=== PATIENT | male | born 1980 | race Caucasian/White ===

== ENCOUNTER 2017-02-16 23:56 | Inpatient (IN) | payer OTHER ==
[~2017-02-16] VITALS: Ht 180.3 cm; Wt 68.0 kg
[2017-02-17] VITALS (19 sets, daily range): BP systolic 81–151; BP diastolic 17–121; PULSE 114–172; RESP 22–34; O2SAT 97–99
--- NOTE | 2017-02-17 00:06 | ED.REPORT ---
HPI-Abd Pain M Under 40 Date of Service Feb 17, 2017 ED Provider: Dr. Juarez Martínez MD A 36 year old male presents to the ED via [facility] from the [facility] with diffuse, cramping abdominal pain that initially began 12 days ago. Associated symptoms include constipation, nausea, intractable vomiting, SOB, and diaphoresis. His pain has become progressively worse since onset. Last BM is unknown. Patient denies any similar symptoms previously. He denies experiencing any withdrawal symptoms has been incarcerated for the past 2 weeks. The patient denies any recent fever, chills, hematochezia or hematemesis. Nursing Notes Stated Complaint: VOMITING Chief Complaint: Male Abdominal Pain Nursing Notes Reviewed: Yes Allergies: Coded Allergies: No Known Allergies (Unverified , 08/19/15) General Time Seen by MD: 00:06 Chief Complaint Abdominal pain Hx Obtained From: Patient Arrived By: Police Sudden in Onset?: No Onset Occurred: More than a week ago... (2 weeks) Symptom Duration: Since onset Progression since Onset: Gradually worsening Location: : Diffuse Quality: Cramping, Painful Radiation: : Does not radiate Severity: Current: Moderate Severity: Maximum: Moderate Associated with: Reports: Constipation, Nausea, Vomiting, Denies: Chills, Fever, Hematemesis, Hematochezia Pertinent Negative: Pt denies other symptoms Recent Healthcare: No recent doctor visit, No recent hospitalization Past Medical History Past Medical History None reported. Past Surgical History None reported. Smoking History Unknown if Ever Smoker Social History Currently in [facility] Drug Use: IV drugs (Last used 3 weeks ago) Other Social History: Local resident Ambulatory Status Independent Review of Systems Constitutional: Denies: Chills, Fever GI: Reports: Abdominal pain, Constipation, Nausea, Vomiting, Denies: Hematemesis, Hematochezia Complete sys rev & neg: except as marked. Skin: Reports Diaphoresis Physical Exam Initial Vital Signs Vital Signs (First) Date Time Temp Pulse Resp B/P Pulse Ox O2 Delivery O2 Flow Rate FiO2 02/17/17 00:10 35.9 144 34 118/85 99 Room Air Initial VS: Reviewed Head / Eyes: Atraumatic, Normocephalic, PERRL Neck: Supple, Non-tender, Full range of motion Extremities: Vascular intact, Neuro intact, No swelling, No tenderness Skin: Warm, Dry, No cyanosis Neurologic: Alert, Oriented, Nonfocal General/Constitutional: Awake, Alert Distress / Hydration: Positive: Distress moderate Appearance / Presentation: Positive: Uncomfortable Respiratory / Chest: Atraumatic, Breath sounds NL, Breath sounds = bilat, No respiratory distress Cardiovascular: Heart rate NL, Regular rhythm, Heart sounds NL Abdomen: Atraumatic, Soft, No guarding, No rebound Tenderness/Guarding/Rebound: Positive: Tender diffuse Back: Atraumatic, Inspection NL Skin: Atraumatic, Color NL, Warm Color / Condition: Positive: Diaphoresis present Interpretation & Diagnostics Lab Results Interpretation Result Diagram: 02/17/17 0032 02/17/17 0032 Test 02/17/17 00:32 02/17/17 02:20 White Blood Count 7.6th/mm3 (3.8-10.1) Red Blood Count 7.37mil/mm3 (4.40-5.80) Hemoglobin 18.9g/dL (13.8-17.2) Hematocrit 54.1% (41.0-50.0) Mean Corpuscular Volume 73.4fL (81-100) Mean Corpuscular Hemoglobin 25.6pg (27.0-35.0) Mean Corpuscular Hemoglobin Concent 34.9% (32.0-37.0) Red Cell Distribution Width 14.6% (12.3-15.4) Platelet Count zakia/L (150-400) Neutrophils (%) (Auto) 75.7% (40-74) Lymphocytes (%) (Auto) 19.3% (14-46) Monocytes (%) (Auto) 4.3% (4-12) Eosinophils (%) (Auto) 0.3% (0-5) Basophils (%) (Auto) 0.3% (0-3) Prothrombin Time 12.7sec (8.1-12.5) Prothromb Time International Ratio 1.18ratio Sodium Level 138mEq/L (134-144) Potassium Level 3.0mEq/L (3.5-5.2) Chloride Level 93mEq/L (97-108) Carbon Dioxide Level 20mmol/L (18-29) Blood Urea Nitrogen 12mg/dL (6-20) Creatinine 1.35mg/dL (0.76-1.27) Estimat Glomerular Filtration Rate 64mL/min (>59) Glucose Level 215mg/dL (60-99) Calcium Level 9.2mg/dL (8.5-10.1) Magnesium Level 2.2mg/dL (1.6-2.6) Total Bilirubin 0.6mg/dL (0.0-1.2) Aspartate Amino Transf (AST/SGOT) 74U/L (0-50) Alanine Aminotransferase (ALT/SGPT) 561U/L (0-44) Alkaline Phosphatase 116U/L (25-150) Total Protein 7.6g/dL (6.4-8.4) Albumin 3.7g/dL (3.4-5.0) Lipase 19U/L (13-60) Pulse Oximetry Interpretation Pulse Oximetry: Pulse Ox normal (99%), On room air ECG Interpretation ECG Interpretation: Sinus tachycardia Rate 112 bpm Time: 00:55 Interpreted by: ED physician Rhythm Strip Interpretation : Time: 00:55 Rhythm Strip Interpretation: Interpreted by me, Rate (112), Sinus tachycardia Re-Eval/Medical Decision Re-Evaluation/Progress : Time of Eval: 01:28 Patient Status: Condition improved Re-Evaluation/Progress Note: Patient is rechecked. He is informed of his concerning lab results. All of his questions about the current intended treatment plan are addressed. Counseled Regarding: Diagnosis, Lab results Patient Discharge & Departure Shift Change Sign-Out Patient Care Transferred: Yes Discussed Complaint(s): Yes Laboratory Evaluation: Lab evaluation discussed Imaging Studies: Ordered, not yet done Dr. Olvera Primary Impression: Abdominal pain Abdominal location: generalized Qualified Code: R10.84 - Generalized abdominal pain Additional Impressions: Lactic acidosis Dehydration Discharge Condition All VS Reviewed: Yes Condition: Stable Referrals: [facility] (PCP) [facility] Care Transferred to: Dr. Olvera Care Transferred at: 03:00 Scribe Attestation Portions of this note were transcribed by Lucas Chaney. I, Dr. Martínez, personally performed the history, physical exam and medical decision-making; I reviewed and confirmed the accuracy of the information in the transcribed note. Signed by: Lucas Chaney, 02/17/17. Juarez Martínez DO Feb 17, 2017 00:06 LUCAS CHANEY Feb 17, 2017 00:11
[2017-02-17] MEDS ORDERED: Ondansetron 2 mg/mL 2 mL Inj IVPUSH PRN ×3 (00:10→04:25)
[2017-02-17] MEDS ORDERED: 0.9% Sodium Chloride 1,000 ML IV ONE ×2 (00:10→03:05)
[2017-02-17] MEDS: HYDROmorphone 0.5 mg/0.5 mL iSecure Syringe IVPUSH PRN ×5 (00:35→03:34)
[2017-02-17 00:51] LABS: INR 1.18 ratio
[2017-02-17 01:01] LABS: Magnesium 2.2 mg/dL (1.6-2.6)
[2017-02-17] MEDS ORDERED: Iohexol 300 mg/mL 30 mL Inj PO ONE (01:15)
[2017-02-17 01:17] LABS: BASOPHILS % (AUTO) 0.3 % (0-3); EOSINOPHILS % (AUTO) 0.3 % (0-5); MONOCYTES % (AUTO) 4.3 % (4-12); Mean Corpuscular Hemoglobin 25.6 pg (27.0-35.0); Mean Corpuscular Volume 73.4 fL (81-100); NEUTROPHILS % (AUTO) 75.7 % (40-74)
[2017-02-17] MEDS: 0.9% Sodium Chloride 1,000 ML IV SCH ×8 (01:31→21:00)
[2017-02-17] MEDS ORDERED: Piperacillin-Tazo 3.375 Gm Inj 3.375 GM in Dextrose 5% Minibag Plus 50 ML IV ONE (03:00)
[2017-02-17] MEDS: HYDROmorphone 1 mg/mL Inj IVPUSH PRN ×2 (03:12→03:35)
[2017-02-17] MEDS ORDERED: Alum-Mag Hydrox-Simeth 30 mL Suspension PO PRN (03:55)
[2017-02-17] MEDS ORDERED: Polyethylene Glycol (PEG) 17 Gm Powder PO PRN (03:55)
[2017-02-17] MEDS ORDERED: Dextrose 5% 500 ML IV SCH (04:22)
[2017-02-17] MEDS ORDERED: HYDROmorphone 0.5 mg/0.5 mL iSecure Syringe IVPUSH PRN (04:25)
[2017-02-17] MEDS ORDERED: HYDROmorphone PCA 0.2 mg/mL 30 mL Inj IV PRN (04:25)
--- NOTE | 2017-02-17 05:13 | ABG ---
DateTimeAnalyzed 05:05:00 -_ pH ____7.316 - 7.350 7.450 pCO2 ___24.5__ -mmHg 35.0 45.0 pO2 108 -mmHg 69.0 116 HCO3- ___12.2__ -mmol/L 22.0 26.0 ABE __-12.0__ -mmol/L -2.0 2.0 tHb ___17.5__ -g/dL 12.0 18.0 O2Hb ___95.6__ -% COHb ____0.2__ -% 0.0 1.5 MetHb ____0.9__ -% 0.4 1.5 sO2 ___96.7__ -% 25.0 FIO2 ___21.0__ -% Drawn By TLA - Date/Time Notified____ 05:13:00 -_ Notified By TLA - Notified Whom ___Dr. Sullenberger -____ B 760 -mmHg tO2 ___23.6__ -Vol% [facility] test _Positive -
[2017-02-17 05:27] LABS: BASOPHILS % (AUTO) 1.1 % (0-3); EOSINOPHILS % (AUTO) 0.2 % (0-5); MONOCYTES % (AUTO) 12.3 % (4-12); Mean Corpuscular Hemoglobin 26.1 pg (27.0-35.0); Mean Corpuscular Volume 76.2 fL (81-100); Platelet Count 256 bil/L (150-400)
--- NOTE | 2017-02-17 05:30 | NUR ---
Admit/Transfer to CCU: Report received from Federico Villasenor RN. Pt. arrived from ER via wheelchair. Pt. transferred from wheelchair to bed with standby assist. Pt. very pale in appearance, cool to touch, with mottled skin appearance. Unable to obtain BP with automatic machine or manual auscultation at this time. Pt. remains alert and oriented X3. Pt. transferred to CCU room 2013, report given to Cj Shelton RN.
--- NOTE | 2017-02-17 05:30 | PCM.HPMED ---
Subjective Date of Service Feb 17, 2017 Primary Provider: Admitting Physician: Isabel Mcduffie DO Primary Care Physician: Sawyer Attending Physician: Isabel Mcduffie DO Admit Status: From the Emergency Department, [facility] Telemetry Chief Complaint: Abdominal pain with associated nausea, vomiting, diaphoresis, fever, chills History of Present Illness: Mr. Perez is an extremely pleasant 36-year-old gentleman currently incarcerated at [facility] for the recent 12 days, presented to the emergency department with a 2 week onset of increasing abdominal pain with associated fever, chills, nausea, vomiting, diaphoresis. Stat CT was initially read to reveal possible perforated appendix and surrounding abscess. Gen. surgery was emergently consulted, who recommended evaluation for interventional radiology drain placement in morning. He was admitted for evaluation and treatment of suspected perforated appendicitis and pericecal abscess, which has resulted in sepsis. - Hospital day 1 Mr. Perez states that he has been experiencing progressively increasing abdominal pain over the recent 2 weeks, with associated fever, chills, nausea, vomiting, diaphoresis. He states he has been unable to tolerate any oral intake , and cannot recall when his last bowel movement occurred. He denies any blood in his vomit or stools when experiencing these episodes. He states he has been incarcerated over the recent 12 days, and recent incarceration was preceded heroin use. He states that he has been heroin free over the recent 12 days, in addition to tobacco and alcohol. He denies any past medical history, including any cardiac, pulmonary, gastrointestinal disorders. Denies any history of similar. Initial evaluation in the ED revealed T 35.9, pulse 144, respiratory rate 34, blood pressure 118/85, 99% on room air; white count 7.6 with 75.7% neutrophils, hemoglobin 18.9, hematocrit 54.1, large platelets were noted with clumping; sodium 138, potassium 3.0, creatinine 1.35, glucose 2:15, lactic acid 7.6 with repeat 4.8, total bili 0.6, AST 74, ALT 561, alkaline phosphatase 116, lipase 19 , albumin 3.7. Blood cultures were obtained prior to initiation of antibiotics. Antibiotic regimen included vancomycin and Zosyn. Other therapies included 4 L normal saline, Toradol 30 mg IV push, multiple administrations of hydromorphone 1 mg IV pushes, in addition to morphine [address] abdomen and pelvis with contrast initial reading was reported to reveal possibility of perforated appendix with surrounding abscess. Final report not yet completed. The emergency department contacted general surgery, whom recommended IR consultation in morning for evaluation of drain placement. Review of Systems: Complete review of systems obtained, pertinent positives and negatives as noted in history of present illness Allergies Coded Allergies: No Known Allergies (Unverified , 08/19/15) Home Medications Patient denies any home or routine medications PMH Patient denies any past medical history other than heroin use Patient denies any history of cardiac, pulmonary, gastrointestinal disorders Denies any history of celiac, Crohn's, heart dysrhythmia, asthma Surgical History Denies any surgical history Family History Notes a family history positive for diabetes, coronary artery disease, notably of his father whom had required multiple bypass surgeries Social History Occupation: currently incarcerated Hx Alcohol Use: Yes Hx Substance Use: Yes (heroin; last use approximately 12 days ago) Hx Tobacco Use: No Living Arrangement: Incarcerated ([facility]) Exam Vital Signs Vital Sign - Last Date Time Temp Pulse Resp B/P Pulse Ox O2 Delivery O2 Flow Rate FiO2 02/17/17 03:58 142 22 126/104 98 Room Air 02/17/17 00:10 35.9 Intake and Output 02/16/17 02/16/17 02/17/17 Cumulative From/Thru 14:59 22:59 06:59 02/17/17 00:10 - 02/17/17 03:18 Intake Total 4000 ml 4000 ml Balance 4000 ml 4000 ml Intake IV Total 4000 ml 4000 ml Exam General: Alert and oriented 3, in moderate distress wearing long term jumpsuit, shifting his weight and remaining standing and attempts to alleviate pain HEENT: Atraumatic, normocephalic, sclerae anicteric, membranes moist Neck: Full range of motion without pain Cardiac: Tachycardic with rate approximately 150 at time of evaluation, no murmurs were able to be appreciated Respiratory: Adequate airflow all barber without wheeze or rhonchi Abdomen: Diffusely tender, nondistended, mild guarding Skin: Diaphoretic, multiple tattoos across body MSK: 5 out of 5 muscle strength in all 4 extremities at major joints of hip and shoulder; able to stand and ambulate without assistance Extremities: No edema Neuro: Cranial nerves II through XII grossly intact, speech without slur, facial expressions equal and symmetric Psych: Appropriate mood, affect, and responsive to questioning, in notable distress throughout interview Lab and Diagnostics Result Diagram: 02/17/173102/17/1731 Assessment & Plan Mr. Perez is an extremely pleasant 36-year-old gentleman currently incarcerated at [facility] for the recent 12 days, presented to the emergency department with a 2 week onset of increasing abdominal pain with associated fever, chills, nausea, vomiting, diaphoresis. Stat CT was initially read to reveal possible perforated appendix and surrounding abscess. Gen. surgery was emergently consulted, who recommended evaluation for interventional radiology drain placement in morning. He was admitted for evaluation and treatment of suspected perforated appendicitis and pericecal abscess, which has resulted in sepsis. - Hospital day 1 Sepsis, severe, acute, present on admission, under therapy - On admit: T 35.9, P1 44, RR 34, lactic acid 7.6, with repeat 4.8 - Treat underlying cause: Suspected pericecal abscess - Transfer to CCU Suspected perforated appendix and pericecal abscess formation, acute, present on admission, under evaluation - Initial CT A/P with contrast final report pending; initial report suspicious for pericecal abscess and possible appendix perforation - Await final radiology report - Continue with antibiotics Zosyn and Vanco - CONTACT IR SOON POSSIBLE IN MORNING Lactic acidosis, acute, present on admission, under evaluation - On admit: Initial 7.6, repeat 4.8 - Received ~4 L in emergency department + 1L NS after transfer to floor - Continue fluid hydration NS 150 - Stat repeat ordered when pt transferred to PCC/CCU Severe abdominal pain with suspected opioid tolerance, acute, present on admission, under evaluation - Patient required multiple doses of Dilaudid and morphine in the emergency department - Patient has history of heroin use, with most recent use approximately 12 days prior to this admission - We will proceed with opioid tolerant ASSOCIATE PROFESSOR OF MATHEMATICS at this time - Proceed with STAT repeat CT A/P wo contrast if lactic increases/stays same Erythrocythemia, chronicity unknown, present on admission, under evaluation - On admit: Hemoglobin 18.9, hematocrit 54.1 - Likely secondary to dehydration from recent nausea and vomiting due to abdominal pain - Monitor for resolution post hydration Hypokalemia, likely acute, present on admission, under evaluation - On admit: K 3.0, Mg 2.2 - K [place] in place Acute kidney injury, present on admission, under evaluation - On admit:Cr 1.35 - Likely secondary to dehydration resulting from nausea and vomiting due to underlying infection - Continue to hydrate Hyperglycemia, likely acute, present on admission, under evaluation - On admit:Glc 215 - Likely secondary to stress release - Continue to monitor, no indication for insulin at this time Elevated liver function tests, chronicity unknown, present on admission, under evaluation - On admit: total bili 0.6, AST 74, ALT 561, alkaline phosphatase 160 - Patient did not admit to any underlying hepatic pathologies such as hepatitis - Acute hep panel, HIV panel History of incarceration - CLINICAL PROFESSOR consult - Hep panel, HIV, MRSA PRN: bowel, fever, antiemetic, pain GI: H2B DVT: Hep q8 Diet: NPO CODE STATUS: Full code Patient status: Due to severity of presenting symptoms, likely course of care, and risk of adverse events, anticipated length of stay exceeds 2 midnights; patient admitted under inpatient status to CCU Pain Evaluation: Pain not Controlled GI Prophylaxis: H2 mack VTE Prophylaxis: Sub-Q Heparin (Unfractionated) Resuscitation Status: CPR: Attempt Resuscitation Attending Statement The patient was seen and examined together with house staff on 02/17/2017 and I agree with the history, exam and plan as outlined in the note above. Jeanine Hickman DO Feb 17, 2017 04:22 Isabel Mcduffie DO Feb 17, 2017 06:15
[2017-02-17 05:39] LABS: APPEARANCE,URINE CLEAR (CLEAR,HAZY); COLOR,URINE YELLOW (YELLOW); OCCULT BLOOD,URINE NEGATIVE (NEGATIVE); PH,URINE 6.5 (5.0-8.0); UROBILINOGEN,URINE NORMAL (NORMAL)
[2017-02-17] MEDS ORDERED: Vancomycin Inj 1,500 MG in 0.9% Sodium Chloride 500 ML IV ONE (06:00)
--- NOTE | 2017-02-17 07:04 | PCM.CONPHA ---
Subjective Date of Service: Feb 17, 2017 Requesting Provider: Jeanine Hickman DO Abdominal pain with associated nausea, vomiting, diaphoresis, fever, chills History of Present Illness sepsis secondary of pericecal abscess Reason for Pharmacy Consult: Vancomycin Dosing Objective Assessment/Plan Assessment/Plan a/ - 36 y/o male patient admitted in for sepsis, secondary to pericecal abscess and needed Vancomycin therapy for empirical coverage - Afebrile, WBC: 7.6 with 74% neutrophils, lactic acid: 7.6 at admission, then 4.8 and 6 following labs; blood cultures are pending - Received Vancomycin loading dose of 1.5G and Zosyn - Wt: 72.7kg, ht: 180cm, BMI: 22.4kg/m2; SCr: 1.35 mg/dL at admission, then 1.15 mg/dL (poor intake and dehydration???) est. clearance ~ 90 ml/min, t1/2 ~ 9hrs, Vd~51L p/ - Give Vancomyci 1250 mg iv q12h. Trough level ordered before 4th dose @ 1730 02/18. This regimen would yield a trough around 16 Pharmacy will continue to monitor daily. Thank you Bobby Ye Feb 17, 2017 07:04
--- NOTE | 2017-02-17 07:50 | PCM.HPANE ---
Patient Data Date of Service: Feb 17, 2017 Surgeon Admitting Provider:Isabel Mcduffie DO Attending Provider:Jose Moore DO Primary Care Physician:Sawyer Other Provider:Gila Khan Anesthesia Reason for Visit Pericecal Abscess,Sbo,Sepsis Ht/WT & BMI Height (Feet): 5 Height (Inches): 11.00 Weight (Kilograms): 72.730 Body Mass Index 22.45 Allergies Coded Allergies: No Known Allergies (Unverified , 02/17/17) Past Anesthesia History Anesthesia History: Denies:: Anesthesia Reactions Diabetes History Hx Diabetes?: No Medications Hypertension Medication: No Home Meds Incl Beta Ayana: No History History of ENT Problems?: No HEENT History: Denies:: Abnormal Airway Difficult Intubation Denture Type: None Teeth Condition: Tooth Decay Hx of Heart Problems?: Yes Cardiovascular History: Positive for:: Chest Pain Denies:: Cardiac Surgery Congestive Heart Failure Edema Heart Murmur Hypertension Irregular Heartbeat Pacemaker Thrombophlebitis Hx of Respiratory Problem?: Yes Respiratory History: Positive for:: Pneumonia Denies:: Asthma COPD Chest Surgery Dyspnea Emphysema Hemoptysis Tuberculosis Hx Neurologic Problems?: No Neurological History: Positive for:: Headaches Denies:: Alzheimer's Disease CVA Dementia Dizziness Parkinson's Disease Seizures Hx of GI Problems?: Yes Hx of Problems?: No Genitourinary History: Denies:: HX of Hemodialysis Kidney Stones Urinary Tract Infection HX of Peritoneal Dialysis: No Male Hx: Denies:: Prostate Problems Scrotal Mass Testicular Surgery Hx Musculoskeletal Problems?: Yes Musculoskeletal History: Positive for:: Back Injury Musculoskeletal Trauma Hx of Psycho/Social Problems?: Yes Psycho Social History: Positive for:: Anxiety Hx Depression Denies:: Bipolar Disorder Suicide Attempt Other Psych Pertinent History: history substance abuse Hx Surgeries?: Yes (several broken bones) Hx Any Other Health Problems?: Yes Other History: Positive for:: Hospitalization Denies:: Cancer (father had CA) Thyroid Disease History Blood Transfusions: Positive for:: Accept Blood Products? Denies:: Blood Transfusions Hx Diabetes: No Occupation: currently incarcerated Hx Alcohol Use: Yes (Rarely, used to drink more several years ago)Hx Substance Use: Yes (heroin IV; last use approximately 14 of January; weed; "I've tried it all") Smoking Status: Unknown if Ever Smoker Have You Smoked inLast 12 mo: NoApprox How Many Cigarettes/day: "A cigarette here and there" Stop/Bang Treated for Sleep Apnea?: No Do You Have a CPAP Machine?: No S-Snoring: Do You Snore Loudly: No T-Tired: feel tired, fatigued: No O-Obsered: Observed not breath: No P-Blood Pressure: treated: No B- Body Mass Index > 35 kg/m2: No A- Age over 50: No N- Neck Large Circumference: No G- Gender Male: Yes WILLI Total Score: 1 Risk Assessment Category Category 1A: Patient has history of documented sleep apnea, and HAS NOT received any narcotic, sedative or anesthesia administration during this stay. Category 1B: Patient has history of documented sleep apnea, and HAS received any narcotic , sedative or anesthesia administration during this stay Category 2: Patient has SUSPECTED Obstructive Sleep Apnea, and HAS received any narcotic , sedative or anesthesia administration during this stay. Category 3: Patient has SUSPECTED Obstructive Sleep Apnea and HAS NOT received narcotic, sedative or anesthesia administration during this stay. Category 4: Outpatient in Procedural Areas with known sleep apnea or who screen positive for High Risk via the STOP/BANG questionnaire. Exam Exam Vital Signs Vital Signs Date Time Temp Pulse Resp B/P Pulse Ox O2 Delivery O2 Flow Rate FiO2 02/17/17 07:30 22 98 02/17/17 05:56 160 22 134/62 98 Room Air 02/17/17 05:10 36.3 133 33 151/97 98 Room Air 02/17/17 04:28 35.9 142 22 126/104 98 Room Air 02/17/17 03:58 142 22 126/104 98 Room Air 02/17/17 03:29 154 22 146/121 98 Room Air 02/17/17 02:50 136 22 130/96 98 Room Air 02/17/17 01:01 114 28 138/85 98 Room Air 02/17/17 00:10 35.9 144 34 118/85 99 Room Air General Appearance: Alert, Oriented X3, Cooperative, Moderate Distress HEENT/AIRWAY: MP 1, Neck Movement (Full) Lungs: Clear to Auscultation, Normal Air Movement, Diminished Heart: Normal S1, Normal S2, Other (tachycardic) Meds/Labs/Diagnostics Admission Meds Current Medications Sodium Chloride (Normal Saline) 1,000 ml @ 0 mls/hr Q0M ONCE IV Last administered on 02/17/17 00:35; Start 02/17/17 at 00:10; Stop 02/17/17 at 00:29 ; Status DC Ketorolac Tromethamine 30 mg 30 mg ONCE ONCE IVPUSH Last administered on 00:35; Start 02/17/17 at 00:10; Stop 02/17/17 at 00:29; Status DC Sodium Chloride (Normal Saline) 1,000 ml @ 0 mls/hr Q0M IV Last administered on 02/17/17 01:31; Start 02/17/17 at 01:15 Iohexol 9000 mg 9,000 mg ONCE ONCE PO Last administered on 02/17/17 01:31; Start 02/17/17 at 01:15; Stop 02/17/17 at 01:16; Status DC Piperacillin Sod/ Tazobactam Sod 3.375 gm/Dextrose/ Water 50 ml @ 100 mls/hr ONCE ONCE IV Last administered on 02/17/17 03:35; Start 02/17/17 at 03:00; Stop 02/17/17 at 03:29; Status DC Sodium Chloride 1,000 ml @ 0 mls/hr Q0M ONCE IV Last administered on 03:12; Start 02/17/17 at 03:05; Stop 02/17/17 at 03:06; Status DC Sodium Chloride 1,000 ml @ 150 mls/hr Q6H40M IV Last administered on 06:15; Start 02/17/17 at 04:55 Vancomycin HCl/ Sodium Chloride (Vancocin Inj/ Normal Saline) 500 ml @ 333.333 mls/hr ONCE ONCE IV Last administered on 02/17/17 06:12; Start 02/17/17 at 06 :00; Stop 02/17/17 at 07:29; Status DC Labs Test 02/17/17 00:32 02/17/17 04:35 02/17/17 05:10 Prothrombin Time 12.7sec (8.1-12.5) Prothromb Time International Ratio 1.18ratio Magnesium Level 2.2mg/dL (1.6-2.6) Lipase 19U/L (13-60) Urine Color Yellow (YELLOW) Urine Appearance Clear (CLEAR,HAZY) Urine pH 6.5 (5.0-8.0) Urine Specific [employer] <1.005 (1.003-1.035) Urine Protein Negativemg/dL (NEG,TRACE) Urine Glucose (UA) Negativemg/dL (NEGATIVE) Urine Ketones Negativemg/dL (NEGATIVE) Urine Occult Blood Negative (NEGATIVE) Urine Nitrite Negative (NEGATIVE) Urine Bilirubin Negative (NEGATIVE) Urine Urobilinogen Normalmg/dL (NORMAL) Urine Leukocyte Esterase Negative (NEGATIVE) Urine RBC 0-2/hpf (0-2) Urine WBC 0-5/hpf (0-5) Urine Epithelial Cells Occasional/hpf (NONE-MOD) Urine Crystals None seen (NONE SEEN) Urine Bacteria None/hpf (NONE-FEW) Urine Hyaline Casts None/lpf (NONE) Urine Granular Casts None seen (NONE SEEN) Urine Waxy Casts None seen (NONE SEEN) Urine Red Blood Cell Casts None seen (NONE SEEN) Urine White Blood Cell Casts None seen (NONE SEEN) Urine Mucus None seen (None Seen) Urine Trichomonas None seen (NONE SEEN) Urine Yeast None (NONE SEEN) Urinalysis Comment None Urine Culture Reflexed Not indicated White Blood Count 6.4th/mm3 (3.8-10.1) Red Blood Count 6.55mil/mm3 (4.40-5.80) Hemoglobin 17.1g/dL (13.8-17.2) Hematocrit 49.9% (41.0-50.0) Mean Corpuscular Volume 76.2fL (81-100) Mean Corpuscular Hemoglobin 26.1pg (27.0-35.0) Mean Corpuscular Hemoglobin Concent 34.3% (32.0-37.0) Red Cell Distribution Width 14.2% (12.3-15.4) Platelet Count 256bil/L (150-400) Neutrophils (%) (Auto) 65.0% (40-74) Lymphocytes (%) (Auto) 21.2% (14-46) Monocytes (%) (Auto) 12.3% (4-12) Eosinophils (%) (Auto) 0.2% (0-5) Basophils (%) (Auto) 1.1% (0-3) Sodium Level 136mEq/L (134-144) Potassium Level 3.5mEq/L (3.5-5.2) Chloride Level 104mEq/L (97-108) Carbon Dioxide Level 12mmol/L (18-29) Blood Urea Nitrogen 16mg/dL (6-20) Creatinine 1.15mg/dL (0.76-1.27) Estimat Glomerular Filtration Rate 76mL/min (>59) Glucose Level 194mg/dL (60-99) Lactic Acid Level 6.0mmol/L (0.4-2.0) Calcium Level 7.3mg/dL (8.5-10.1) Total Bilirubin 1.0mg/dL (0.0-1.2) Aspartate Amino Transf (AST/SGOT) 58U/L (0-50) Alanine Aminotransferase (ALT/SGPT) 350U/L (0-44) Alkaline Phosphatase 77U/L (25-150) Total Protein 5.4g/dL (6.4-8.4) Albumin 2.7g/dL (3.4-5.0) Hepatitis C Comment . Plan Impression Patient chart reviewed, patient interviewed and anesthestic plan with risks, benefits, and alternatives discussed, and informed consent obtained. NPO per Anesth. Guidelines: No ASA Physical Status: ASA3 Plus Emergency Anesthetic Support Modalities: Arterial Line, Central Line Anesthetic Plan: GA Bene/Risks/Altern/Consents: Yes HP Complete Prior to Induction: Yes Elmo Galloway MD Feb 17, 2017 07:50
[2017-02-17] MEDS ORDERED: Lactated Ringer's 1,000 ML IV ONE ×3 (07:52→08:30)
[2017-02-17] MEDS ORDERED: Norepinephrine 8,000 mCg/250 mL D5W Premix IV ONE (08:10)
[2017-02-17] MEDS ORDERED: Propofol 10,000 mCg/mL 20 mL Inj ONE (08:23)
[2017-02-17] MEDS ORDERED: Succinylcholine Chloride 20 mg/mL 5 mL Inj ONE (08:23)
[2017-02-17] MEDS ORDERED: Phenylephrine/NS 100 mCg/mL 10 mL Syringe IVPUSH ONE (08:23)
[2017-02-17] MEDS ORDERED: Ketamine 10 mg/mL 20 mL Inj ONE (08:23)
[2017-02-17] MEDS ORDERED: Rocuronium 10 mg/mL 5 mL Inj ONE (08:23)
[2017-02-17] MEDS ORDERED: fentaNYL-PF 50 mCg/mL 2 mL Inj ONE (08:23)
[2017-02-17] MEDS ORDERED: Vancomycin Dose per Pharmacist XX SCH (08:30)
[2017-02-17 08:37] LABS: Mean Corpuscular Hemoglobin 26.5 pg (27.0-35.0); Mean Corpuscular Volume 77.3 fL (81-100)
--- NOTE | 2017-02-17 08:44 | CONS ---
[address] [address] CONSULTATION REPORT PATIENT: LEON GUERRERO : 1980 MR#: [id number] ADMIT: 02/17/2017 JOB ID: [id number] DATE OF SERVICE: 02/17/2017 CHIEF COMPLAINT: Abdominal pain. CONSULTATION REQUESTED BY: Ahsan Espinal MD of the ICU. HISTORY OF PRESENT ILLNESS: This is a 36-year-old healthy man with a history of IV heroin use who presented to the emergency department last night from [facility] with a 2-week history of increasing abdominal pain associated with obstipation. He reports he has not had a bowel movement or been passing gas for the past two weeks. He was having associated fever, chills, nausea, vomiting, and diaphoresis. Initial CT scan was worrisome for abscess. His heart rate was in the 140s with a lactate of 7.6, which improved to 4.8 by 2 a.m. At 5 a.m. his lactate was increasing again, and he remained tachycardic. A repeat CT scan was performed, demonstrating widespread pneumatosis, portal venous gas, and diffuse intra-abdominal fluid. I was paged this morning after the [facility] radiologist read the CT scan, and called the aoc airspace control officer, concerned about the significant change in the 4 hour interval between 2 a.m. and 6 a.m. On interviewing the patient, he reports that in the last month he was recently admitted to [facility] and has not been able to pass gas or stool for two weeks. His white count has been normal, but lactate remains elevated. PAST MEDICAL HISTORY: History of poly substance abuse. He denies additional medical problems. PAST SURGICAL HISTORY: None. MEDICATIONS: None. ALLERGIES: No known drug allergies. REVIEW OF SYSTEMS: An 11-point review of systems is negative for hepatic, kidney, cardiac, pulmonary comorbidities. It is positive as noted in the HPI and otherwise negative. FAMILY HISTORY: Reviewed and noncontributory. SOCIAL HISTORY: He has not drink alcohol recently as his focus is on polysubstance abuse. He reports that he has "tried everything", but primarily has been using IV heroin injected via his arms in the past and his last use was approximately 20-30 days ago. He reports that Belinda Guerrero is his next of kin, who is his aunt and lives in [facility]. His fiancee is Kaila Gautam. PHYSICAL EXAMINATION: Temperature 36.3, heart rate 160, blood pressure 134/62, respiratory rate of 22, saturation 98% on room air. General: Awake, alert, in significant distress. He is diaphoretic. Head normocephalic. Neck supple. Cardiac is tachycardiac, regular rhythm, no murmurs. Respiratory clear to auscultation bilaterally at the apices. His abdomen is diffusely distended with both rebound and guarding. It is tender in all four quadrants. No surgical scars. Extremities no edema. Neurologic no gross deficits. Psychiatric normal cognition and judgment. IMAGING: A CT scan of the abdomen and pelvis from 2 a.m. and 5 a.m. are personally reviewed. The reading radiologist was not available for comment, but there is pneumatosis, free fluid, and severe portal venous gas in the second CT scan which was not present on the first. LABS: White blood cell count on admission was 7.6 and at 5 a.m. was 6.4. Hematocrit is 49.9. Platelets 256. Comprehensive metabolic panel is normal with the exception of AST 58, ALT 350, alkaline phosphatase 77, bilirubin 1, and his lactate overnight was 7.6 at midnight, 4.8 at 2 a.m., and 6.0 at 5 a.m. ASSESSMENT: A 36-year-old man with free fluid, pneumatosis, severe portal venous gas, and a peritoneal abdomen. PLAN: We will proceed for emergent exploratory laparotomy based on all of the findings above. I have consented into the possibility of bowel resection and discussed with him that I expect that he will be he may remain critically ill and/or intubated for several weeks after the procedure. He understands all of this and elects to proceed.
--- NOTE | 2017-02-17 09:21 | ABG ---
DateTimeAnalyzed 09:12:00 -_ pH ____7.226 - 7.350 7.450 pCO2 ___35.6__ -mmHg 35.0 45.0 pO2 294 -mmHg 69.0 116 HCO3- ___14.2__ -mmol/L 22.0 26.0 ABE __-12.5__ -mmol/L -2.0 2.0 tHb ___15.6__ -g/dL 12.0 18.0 O2Hb ___97.6__ -% COHb ____0.1__ -% 0.0 1.5 MetHb ____1.1__ -% 0.4 1.5 sO2 ___98.8__ -% 25.0 FIO2 ___60.0__ -% Drawn By OR - Date/Time Notified____ 09:20:00 -_ Oxygen Device 1 VENTI MASK - Notified By lw - Notified Whom OR - B 761 -mmHg tO2 ___22.1__ -Vol% Mayo test N/A -
--- NOTE | 2017-02-17 09:56 | DRSVH ---
PROCEDURE: CT ABDOMEN AND PELVIS WITH CONTRAST (PNL-7102) INDICATIONS: diffuse pain TECHNIQUE: After the administration of intravenous contrast, 5 mm thick sections acquired from the diaphragm to the symphysis. 5 mm coronal and sagittal reformats were acquired. For radiation dose reduction, the following was used: automated exposure control, adjustment of mA and/or kV according to patient siz e. COMPARISON: None. FINDINGS: Image quality: Excellent. ABDOMEN: Lung bases: Lung bases are clear of acute opacities. 5 mm nodules noted in the left lower lobe (seri es 4, image 3). Heart size is normal. Solid organs: Liver and spleen are normal in size and enhancement. Gallbladder is within normal chan its. Biliary system is non dilated. Pancreas enhances normally. No adrenal nodules. Kidneys demon strate normal size and enhancement, without hydronephrosis. Peritoneum and bowel: Multiple dilated loops of small bowel noted in the abdomen and pelvis. Loops o f small bowel are dilated up to 4.8 cm in diameter. Dilated loops of small bowel have associated circ umferential wall thickening. Extensive mesenteric edema is noted. Moderate amount of scattered ascite s is noted in the abdomen and pelvis. There is mild peritoneal enhancement associated with the ascite s concerning for peritonitis. Fluid collection with enhancing periphery is noted in the right lower q uadrant adjacent to the cecum and the terminal ileum suspicious for abscess. The appendix is not visu alized appendicitis cannot be excluded. Nodes and vessels: No retroperitoneal or mesenteric adenopathy by size criteria. Aorta and inferior vena cava are normal in size. Miscellaneous: No ventral hernias. PELVIS: Genitourinary: Bladder wall thickness is normal. Miscellaneous: No inguinal hernias or adenopathy. Bones: No suspicious bony lesions. No vertebral body compression fractures. IMPRESSION: 1. Multiple dilated loops of small bowel associated circumferential wall thickening compatible small bowel obstruction. 2. Fluid collection with irregular peripheral enhancement in the right lower quadrant adjacent to cec um and terminal ileum concerning for abscess. The appendix is not definitely visualized in ruptured a ppendix cannot be excluded. 3. Circumferential wall thickening involving the terminal ileum which could related to pathology invo lving the appendix or a Crohn's disease. 4. Moderate amount of ascites scattered throughout the abdomen and pelvis. There is associated mild p eritoneal enhancement consistent with peritonitis. 5. 5 mm nodule in the left lower lobe. Recommend follow up imaging based on criteria outlined below. Fleischner Society criteria for SOLID lung nodule followup. Nodule size (mm)Low-risk patientHigh-risk [id number] follow-up neededFollow-up at 12 mo; if no vizcarra e, no further follow-up>[id number] CT at 12 mo; if no change, no further follow-up needed.Initial f ollow-up CT at 6-12 mo, then 18-24 mo if no change. >6-8Initial follow-up CT at 6-12 mo, then 18-24 mo if no change. Initial follow-up CT at 3-6 mo, then 9-12 mo and 24 mo if no change. >8Follow-up CT at 3, 9, 24 mo. Or PET and/or biopsy.Same as for low-risk pts. Dictated by: Radha Cruz MD, PhD on 02/17/2017 at 9:46 Approved by: Radha Cruz MD, PhD on 02/17/2017 at 9:54
--- NOTE | 2017-02-17 10:48 | NUR ---
NUTRITION ASSESSMENT Assess: 36 YO M admitted to CCU for pericecal abscess, SBO, and sepsis. Pt NPO X 1 day. Plan for exploratory laparotomy. PMHX: Heroin use. DIET: NPO. LABS: Glu 194, Lactic acid 6.0, AST 58, ALT 350, Alb 2.7 MEDICATIONS: Reviewed. GI: No BM noted. SKIN: No issues noted. ANTHROPOMETRICS: Wt: 72.73 kg, BMI 22.4 kg/m2, Admit wt: 72.73 kg. ESTIMATED NEEDS: Calories: 9246-5788 kcal/day (25-30 kcal/kg BW) Protein: 58-109 g/day (0.8-1.5 g/kg BW) NUTRITION DIAGNOSIS: 1) Inadequate oral intake related to decreased ability to consume sufficient energy as evidenced by NPO status. INTERVENTION: 1) Will await timely advancement of diet, if diet likely unable to be advanced in the near future, recommend nutrition support. MONITOR/EVALUATE: NPO status, diet advance, labs, GI/nutrition status. Follow per moderate nutrition risk guidelines.
--- NOTE | 2017-02-17 10:51 | PCM.ANEP1 ---
Post Anesthesia PACU Phase 1 Assessment Vital Signs Vital Signs Date Time Temp Pulse Resp B/P Pulse Ox O2 Delivery O2 Flow Rate FiO2 02/17/17 10:25 151 81/17 98 50 02/17/17 07:30 22 98 02/17/17 05:56 160 22 134/62 98 Room Air 02/17/17 05:10 36.3 133 33 151/97 98 Room Air 02/17/17 04:28 35.9 142 22 126/104 98 Room Air 02/17/17 03:58 142 22 126/104 98 Room Air 02/17/17 03:29 154 22 146/121 98 Room Air Anesthetic Administered: GA Level of Alertness: Drowsy, not talking MOSES's with Equal Strength: No Pain: No Nausea or Vomiting: No CV Function & Hydration Stable: Yes Airway Device: Endotrachial Tube Oxygen Delivery: Mechanical Ventilator Lungs: Clear to Auscultation, Normal Air Movement, Diminished PACU Phase 2 Assessment Complications: No Follow up Care: N/A Patient Instructions Provided: N/A Comments Intubated and sedated in CCU. BP 100/70's on norepi gtt. SpO2: 100% Tyron Souza MD Feb 17, 2017 10:51
--- NOTE | 2017-02-17 11:00 | DRSVH ---
PROCEDURE: CT ABDOMEN AND PELVIS WITHOUT CONTRAST (PNL-7104) INDICATIONS: abd pain; eval poss perf TECHNIQUE: After the administration of oral contrast, 5 mm thick sections acquired from the diaphragms to the sy mphysis. 5 mm coronal and sagittal reformats were performed. For radiation dose reduction, the foll owing was used: automated exposure control, adjustment of mA and/or kV according to patient size. COMPARISON: [facility], CT, CT ABD PELVIS W CON, 02/17/2017, 2:32. FINDINGS: Image quality: Excellent. ABDOMEN: Lung bases: Trace bilateral pleural fluid collections noted. Heart size is normal. Solid organs: Extensive portal venous gas is developed in the interval since the prior examination. G allbladder contains iodinated contrast material related to recent contrasted CT scan. Pancreas is no rmal in size. No adrenal nodules. Retained contrast material noted in the genitourinary collecting s ystems bilaterally related to recent contrasted CT scan. Peritoneum and bowel: Multiple dilated loops of small bowel again noted. Extensive pneumatosis involv ing multiple loops of small bowel and multiple loops of colon in the interval since prior CT scan. Ci rcumferential wall thickening involving several loops of dilated small bowel again noted. Free intrap eritoneal air and mesenteric air is developed in interval since prior CT scan. Air is noted in the pe ritoneal reflections suspicious for peritoneal pneumatosis. Free air is noted in the retroperitoneum. Moderate to large amount of ascites is noted which is increased in volume compared to prior CT scan. Fluid collection in the right lower quadrant adjacent to the cecum which demonstrated peripheral enh ancement by earlier CT scan is less well-visualized in the absence of intravenous contrast, but is no t grossly changed compared with the prior study. The study is as increased density with measurements ranging from 34-41 Hounsfield units. Nodes and vessels: No retroperitoneal or mesenteric adenopathy by size criteria. Aorta is normal in size. The IVC is diminished in caliber consistent with decreased venous return. Miscellaneous: No ventral hernias. PELVIS: Genitourinary: Bladder wall thickness is normal. Miscellaneous: No inguinal hernias or adenopathy. Bones: No suspicious bony lesions. No vertebral body compression fractures. Grade 1 L5-S1 isthmic s pondylolisthesis noted. IMPRESSION: 1. Extensive large and small bowel pneumatosis in the setting of small bowel obstruction with extensi ve portal venous gas which has developed in the interval since prior CT scan obtained 02/17/17 at 0235 hours. Findings compatible with bowel ischemia. 2. Peritoneal pneumatosis and pneumoretroperitoneum which could be related to ruptured bowel versus i nfection with gas-forming organism. 3. Free intraperitoneal air and mesenteric air consistent with bowel perforation and/or mesenteric is chemia. 4. Decreased IVC caliber highly suspicious for severe hypotension. Please correlate with clinical mekhi a. 5. Moderate to large amount of ascites which is increased in volume compared to 02/17/17. The ascites has increased density compared to the prior CT scan which could be related to hemorrhage, proteinaceo us fluid or infectious fluid. 6. Dilated loops of small bowel compatible with small bowel obstruction. 7. Probable right lower quadrant pericecal abscess suboptimally visualized in the absence of intraven ous contrast does not appear significantly changed compared to prior CT scan. 8. Trace bilateral pleural effusions. Dictated by: Radha Cruz MD, PhD on 02/17/2017 at 10:08 Approved by: Radha Cruz MD, PhD on 02/17/2017 at 10:58
[2017-02-17] MEDS: fentaNYL 2,500 mCg/250 mL 2,500 MCG in IV Premix 1 EACH IV SCH (11:18)
[2017-02-17] MEDS: Propofol Inj 1,000,000 MCG in IV Premix 1 EACH IV SCH (11:18)
[2017-02-17] MEDS ORDERED: Albumin 25% 50 GM in IV Premix 1 EACH IV ONE (11:20)
[2017-02-17 11:34] LABS: APPEARANCE,URINE HAZY (CLEAR,HAZY); COLOR,URINE DARK YELLOW (YELLOW); OCCULT BLOOD,URINE NEGATIVE (NEGATIVE); PH,URINE 5.5 (5.0-8.0); UROBILINOGEN,URINE NORMAL (NORMAL)
--- NOTE | 2017-02-17 11:47 | ABG ---
DateTimeAnalyzed 11:39:00 -_ pH ____7.254 - 7.350 7.450 pCO2 ___21.2__ -mmHg 35.0 45.0 pO2 241 -mmHg 69.0 116 HCO3- ____9.1__ -mmol/L 22.0 26.0 ABE __-16.6__ -mmol/L -2.0 2.0 tHb ___19.6__ -g/dL 12.0 18.0 O2Hb ___97.7__ -% COHb ____0.0__ -% 0.0 1.5 MetHb ____0.9__ -% 0.4 1.5 sO2 ___98.6__ -% 25.0 FIO2 ___50.0__ -% PRVC 530 - PEEP ___54.0__ -cmH2O Set_RR ___20.0__ -b/min Vt __558.0__ -L Drawn By jmw - Date/Time Notified____ 11:46:00 -_ Spontaneous_RR ___20.0__ -b/min Oxygen Device 1 VENTILATOR - Notified By jmw - Notified Whom DR KENDREGEN - B 761 -mmHg tO2 ___27.4__ -Vol% OrderingPhysicianInitials bak - Mayo test N/A -
[2017-02-17] MEDS: Famotidine Inj 20 MG in IV Premix 1 EACH IV SCH ×2 (11:48→19:54)
[2017-02-17] MEDS ORDERED: Piperacillin-Tazo 3.375 Gm Inj 3.375 GM in Dextrose 5% Minibag Plus 50 ML IV SCH (12:00)
--- NOTE | 2017-02-17 12:06 | NUR ---
OR Pt left for OR at 0730 with and returned at 1100. Pt intubated in OR. Tachy in the 170's. Pt shaking his head no to pain and yes to anxiety. Propofol and fentanyl started. BP dropped to 70/30 from artline. Propofol stopped and 0.5ml IV Ativan push given. Levophed increased to 0.5mcg. Albumin started. ABG's and labs drawn. Vent at 30% 5//530. Wound vac with large amounts of output. Cash 100cc out varun urine. OG to continuous suction. Diaphoretic, temp 37.0. Cold and clammy to the touch. NS at 150cc/hr. Pts aunt Belinda is at the bedside. Fiance notified and number is on the board.
[2017-02-17 12:09] LABS: Platelet Count 206 bil/L (150-400)
[2017-02-17 12:38] LABS: Mean Corpuscular Hemoglobin 26.1 pg (27.0-35.0)
[2017-02-17] MEDS: Esmolol 2,500 mg/250 mL NS 2,500,000 MCG in IV Premix 1 EACH IV SCH (12:50)
[2017-02-17 12:54] LABS: NEUTROPHILS % (AUTO) 55 % (40-74)
[2017-02-17 12:55] LABS: BASOPHILS % (AUTO) 0 % (0-3); EOSINOPHILS % (AUTO) 0 % (0-5); MONOCYTES % (AUTO) 9 % (4-12)
--- NOTE | 2017-02-17 15:27 | DRSVH ---
[facility] [address] [place] [address] Echocardiogram Report Name: LEON GUERRERO TStudy Date: 02/17/2017 Height: 71 in Hospital Exam Location: [facility] Weight: 160 lb Gender: Male BSA: 1.9 m2 : 1980 Age: 36 yrs BP: 100/71 mmHg Reason For Study: Endocarditis Ordering Physician: Performed By: Kim Ellis Interpretation Summary Technically difficult study limits valve visualization. 1) Normal left ventricular thickness and size with severely reduced systolic function (EF 20-25%). 2) Borderline right ventricular enlargement with moderately reduced function. 3) No significant valvular abnormalities. 4) No prior Echo available for comparison. If endocarditis is suspected, consider CATRACHITO. Procedure: A two-dimensional transthoracic echocardiogram with color flow and Doppler was performed. The study quality was technically adequate. There is no prior echocardiogram noted for this patient. Patient was post op and had no subcostal window. The heart rate ranged between 128-129 bpm during the study. Left Ventricle: The left ventricle is normal in size. There is normal left ventricular wall thickness. The ejection fraction is estimated to be 20-25%. Left ventricular systolic function is severely reduced. There is severe global hypokinesis of the left ventricle. Diastolic function could not be accurately assessed due to tachycardia. Right Ventricle: Borderline right ventricular enlargement. Right ventricular systolic function is moderately reduced. Atria: The left atrial size is normal. Right atrial size is normal. Mitral Valve: The mitral valve is normal in structure and function. There is no mitral regurgitation noted. Aortic Valve: The aortic valve opens well. There is no aortic valve stenosis. No aortic regurgitation is present. Tricuspid Valve: The tricuspid valve leaflets are thin and pliable. There is trace tricuspid regurgitation. Pulmonic Valve: The pulmonic valve is normal in structure and function. There is trace pulmonic regurgitation. Great Vessels: The aortic root is normal size. The dimensions of the ascending aorta are normal. The inferior vena cava was not visualized. Pericardium/ Pleura There is no pericardial effusion. There is no pleural effusion. MMode/2D Measurements & Calculations LVIDd: 4.6 cm LA dimension: 3.1 cm RA long axis AoV Opening LVIDs: 4.2 cm FS: 9.2 % LA A2 area: 16.6 cm RA area Ao root diam EPSS: 2.1 cm LA A4 area: 16.1 cm IVSd: 0.93 cm LA length (vol) : 13.0 cm Aortic Jxn: 2.6 cm LVPWd: 0.60 cm RA vol asc Aorta Diam LA vol: 45.1 ml : 38.8 ml LA vol index RA Ao Arch Diam (Prox : 20.2 mm/ Trans): 2.5 cm : 23.5 ml/m2 RVDd major : 5.3 cm LV lamar. diameter/BSA LV sys. diameter/BSA RVD1 (basal) RVD2 (mid): 3.7 cm (cm/m^2): 2.4 (cm/m^2): 2.2 Doppler Measurements & Calculations Ao V2 max MV P1/2t TR max laurel MV P1/2t max laurel : 52.9 cm/sec : 34.3 msec : 215.5 cm/sec Ao max PG TR max PG MVA(P1/2t): 6.4 cm2 : 1.1 mmHg : 18.6 mmHg Ao mean PG PA V2 max : 0.59 mmHg : 75.7 cm/sec PA mean PG : 1.00 mmHg PA Accel Time Ao V2 mean PA V2 mean : 35.4 cm/sec : 44.8 cm/sec Ao V2 VTI: 6.3 cm Reading Physician:03:23 PM
[2017-02-17] MEDS ORDERED: metroNIDAZOLE Inj 500 MG in IV Premix 1 EACH IV SCH (16:00)
[2017-02-17] MEDS: Piperacillin-Tazo 3.375 Gm Inj 3.375 GM in Dextrose 5% Minibag Plus 50 ML IV SCH ×2 (16:00→23:57)
[2017-02-17] MEDS: Norepineph 8,000 mCg/250 mL NS 8,000 MCG in IV Premix 1 EACH IV SCH ×3 (16:05→22:00)
--- NOTE | 2017-02-17 16:15 | DRSVH ---
PROCEDURE: X-RAY CHEST ONE VIEW, PORTABLE ([id number]) INDICATIONS: ET tube placement and OG location TECHNIQUE: One view of the chest was acquired. COMPARISON: None. FINDINGS: Surgical changes and devices: Internal jugular central line from right sided approach extends into th e atrial caval junction, nasogastric tube extends with side port below the EG junction, and the endot frederick tube tip is at the middle third aspect of the medial clavicular heads. Lungs and pleura: No pleural effusions or pneumothorax. Lungs are edematous. Mediastinum: Mediastinal contours appear normal. Heart size is mildly enlarged. Bones and chest wall: No suspicious bony lesions. Overlying soft tissues appear unremarkable. IMPRESSION: Mild acute CHF pattern, lines and tubes in normal position. Dictated by: Max Fair M.D. on 02/17/2017 at 16:11 Approved by: Max Fair M.D. on 02/17/2017 at 16:13
--- NOTE | 2017-02-17 16:28 | NUR ---
Social Work: Attempted Assessment/Multidisciplinary Rounds D: Pt discussed in multidisciplinary rounds; pt is scheduled for surgery with Dr. Freedman today. Pt arrived back to CCU, vented but responding to commands, per RN notes. Pt's family has been at bedside but is not currently available. Case Management will continue to attempt to follow up to complete assessment. Pt came from [facility]. Pt has been released from custody as there is no guard at bedside. Per supervisor propellant charge loading, [facility] has requested a courtesy phone call at pt's discharge. PALEONTOLOGICAL HELPER informed the team that due to HIPPA regulations they are not permitted to the pt's medical information, including discharge information, as they have released custody. A: Pt who was previously I with ambulation at [facility]. P: Evolving; PALEONTOLOGICAL HELPER to continue to follow pt's clinical course and follow up to complete discharge planning assessment when family is present. VINICIUS Estrada
[2017-02-17] MEDS: Albumin 25% 50 GM in IV Premix 1 EACH IV SCH (17:01)
[2017-02-17] MEDS ORDERED: 0.9% Sodium Chloride 250 ML IV PRN (17:10)
[2017-02-17 17:30] LABS: Mean Corpuscular Hemoglobin 26.3 pg (27.0-35.0); Mean Corpuscular Volume 76.5 fL (81-100); Platelet Count 189 bil/L (150-400)
[2017-02-17] MEDS ORDERED: Midazolam Inj 100 MG in IV Premix 1 EACH IV PRN (17:35)
--- NOTE | 2017-02-17 17:36 | PCM.PNSURG ---
Subjective Visit Information: Reason for Visit Pericecal Abscess,Sbo,Sepsis Surgery/Surgery Date Post-Op Day # Date of Admission: Feb 17, 2017 at 04:07 Hospital Day # Subjective: The patient is reevaluated this afternoon. He is in severe septic shock requiring pressors, fluid resuscitation, and now appears to be in cardiogenic shock as well, with ejection fraction 20-25%. Dr. Washburn has evaluated him. Dr. Espinal has been near the bedside for most of the day. NG tube was placed to suction this afternoon as it had not been sucking appropriately previously, and approximately 500 mL of fluid was removed. He has also gone through 2 canisters on his AbThera vac. Creatinine is rising. Objective Vital Sign- Last 8 Hours Date Time Temp Pulse Resp B/P Pulse Ox O2 Delivery O2 Flow Rate FiO2 02/17/17 16:30 132 81/57 99 30 02/17/17 11:58 172 100/71 97 30 02/17/17 10:51 Mechanical Ventilator 02/17/17 10:25 151 81/17 98 50 Intake and Output- Last 8 Hour 02/17/17 Cumulative From/Thru 07:00 02/17/17 00:10 - 02/17/17 03:18 Intake Total 4000 ml 4000 ml Balance 4000 ml 4000 ml IV Total 4000 ml 4000 ml General: Other (intubated. I am told that one point he was sitting up and writing something down and appeared alert.) Abdomen: Distended, Other (distended abdomen with AbThera device with appropriate suction.) Result Diagram: 02/17/17 1200 02/17/17 1200 Assessment & Plan Impression 36yom in severe septic shock now with cardiogenic shock after laparotomy with ileocecectomy for severe necrotizing perforated appendicitis. Problems: Plan Given the severity of his illness, I considered whether a return to the operating room for a second look would be appropriate to perform tonight. After discussion with his other providers, the decision has been made that he would not tolerate an anesthetic tonight, and he is still under resuscitated. Therefore resuscitation will be continued by the ICU team and he will be reevaluated by myself on an ongoing basis. My initial plan was to wait 24-48 hours to take him back to the operating room, and I will continually be reevaluating this plan. This is discussed in detail with his aunt Belinda, who the patient told me was his DPOAE just prior to surgery this morning. She was also informed that his prognosis is very poor and even with maximal medical and surgical intervention, he may not survive. She understands. VTE Prophylaxis: Sub-Q Heparin (Unfractionated) Resuscitation Status: CPR: Attempt Resuscitation Latoya Freedman MD Feb 17, 2017 17:36
[2017-02-17 17:51] LABS: Magnesium 1.7 mg/dL (1.6-2.6)
[2017-02-17] MEDS: DOBUTamine 500 mg/250 D5W 500,000 MCG in IV Premix 1 EACH IV SCH (17:56)
[2017-02-17] MEDS ORDERED: Vancomycin Inj 1,250 MG in 0.9% Sodium Chloride 250 ML IV SCH (18:00)
--- NOTE | 2017-02-17 18:44 | NUR ---
BP BP 80's/40's, HR 170's. Titrating Esmolol, started Dopamine at 2.5mcg, and Levophed remains at 0.55mcg. Fentanyl at 125mcg and Midazolam started at 3ml/hr r/t breathing over the vent, restless and wanting to pull on lines. Cheetah is set up. CVP=6. Right Artline. Right IJ. NS is wide open with a total of 5100cc in and 250cc out of dark varun urine in abbott. Wound vac had 1,000cc out and OG to CLS had 500cc out. Started administering RBC's at 1820, two units ordered. Surgery, pulmonology, and cardiolgoy all consulted with patient and patients aunt. Pt aunt states that the patients girlfriend is on her way to visit.
--- NOTE | 2017-02-17 18:48 | PCM.PNMED ---
Subjective Date of Service Feb 17, 2017 Subjective Mr. Perez is a 36-year-old gentleman currently incarcerated at [facility] for the recent 12 days, presented to the emergency department with a 2 week onset of increasing abdominal pain with associated fever, chills, nausea, vomiting, diaphoresis. He was admitted for evaluation and treatment of suspected perforated appendicitis and pericecal abscess, which has resulted in sepsis. This afternoon, he underwent a laparotomy with ileocecectomy for severe necrotizing perforated appendicitis. Afterwards, he became severely septic, requiring fluid resuscitation and pressors as well as cardiogenic shock with an EF of 20-25%. Exam Vital Signs Vital Sign - Last Date Time Temp Pulse Resp B/P Pulse Ox O2 Delivery O2 Flow Rate FiO2 02/17/17 16:30 132 81/57 99 30 02/17/17 12:30 37.0 22 Room Air Intake and Output 02/16/17 02/16/17 02/17/17 Cumulative From/Thru 15:00 23:00 07:00 02/17/17 00:10 - 02/17/17 03:18 Intake Total 4000 ml 4000 ml Balance 4000 ml 4000 ml IV Total 4000 ml 4000 ml Exam General: Patient is intubated, not awake and alert Cardio: Tachycardic, s1 and s2 heard, no murmurs Lungs: patient is intubated, breath sounds heard Skin: feels cold to touch, has several tattoos on UE Abdomen: Distended abdomen with AbThera device Extremities: no edema or erythema IVs and Medications Medications Reviewed: Medications were reviewed in detail Lab and Diagnostics Result Diagram: 02/17/17 1200 02/17/17 1715 X-Rays, CTs and MRIs CT of Abdomen IMPRESSION: 1. Extensive large and small bowel pneumatosis in the setting of small bowel obstruction with extensive portal venous gas which has developed in the interval since prior CT scan obtained 02/17/17 at 0235 hours. Findings compatible with bowel ischemia. 2. Peritoneal pneumatosis and pneumoretroperitoneum which could be related to ruptured bowel versus infection with gas-forming organism. 3. Free intraperitoneal air and mesenteric air consistent with bowel perforation and/or mesenteric ischemia. 4. Decreased IVC caliber highly suspicious for severe hypotension. Please correlate with clinical data. 5. Moderate to large amount of ascites which is increased in volume compared to 8/21/17. The ascites has increased density compared to the prior CT scan which could be related to hemorrhage, proteinaceous fluid or infectious fluid. 6. Dilated loops of small bowel compatible with small bowel obstruction. 7. Probable right lower quadrant pericecal abscess suboptimally visualized in the absence of intravenous contrast does not appear significantly changed compared to prior CT scan. 8. Trace bilateral pleural effusions. Dictated by: Radha Cruz MD, PhD on 02/17/2017 at 10:08 Approved by: Radha Cruz MD, PhD on 02/17/2017 at 10:58 Cardiac Echo Impressions ECHO on 02/17/17 Interpretation Summary Technically difficult study limits valve visualization. 1) Normal left ventricular thickness and size with severely reduced systolic function (EF 20-25%). 2) Borderline right ventricular enlargement with moderately reduced function. 3) No significant valvular abnormalities. 4) No prior Echo available for comparison. If endocarditis is suspected, consider CATRACHITO. Assessment & Plan Mr. Perez is an extremely pleasant 36-year-old gentleman currently incarcerated at [facility] for the recent 12 days, presented to the emergency department with a 2 week onset of increasing abdominal pain with associated fever, chills, nausea, vomiting, diaphoresis. He was admitted for evaluation and treatment of suspected perforated appendicitis and pericecal abscess, which has resulted in sepsis. - Hospital day 1 Sepsis, severe, acute, present on admission, under therapy -Likely secondary to severe necrotizing perforated appendicitis - On admit: T 35.9, P1 44, RR 34, lactic acid 7.6, with repeat 4.8 - Transfer to CCU -Patient underwent laparotomy -Continue Zosyn, Linezolid, Clindamycin Severe necrotizing perforated appendicitis, acute, present on admission, under evaluation - As evidenced by the CT above - Patient underwent laparotomy with ileocecectomy -Per surgery, they considered returning him to the OR tonight but decided that he would not be able to tolerate anesthesia tonight given that he continues to need resuscitation Cardiogenic shock, acute, ongoing -likely due to increased cardiac demand (Stress Cardiomyopathy) metabolic status and infection -Patient is needing pressors to keep his blood pressure up Lactic acidosis, acute, present on admission, under evaluation - On admit: Initial 7.6, repeat 4.8 - Continue Fluid Hydration - Trend Lactic acid -Patient is currently intubated, ventilator dependent Severe abdominal pain with suspected opioid tolerance, acute, present on admission, under evaluation - Patient required multiple doses of Dilaudid and morphine in the emergency department - Patient has history of heroin use, with most recent use approximately 12 days prior to this admission - We will proceed with opioid tolerant HEALTH CARE ATTORNEY at this time Erythrocythemia, chronicity unknown, present on admission, under evaluation - On admit: Hemoglobin 18.9, hematocrit 54.1 - Likely secondary to dehydration from recent nausea and vomiting due to abdominal pain - Monitor for resolution post hydration Hypokalemia, likely acute, present on admission, under evaluation - On admit: K 3.0, Mg 2.2 - K rider in place Acute kidney injury, present on admission, under evaluation - On admit:Cr 1.35 - Likely secondary to dehydration resulting from nausea and vomiting due to underlying infection - Continue to hydrate Hyperglycemia, likely acute, present on admission, under evaluation - On admit:Glc 215 - Likely secondary to stress release - Continue to monitor, no indication for insulin at this time Elevated liver function tests, chronicity unknown, present on admission, under evaluation - On admit: total bili 0.6, AST 74, ALT 561, alkaline phosphatase 160 - Patient did not admit to any underlying hepatic pathologies such as hepatitis - Acute hep panel, HIV panel History of incarceration - TELECOM ANALYST consult - Hep panel, HIV, MRSA PRN: bowel, fever, antiemetic, pain GI: H2B DVT: Hep q8 Diet: NPO CODE STATUS: Full code Patient status: Due to severity of presenting symptoms, likely course of care, and risk of adverse events, anticipated length of stay exceeds 2 midnights; patient admitted under inpatient status to CCU GI Prophylaxis: H2 mack VTE Prophylaxis: Sub-Q Heparin (Unfractionated) VTE Mechanical Devices: Intermittant Pneumatic CD Resuscitation Status: CPR: Attempt Resuscitation Time spent 35 minutes Attending Statement I have seen and evaluated patient at bedside in addition to directly supervising care provided by resident physician Dr Zelaya on 02/17/2017. I agree with above documentation. A very complex and unfortunate gentleman, critically ill secondary to ruptured appendicitis with resultant septic and distributive shock. Leah Zelaya DO Feb 17, 2017 18:48 Jose Moore DO Feb 19, 2017 08:00
[2017-02-17 19:14] LABS: BASOPHILS % (AUTO) 0 % (0-3); EOSINOPHILS % (AUTO) 0 % (0-5); MONOCYTES % (AUTO) 4 % (4-12); NEUTROPHILS % (AUTO) 62 % (40-74)
--- NOTE | 2017-02-17 19:21 | CONS ---
[address] [address] CONSULTATION REPORT PATIENT: LEON GUERRERO : 1980 MR#: [id number] ADMIT: 02/17/2017 JOB ID: [id number] DATE OF SERVICE: 02/17/2017 REASON FOR CONSULTATION: Abdominal pain with tachycardia. HISTORY OF PRESENT ILLNESS: The patient is a 36-year-old, male with a long history of heroin use. In the past, he has inhaled it, as well as injected it. More recently, he has been injecting it, maybe the last being 20 or 30 days ago. The patient was incarcerated about 12 days ago. It was somewhere about that time that he began developing increasing abdominal pain. The abdominal pain is constant, worsening, diffuse. Has associated constipation. No diarrhea. Having some sweats. The patient denies prior history with abdomen. No history of peptic ulcer disease, colitis or other bowel diseases. Not eating well. No prior abdominal surgeries. Has had surgery for a fracture of the right radius and ulna. The patient was incarcerated about 12 days ago. Denies use of drugs while in shelter. States the abdominal pain continued to worsen, prompting his visit to the emergency department. PAST MEDICAL HISTORY: 1. Polysubstance abuse. 2. Alcohol abuse. The patient states that up until a year or so ago, he drank rather heavily. Decreased alcohol consumption consisting mostly of beer. REVIEW OF SYSTEMS: No chest pain. No particular problems with shortness of breath though he states it is a little difficult for him to take a deep breath. No cough or sputum production. No pain or swelling in his legs. OBJECTIVE: Pulse 133,-240. Blood pressure 134/62, as low as 118/60 or so. Pulse slowly increasing, currently getting up to a high 150s-160 range. O2 sat on room air is 98%. General appearance: Moving a little bit gingerly, but no particular distress. This skin is cold, clammy, diaphoretic. Eyes: Conjunctivae are pink. No scleral icterus. Nose: No erythema or edema. Throat: Good oral hygiene. Uvula trevor in the midline. Lymph nodes nonpalpable. Chest: Fairly good breath sounds bilaterally. Lung barber are clear. Heart: Rapid rate. Regular rhythm. Abdomen tense, diffusely tender. Quiet. Extremities: Tattoos diffusely on the upper extremities. Extremities are cold. Somewhat diaphoretic. LABORATORY DATA: Shows a white count of 6400, with 65 polymorphonuclears, no bands, 21 lymphocytes, 12 monocytes. Hemoglobin 17.1. Platelet count 256,000. No platelet count on the initial lab values. Sodium 136, potassium 3.5. chloride 104, CO2 is 12. BUN 16, creatinine 1.15. Lactic acid 6, calcium 7.3 with albumin 2.7. Total bilirubin 1. AST 58, ALT 350. Alkaline phos normal at 77. INR is 1.18. UA is normal without white cells and bacteria. Call from Radiology prompted the emergent evaluation as radiologist reported that the patient had large and small bowel pneumatosis with extensive portal venous gas, which has developed in the past 3-1/2 hours. There was free intraperitoneal air. Submesenteric air. IVC decreased caliber. Moderate to large amount of ascites, presumably blood though could be piriform fluid. Probable right lower quadrant pericecal abscess though suboptimal visualization due to absence of IV contrast. ASSESSMENT: Intra-abdominal sepsis. Has peritonitis from perforated viscus. Question as to whether this represents appendicitis with perforation or bowel perforation. In any case, the patient is extremely septic. Markedly tachycardic with pulses now reaching the 160 range. Blood pressure about 120/60, just hanging in there. Has a significant acidemia with blood gases on FiO2 of 60%, oxygen of 60% Venti mask, showing a pO2 of 294, pCO2 of 35, pH 7.22. Given the circumstances, surgical consult was obtained on a stat basis. Dr. Freedman of the surgical service promptly attended to the patient. The patient promptly being transferred to the OR. Time spent so far in critical care 60 minutes.
--- NOTE | 2017-02-17 19:39 | ABG ---
DateTimeAnalyzed 19:31:00 -_ pH ____7.351 - 7.350 7.450 pCO2 ___18.8__ -mmHg 35.0 45.0 pO2 142 -mmHg 69.0 116 HCO3- ___10.1__ -mmol/L 22.0 26.0 ABE __-13.4__ -mmol/L -2.0 2.0 tHb ___13.9__ -g/dL 12.0 18.0 O2Hb ___97.4__ -% COHb ____0.3__ -% 0.0 1.5 MetHb ____1.0__ -% 0.4 1.5 sO2 ___98.7__ -% 25.0 FIO2 ___30.0__ -% PRVC 530 - PEEP ____5.0__ -cmH2O Set_RR ___20.0__ -b/min Drawn By LT - Date/Time Notified____ 19:38:00 -_ Oxygen Device 1 VENTILATOR - Notified By LT - Notified Whom dr kendregen - B 757 -mmHg tO2 ___19.3__ -Vol% OrderingPhysicianInitials bak - Mayo test N/A -
[2017-02-17] MEDS ORDERED: Chlorhexidine 0.12% 15 mL Oral Solution ONE (19:49)
[2017-02-17] MEDS: Linezolid Inj 600 MG in IV Premix 1 EACH IV SCH (19:54)
--- NOTE | 2017-02-17 20:06 | OP ---
[address] [address] OPERATIVE REPORT PATIENT: LEON GUERRERO : 1980 MR#: [id number] ADMIT: 02/17/2017 JOB ID: [id number] DATE OF SURGERY: 02/17/2017 SURGEON: Latoya Freedman MD PREOPERATIVE DIAGNOSIS(ES): Peritonitis. POSTOPERATIVE DIAGNOSIS(ES): Perforated appendix with abscess formation, widespread pneumoperitoneum, and widespread intra-abdominal free fluid. PROCEDURE: 1. Exploratory laparotomy 2. Ileocecectomy 3. VAC dressing placement. ASSISTANTS: Leo Hurst MD; Anjel Gore M.D. R3; Brianna Villarreal MS3. FINDINGS: 1. The patient had widespread intra-abdominal purulent-appearing free fluid. He also had signs of abscess and associated inflammation and necrosis in the right lower quadrant, and his appendix appeared burst as in the specimen the base and tip were completely . 2. Peritoneal necrosis was seen in all quadrants of the abdomen and on the surface of the mesentery. However, in the regions of the abdomen that the peritoneum was black and necrosed, underlying bowel was viable and there was not a sign of bowel ischemia in these locations. 3. Punctate hemorrhage within the small intestinal wall throughout the intestine. 4. Isolated necrosis of epiploica of the right colon. HISTORY OF PRESENT ILLNESS: This is a 36-year-old man with a history of IV heroin use and previous history of other polysubstance abuse who was incarcerated in the [facility] skilled nursing and complained of approximately two weeks of abdominal pain associated with obstipation. He presented to the emergency department last night, was admitted and started on broad-spectrum antibiotics, and experienced a clinical decline overnight. A repeat CT scan 4 hours after the first was performed which demonstrated a distinct progression of bowel pneumatosis, as well as pneumatosis of the visceral and parietal peritoneum within all quadrants of the abdomen, abscess formation in the mid abdomen and right lower quadrant, and free fluid throughout the abdomen. He was tachycardic and clinically peritoneal on examination. For this reason, he was taken to the operating room for emergent laparotomy. DESCRIPTION OF PROCEDURE: The patient was brought to the operating room and placed in supine position. General anesthesia was induced. The oven baker placed an arterial line and a central line. The operative field was prepped and draped in sterile fashion. Antibiotics had been infused previously on the floor. A Cash catheter was placed. A preoperative pause was performed to confirm the correct patient, procedure, and site. A vertical midline incision was made from the mid lower abdomen to the xiphoid, a large wound protector was placed, and a Bookwalter retractor was placed. The abdomen was explored. The small intestine was diffusely dilated. There was approximately 2 liters of free fluid in the abdomen, most of which appeared purulent and was a andrade-brown color. There was no sign of green succus. There appeared to be an inflammatory process in the right lower quadrant of the abdomen. Small intestine and colon were mobilized from this location. Inspection of the entire small intestine and colon was performed, including running the intestine from the ligament of Treitz to terminal ileum. The peritoneal lining of multiple visceral surfaces appeared hemorrhagic and necrotic, including in the right lower quadrant, right upper quadrant, left upper quadrant, and including the peritoneum covering the base of the mesentery. Initially, there was concern for thrombosis or necrosis of the bowel itself, however, on closer inspection, all of these reasons appeared to be involving the peritoneum only, not the underlying structures. Within the right lower quadrant was a significant inflammatory process which, when mobilized, revealed that the base of the appendix was completely from its tip, suggestive of perforated appendicitis with a severe inflammatory response. Multiple loops of small intestine were adhered to this inflammatory phlegmon in the right lower quadrant. These were mobilized. I requested that my partner, Dr. Leo Hurst, scrub in to assist in decision making, and an ileocecectomy was decided upon, in order to remove only the involved regions of bowel. The plan was also made to leave the abdomen open given the patient's critically ill status and to perform a 2nd look. Therefore, approximately 20 cm of terminal ileum and 15 cm of the cecum were removed to complete the ileocecectomy. The bowel was divided with a GIANNI stapler with a blue load and the mesentery was taken with the LigaSure device. The specimen was passed off the field. The entire right colon had been mobilized in order to perform this portion of the procedure and inspected carefully. The bowel was inspected one final time and there were no other regions of bernardo necrosis or active inflammation, although several of the remaining loops did have inflamed-appearing adhesion tissue from having been juxtaposed next to the inflammatory phlegmons previously. These were preserved and will be assessed at the next operation. The tip of the OG tube was then confirmed to be in adequate position. An AbThera device was then placed for postoperative abdominal suction. Once this was confirmed to be in a good position with adequate function, the patient was taken to the ICU in critical condition. ESTIMATED BLOOD LOSS: 20 mL. There was also approximately 2 liters of intra-abdominal free fluid that was suctioned from the abdomen. COMPLICATIONS: None. SPECIMENS: Ileocecectomy, for permanent pathology. TYRELL
[2017-02-17] MEDS: Chlorhexidine 0.12% 15 mL Oral Solution MT SCH (20:30)
[2017-02-17] MEDS ORDERED: Ceftaroline Inj 600 MG in Dextrose 5% 250 ML IV SCH (20:30)
[2017-02-17 21:37] LABS: Magnesium 1.4 mg/dL (1.6-2.6)
[2017-02-17 22:17] LABS: BASOPHILS % (AUTO) 0 % (0-3); EOSINOPHILS % (AUTO) 0 % (0-5); MONOCYTES % (AUTO) 3 % (4-12); Mean Corpuscular Hemoglobin 26.8 pg (27.0-35.0); Mean Corpuscular Volume 77.5 fL (81-100); NEUTROPHILS % (AUTO) 55 % (40-74); Platelet Count 163 bil/L (150-400)
[2017-02-17] MEDS: Acetaminophen IV 1,000 MG in IV Premix 1 EACH IV PRN ×2 (22:41→23:49)
[2017-02-17] MEDS: Clindamycin Inj 900 MG in IV Premix 1 EACH IV SCH (22:44)
[2017-02-18] VITALS (13 sets, daily range): BP systolic 96–163; BP diastolic 55–75; PULSE 104–128; RESP 20–26; O2SAT 97–99
[2017-02-18] MEDS: Esmolol 2,500 mg/250 mL NS 2,500,000 MCG in IV Premix 1 EACH IV SCH ×2 (00:03→14:16)
[2017-02-18] MEDS: 0.9% Sodium Chloride 1,000 ML IV SCH ×6 (01:00→11:25)
[2017-02-18] MEDS: fentaNYL 2,500 mCg/250 mL 2,500 MCG in IV Premix 1 EACH IV SCH ×2 (01:12→15:34)
[2017-02-18] MEDS: Norepineph 8,000 mCg/250 mL NS 8,000 MCG in IV Premix 1 EACH IV SCH (01:13)
[2017-02-18] MEDS: Chlorhexidine 0.12% 15 mL Oral Solution MT SCH ×6 (01:13→22:22)
[2017-02-18 02:53] LABS: Mean Corpuscular Hemoglobin 26.6 pg (27.0-35.0); Mean Corpuscular Volume 76.6 fL (81-100); Platelet Count 171 bil/L (150-400)
[2017-02-18] MEDS: Albumin 25% 50 GM in IV Premix 1 EACH IV SCH ×3 (02:56→14:18)
[2017-02-18 03:09] LABS: Hepatitis A Antibody IgM Negative (Negative); Hepatitis B Core Antibody IgM Negative (Negative)
[2017-02-18 03:23] LABS: BASOPHILS % (AUTO) 0 % (0-3); EOSINOPHILS % (AUTO) 0 % (0-5); MONOCYTES % (AUTO) 6 % (4-12); NEUTROPHILS % (AUTO) 44 % (40-74)
[2017-02-18 03:26] LABS: Magnesium 1.4 mg/dL (1.6-2.6)
[2017-02-18] MEDS: Clindamycin Inj 900 MG in IV Premix 1 EACH IV SCH (04:23)
--- NOTE | 2017-02-18 04:59 | ABG ---
DateTimeAnalyzed 04:52:00 -_ pH ____7.361 - 7.350 7.450 pCO2 ___22.9__ -mmHg 35.0 45.0 pO2 145 -mmHg 69.0 116 HCO3- ___12.7__ -mmol/L 22.0 26.0 ABE __-10.9__ -mmol/L -2.0 2.0 tHb ___12.7__ -g/dL 12.0 18.0 O2Hb ___97.0__ -% COHb ____0.4__ -% 0.0 1.5 MetHb ____1.1__ -% 0.4 1.5 sO2 ___98.5__ -% 25.0 FIO2 ___30.0__ -% PRVC 530 - PEEP ____5.0__ -cmH2O Set_RR ___20.0__ -b/min Vt __530.0__ -L Drawn By LT - Date/Time Notified____ 04:58:00 -_ Spontaneous_RR ___20.0__ -b/min Notified By LT - B 757 -mmHg tO2 ___17.5__ -Vol% Mayo test N/A -
--- NOTE | 2017-02-18 05:52 | NUR ---
Vent, sedation, hemodynamics Vs as noted. Continues ventilated with sats high 90s on 30% fio2 without desaturations. Fentanyl 175mcg/h and Versed 5mg/h. Pt arouses to video player mechanic to command and makes eye contact appropriately. See CCU flowsheet. Dobutamine gtt weaned to off. IVF NS initially 999/h mostly 400ml/h with CVP 4-7. Levophed gtt titrated to keep MAP >70, decreased from 0.55mcg to currently 0.1mcg/kg/min. Right radial art. line in place with adequate wave form. Mid line abdominal wound vac in place with serosanguinous output total 725ml this shft. Ogt coiled orally repositioned and to LCS drained 500ml yellow brown fluid.
[2017-02-18] MEDS ORDERED: Mag Sulf 4 Gm/100 mL IV Premix (Mag < 1.6 & Creat < 2) IV ONE (06:05)
[2017-02-18] MEDS: Famotidine Inj 20 MG in IV Premix 1 EACH IV SCH ×2 (07:56→22:21)
[2017-02-18] MEDS: Linezolid Inj 600 MG in IV Premix 1 EACH IV SCH (08:05)
[2017-02-18] MEDS: Propofol Inj 1,000,000 MCG in IV Premix 1 EACH IV SCH ×3 (08:05→23:07)
[2017-02-18] MEDS: Piperacillin-Tazo 3.375 Gm Inj 3.375 GM in Dextrose 5% Minibag Plus 50 ML IV SCH ×3 (08:05→22:21)
[2017-02-18 08:30] LABS: Mean Corpuscular Hemoglobin 27.1 pg (27.0-35.0); Mean Corpuscular Volume 77.8 fL (81-100); Platelet Count 134 bil/L (150-400)
[2017-02-18 08:49] LABS: Magnesium 2.9 mg/dL (1.6-2.6)
[2017-02-18 09:07] LABS: BASOPHILS % (AUTO) 0 % (0-3); EOSINOPHILS % (AUTO) 0 % (0-5); MONOCYTES % (AUTO) 7 % (4-12); NEUTROPHILS % (AUTO) 42 % (40-74)
--- NOTE | 2017-02-18 10:28 | PCM.PNMED ---
Subjective Date of Service Feb 18, 2017 Subjective Rui Perez is a 36 year old man with a PMH of polysubstance abuse who presents with a several day history of abdominal pain; he had been incarceration for 12 days prior to presentation. He had a CT scan which demonstrated free air in the abdomen, and was subsequently taken for emergent surgery and found to have ruptured appendicitis with feculent peritonitis and diffuse necrosis throughout the peritoneum. Today the patient appears much improved compared to yesterday evening, he is no longer cold to the touch and has been titrated down or off multiple drips. He is only minimally responsive to external stimuli and does not follow commands in any consistent fashion. He remains in quite serious condition, but has made remarkable progress in the past 24 hours. Overnight the patient was titrated of Dobutamine and down on fluids on Norepi, he remains dependent upon Esmolol to control his tachycardia. Exam Vital Signs Vital Sign - Last Date Time Temp Pulse Resp B/P Pulse Ox O2 Delivery O2 Flow Rate FiO2 02/18/17 09:14 114 127/66 98 25 02/18/17 04:00 37.6 21 Mechanical Ventilator Intake and Output 02/17/17 02/17/17 02/18/17 Cumulative From/Thru 15:00 23:00 07:00 02/17/17 00:10 - 02/18/17 06:19 Intake Total 8600 ml 6359 ml 8579 ml 36695 ml Output Total 250 ml 1750 ml 2625 ml 4625 ml Balance 8350 ml 4609 ml 5954 ml 87383 ml Intake Oral 0 ml 0 ml IV Total 8600 ml 6009 ml 8579 ml 91677 ml Packed Cells 350 ml 350 ml Output Urine Total 250 ml 250 ml 1400 ml 1900 ml Gastric Drainage Total 500 ml 500 ml 1000 ml Drainage Total 1000 ml 725 ml 1725 ml # Bowel Movements 0 0 Exam Gen: Intubated and sedated young man with extensive Tattoos, minimally responsive to external stimuli Neck: Right IJ in place and appears patent, no JVD, HEENT: ET tube in place and appears patent, PERRL with miosis, does not track consistently, mucous membranes moist CV: Regular Tachycardia with no murmurs rubs or gallops Resp: Diffuse mild crackles BL, no wheezing rales or rhonchi Abd: Large football size and shaped open abdominal wound with wound vac in place expressing copious sero-sanguinous fluid, more distended compared to prior exam, slightly firm, patient does not react to palpation Extr: Warm to the touch, no clubbing cyanosis or edema Neuro: CN difficult to assess in this intubated and sedated patient, no focal neurologic deficit IVs and Medications IV Fluids NS @ 400 ml/hr Medications Reviewed: Medications were reviewed in detail Medications High risk meds include IV Fentanyl and Midazolam Lab and Diagnostics Item Value Date Time Red Blood Count 4.36 mil/mm3 L 02/18/17823 Mean Corpuscular Volume 77.8 fL L 02/18/17823 Mean Corpuscular Hemoglobin 27.1 pg 02/18/17823 Mean Corpuscular Hemoglobin Concent 34.8 % 02/18/17823 Red Cell Distribution Width 14.4 % 02/18/17823 Neutrophils (%) (Auto) 42 % 02/18/17823 Lymphocytes (%) (Auto) 8 % L 02/18/17823 Monocytes (%) (Auto) 7 % 02/18/17823 Eosinophils (%) (Auto) 0 % 02/18/17823 Basophils (%) (Auto) 0 % 02/18/17823 Band Neutrophils % 43 % H 02/18/17823 Estimat Glomerular Filtration Rate 90 mL/min 02/18/17823 Lactic Acid Level 1.8 mmol/L 02/18/17823 Calcium Level 6.1 mg/dL *L 02/18/17823 Magnesium Level 2.9 mg/dL H 02/18/17823 Total Bilirubin 1.0 mg/dL 02/18/17823 Aspartate Amino Transf (AST/SGOT) 118 U/L H 02/18/17823 Alanine Aminotransferase (ALT/SGPT) 214 U/L H 02/18/17823 Alkaline Phosphatase 40 U/L 02/18/17823 Albumin 2.7 g/dL L 02/18/17823 Total Protein 4.0 g/dL L 02/18/17823 Result Diagram: 02/18/1782302/18/17823 Microbiology Nasal MRSA negative Blood cultures negative to date Urine culture negative to date X-Rays, CTs and MRIs CT of Abdomen IMPRESSION: 1. Extensive large and small bowel pneumatosis in the setting of small bowel obstruction with extensive portal venous gas which has developed in the interval since prior CT scan obtained 02/17/17 at 0235 hours. Findings compatible with bowel ischemia. 2. Peritoneal pneumatosis and pneumoretroperitoneum which could be related to ruptured bowel versus infection with gas-forming organism. 3. Free intraperitoneal air and mesenteric air consistent with bowel perforation and/or mesenteric ischemia. 4. Decreased IVC caliber highly suspicious for severe hypotension. Please correlate with clinical data. 5. Moderate to large amount of ascites which is increased in volume compared to 02/17/17. The ascites has increased density compared to the prior CT scan which could be related to hemorrhage, proteinaceous fluid or infectious fluid. 6. Dilated loops of small bowel compatible with small bowel obstruction. 7. Probable right lower quadrant pericecal abscess suboptimally visualized in the absence of intravenous contrast does not appear significantly changed compared to prior CT scan. 8. Trace bilateral pleural effusions. Dictated by: Radha Cruz MD, PhD on 02/17/2017 at 10:08 Approved by: Radha Cruz MD, PhD on 02/17/2017 at 10:58 . Cardiac Echo Impressions ECHO on 02/17/17 Interpretation Summary Technically difficult study limits valve visualization. 1) Normal left ventricular thickness and size with severely reduced systolic function (EF 20-25%). 2) Borderline right ventricular enlargement with moderately reduced function. 3) No significant valvular abnormalities. 4) No prior Echo available for comparison. If endocarditis is suspected, consider CATRACHITO. Assessment & Plan Rui Perez is a 36 year old man with a PMH of polysubstance abuse who presents with a several day history of abdominal pain; he had been incarceration for 12 days prior to presentation. He had a CT scan which demonstrated free air in the abdomen, and was subsequently taken for emergent surgery and found to have ruptured appendicitis with feculent peritonitis and diffuse necrosis throughout the peritoneum. Severe Sepsis, acute, present on admission, Active -Secondary to severe necrotizing perforated appendicitis with feculent peritonitis -On admit: T 35.9, P1 44, RR 34, lactic acid 7.6, with repeat 4.8 -Patient underwent laparotomy with appendectomy and colectomy -Surgery found his appendix obviously ruptured and in 2 pieces, with extensive associated necrotic tissue through the peritoneal cavity, as well as a likely abscess in the RLQ -Continue Zosyn, Micafungin per ID -Patient has been dependent upon aggressive fluid resuscitation with copious NS , Albumin, and 2U PRBC to date -Will attempt to wean down fluid burden as sepsis improves Severe necrotizing perforated appendicitis, acute, present on admission, Active -As evidenced by the CT above -Surgical intervention as above -Patient has yet to be anastamosed or an ostomy established, blind end gut -Dr. Freedman from General surgery is managing the surgical aspect of this patient , anticipates return to OR 02/19 -Patient with open abdominal wound and wound vac in place, output has been copious, surgery will continue to manage -Current analgesia with Fentanyl drip, patient with likely pre-existing opiate habituation Tachycardia and stress induced cardiomyopathy, POA, acute. Active -ECHO demonstrated EF of 20-25% with little structural heart disease, likely indicative of acute decompensation -Was briefly on Dobutamine drip -Esmolol drip to control rate, unsuccessful attempts to wean to date Lactic acidosis, acute, present on admission, Active -Likely secondary to septic process as above -On admit: Initial 7.6 -Is trending towards normal -Continue Fluid Hydration, with consideration for reduced EF -Trend Lactic acid -Patient is currently intubated, ventilator dependent History of incarceration - PRODUCT SUPPORT REP consult - Hep panel indicative of past infection -HIV negative -MRSA nasal swab negative . Pain Evaluation: Adequate Pain Control GI Prophylaxis: H2 mack VTE Prophylaxis: Sub-Q Heparin (Unfractionated) VTE Mechanical Devices: Intermittant Pneumatic CD Resuscitation Status: CPR: Attempt Resuscitation Antonio Lewis DO Feb 18, 2017 10:28 Elevated liver function tests, chronicity unknown, present on admission, under evaluation - On admit: total bili 0.6, AST 74, ALT 561, alkaline phosphatase 160 - Patient did not admit to any underlying hepatic pathologies such as hepatitis - Acute hep panel, HIV panel History of incarceration - PRODUCT SUPPORT REP consult - Hep panel, HIV, MRSA PRN: bowel, fever, antiemetic, pain GI: H2B DVT: Hep q8 Diet: NPO CODE STATUS: Full code Patient status: Due to severity of presenting symptoms, likely course of care, and risk of adverse events, anticipated length of stay exceeds 2 midnights; patient admitted under inpatient status to CCU GI Prophylaxis: H2 mack VTE Prophylaxis: Sub-Q Heparin (Unfractionated) VTE Mechanical Devices: Intermittant Pneumatic CD Resuscitation Status: CPR: Attempt Resuscitation Antonio Lewis DO Feb 18, 2017 10:28
--- NOTE | 2017-02-18 10:50 | NUR ---
Social Work: Initial Assessment/Multidisciplinary Rounds D: Per EMR review, pt is a 36 year old male admitted for periceral abscess, SBO, Sepsis. Pt insurance is [employer]. Pt does not have a PCP. NOK is Belinda Perez, aunt, . Advanced directives not completed according to pt's Kaila perez, . Readmit score is low, 2/8. Pt discussed in multidisciplinary rounds; pt is still in CCU,vented and sedated. Pt is very sick with no anticipated extubation/discharge timeframe. Pt came from [facility]. There is no guard at bedside and custody has been released. ADJUNCT PROFESSOR met with the patient's fiance, Kaila Gautam, at bedside. Sw role explained, contact information and d/c planning checklist provided. She confirms pt came from long term and was in for approximately a week or a 3 month sentence. She states that his sentence is in regards to drug charges that he received over a year ago. The patient and his fiance live in the [place] area and the pt is I at baseline. The patient was attempting to get into inpatient CD treatment however there was mis-communication and the patient missed his opportunity for treatment. Jerrell states that she believes his BHO assessment was completed over a year ago but he might have had one re-done more recently. She is appreciative of ADJUNCT PROFESSOR visit and will be supportive of the patient in regards to discharge planning once his discharge needs are known. A: Pt who is I with ADLs at baseline and lives with his fiance in [place] P: Evolving; ADJUNCT PROFESSOR to continue to follow to assess for discharge planning needs as pt's clinical course progresses. VINICIUS Estrada Addendum: 02/18/17 at 1118 by PAT BURRIS Amended: Links added.
--- NOTE | 2017-02-18 10:54 | DRSVH ---
PROCEDURE: X-RAY CHEST ONE VIEW, PORTABLE ([id number]) INDICATIONS: acute respiratory failure TECHNIQUE: One view of the chest was acquired. COMPARISON: [facility], CR, XR CHEST 1VW (PORTABLE), 02/17/2017, 15:29. FINDINGS: Surgical changes and devices: Stable positioning of the ETT, nasogastric tube and right IJ CVL. Lead s overlie the mid chest and epigastrium. Lungs and pleura: Mid/bibasilar airspace opacities present. No pneumothorax. Mediastinum: Mediastinal contours appear normal. Heart size is normal. Bones and chest wall: No suspicious bony lesions. Overlying soft tissues appear unremarkable. IMPRESSION: 1. Support lines and tubes as above. 2. Mid/bibasilar opacities present suggestive of atelectasis versus aspiration or pneumonia. Develop ing edema cannot be excluded. Correlate clinically. Dictated by: Harvinder Tamez RRA Interpreted: Hema Leonardo MD on 02/18/2017 at 9:31 Approved by: Hema Leonardo M.D. on 02/18/2017 at 10:52
--- NOTE | 2017-02-18 10:57 | CONS ---
[address] [address] CONSULTATION REPORT PATIENT: LEON GUERRERO : 1980 MR#: [id number] ADMIT: 02/17/2017 JOB ID: [id number] DATE OF SERVICE: 02/18/2017 INFECTIOUS DISEASE CONSULTATION: I thank Dr. Moore for this timely consultation. REASON FOR CONSULT: Perforated viscus with diffuse peritonitis. HISTORY OF PRESENT ILLNESS: The patient is a 36-year-old gentleman with longstanding polysubstance abuse including previously alcohol and more recently opiates. He was placed in the [facility] intermediate about 7-10 days ago, and during that time, complained of increasingly severe abdominal pain, obstipation and apparently some degree of fever and chills as well. This led to his admission to this facility very late on the night of February 16 and evaluation by surgery. Following a CT scan which showed small bowel obstruction, a right lower quadrant abscess, possible appendicitis, possible terminal ileitis and ascites, the patient was taken to the operating room emergently by Dr. Freedman. At the time of surgery, she found widespread purulent material within the abdominal cavity with right lower quadrant abscess and apparently necrotic or perforated appendix. The peritoneal necrosis was seen in all four quadrants of the abdomen and on the surface of the mesentery. She noted that the areas that were black and necrosed had underlying bowel that was viable and there was no evidence of bowel ischemia. Punctate lesions were seen along the small bowel as well. In addition to his emergent CT scan and surgery, the patient has remained in septic shock and is currently vasopressor dependent. 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 This morning we discussed the case in detail during ICU rounds and at the bedside with the ICU nurse and the patient's fiance. The patient himself remains intubated, sedated, on vasopressor agents and critically ill. He is not able obviously to supply any additional history and what we know about this case is derived exclusively from the medical record as well as discussions with the fiance. PAST MEDICAL HISTORY: 1. Polysubstance abuse including intravenous opiates recently. 2. Prior history of alcohol abuse. 3. Multiyear history of dyspepsia, nausea and vomiting according to the fiancee but during that period the patient was appearing to be in robust health, able to work and not losing weight or having any other warning symptoms. 4. Increasing abdominal pain x2 weeks leading to bernardo perforation of the appendix with peritoneal soiling. 5. Recently diagnosed hepatitis C. SOCIAL HISTORY: The patient is an active cigarette smoker at this point. He used to abuse alcohol but quit in the past. He currently has been injecting IV heroin until he was confined to intermediate about 10 days ago. FAMILY HISTORY: Is unknown as patient is intubated, sedated and we cannot ask questions. REVIEW OF SYSTEMS: Likewise unobtainable in this intubated, sedated gentleman. PHYSICAL EXAMINATION: Reveals a critically ill gentleman lying supine in the ICU. Current temperature 37.6, pulse 115, that is a sinus rhythm. Respiratory rate is ventilator dependent. Blood pressure 127/66. He is currently on 0.07 mcg/kg minute of norepinephrine to maintain a physiologic blood pressure. He is on 25% FiO2, 5 of PEEP. His head is without trauma. Eyes without scleral icterus or conjunctivitis. Pupils 4 mm and equal bilaterally. He does not have an NG tube. He does have oral endotracheal tube, oral gastric tube. He has a right IJ line present. He also has a right arterial line and a left peripheral IV in the forearm. His neck is notable actually for JVD which is quite significant. His lips are without herpetic changes. His lungs notable for relatively clear breath sounds bilaterally. Cardiac tones tachycardic without overt murmur or gallop. His abdomen is distended. He has an open abdomen with a large dressing covering the left midportion of the abdomen diffusely. His abdomen is somewhat firm to palpation, and as noted, is quite distended. Tenderness cannot be assessed. Penis and scrotum appear normal. Cash catheter is present draining clear yellow urine. He does not have inguinal adenopathy. There is no evidence for synovitis. No evidence for skin rash though it is a bit hard to tell as the patient has very extensive and colorful tattoos which cover a fair portion of his skin. His extremities are well perfused with good pulses and they are warm and without any signs consistent with ischemia. Neurologic examination cannot be done in this intubated, sedated gentleman. Physical. LABORATORIES: Include white count started off at normal 6000-10,000 during the first couple measurements, now 19,000 white count with 43% bands so he has almost 8000 band forms at this point, which is truly extraordinary. Platelet count is dropping now 134. Creatinine is 1 currently. Lactic acid 1.8. It had been elevated previously. LFTs: AST is 118 which is coming down a bit. ALT 214 coming down a bit as well. Albumin 2.7. Procalcitonin is over 400 which is as far as our machine could detect. Urinalysis without white cells. Hep C is already positive. We do not have a hepatitis C viral load. His HIV is negative, however. Blood cultures are negative. MRSA screen negative and Gram stain of the abdominal fluid has a few gram-positive cocci. There was no growth on the plates. X-rays were reviewed. Yesterday's chest x-ray shows some increasing bilateral edema. Today's film has not been formally read by the radiologist, but we looked at it on the computer screen and appears to show increasing bilateral infiltrates as well as some possible air below the diaphragm on the right. This is my reading only. His abdominal CT scan from admission has already been discussed. IMPRESSION: This is a relatively healthy 36-year-old gentleman who is an IV heroin user and probably has active hepatitis C as his main underlying medical problem. He has a multiyear history of vague nausea, vomiting and abdominal pain which did not appear to affect his overall health and in general he appears as a previously healthy gentleman with good muscle development and he has been able to work so I am not certain what to make of this longstanding history of vague gastrointestinal symptoms, but this could certainly be related to substance abuse. More recently, the patient has had increasing abdominal pain, some fevers, chills and obstipation which led to his transfer from the intermediate to this facility and the discovery of perforated appendix with fecal soilage of the entire peritoneum. Appropriate surgery has already been conducted and the patient is now receiving broad-spectrum antibiotics consisting of Zosyn, Clinda and linezolid. The need for linezolid here is quite minimal as we have little reason to suspect VRE in this gentleman and we do have a MRSA screen of the nares that is negative. People in intermediate have an increased risk of carrying MRSA in their nares as compared to the normal population but in this case it is not the case as we already have a MRSA screen which is negative and the chances of MRSA or VRE involving his intra-abdominal infection in a significant way are quite low. Clindamycin is of little value here as it does not add anaerobic coverage to Zosyn or other available beta-lactam beta lactamase combination agents. Clinda will increase the risk unfortunately of C difficile and so I think its use should be stopped here. It is likely that his shock is on the basis of his perforation peritonitis due to enteric gram-negative rods and anaerobes. Whether yeast may play a role here is uncertain and there is debate in the literature about the appropriate time to add antifungal agents in patients such as this, but given the gravity of the patient's situation, I would rather cover him now while we attempt to get him out of septic shock and off the ventilator than withhold this therapy. RECOMMENDATIONS: 1. Will discontinue the clinda as well as the linezolid. 2. Note that another reason to drop the linezolid is that he has hepatitis C, and his platelets are already dropping. 3. Will add micafungin in a dose of 150 q.24 hours. 4. I have increased the Zosyn from q.8 to q.6 hours. Our standardized dose of Zosyn is on the low end, and if anything, in a young man with septic shock I think I would increase to a more robust dosing. 5. Because of the patient's hepatitis C positivity, he will require hepatitis C viral load as well as a genotype should he have a demonstrable viral load. 20%-35% of people can spontaneously cure themselves of hepatitis C, and we do not know yet if this patient falls in that category though I am inclined to doubt it based on his elevated LFTs. Thank you very much for this interesting consult.
--- NOTE | 2017-02-18 11:15 | NUR ---
NUTRITION FOLLOW-UP: Assess: 36 YO M admitted to CCU for pericecal abscess, SBO, and sepsis. Pt went to OR 02/18 and was found to have severe necrotizing perforated appendicitis. He is s/p laparotomy with ileocecectomy. Currently intubated and sedated. He has abd wound vac in place. Plan for possible return to OR tomorrow. Per CCU rounds, pt will likely require prolonged bowel rest and possible TPN. Pts wt is up 28kg from admit. PMHX: Heroin use. DIET: NPO x2. LABS: Cl 113, CO2 11, Glu 105, lactic acid 2.5, Ca 6.2, Mg 1.4, AST 139, ALT 257, Alb 2.0 MEDICATIONS: Reviewed. Fentanyl, norepinephrine GI: No BM noted- open wound on abdomen with large output, SKIN: No issues noted. ANTHROPOMETRICS: Wt: 101.33 kg, BMI 31.1 kg/m2, Admit wt: 72.73 kg. ESTIMATED NEEDS: (VENT, surgery- based off admit wt) Calories: 1455-1820kcal/day (20-25kcal/kg) Protein: 110-130g/day (1.5-1.8g/kg) NUTRITION DIAGNOSIS: 1) Inadequate oral intake related to decreased ability to consume sufficient energy as evidenced by NPO status. --PERSISTS INTERVENTION: 1) Will continue to monitor POC, if Pt continues to be NPO and require bowel rest recommend TPN be started. Recommend start at 150g Dex, 65g AA And 25g lipids to provide 1020kcal and 65g AA (~55% kcal and pro needs), 2) If tolerated, advance towards eventual goal of 275g Dex, 125g AA and 40g lipids to provide 1835kcal and 125g pro (100% estimated needs) 3) If bowel function does return, recommend TF be considered. MONITOR/EVALUATE: NPO status, nutrition support?, labs, GI/nutrition status. Follow per high nutrition risk guidelines.
--- NOTE | 2017-02-18 12:16 | NUR ---
Inpatient Wound Nurse Patient seen for Pressure Injury Protocol. Heels without bogginess or erythema, patient's primary CCU RN will report any breakdown or posterior changes when he is stable for rolling. He is on appropriate surface and nursing staff are following pressure injury protocol. Abthera foam to abdomen noted intact with excellent seal. CWON available to change canister PRN.
[2017-02-18] MEDS: Micafungin Inj 150 MG in 0.9% Sodium Chloride 100 ML IV SCH (14:12)
[2017-02-18] MEDS: DOBUTamine 500 mg/250 D5W 500,000 MCG in IV Premix 1 EACH IV SCH (14:13)
--- NOTE | 2017-02-18 16:07 | NUR ---
Social Work: Continued Discharge Planning D: [employer] received a request from the patient's aunt, Belinda Perez, requesting written notification of the patient's admission to [facility]. She states that the patient has a court date on 02/21/2017 and that his outreach coordinator ([facility]) ([phone]). She states that she is the patient's decision-maker. She has signed an ANABELA to release this information. [employer] spoke with administration regarding this request. At this time, there is no DPOA paperwork on file authorizing Belinda to release the medical records on the patient's behalf. This request cannot be honored at this time. Pt's aunt can communicate this with the patient's outreach coordinator however no communication or information can be released from [facility] without DPOA paperwork. Administration is requesting that [employer] inquire who the patient's NOK/decision maker is as there appears to be no DPOA completed. t/c to patient's aunt; left message notifying that her request for a letter could not be completed without DPOA paperwork citing her as decision maker. A: Pt who is currently vented in CCU. P: Evolving; Pt's discharge needs remain unknown at this time. [employer] to continue to follow and attempt to make contact with pt's aunt VINICIUS Estrada
--- NOTE | 2017-02-18 16:19 | PCM.PNMED ---
Subjective Date of Service Feb 18, 2017 Subjective 36 yo incarcerated heroin addict and alcoholic admitted with approximately 2 weeks of abdominal pain, fever, chills, and constipation. Initial CT showed suspected perforated appendicitis with RLQ abscess and the plan was to treat conservatively with percutaneous drainage by IR and IV antibiotics. Unfortunately, the patient deteriorated rapidly over night and a repeat CT now showed free air in the peritoneal space, retroperitoneum, portal system and bowel wall. He was taken to the OR urgently where he was found to have purulent peritonitis and a RLQ abscess with diffuse hemorrhage of the bowel and 4 quadrant necrosis of the peritoneal surface. The underlying bowel was felt to be viable however. He underwent limited resection of a necrotic area of his right colon and the ends were stapled closed. His abdomen was lavaged and a wound dressing was applied before he was brought to the ICU on mechanical ventilation. Overnight he has continued to receive large volumes of crystalloid and declining doses of pressors. His urine output has been adequate and his oxygen requirement has been stable. Exam Vital Signs Vital Sign - Last Date Time Temp Pulse Resp B/P Pulse Ox O2 Delivery O2 Flow Rate FiO2 02/18/17 12:02 105 98/57 97 25 02/18/17 12:00 37.7 20 Mechanical Ventilator Intake and Output 02/17/17 02/17/17 02/18/17 Cumulative From/Thru 15:00 23:00 07:00 02/17/17 00:10 - 02/18/17 06:19 Intake Total 8600 ml 6359 ml 8579 ml 83814 ml Output Total 250 ml 1750 ml 2625 ml 4625 ml Balance 8350 ml 4609 ml 5954 ml 14592 ml Intake Oral 0 ml 0 ml IV Total 8600 ml 6009 ml 8579 ml 33412 ml Packed Cells 350 ml 350 ml Output Urine Total 250 ml 250 ml 1400 ml 1900 ml Gastric Drainage Total 500 ml 500 ml 1000 ml Drainage Total 1000 ml 725 ml 1725 ml # Bowel Movements 0 0 Exam WDWN man orally intubated on vent with large wound vac dressing in midline incision. Lungs Scattered fine crackles NO wheezes CV RRR, no m/g/r Abd Midline incision open with sponge covering and would vac applied. Edges are viable. Drainage not grossly bloody or purulent. Diffusely tender to light touch. NO bowel tones. Ext Warm, pulses 2+, 1+ LE edema Neuro Grimaces to pain. Purposeful with all 4 extremities. Lab and Diagnostics Result Diagram: 02/18/1782302/18/17823 Microbiology Nasal MRSA negative Blood cultures negative to date Urine culture negative to date X-Rays, CTs and MRIs CT of Abdomen IMPRESSION: 1. Extensive large and small bowel pneumatosis in the setting of small bowel obstruction with extensive portal venous gas which has developed in the interval since prior CT scan obtained 02/17/17 at 0235 hours. Findings compatible with bowel ischemia. 2. Peritoneal pneumatosis and pneumoretroperitoneum which could be related to ruptured bowel versus infection with gas-forming organism. 3. Free intraperitoneal air and mesenteric air consistent with bowel perforation and/or mesenteric ischemia. 4. Decreased IVC caliber highly suspicious for severe hypotension. Please correlate with clinical data. 5. Moderate to large amount of ascites which is increased in volume compared to 02/17/17. The ascites has increased density compared to the prior CT scan which could be related to hemorrhage, proteinaceous fluid or infectious fluid. 6. Dilated loops of small bowel compatible with small bowel obstruction. 7. Probable right lower quadrant pericecal abscess suboptimally visualized in the absence of intravenous contrast does not appear significantly changed compared to prior CT scan. 8. Trace bilateral pleural effusions. Dictated by: Radha Cruz MD, PhD on 02/17/2017 at 10:08 Approved by: Radha Cruz MD, PhD on 02/17/2017 at 10:58 . Cardiac Echo Impressions ECHO on 02/17/17 Interpretation Summary Technically difficult study limits valve visualization. 1) Normal left ventricular thickness and size with severely reduced systolic function (EF 20-25%). 2) Borderline right ventricular enlargement with moderately reduced function. 3) No significant valvular abnormalities. 4) No prior Echo available for comparison. If endocarditis is suspected, consider CATRACHITO. Assessment & Plan IMP Perforated appendicitis with gross generalized fecal soiling of peritoneal cavity. Fortunately, his small bowel and most of his colon appeared viable. His course since laparotomy shows steady improvement. Sepsis, improved with resuscitation, antibiotics, damage control surgery Post operative respiratory failure, stable REC Wean esmolol to off, Taper norepi as tolerates. Maintain on vent until abdomen can be closed which may yet be several days. Abx per ID consult No need to start TPN immediately but likely to need eventually. . GI Prophylaxis: H2 mack VTE Prophylaxis: Sub-Q Heparin (Unfractionated) VTE Mechanical Devices: Intermittant Pneumatic CD Resuscitation Status: CPR: Attempt Resuscitation Scott Aparicio MD Feb 18, 2017 16:04
[2017-02-18] MEDS ORDERED: Vancomycin Serum Trough XX ONE (17:30)
[2017-02-18] MEDS: Lactated Ringer's 1,000 ML IV SCH (17:44)
--- NOTE | 2017-02-18 18:15 | NUR ---
Pressors titrated off today. Esmolol infusion stopped per Md, HR 126/Sinus, no ectopy noted. Febrile, 38.7 axillary temp. Propofol gtt started for improved sedation/comfort with good effect, Versed gtt rate decreased. No longer overbreathing vent rate. OGT flushed frequently and manipulated to maintain patency, 700mls/bile output. Wound vac to abd, 300 mls sero-sang drainage; abd distended, taut. To return to OR in the a.m. per Dr. Freedman, who discussed the plan of care with his Aunt Belinda.
[2017-02-18] MEDS ORDERED: Albumin 25% 50 GM in IV Premix 1 EACH IV SCH (20:30)
[2017-02-18] MEDS: Albumin 25% 25 Gm/100 mL IV SCH (22:22)
[2017-02-19] VITALS (13 sets, daily range): BP systolic 124–153; BP diastolic 71–96; PULSE 105–125; RESP 20; O2SAT 96–99
[2017-02-19] MEDS: Heparin 5,000 Unit/mL Inj SUBQ SCH ×3 (00:22→14:47)
[2017-02-19] MEDS: Chlorhexidine 0.12% 15 mL Oral Solution MT SCH ×6 (00:22→20:25)
--- NOTE | 2017-02-19 01:53 | PCM.PNMED ---
Subjective Date of Service Feb 18, 2017 Subjective Mr. Perez is a 36-year-old gentleman with PMHX significant for polysubstance abuse and has been incarcerated at [facility] for the recent 12 days prior to admission, who presented to the emergency department with a 2 week onset of increasing abdominal pain with associated fever, chills, nausea, vomiting, diaphoresis. CT scan showed free air in the abdomen and was taken emergently to surgery and found to have severe necrotizing perforated appendicitis. Overnight, he was taken off of dobutamine and norepi was titrated down. However , he still requires esmolol for rate control. Today, he was titrated down or off multiple drips. He appears to be improving and his extremities feel warmer to touch. He remains intubated and is minimally responsive to stimuli. Exam Vital Signs Vital Sign - Last Date Time Temp Pulse Resp B/P Pulse Ox O2 Delivery O2 Flow Rate FiO2 02/18/17 04:48 121 110/63 98 30 02/18/17 04:00 37.6 21 Mechanical Ventilator Intake and Output 02/17/17 02/17/17 02/18/17 Cumulative From/Thru 15:00 23:00 07:00 02/17/17 00:10 - 02/18/17 06:19 Intake Total 8600 ml 6359 ml 8579 ml 04797 ml Output Total 250 ml 1750 ml 2625 ml 4625 ml Balance 8350 ml 4609 ml 5954 ml 56395 ml Intake Oral 0 ml 0 ml IV Total 8600 ml 6009 ml 8579 ml 94235 ml Packed Cells 350 ml 350 ml Output Urine Total 250 ml 250 ml 1400 ml 1900 ml Gastric Drainage Total 500 ml 500 ml 1000 ml Drainage Total 1000 ml 725 ml 1725 ml # Bowel Movements 0 0 Exam General: Patient is intubated and sedated, minimally responsive to external stimuli HEENT: ET tube in place, PERRL with miosis Cardio: Tachycardic, s1 and s2 heard, no murmurs, rubs or gallops Lungs: patient is intubated, breath sounds heard anteriorly with nild crackles Skin: feels warm to touch, has several tattoos on UE Abdomen: Distended abdomen with AbThera device Extremities: no edema or erythema Neuro: difficult to assess as patient is sedated IVs and Medications IV Fluids NS at 400 ml/hr Medications Reviewed: Medications were reviewed in detail Medications High risk meds include IV Fentanyl and Midazolam Lab and Diagnostics Laboratory Tests Test 02/18/17 02:45 02/18/17 08:24 White Blood Count 26.2th/mm3 (3.8-10.1) 18.9th/mm3 (3.8-10.1) Red Blood Count 5.68mil/mm3 (4.40-5.80) 4.36mil/mm3 (4.40-5.80) Hemoglobin 15.1g/dL (13.8-17.2) 11.8g/dL (13.8-17.2) Hematocrit 43.5% (41.0-50.0) 33.9% (41.0-50.0) Mean Corpuscular Volume 76.6fL (81-100) 77.8fL (81-100) Mean Corpuscular Hemoglobin 26.6pg (27.0-35.0) 27.1pg (27.0-35.0) Mean Corpuscular Hemoglobin Concent 34.7% (32.0-37.0) 34.8% (32.0-37.0) Red Cell Distribution Width 14.6% (12.3-15.4) 14.4% (12.3-15.4) Platelet Count 171bil/L (150-400) 134bil/L (150-400) Neutrophils (%) (Auto) 44% (40-74) 42% (40-74) Lymphocytes (%) (Auto) 6% (14-46) 8% (14-46) Monocytes (%) (Auto) 6% (4-12) 7% (4-12) Eosinophils (%) (Auto) 0% (0-5) 0% (0-5) Basophils (%) (Auto) 0% (0-3) 0% (0-3) Band Neutrophils % 43% (1-5) 43% (1-5) Metamyelocytes % 1% (0-0) Hematology Comments Wbc Sodium Level 139mEq/L (134-144) 140mEq/L (134-144) Potassium Level 4.1mEq/L (3.5-5.2) 3.9mEq/L (3.5-5.2) Chloride Level 113mEq/L (97-108) 114mEq/L (97-108) Carbon Dioxide Level 11mmol/L (18-29) 12mmol/L (18-29) Blood Urea Nitrogen 15mg/dL (6-20) 14mg/dL (6-20) Creatinine 1.05mg/dL (0.76-1.27) 1.00mg/dL (0.76-1.27) Estimat Glomerular Filtration Rate 85mL/min (>59) 90mL/min (>59) Glucose Level 105mg/dL (60-99) 98mg/dL (60-99) Lactic Acid Level 2.5mmol/L (0.4-2.0) 1.8mmol/L (0.4-2.0) Calcium Level 6.2mg/dL (8.5-10.1) 6.1mg/dL (8.5-10.1) Phosphorus Level 3.0mg/dL (2.5-4.9) Magnesium Level 1.4mg/dL (1.6-2.6) 2.9mg/dL (1.6-2.6) Total Bilirubin 0.8mg/dL (0.0-1.2) 1.0mg/dL (0.0-1.2) Aspartate Amino Transf (AST/SGOT) 139U/L (0-50) 118U/L (0-50) Alanine Aminotransferase (ALT/SGPT) 257U/L (0-44) 214U/L (0-44) Alkaline Phosphatase 45U/L (25-150) 40U/L (25-150) Total Protein 3.5g/dL (6.4-8.4) 4.0g/dL (6.4-8.4) Albumin 2.0g/dL (3.4-5.0) 2.7g/dL (3.4-5.0) Prealbumin 5mg/dL (20-40) Procalcitonin > 400.00ng/mL (0.00-0.08) Thyroid Stimulating Hormone (TSH) 1.410uIU/mL (0.450-4.500) Microbiology 02/17/17 Blood Culture - Preliminary, Resulted NO GROWTH AFTER 24 HOURS 02/17/17 Gram Stain - Final, Resulted 02/17/17 Culture & Sensitivity - Preliminary, Resulted No growth to date 02/17/17 Anaerobic Culture, Resulted Pending 02/17/17 MRSA (PCR) - Final, Complete Result Diagram: 02/18/17 0245 02/18/17 0245 X-Rays, CTs and MRIs CT of Abdomen IMPRESSION: 1. Extensive large and small bowel pneumatosis in the setting of small bowel obstruction with extensive portal venous gas which has developed in the interval since prior CT scan obtained 02/17/17 at 0235 hours. Findings compatible with bowel ischemia. 2. Peritoneal pneumatosis and pneumoretroperitoneum which could be related to ruptured bowel versus infection with gas-forming organism. 3. Free intraperitoneal air and mesenteric air consistent with bowel perforation and/or mesenteric ischemia. 4. Decreased IVC caliber highly suspicious for severe hypotension. Please correlate with clinical data. 5. Moderate to large amount of ascites which is increased in volume compared to 02/17/17. The ascites has increased density compared to the prior CT scan which could be related to hemorrhage, proteinaceous fluid or infectious fluid. 6. Dilated loops of small bowel compatible with small bowel obstruction. 7. Probable right lower quadrant pericecal abscess suboptimally visualized in the absence of intravenous contrast does not appear significantly changed compared to prior CT scan. 8. Trace bilateral pleural effusions. Dictated by: Radha Cruz MD, PhD on 02/17/2017 at 10:08 Approved by: Radha Cruz MD, PhD on 02/17/2017 at 10:58 Cardiac Echo Impressions ECHO on 02/17/17 Interpretation Summary Technically difficult study limits valve visualization. 1) Normal left ventricular thickness and size with severely reduced systolic function (EF 20-25%). 2) Borderline right ventricular enlargement with moderately reduced function. 3) No significant valvular abnormalities. 4) No prior Echo available for comparison. If endocarditis is suspected, consider CATRACHITO. Assessment & Plan Mr. Perez is a 36-year-old gentleman with PMHX significant for polysubstance abuse and has been incarcerated at [facility] for the recent 12 days prior to admission, who presented to the emergency department with a 2 week onset of increasing abdominal pain with associated fever, chills, nausea, vomiting, diaphoresis. CT scan showed free air in the abdomen and was taken emergently to surgery and found to have severe necrotizing perforated appendicitis. Severe Sepsis, acute, present on admission, Active -Secondary to severe necrotizing perforated appendicitis with feculent peritonitis -On admit: T 35.9, P1 44, RR 34, lactic acid 7.6, with repeat 4.8 -Patient underwent laparotomy with appendectomy and colectomy -Surgery found his appendix obviously ruptured and in 2 pieces, with extensive associated necrotic tissue through the peritoneal cavity, as well as a likely abscess in the RLQ -Continue Zosyn, Micafungin per ID -Patient has been dependent upon aggressive fluid resuscitation with copious NS , Albumin, and 2U PRBC to date -Will attempt to wean down fluid burden as sepsis improves Severe necrotizing perforated appendicitis, acute, present on admission, Active -As evidenced by the CT above -Surgical intervention as above -Patient has yet to be anastamosed or an ostomy established, blind end gut -Dr. Freedman from General surgery is managing the surgical aspect of this patient , anticipates return to OR 02/19 -Patient with open abdominal wound and wound vac in place, output has been copious, surgery will continue to manage -Current analgesia with Fentanyl drip, patient with likely pre-existing opiate habituation Tachycardia and stress induced cardiomyopathy, POA, acute. Active -ECHO demonstrated EF of 20-25% with little structural heart disease, likely indicative of acute decompensation -Was briefly on Dobutamine drip -Esmolol drip to control rate, unsuccessful attempts to wean to date Lactic acidosis, acute, present on admission, Active -Likely secondary to septic process as above -On admit: Initial 7.6 -Is trending towards normal -Continue Fluid Hydration, with consideration for reduced EF -Trend Lactic acid -Patient is currently intubated, ventilator dependent History of incarceration - P[employer] consult - Hep panel indicative of past infection -HIV negative -MRSA nasal swab negative . Pain Evaluation: Adequate Pain Control GI Prophylaxis: H2 mack VTE Prophylaxis: Sub-Q Heparin (Unfractionated) VTE Mechanical Devices: Intermittant Pneumatic CD Resuscitation Status: CPR: Attempt Resuscitation Patient status: Due to severity of presenting symptoms, likely course of care, and risk of adverse events, anticipated length of stay exceeds 2 midnights; patient admitted under inpatient status to CCU GI Prophylaxis: H2 mack VTE Prophylaxis: Sub-Q Heparin (Unfractionated) VTE Mechanical Devices: Intermittant Pneumatic CD Resuscitation Status: CPR: Attempt Resuscitation Time spent 40 minutes Attending Statement I have seen and evaluated patient at bedside in addition to directly supervising care provided by resident physician Dr Zelaya on 02/18/2017. I agree with above documentation. Leah Zelaya DO Feb 18, 2017 06:57 Jose Moore DO Feb 19, 2017 08:04
[2017-02-19] MEDS: Piperacillin-Tazo 3.375 Gm Inj 3.375 GM in Dextrose 5% Minibag Plus 50 ML IV SCH ×4 (03:11→20:25)
[2017-02-19] MEDS: fentaNYL 2,500 mCg/250 mL 2,500 MCG in IV Premix 1 EACH IV SCH ×2 (04:18→20:29)
[2017-02-19 04:53] LABS: Mean Corpuscular Hemoglobin 26.9 pg (27.0-35.0); Mean Corpuscular Volume 77.7 fL (81-100); Platelet Count 131 bil/L (150-400)
--- NOTE | 2017-02-19 05:08 | NUR ---
Vent, sedation, gastric output Vs as noted. Continues ventilated with sats high 90s on 25% fio2 without desaturations. Versed gtt d/carlos alberto. Propofol gtt remains at 20mcg/kg/min and fentanyl 175mcg/h. Ogt in place requiring frequent manipulation to drain with total 1850ml bilious secretions over night. Wound vac in place and draining serous sanguinous fluid. Cash cath in place with 700ml uop. Tylenol given IV x1 for temp 38.1 and hr 120s.
--- NOTE | 2017-02-19 05:12 | ABG ---
DateTimeAnalyzed 05:04:05 -_ pH ____7.445 - 7.350 7.450 pCO2 ___22.7__ -mmHg 35.0 45.0 pO2 ___94.0__ -mmHg 69.0 116 HCO3- ___15.6__ -mmol/L 22.0 26.0 ABE ___-7.8__ -mmol/L -2.0 2.0 tHb ____9.9__ -g/dL 12.0 18.0 O2Hb ___97.6__ -% COHb ____1.6__ -% 0.0 1.5 MetHb ____0.1__ -% 0.4 1.5 sO2 ___99.4__ -% FIO2 ___21.0__ -% PRVC 530 - PEEP ____5.0__ -cmH2O Set_RR 20 -b/min Vt __530.0__ -L Drawn By MD - Date/Time Notified____ 05:12:00 -_ Spontaneous_RR 20 -b/min Notified By MD - Notified Whom RN J.HERLICKSON - K+ ____3.2__ -mmol/L 3.5 5.0 tO2 ___13.7__ -Vol% Mayo test N/A -
[2017-02-19 05:14] LABS: NEUTROPHILS % (AUTO) 69 % (40-74)
[2017-02-19 05:15] LABS: BASOPHILS % (AUTO) 0 % (0-3); EOSINOPHILS % (AUTO) 0 % (0-5); MONOCYTES % (AUTO) 0 % (4-12)
[2017-02-19 05:19] LABS: INR 1.12 ratio
[2017-02-19 05:33] LABS: Magnesium 2.5 mg/dL (1.6-2.6)
[2017-02-19] MEDS ORDERED: Potassium Phos (mMol) Inj 30 MMOL in Dextrose 5% 500 ML IV ONE (06:20)
[2017-02-19] MEDS ORDERED: KCl 40 mEq/100 mL (CENTRAL) 40 MEQ in IV Premix 1 EACH IV ONE (06:20)
[2017-02-19] MEDS: Lactated Ringer's 1,000 ML IV SCH ×3 (06:39→20:23)
--- NOTE | 2017-02-19 07:18 | PCM.HPANE ---
Patient Data Surgeon Admitting Provider:Isabel Mcduffie DO Attending Provider:Jose Moore DO Primary Care Physician:Sawyer Other Provider:Gila Khan Anesthesia Reason for Visit Pericecal Abscess,Sbo,Sepsis Ht/WT & BMI Height (Feet): 5 Height (Inches): 11.00 Weight (Kilograms): 97.700 Body Mass Index 22.45 Allergies Coded Allergies: No Known Allergies (Unverified , 02/17/17) Past Anesthesia History Anesthesia History: Denies:: Abnormal Airway, Anesthesia Reactions, Difficult Intubation Diabetes History Hx Diabetes?: No Medications Hypertension Medication: No Home Meds Incl Beta Ayana: No History History of ENT Problems?: No HEENT History: Denies:: Abnormal Airway Difficult Intubation Denture Type: None Teeth Condition: Tooth Decay Other HEENT Pertinent History: ETT Hx of Heart Problems?: Yes Cardiovascular History: Positive for:: Chest Pain Denies:: Cardiac Surgery Congestive Heart Failure Edema Heart Murmur Hypertension Irregular Heartbeat Pacemaker Thrombophlebitis Hx of Respiratory Problem?: Yes Respiratory History: Positive for:: Pneumonia Denies:: Asthma COPD Chest Surgery Dyspnea Emphysema Hemoptysis Tuberculosis Hx Neurologic Problems?: No Neurological History: Positive for:: Headaches Denies:: Alzheimer's Disease CVA Dementia Dizziness Parkinson's Disease Seizures Hx of GI Problems?: Yes Hx of Problems?: No Genitourinary History: Denies:: HX of Hemodialysis Kidney Stones Urinary Tract Infection HX of Peritoneal Dialysis: No Male Hx: Denies:: Prostate Problems Scrotal Mass Testicular Surgery Hx Musculoskeletal Problems?: Yes Musculoskeletal History: Positive for:: Back Injury Musculoskeletal Trauma Hx of Psycho/Social Problems?: Yes Psycho Social History: Positive for:: Anxiety Hx Depression Denies:: Bipolar Disorder Suicide Attempt Other Psych Pertinent History: history substance abuse Hx Surgeries?: Yes (several broken bones) Hx Any Other Health Problems?: Yes Other History: Positive for:: Hospitalization Denies:: Cancer (father had CA) Thyroid Disease History Blood Transfusions: Positive for:: Accept Blood Products? Denies:: Blood Transfusions Hx Diabetes: No Occupation: currently incarcerated Hx Alcohol Use: Yes (Rarely, used to drink more several years ago)Hx Substance Use: Yes (heroin IV; last use approximately 14 of January; weed; "I've tried it all") Smoking Status: Unknown if Ever Smoker Have You Smoked inLast 12 mo: NoApprox How Many Cigarettes/day: "A cigarette here and there" Stop/Bang Treated for Sleep Apnea?: No Do You Have a CPAP Machine?: No S-Snoring: Do You Snore Loudly: No T-Tired: feel tired, fatigued: No O-Obsered: Observed not breath: No P-Blood Pressure: treated: No B- Body Mass Index > 35 kg/m2: No A- Age over 50: No N- Neck Large Circumference: No G- Gender Male: Yes WILLI Total Score: 1 WLILI Risk Assessment: Low Risk, <3 Yes Risk Assessment Category Category 1A: Patient has history of documented sleep apnea, and HAS NOT received any narcotic, sedative or anesthesia administration during this stay. Category 1B: Patient has history of documented sleep apnea, and HAS received any narcotic , sedative or anesthesia administration during this stay Category 2: Patient has SUSPECTED Obstructive Sleep Apnea, and HAS received any narcotic , sedative or anesthesia administration during this stay. Category 3: Patient has SUSPECTED Obstructive Sleep Apnea and HAS NOT received narcotic, sedative or anesthesia administration during this stay. Category 4: Outpatient in Procedural Areas with known sleep apnea or who screen positive for High Risk via the STOP/BANG questionnaire. Exam Exam Vital Signs Vital Signs Date Time Temp Pulse Resp B/P Pulse Ox O2 Delivery O2 Flow Rate FiO2 02/19/17 04:07 107 145/71 98 25 02/19/17 04:00 Ventilator 02/19/17 04:00 37.3 108 20 148/71 98 Mechanical Ventilator 25 02/19/17 00:13 110 127/74 97 25 02/19/17 00:00 Ventilator 02/19/17 00:00 37.7 113 20 124/73 97 Mechanical Ventilator 25 General Appearance: Alert, Oriented X3, Cooperative, Moderate Distress HEENT/AIRWAY: MP 1, Neck Movement (Full) Lungs: Clear to Auscultation, Normal Air Movement, Diminished Heart: Normal S1, Normal S2, Other (tachycardic) Meds/Labs/Diagnostics Admission Meds Current Medications Micafungin Sodium 150 mg/Sodium Chloride 107.5 ml @ 107.5 mls/ hr Q24 IV Last administered on 02/18/17t 14:12; Start 02/18/17 at 12:06 Piperacillin Sod/ Tazobactam Sod 3.375 gm/Dextrose/ Water 50 ml @ 12.5 mls/hr Q6 IV Last administered on 02/19/17 03:11; Start 02/18/17 at 14:30 Lactated Ringer's (Lr) 1,000 ml @ 75 mls/hr [id number] IV Last administered on 06:39; Start 02/18/17 at 16:55 Heparin Sodium (Porcine) 5000 unit 5,000 unit Q8 SUBQ Last administered on 02/19 00:22; Start 02/19/17 at 00:30 Albumin Human 50 gm/Premix 200 ml @ 1 mls/min BID IV Last administered on 22:22; Start 02/18/17 at 20:32 Potassium Phosphate/ Dextrose/Water (Potassium Phos (mMol) Inj/D5W) 510 ml @ 63.75 mls/ hr ONCE ONCE IV Last administered on 02/19/17 06:37; Start at 06:20; Stop 02/19/17 at 14:19 Labs Test 02/17/17 00:32 02/17/17 05:10 02/17/17 08:40 02/17/17 21:00 Lipase 19U/L (13-60) Hepatitis A IgM Antibody Negative (Negative) Hepatitis B Surface Antigen Negative (Negative) Hepatitis B Core IgM Antibody Negative (Negative) Hepatitis C Antibody >11.0s/co ratio Hepatitis C Antibody Comment Comment (.) HIV (1&2) Ag and Ab, 4th Generation Non reactive (Non Reactive) Urine Color Dark yellow (YELLOW) Urine Appearance Hazy (CLEAR,HAZY) Urine pH 5.5 (5.0-8.0) Urine Specific Fre[place] 1.015 (1.003-1.035) Urine Protein 30mg/dL (NEG,TRACE) Urine Glucose (UA) Negativemg/dL (NEGATIVE) Urine Ketones Tracemg/dL (NEGATIVE) Urine Occult Blood Negative (NEGATIVE) Urine Nitrite Negative (NEGATIVE) Urine Bilirubin Negative (NEGATIVE) Urine Urobilinogen Normalmg/dL (NORMAL) Urine Leukocyte Esterase Negative (NEGATIVE) Urine RBC 0-2/hpf (0-2) Urine WBC 0-5/hpf (0-5) Urine Epithelial Cells Occasional/hpf (NONE-MOD) Urine Crystals None seen (NONE SEEN) Urine Bacteria Few/hpf (NONE-FEW) Urine Hyaline Casts Occasional/lpf (NONE) Urine Granular Casts None seen (NONE SEEN) Urine Waxy Casts None seen (NONE SEEN) Urine Red Blood Cell Casts None seen (NONE SEEN) Urine White Blood Cell Casts None seen (NONE SEEN) Urine Mucus None seen (None Seen) Urine Trichomonas None seen (NONE SEEN) Urine Yeast None (NONE SEEN) Urinalysis Comment None Urine Culture Reflexed Not indicated Myelocytes % 0% (0-0) Test 02/18/17 02:45 02/18/17 08:24 02/19/17 04:40 Metamyelocytes % 1% (0-0) Hematology Comments Wbc Prealbumin 5mg/dL (20-40) Thyroid Stimulating Hormone (TSH) 1.410uIU/mL (0.450-4.500) Lactic Acid Level 1.8mmol/L (0.4-2.0) White Blood Count 12.8th/mm3 (3.8-10.1) Red Blood Count 3.64mil/mm3 (4.40-5.80) Hemoglobin 9.8g/dL (13.8-17.2) Hematocrit 28.3% (41.0-50.0) Mean Corpuscular Volume 77.7fL (81-100) Mean Corpuscular Hemoglobin 26.9pg (27.0-35.0) Mean Corpuscular Hemoglobin Concent 34.6% (32.0-37.0) Red Cell Distribution Width 14.8% (12.3-15.4) Platelet Count 131bil/L (150-400) Neutrophils (%) (Auto) 69% (40-74) Lymphocytes (%) (Auto) 14% (14-46) Monocytes (%) (Auto) 0% (4-12) Eosinophils (%) (Auto) 0% (0-5) Basophils (%) (Auto) 0% (0-3) Band Neutrophils % 9% (1-5) Prothrombin Time 12.0sec (8.1-12.5) Prothromb Time International Ratio 1.12ratio Sodium Level 135mEq/L (134-144) Potassium Level 3.3mEq/L (3.5-5.2) Chloride Level 107mEq/L (97-108) Carbon Dioxide Level 14mmol/L (18-29) Blood Urea Nitrogen 9mg/dL (6-20) Creatinine 0.74mg/dL (0.76-1.27) Estimat Glomerular Filtration Rate 127mL/min (>59) Glucose Level 73mg/dL (60-99) Calcium Level 7.0mg/dL (8.5-10.1) Phosphorus Level 1.0mg/dL (2.5-4.9) Magnesium Level 2.5mg/dL (1.6-2.6) Total Bilirubin 1.2mg/dL (0.0-1.2) Aspartate Amino Transf (AST/SGOT) 105U/L (0-50) Alanine Aminotransferase (ALT/SGPT) 213U/L (0-44) Alkaline Phosphatase 62U/L (25-150) Total Protein 4.7g/dL (6.4-8.4) Albumin 3.2g/dL (3.4-5.0) Procalcitonin 241.70ng/mL (0.00-0.08) Plan Impression Patient chart reviewed, patient interviewed and anesthestic plan with risks, benefits, and alternatives discussed, and informed consent obtained. NPO per Anesth. Guidelines: No ASA Physical Status: ASA4 Life Threatening Anesthetic Plan: GA Bene/Risks/Altern/Consents: Yes HP Complete Prior to Induction: Yes Alon Tran MD Feb 19, 2017 07:18
--- NOTE | 2017-02-19 08:11 | PROG NOTE ---
[address] [address] PROGRESS NOTE PATIENT: LEON GUERRERO : 1980 MR#: [id number] ADMIT: 02/17/2017 JOB ID: [id number] DATE: 02/19/2017 INFECTIOUS DISEASE FOLLOW UP NOTE: REASON FOR FOLLOWUP: Perforated appendix with extensive peritoneal soiling and open abdomen. INTERVAL HISTORY: Overnight, the patient has been relatively stable. He has had a resolution of his hypotension and has been weaned off all vasopressor agents. He remains on the ventilator, however, and is still certainly critically ill. At this point, he is about to be transported to the operating room for a second-look where he may have reanastomosis or formation of a colostomy or ileostomy. The patient is not communicative this morning as he is still intubated and sedated. PHYSICAL EXAMINATION: Reveals a gentleman who has been intermittently febrile in the past 24 hours. He was 38.7 yesterday at 1600 hours. This morning though he is afebrile 37.3. Pulse currently about 110, sinus. His blood pressure 153/79. He is saturating well on 25% and remains orally intubated. On his examination, no conjunctival abnormalities. Oral gastric tube and oral endotracheal tube in place. His lungs are relatively clear. Cardiac tones without murmur though he is tachycardic. His abdomen is distended with the open abdomen and large dressing in place. Cash catheter is present. No new skin rash. LABORATORIES: Include white count which has dropped from 19,000 to 13,000. His bands have dropped from 43% to 9. His creatinine 0.74. His AST 105, his ALT 213, his alk phos 62. His procalcitonin was greater than 400, now it is 240, still dramatically elevated, of course, and probably some of that is due to intestinal injury and ischemia. No pyuria. Hepatitis C antibodies pending. Hepatitis C viral load pending. Blood cultures negative. MRSA screen of the nares negative. Peritoneal fluid has gram-positive cocci on Gram stains. As of yet, the cultures are negative. No new imaging overnight. IMPRESSION: This is a young gentleman who is an IV heroin user with underlying hepatitis C, who presented with intra-abdominal catastrophe secondary to perforation of his appendix and diffuse peritonitis. He was left after his initial surgery with an open abdomen and is now scheduled for return to surgery. Yesterday, we consolidated and simplified his antibiotics to Zosyn and micafungin and there has been improvement in his white count as well as procalcitonin, and especially his resolution of his hypotension. At this point, the patient seems to be improving and certainly requires a second-look surgically with possible definitive operative management later today. RECOMMENDATIONS: 1. Will continue with relatively high-dose Zosyn. 2. Will continue with micafungin. 3. We await the final cultures of the peritoneal fluid.
--- NOTE | 2017-02-19 08:29 | PROG NOTE ---
[address] [address] PROGRESS NOTE PATIENT: LEON GUERRERO : 1980 MR#: [id number] ADMIT: 02/17/2017 JOB ID: [id number] DATE: 02/18/2017 SUBJECTIVE: A 36-year-old man, status post laparotomy with ileocecectomy yesterday. He has an open abdomen. Urine output has been adequate overnight. Echocardiogram demonstrated ejection fraction 25%, and he was on dobutamine overnight, which has been getting weaned off. He remains on Levophed. Vital signs have improved, with tachycardia down to 110-120. He continues to have copious output from his ABThera suction device. Copious output from his OG tube as expected. OBJECTIVE: Temperature 37.3, heart rate 117, blood pressure 127/63, saturation 98% on the ventilator. General: Sedated, intubated. Lungs: Rhonchi bilaterally. Abdomen: Distended, tender to palpation. The ABThera is working well. There is clear fluid in the suction canister. LABORATORY STUDIES: White count increased to 26.2 overnight. Hematocrit 43.5. Platelets 171. Lactate has decreased to 2.5. A comprehensive metabolic panel is reviewed, LFTs are improving, bilirubin remains normal. Calcium is low at 6.1, magnesium is high at 2.9. ASSESSMENT: A 36-year-old man, in septic shock due to perforated appendicitis, status post laparotomy with ileocecectomy, with an open abdomen and discontinuity. PLAN: I will continue to monitor his clinical course and plan on returning to the operating room, February 19. He is pending reanastomosis with possible ostomy, and is also pending closure of his abdomen. If he is able to get off of pressors, it would assist his surgical goals to be diuresed given the massive resuscitation he has undergone.
--- NOTE | 2017-02-19 10:30 | PCM.PNSURG ---
Subjective Date of Service: Feb 19, 2017 Visit Information: Reason for Visit Pericecal Abscess,Sbo,Sepsis Surgery/Surgery Date Post-Op Day # Date of Admission: Feb 17, 2017 at 04:07 Hospital Day # Subjective: Patient returning from OR after re-exploration, washout, and creation of diverting ileostomy. He remains intubated with an open abdomen. Objective Vital Sign- Last 8 Hours Date Time Temp Pulse Resp B/P Pulse Ox O2 Delivery O2 Flow Rate FiO2 02/19/17 07:45 37.5 112 20 134/77 98 Mechanical Ventilator 02/19/17 07:17 109 153/79 98 25 02/19/17 04:07 107 145/71 98 25 02/19/17 04:00 Ventilator 02/19/17 04:00 37.3 108 20 148/71 98 Mechanical Ventilator 25 Intake and Output- Last 8 Hour 02/19/17 Cumulative From/Thru 07:00 02/17/17 00:10 - 02/19/17 05:46 Intake Total 1816 ml 27130 ml Output Total 2850 ml 9275 ml Balance -1034 ml 13129 ml Intake Oral 0 ml IV Total 1816 ml 58944 ml Packed Cells 350 ml Output Urine Total 700 ml 3400 ml Gastric Drainage Total 1850 ml 3550 ml Drainage Total 300 ml 2325 ml # Bowel Movements 0 General: Other (Intubated sedated) Abdomen: Other (Abthera wound vac in place. RLQ loop ileostomy.) Result Diagram: 02/19/17 0440 02/19/17 0440 Assessment & Plan Impression POD#3 s/p ex lap and ileocectomy now returning from the OR for re-exploration, washout, and creation of diverting ileostomy. Problems: Plan - Continue NG decompression - Abdominal wound vac to suction - Resuscitate as per CCU team - Likely planning takeback on Wednesday 02/21 for ileocolonic anastomosis and attempted closure - If able to tolerate, diuresis to decrease bowel and abdominal wall edema would greatly facilitate the planned operative effort - Please do not hesitate to page or call VTE Prophylaxis: Sub-Q Heparin (Unfractionated) Resuscitation Status: CPR: Attempt Resuscitation Cristian Haddad MD Feb 19, 2017 10:30
--- NOTE | 2017-02-19 11:06 | PCM.ANEP1 ---
Post Anesthesia PACU Phase 1 Assessment Vital Signs Vital Signs Date Time Temp Pulse Resp B/P Pulse Ox O2 Delivery O2 Flow Rate FiO2 02/19/17 07:45 37.5 112 20 134/77 98 Mechanical Ventilator 02/19/17 07:17 109 153/79 98 25 02/19/17 04:07 107 145/71 98 25 02/19/17 04:00 Ventilator 02/19/17 04:00 37.3 108 20 148/71 98 Mechanical Ventilator 25 Anesthetic Administered: GA Level of Alertness: Drowsy, not talking MOSES's with Equal Strength: No Pain: No Nausea or Vomiting: No CV Function & Hydration Stable: Yes Airway Device: Endotrachial Tube Oxygen Delivery: Mechanical Ventilator Lungs: Clear to Auscultation, Normal Air Movement, Diminished PACU Phase 2 Assessment Patient Instructions Provided: N/A Alon Tran MD Feb 19, 2017 11:06
[2017-02-19] MEDS: Propofol Inj 1,000,000 MCG in IV Premix 1 EACH IV SCH ×4 (11:18→20:25)
--- NOTE | 2017-02-19 11:18 | PCM.PNMED ---
Subjective Date of Service Feb 19, 2017 Subjective Pulmonary critical care progress note, consult requested by Dr. Hurst Rui Perez is a 36 year old man with a PMH of polysubstance abuse who presents with a several day history of abdominal pain; he had been incarceration for 12 days prior to presentation. He had a CT scan which demonstrated free air in the abdomen, and was subsequently taken for emergent surgery and found to have ruptured appendicitis with feculent peritonitis and diffuse necrosis throughout the peritoneum. Overnight the patient was able to be weaned off Esmolol and norepi, was transitioned from Midazolam to Propofol as his pressures increased sufficiently to tolerate the switch. His ventilator requirements remained stable and his Fentanyl drip continued. He continues to have only minimal response to external stimuli with retraction from painful stimulus but not consistently following commands. He was taken back to the OR by Dr. 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 He did require a bolus of Norepi intraoperatively to maintain his pressure, but had adequate pressures upon return from the OR such that the pressor was not continued. The patient was unable to provide ROS given intubation and sedation. Exam Vital Signs Vital Sign - Last Date Time Temp Pulse Resp B/P Pulse Ox O2 Delivery O2 Flow Rate FiO2 02/19/17 07:45 37.5 112 20 134/77 98 Mechanical Ventilator 02/19/17 07:17 25 Intake and Output 02/18/17 02/18/17 02/19/17 Cumulative From/Thru 15:00 23:00 07:00 02/17/17 00:10 - 02/19/17 05:46 Intake Total 4560 ml 1816 ml 83301 ml Output Total 1800 ml 2850 ml 9275 ml Balance 2760 ml -1034 ml 75474 ml Intake Oral 0 ml IV Total 4560 ml 1816 ml 56811 ml Packed Cells 350 ml Output Urine Total 800 ml 700 ml 3400 ml Gastric Drainage Total 700 ml 1850 ml 3550 ml Drainage Total 300 ml 300 ml 2325 ml # Bowel Movements 0 0 Exam Gen: Intubated and sedated young man with extensive Tattoos, minimally responsive to external stimuli Neck: Right IJ in place and appears patent, no JVD, HEENT: ET tube in place and appears patent, PERRL with miosis, does not track consistently, mucous membranes moist CV: Regular Tachycardia with no murmurs rubs or gallops Resp: Diffuse mild crackles BL, no wheezing rales or rhonchi Abd: Large football size and shaped open abdominal wound with wound vac in place expressing copious sero-sanguinous fluid, distended, slightly firm, patient retracts from abdominal palpation, ostomy in RLQ with pink well perfused stoma Extr: Warm to the touch, no clubbing cyanosis or edema Neuro: CN difficult to assess in this intubated and sedated patient, no focal neurologic deficit IVs and Medications Medications Reviewed: Medications were reviewed in detail Lab and Diagnostics Item Value Date Time Red Blood Count 3.64 mil/mm3 L 02/19/17439 Mean Corpuscular Volume 77.7 fL L 02/19/17439 Mean Corpuscular Hemoglobin 26.9 pg L 02/19/17439 Mean Corpuscular Hemoglobin Concent 34.6 % 02/19/17439 Red Cell Distribution Width 14.8 % 02/19/17439 Neutrophils (%) (Auto) 69 % 02/19/17439 Monocytes (%) (Auto) 0 % L 02/19/17439 Lymphocytes (%) (Auto) 14 % 02/19/17439 Eosinophils (%) (Auto) 0 % 02/19/17439 Basophils (%) (Auto) 0 % 02/19/17439 Band Neutrophils % 9 % H 02/19/17439 Estimat Glomerular Filtration Rate 127 mL/min 02/19/17439 Calcium Level 7.0 mg/dL L 02/19/17439 Phosphorus Level 1.0 mg/dL L 02/19/17439 Magnesium Level 2.5 mg/dL 02/19/17439 Total Bilirubin 1.2 mg/dL 02/19/17439 Aspartate Amino Transf (AST/SGOT) 105 U/L H 02/19/17 044 Alanine Aminotransferase (ALT/SGPT) 213 U/L H 02/19/17439 Alkaline Phosphatase 62 U/L 02/19/17439 Total Protein 4.7 g/dL L 02/19/17439 Albumin 3.2 g/dL L 02/19/17439 Procalcitonin 241.70 ng/mL H 8/23/17 0440 Result Diagram: 02/19/17 0440 02/19/17 0440 Microbiology Nasal MRSA negative Blood cultures negative to date Urine culture negative to date Peritoneal culture negative to date X-Rays, CTs and MRIs CT of Abdomen IMPRESSION: 1. Extensive large and small bowel pneumatosis in the setting of small bowel obstruction with extensive portal venous gas which has developed in the interval since prior CT scan obtained 02/17/17 at 0235 hours. Findings compatible with bowel ischemia. 2. Peritoneal pneumatosis and pneumoretroperitoneum which could be related to ruptured bowel versus infection with gas-forming organism. 3. Free intraperitoneal air and mesenteric air consistent with bowel perforation and/or mesenteric ischemia. 4. Decreased IVC caliber highly suspicious for severe hypotension. Please correlate with clinical data. 5. Moderate to large amount of ascites which is increased in volume compared to 02/17/17. The ascites has increased density compared to the prior CT scan which could be related to hemorrhage, proteinaceous fluid or infectious fluid. 6. Dilated loops of small bowel compatible with small bowel obstruction. 7. Probable right lower quadrant pericecal abscess suboptimally visualized in the absence of intravenous contrast does not appear significantly changed compared to prior CT scan. 8. Trace bilateral pleural effusions. Dictated by: Radha Cruz MD, PhD on 02/17/2017 at 10:08 Approved by: Radha Cruz MD, PhD on 02/17/2017 at 10:58 Cardiac Echo Impressions ECHO on 02/17/17 Interpretation Summary Technically difficult study limits valve visualization. 1) Normal left ventricular thickness and size with severely reduced systolic function (EF 20-25%). 2) Borderline right ventricular enlargement with moderately reduced function. 3) No significant valvular abnormalities. 4) No prior Echo available for comparison. If endocarditis is suspected, consider CATRACHITO. Assessment & Plan Mr. Perez is a 36-year-old gentleman with PMHX significant for polysubstance abuse and has been incarcerated at [facility] for the recent 12 days prior to admission, who presented to the emergency department with a 2 week onset of increasing abdominal pain with associated fever, chills, nausea, vomiting, diaphoresis. CT scan showed free air in the abdomen and was taken emergently to surgery and found to have severe necrotizing perforated appendicitis. Patient underwent second surgery 02/19 with placement of a new ostomy in the RLQ. Severe Sepsis, acute, present on admission, Improving -Secondary to severe necrotizing perforated appendicitis with feculent peritonitis -On admit: T 35.9, P1 44, RR 34, lactic acid 7.6, with repeat 4.8 -Patient underwent laparotomy with appendectomy and colectomy -Surgery found his appendix obviously ruptured and in 2 pieces, with extensive associated necrotic tissue through the peritoneal cavity, as well as a likely abscess in the RLQ -Continue Zosyn, Micafungin per ID -Patient has been dependent upon aggressive fluid resuscitation with copious NS , Albumin, and 2U PRBC to date -Will attempt to wean down fluid burden as sepsis improves -Weaned off pressors -Propofol and Fentanyl for sedation -Will remain intubated and sedated while abdominal wound remains open -Second surgery 02/19, new ostomy is right lower quadrant -Patient will likely auto-diurese in the near future, will consider pharmacological assistance if urine output is inadequate Severe necrotizing perforated appendicitis, acute, present on admission, Active -As evidenced by the CT above -Surgical intervention as above -Dr. Freedman from General surgery is managing the surgical aspect of this patient -Patient with open abdominal wound and wound vac in place, output has been copious, surgery will continue to manage -Current analgesia with Fentanyl drip, patient with likely pre-existing opiate habituation Tachycardia and stress induced cardiomyopathy, POA, acute. Active -ECHO demonstrated EF of 20-25% with little structural heart disease, likely indicative of acute decompensation -Was briefly on Dobutamine drip -Esmolol drip weaned off with adequate pressure Lactic acidosis, acute, present on admission, Improved -Likely secondary to septic process as above -On admit: Initial 7.6 -Is trending towards normal -Continue Fluid Hydration, with consideration for reduced EF -Trend Lactic acid -Patient is currently intubated, ventilator dependent History of incarceration - CERTIFIED HYPERBARIC TECHNOLOGIST consult - Hep panel indicative of past infection -HIV negative -MRSA nasal swab negative . Pain Evaluation: Adequate Pain Control GI Prophylaxis: H2 mack VTE Prophylaxis: Sub-Q Heparin (Unfractionated) VTE Mechanical Devices: Intermittant Pneumatic CD Resuscitation Status: CPR: Attempt Resuscitation Antonio Lewis DO Feb 19, 2017 11:18
[2017-02-19] MEDS: Albumin 25% 25 Gm/100 mL IV SCH ×2 (11:19→20:24)
[2017-02-19] MEDS: Famotidine Inj 20 MG in IV Premix 1 EACH IV SCH ×2 (11:20→20:24)
[2017-02-19] MEDS: Micafungin Inj 150 MG in 0.9% Sodium Chloride 100 ML IV SCH (11:20)
[2017-02-19] MEDS: Norepineph 8,000 mCg/250 mL NS 8,000 MCG in IV Premix 1 EACH IV SCH ×2 (11:21→14:47)
--- NOTE | 2017-02-19 11:36 | OP ---
[address] [address] OPERATIVE REPORT PATIENT: LEON GUERRERO : 1980 MR#: [id number] ADMIT: 02/17/2017 JOB ID: [id number] DATE OF SURGERY: 02/19/2017 PREOPERATIVE DIAGNOSIS(ES): Septic shock due to perforated appendicitis; intestinal discontinuity with open abdomen. POSTOPERATIVE DIAGNOSIS(ES): Septic shock due to perforated appendicitis; intestinal discontinuity with open abdomen. PROCEDURE PERFORMED: 1. Exploration of previous laparotomy. 2. Adhesiolysis. 3. Resection of distal ileum, 10 cm. 4. Resection of hepatic flexure of colon, 7 cm. 5. Loop ileostomy. SURGEON: Latoya Freedman M.D. CHARTER REPRESENTATIVE: Anjel Gore M.D., R3; Brianna Villarreal, MS3. HISTORY OF PRESENT ILLNESS: This is a 36-year-old man who presented in the early hours of February 17, two days ago, peritoneal and in septic shock after a 2-week history of severe abdominal pain while he was incarcerated at the local [facility]. A laparotomy was performed and intraoperative findings included what appeared to be a perforated appendicitis with abdominal sepsis. He was left in discontinuity due to his critically ill status and an AbThera Wound VAC device was placed. He remained critically ill and required a total of 31 L of resuscitation over the past 48 hours. He initially required two pressors but these were weaned off over the course of a 48 hour period. He was brought back to the operating room today for a second look with assessment of the status of his intestine and colon, in order to determine whether ostomy or anastomosis was appropriate. FINDINGS: 1. Boggy, edematous small intestine and colon. 2. There was trace necrosis of the staple line at the hepatic flexure of the colon, which was resected. 3. There was what appeared to be early necrosis and inflammation of the serosa of the distal ileum near the staple line, which was resected. 4. The decision was made intraoperatively to create a diverting loop ileostomy and placed the two ends of ileum and colon near each other and secure them with stay sutures such that an anastomosis could be created after 48 more hours of diuresis and intestinal decompression through the ostomy. DESCRIPTION OF PROCEDURE: The patient was brought to the operating room and placed in a supine position. General anesthesia was induced as the patient was already intubated. The operative field was prepped and draped in a sterile fashion. He had been receiving broad-spectrum antibiotics on the floor and already had a Cash, central line, and an arterial line placed. The operative field was prepped and draped in a sterile fashion. A pause was performed to confirm the correct patient, procedure and site. The AbThera device removed and his intestines were found to be severely dilated, edematous, and filled with both fluid and gas. The entire small intestine from the ligament of Treitz to the distal staple line was assessed, and the only region that was compromised was a small area of serosa near the distal staple line. It had the appearance of early necrosis and, therefore, this segment was resected using a blue load of a GIANNI stapler and a LigaSure device. This was passed off the field. The entire colon was inspected and there was a small amount of necrosis, but no sign of leak, at the proximal staple line of the colon. The hepatic flexure and transverse colon were then mobilized. Care was taken to identify and protect the duodenum during this portion of the procedure. The omentum was mobilized off of the transverse colon. A 7 cm portion of the hepatic flexure of the colon was then resected in the same fashion using a blue load of a GIANNI stapler and a LigaSure device. The mesentery was taken very close to bowel wall to avoid injury to the main middle colic. The abdominal wall and retroperitoneum were also assessed, and there had been no worsening of the previous necrosis of the peritoneal lining of the abdomen or the mesentery, which had been visualized on the original laparotomy. A small improvement was noted, as the retroperitoneum and peritoneal lining of the mesentery appeared less dark than it had on the original laparotomy. Throughout the operation, copious peritoneal fluid was suctioned for a total of nearly 1200 mL at the end of the case. Attention was turned to decision making with regards to fascia and intestinal continuity. It was clear that his fascia would not come together at this point given that he was a total of 26 L up in his fluid status since the time of admission. An end ileostomy was considered, intestinal anastomosis was considered, both with and without an ostomy. The decision was made that, after 48 hours of intestinal decompression and diuresis, an anastomosis could be safely created, however, today the intestine was much too boggy and dilated to create the anastomosis. Therefore, the distal ileum and the proximal transverse colon were placed next to each other and stay sutures were created at the location of the future anastomosis with three interrupted silks at the distal and proximal ends of the eventual anastomosis. A diverting loop ileostomy was then created in the right lower quadrant of the abdomen to facilitate antegrade and retrograde decompression of the intestines. The intestines were also milked in a retrograde fashion back to the duodenum and stomach, and approximately 1000 mL of intraluminal fluid came out the OG tube. The intestines were then placed back in the abdomen and ABThera device was placed for abdominal wall suctioning. Once this was completely in place and suction was performing well, the ostomy was matured. A cruciate incision had been made in the fascia and a loop of ileum that was 15 cm proximal to the eventual anastomosis had been pulled out through this through a Heather. This portion of the procedure was fairly difficult given the significant mesenteric and bowel wall edema. The ostomy was then matured in a Jazmyn fashion. An ostomy bag was placed. Drapes were taken down and the patient was returned to the ICU in stable condition. He did not require pressors during the case. COMPLICATIONS: None. ESTIMATED BLOOD LOSS: 10 mL. An additional 1200 mL of peritoneal fluid was removed during the case. SPECIMENS: Distal ileum, 10 cm, for final pathology; hepatic flexure of the colon, 7 cm, for final pathology. [facility]
[2017-02-19] MEDS ORDERED: Rocuronium 10 mg/mL 5 mL Inj ONE (11:38)
[2017-02-19] MEDS ORDERED: Phenylephrine/NS 100 mCg/mL 10 mL Syringe IVPUSH ONE (11:38)
[2017-02-19] MEDS ORDERED: Ketamine 10 mg/mL 20 mL Inj ONE (11:38)
[2017-02-19] MEDS ORDERED: HYDROmorphone 1 mg/mL Inj ONE (11:38)
--- NOTE | 2017-02-19 12:26 | DRSVH ---
PROCEDURE: X-RAY CHEST ONE VIEW, PORTABLE ([id number]) INDICATIONS: fu intubation TECHNIQUE: One view of the chest was acquired. COMPARISON: [facility], CR, XR CHEST 1VW (PORTABLE), 02/17/2017, 15:29. [facility], CR, XR CHEST 1VW (PORTABLE), 02/18/2017, 5:18. FINDINGS: Surgical changes and devices: Stable positioning of the ETT, nasogastric tube and right IJ CVL. Lungs and pleura: Mid/bibasilar airspace opacities present similar to prior examination and slightly increased involving the left lung base medially Mediastinum: Mediastinal contours appear normal. Heart size is normal. Bones and chest wall: No suspicious bony lesions. Overlying soft tissues appear unremarkable. IMPRESSION: 1. Stable support lines and tubes. 2. Persistent mid/basilar air space opacities suggestive of atelectasis versus aspiration or pneumoni a slightly increased involving the medial left lung base. 3. Small effusions. Dictated by: Harvinder Tamez RRA Interpreted: Radha Cruz MD on 02/19/2017 at 11:17 Approved by: Radha Cruz MD, PhD on 02/19/2017 at 12:25
--- NOTE | 2017-02-19 12:55 | NUR ---
Social Work: Continued Discharge Planning D: FUEL ISLAND ATTENDANT received notification from bedside RN that the patient's aunt was at bedside. FUEL ISLAND ATTENDANT attempted to meet with her to update her on the status of the letter for court and to inquire about DPOA ppw. She was not present when FUEL ISLAND ATTENDANT arrived and had left for the day. FUEL ISLAND ATTENDANT left a message for her requesting a return phone call. A: Pt who remains in CCU, vented. P: Evolving; FUEL ISLAND ATTENDANT to continue to attempt to make contact with the patient's aunt and follow for pt's discharge needs. VINICIUS Estrada
[2017-02-19] MEDS ORDERED: Furosemide 10 mg/mL 4 mL Inj IVPUSH ONE (13:55)
--- NOTE | 2017-02-19 16:13 | NUR ---
spiritual care: routine/acuity supportive listening to pt's aunt as she sifted through events, prognosis and family communications. Pt vent/sedated. Future care needs, emotional coping, substance abuse and law enforcement issues considered and explored. She was appreciative of a sounding board and industrial illuminating engineer available to follow
[2017-02-19] MEDS: Acetaminophen IV 1,000 MG in IV Premix 1 EACH IV PRN ×2 (16:44→23:50)
--- NOTE | 2017-02-19 16:52 | NUR ---
Initially hypotensive upon returning to CCU from OR but this resolved with anesthesia's bolus' of norepinephrine and has been stable. UOP 2800ml/12 hrs, received dose of Lasix this afternoon. IVFs to TKO. OGT still requiring flushing to maintain patency, 1900 mls bilious output this shift. 725ml sero-sang output from wound vac. Ileostomy drained 80mls sero-sang; stoma appears beefy red. Fentanyl bolus' and increase in rate for grimacing, obvious discomfort with good effect. Tylenol for 38.2 axillary temp. Increased tachycardia throughout the shift, sinus, no ectopy noted. Skin is hot, areas of redness noted around upper thighs, lower abd sides and back; appears intact. Supportive Aunt here much of day. Pastoral care supporting. steam table worker notified that she has concerns/questions; updated by surgical coordinator and pulm team.
--- NOTE | 2017-02-19 17:19 | PCM.PNMED ---
Subjective Date of Service Feb 19, 2017 Subjective 36 yo incarcerated heroin addict and alcoholic admitted with approximately 2 weeks of abdominal pain, fever, chills, and constipation. Initial CT showed suspected perforated appendicitis with RLQ abscess and the plan was to treat conservatively with percutaneous drainage by IR and IV antibiotics. Unfortunately, the patient deteriorated rapidly over night and a repeat CT now showed free air in the peritoneal space, retroperitoneum, portal system and bowel wall. He was taken to the OR urgently where he was found to have purulent peritonitis and a RLQ abscess with diffuse hemorrhage of the bowel and 4 quadrant necrosis of the peritoneal surface. The underlying bowel was felt to be viable however. He underwent limited resection of a necrotic area of his right colon and the ends were stapled closed. His abdomen was lavaged and a wound dressing was applied before he was brought to the ICU on mechanical ventilation. This morning he was returned to OR and tolerated creation of an ileostomy. Remains comfortable on vent and off pressors. Exam Vital Signs Vital Sign - Last Date Time Temp Pulse Resp B/P Pulse Ox O2 Delivery O2 Flow Rate FiO2 02/19/17 16:30 121 129/81 96 25 02/19/17 16:00 38.2 20 Mechanical Ventilator Intake and Output 02/18/17 02/18/17 02/19/17 Cumulative From/Thru 15:00 23:00 07:00 02/17/17 00:10 - 02/19/17 05:46 Intake Total 4560 ml 1816 ml 54692 ml Output Total 1800 ml 2850 ml 9275 ml Balance 2760 ml -1034 ml 48915 ml Intake Oral 0 ml IV Total 4560 ml 1816 ml 52121 ml Packed Cells 350 ml Output Urine Total 800 ml 700 ml 3400 ml Gastric Drainage Total 700 ml 1850 ml 3550 ml Drainage Total 300 ml 300 ml 2325 ml # Bowel Movements 0 0 Exam Pale young man orally intubated on vent Lungs Decreased breath sounds, no wheezes CV RRR, no m/g/r Abd Open midline incision with clean perfused edges and sponge in place. Tense. NO BTs Ext warm, 2+ upper and lower extremities IVs and Medications Medications Reviewed: Medications were reviewed in detail Lab and Diagnostics Result Diagram: 02/19/17 0440 02/19/17 0440 Microbiology Nasal MRSA negative Blood cultures negative to date Urine culture negative to date Peritoneal culture negative to date X-Rays, CTs and MRIs CT of Abdomen IMPRESSION: 1. Extensive large and small bowel pneumatosis in the setting of small bowel obstruction with extensive portal venous gas which has developed in the interval since prior CT scan obtained 02/17/17 at 0235 hours. Findings compatible with bowel ischemia. 2. Peritoneal pneumatosis and pneumoretroperitoneum which could be related to ruptured bowel versus infection with gas-forming organism. 3. Free intraperitoneal air and mesenteric air consistent with bowel perforation and/or mesenteric ischemia. 4. Decreased IVC caliber highly suspicious for severe hypotension. Please correlate with clinical data. 5. Moderate to large amount of ascites which is increased in volume compared to 02/17/17. The ascites has increased density compared to the prior CT scan which could be related to hemorrhage, proteinaceous fluid or infectious fluid. 6. Dilated loops of small bowel compatible with small bowel obstruction. 7. Probable right lower quadrant pericecal abscess suboptimally visualized in the absence of intravenous contrast does not appear significantly changed compared to prior CT scan. 8. Trace bilateral pleural effusions. Dictated by: Radha Cruz MD, PhD on 02/17/2017 at 10:08 Approved by: Radha Cruz MD, PhD on 02/17/2017 at 10:58 Cardiac Echo Impressions ECHO on 02/17/17 Interpretation Summary Technically difficult study limits valve visualization. 1) Normal left ventricular thickness and size with severely reduced systolic function (EF 20-25%). 2) Borderline right ventricular enlargement with moderately reduced function. 3) No significant valvular abnormalities. 4) No prior Echo available for comparison. If endocarditis is suspected, consider CATRACHITO. Assessment & Plan IMP Perforated appendicitis with gross generalized fecal soiling of peritoneal cavity. Fortunately, his small bowel and most of his colon appeared viable. His course since laparotomy shows steady improvement and today he has tolerated creation of an ileostomy Sepsis, improved with resuscitation, antibiotics, damage control surgery. Now appears to be mobilizing fluid and remains off pressors Post operative respiratory failure, stable REC Maintain on vent until abdomen can be closed which may yet be several days. Abx per ID consult No need to start TPN immediately but likely to need eventually. Minimize fluids. Begin cautious diuresis Return to OR per surgery . GI Prophylaxis: H2 mack VTE Prophylaxis: Sub-Q Heparin (Unfractionated) VTE Mechanical Devices: Intermittant Pneumatic CD Resuscitation Status: CPR: Attempt Resuscitation Time spent 50 minutes critical care exclusive of shared time and procedures. Scott Aparicio MD Feb 19, 2017 17:19 -ECHO demonstrated EF of 20-25% with little structural heart disease, likely indicative of acute decompensation -Was briefly on Dobutamine drip -Esmolol drip weaned off with adequate pressure Lactic acidosis, acute, present on admission, Improved -Likely secondary to septic process as above -On admit: Initial 7.6 -Is trending towards normal -Continue Fluid Hydration, with consideration for reduced EF -Trend Lactic acid -Patient is currently intubated, ventilator dependent History of incarceration - [employer] consult - Hep panel indicative of past infection -HIV negative -MRSA nasal swab negative . GI Prophylaxis: H2 mack VTE Prophylaxis: Sub-Q Heparin (Unfractionated) VTE Mechanical Devices: Intermittant Pneumatic CD Resuscitation Status: CPR: Attempt Resuscitation Scott Aparicio MD Feb 19, 2017 17:19
--- NOTE | 2017-02-19 20:37 | PCM.PNSURG ---
Subjective Visit Information: Reason for Visit Pericecal Abscess,Sbo,Sepsis Surgery/Surgery Date Post-Op Day # Date of Admission: Feb 17, 2017 at 04:07 Hospital Day # Subjective: I took the pt to the OR today and resected distal ileum and hepatic flexure of colon which appeared compromised. The distal ileum and colon were placed close to each other in anticipation of anastomosis after further diuresis and decompression. I created a loop ileostomy to facilitate bowel decompression and milked intestinal contents into the OG tube. Fascia could not be closed. He has been stable after surgery without need for pressors. UOP is adequate, diuresis has begun by ICU team. OG, Abthera continue with copious output. Ileostomy bag contains only sweat 8 hours after the operation was complete. Objective Vital Sign- Last 8 Hours Date Time Temp Pulse Resp B/P Pulse Ox O2 Delivery O2 Flow Rate FiO2 02/19/17 20:02 117 124/79 96 25 02/19/17 16:30 121 129/81 96 25 02/19/17 16:00 38.2 125 20 139/95 96 Mechanical Ventilator 25 02/19/17 12:49 113 141/91 99 25 Intake and Output- Last 8 Hour 02/19/17 Cumulative From/Thru 07:00 02/17/17 00:10 - 02/19/17 05:46 Intake Total 1816 ml 46990 ml Output Total 2850 ml 9275 ml Balance -1034 ml 89031 ml Intake Oral 0 ml IV Total 1816 ml 70295 ml Packed Cells 350 ml Output Urine Total 700 ml 3400 ml Gastric Drainage Total 1850 ml 3550 ml Drainage Total 300 ml 2325 ml # Bowel Movements 0 General: Other (intubated/sedated) Abdomen: Distended, Other (Abthera in place) Result Diagram: 02/19/17 0440 02/19/17 1950 Assessment & Plan Impression 36yom with septic shock due to perforated appendicitis with open abdomen, still in discontinuity but with ileostomy in place. Problems: Plan OR Friday for -ileocolic anastomosis -possible closure of fascia -possible placement of [place] patch Discussed with Belinda Perez his aunt VTE Prophylaxis: Sub-Q Heparin (Unfractionated) Resuscitation Status: CPR: Attempt Resuscitation Latoya Freedman MD Feb 19, 2017 20:37
[2017-02-19] MEDS ORDERED: SODIUM CHLORIDE 0.9% IV ONE (22:00)
[2017-02-19] MEDS ORDERED: POTASSIUM PHOS IV ONE (22:00)
[2017-02-20] VITALS (11 sets, daily range): BP systolic 113–155; BP diastolic 68–81; PULSE 97–117; RESP 20; O2SAT 95–97
[2017-02-20] MEDS: Chlorhexidine 0.12% 15 mL Oral Solution MT SCH ×7 (01:31→23:46)
[2017-02-20] MEDS: Piperacillin-Tazo 3.375 Gm Inj 3.375 GM in Dextrose 5% Minibag Plus 50 ML IV SCH ×4 (01:33→20:15)
[2017-02-20] MEDS ORDERED: Furosemide 10 mg/mL 4 mL Inj IVPUSH ONE ×2 (03:55→09:00)
[2017-02-20 03:57] LABS: BASOPHILS % (AUTO) 0.1 % (0-3); EOSINOPHILS % (AUTO) 0.3 % (0-5); MONOCYTES % (AUTO) 3.9 % (4-12); Mean Corpuscular Hemoglobin 26.9 pg (27.0-35.0); Mean Corpuscular Volume 76.5 fL (81-100); NEUTROPHILS % (AUTO) 83.2 % (40-74); Platelet Count 135 bil/L (150-400)
[2017-02-20] MEDS: Propofol Inj 1,000,000 MCG in IV Premix 1 EACH IV SCH ×4 (04:03→19:30)
--- NOTE | 2017-02-20 04:15 | NUR ---
Cardiac/Resp/GI Problem: 1. Increased BP 160's/80's this AM 2. Coarse lung sounds 3. Sats 89-90% for a few minutes after repositioning 4. T-Max 38.[address] 120's at shift change 1929 Intervention: 1. MD notified of coarse lung sounds and increased BP this AM 2. CXR taken at 0330 3. Lasix 40mg IVP x1 now ordered 4. Oral care and ET suctioning - small amount of thick white secretions from ET tube 5. Tylenol IV given at 2200 for pain and fever Evaluation: Patient rested well this shift, remains on vent and intubated, RASS-3 sedated on Propofol and Fentanyl, BP decreased to 150's/70's after 40mg Lasix, HR 80-90's this AM, 600ml tea colored liquid output from illiostomy, 425ml green liquid out OGT, 550ml serous fluid from wound vac, 1275ml urine output prior to Lasix, temp 37.4C aux, resting and calm, no distress noted, awaiting AM lab results at this time. Addendum: 02/20/17 at 0429 by GIANNA BUCK RN Amended: Links added.
[2017-02-20 04:47] LABS: Phosphorus 2.2 mg/dL (2.5-4.9)
--- NOTE | 2017-02-20 05:13 | ABG ---
DateTimeAnalyzed 05:05:00 -_ pH ____7.572 - 7.350 7.450 pCO2 ___21.3__ -mmHg 35.0 45.0 pO2 ___89.4__ -mmHg 69.0 116 HCO3- ___19.7__ -mmol/L 22.0 26.0 ABE ___-0.8__ -mmol/L -2.0 2.0 tHb ___11.4__ -g/dL 12.0 18.0 O2Hb ___95.9__ -% COHb ____1.0__ -% 0.0 1.5 MetHb ____1.2__ -% 0.4 1.5 sO2 ___98.1__ -% 25.0 FIO2 ___25.0__ -% PRVC 530 - PEEP ____5.0__ -cmH2O Set_RR ___20.0__ -b/min Vt __530.0__ -L Drawn By TLA - Date/Time Notified____ 05:12:00 -_ Spontaneous_RR ___20.0__ -b/min Notified By TLA - Notified Whom Andrea-RN - B 758 -mmHg tO2 ___15.4__ -Vol% Mayo test N/A -
[2017-02-20] MEDS: KCl 40 mEq/100 mL (CENTRAL) 40 MEQ in IV Premix 1 EACH IV SCH ×2 (05:56→08:22)
--- NOTE | 2017-02-20 06:27 | PCM.PNMED ---
Subjective Date of Service Feb 19, 2017 Subjective Mr. Perez is a 36-year-old gentleman with PMHX significant for polysubstance abuse and has been incarcerated at [facility] for the recent 12 days prior to admission, who presented to the emergency department with a 2 week onset of increasing abdominal pain with associated fever, chills, nausea, vomiting, diaphoresis. CT scan showed free air in the abdomen and was taken emergently to surgery and found to have severe necrotizing perforated appendicitis. Today, patient went back for surgery. 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 He was weaned of pressors and esmolol drips. Is on propofol and fentanyl for sedation. Fentanyl drip for analgesia. Per night nurse, Continues ventilated with sats high 90s on 25% fio2 without desaturations. Versed gtt d/carlos alberto. Propofol gtt remains at 20mcg/kg/min and fentanyl 175mcg/h. Ogt in place requiring frequent manipulation to drain with total 1850ml bilious secretions over night. Wound vac in place and draining serous sanguinous fluid. Cash cath in place with 700ml uop. Tylenol given IV x1 for temp 38.1 and hr 120s. ROS unobtainable because patient is sedated Exam Vital Signs Vital Sign - Last Date Time Temp Pulse Resp B/P Pulse Ox O2 Delivery O2 Flow Rate FiO2 02/19/17 04:07 107 145/71 98 25 02/19/17 04:00 Ventilator 02/19/17 04:00 37.3 20 Intake and Output 02/18/17 02/18/17 02/19/17 Cumulative From/Thru 15:00 23:00 07:00 02/17/17 00:10 - 02/19/17 05:46 Intake Total 4560 ml 1816 ml 34595 ml Output Total 1800 ml 2850 ml 9275 ml Balance 2760 ml -1034 ml 79580 ml Intake Oral 0 ml IV Total 4560 ml 1816 ml 91848 ml Packed Cells 350 ml Output Urine Total 800 ml 700 ml 3400 ml Gastric Drainage Total 700 ml 1850 ml 3550 ml Drainage Total 300 ml 300 ml 2325 ml # Bowel Movements 0 0 Exam General: Patient is intubated and sedated, minimally responsive to external stimuli HEENT: ET tube in place, PERRL with miosis, Right IJ in place Cardio: Tachycardic, s1 and s2 heard, no murmurs, rubs or gallops Lungs: patient is intubated, breath sounds heard anteriorly with nild crackles Skin: feels warm to touch, has several tattoos on UE Abdomen: Distended abdomen with AbThera device Extremities: no edema or erythema Neuro: difficult to assess as patient is sedated IVs and Medications Medications Reviewed: Medications were reviewed in detail Lab and Diagnostics Result Diagram: 02/19/17 0440 02/19/17 0440 Microbiology Nasal MRSA negative Blood cultures negative to date Urine culture negative to date X-Rays, CTs and MRIs CT of Abdomen IMPRESSION: 1. Extensive large and small bowel pneumatosis in the setting of small bowel obstruction with extensive portal venous gas which has developed in the interval since prior CT scan obtained 02/17/17 at 0235 hours. Findings compatible with bowel ischemia. 2. Peritoneal pneumatosis and pneumoretroperitoneum which could be related to ruptured bowel versus infection with gas-forming organism. 3. Free intraperitoneal air and mesenteric air consistent with bowel perforation and/or mesenteric ischemia. 4. Decreased IVC caliber highly suspicious for severe hypotension. Please correlate with clinical data. 5. Moderate to large amount of ascites which is increased in volume compared to 02/17/17. The ascites has increased density compared to the prior CT scan which could be related to hemorrhage, proteinaceous fluid or infectious fluid. 6. Dilated loops of small bowel compatible with small bowel obstruction. 7. Probable right lower quadrant pericecal abscess suboptimally visualized in the absence of intravenous contrast does not appear significantly changed compared to prior CT scan. 8. Trace bilateral pleural effusions. Dictated by: Radha Cruz MD, PhD on 02/17/2017 at 10:08 Approved by: Radha Cruz MD, PhD on 02/17/2017 at 10:58 Cardiac Echo Impressions ECHO on 02/17/17 Interpretation Summary Technically difficult study limits valve visualization. 1) Normal left ventricular thickness and size with severely reduced systolic function (EF 20-25%). 2) Borderline right ventricular enlargement with moderately reduced function. 3) No significant valvular abnormalities. 4) No prior Echo available for comparison. If endocarditis is suspected, consider CATRACHITO. Assessment & Plan Mr. Perez is a 36-year-old gentleman with PMHX significant for polysubstance abuse and has been incarcerated at [facility] for the recent 12 days prior to admission, who presented to the emergency department with a 2 week onset of increasing abdominal pain with associated fever, chills, nausea, vomiting, diaphoresis. CT scan showed free air in the abdomen and was taken emergently to surgery and found to have severe necrotizing perforated appendicitis. Severe Sepsis, acute, present on admission, Active -Secondary to severe necrotizing perforated appendicitis with feculent peritonitis -On admit: T 35.9, P1 44, RR 34, lactic acid 7.6, with repeat 4.8 -Patient underwent laparotomy with appendectomy and colectomy -Surgery found his appendix obviously ruptured and in 2 pieces, with extensive associated necrotic tissue through the peritoneal cavity, as well as a likely abscess in the RLQ -Continue Zosyn, Micafungin per ID -Patient has been dependent upon aggressive fluid resuscitation with copious NS , Albumin, and 2U PRBC to date -Will attempt to wean down fluid burden as sepsis improves -Patient has now been wened off pressors, and esmolol drip -On fentanyl drip for analgesia -Propofol/ fentanyl for sedation -Per surgery, scheduled to go back on 02/21 for ileocolic anastomosis, possible closure of fascia, possible placement of [place] patch Severe necrotizing perforated appendicitis, acute, present on admission, Active -As evidenced by the CT above -Surgical intervention as above -Patient has yet to be anastamosed or an ostomy established, blind end gut -Dr. Freedman from General surgery is managing the surgical aspect of this patient , anticipates return to OR 02/19 -Patient with open abdominal wound and wound vac in place, output has been copious, surgery will continue to manage -Current analgesia with Fentanyl drip, patient with likely pre-existing opiate habituation Tachycardia and stress induced cardiomyopathy, POA, acute. Active -ECHO demonstrated EF of 20-25% with little structural heart disease, likely indicative of acute decompensation -Was briefly on Dobutamine drip -Esmolol drip to control rate, unsuccessful attempts to wean to date Lactic acidosis, acute, present on admission, Active -Likely secondary to septic process as above -On admit: Initial 7.6 -Is trending towards normal -Continue Fluid Hydration, with consideration for reduced EF -Trend Lactic acid -Patient is currently intubated, ventilator dependent History of incarceration - [employer] consult - Hep panel indicative of past infection -HIV negative -MRSA nasal swab negative . Pain Evaluation: Adequate Pain Control GI Prophylaxis: H2 mack VTE Prophylaxis: Sub-Q Heparin (Unfractionated) VTE Mechanical Devices: Intermittant Pneumatic CD Resuscitation Status: CPR: Attempt Resuscitation Patient status: Due to severity of presenting symptoms, likely course of care, and risk of adverse events, anticipated length of stay exceeds 2 midnights; patient admitted under inpatient status to CCU GI Prophylaxis: H2 mack VTE Prophylaxis: Sub-Q Heparin (Unfractionated) VTE Mechanical Devices: Intermittant Pneumatic CD Resuscitation Status: CPR: Attempt Resuscitation Time spent 35 minutes Attending Statement I have seen and evaluated patient at bedside in addition to directly supervising care provided by resident physician Dr Zelaya on 02/19/2017. I agree with above documentation Leah Zelaya DO Feb 19, 2017 06:16 Jose Moore DO Feb 20, 2017 08:12
--- NOTE | 2017-02-20 08:09 | PROG NOTE ---
[address] [address] PROGRESS NOTE PATIENT: LEON GUERRERO : 1980 MR#: [id number] ADMIT: 02/17/2017 JOB ID: [id number] DATE: 02/20/2017 INFECTIOUS DISEASE FOLLOW UP NOTE: REASON FOR FOLLOWUP: Perforated appendix with diffuse peritonitis. INTERVAL HISTORY: Yesterday, the patient was taken back to the operating room. There were plans to do additional washout and debridement with possible reanastomosis but this was not possible because of his edematous bowel and so diverting loop was created and the patient's abdomen was left open with plans for possible closure on February 21. The patient remains intubated and sedated, of course, in the ICU and is not responsive at this time so no additional history is available from him. PHYSICAL EXAMINATION: Reveals an intubated, sedated gentleman requiring very high doses of fentanyl. He has been febrile through the night with temperatures 38.1 and 38.3 during the night. Currently 37.4. Pulse 97, respiratory rate 21, blood pressure 153/80. He is saturating well on 25% and only 5 of PEEP. Eyes without conjunctivitis. Oral endotracheal tube, orogastric tube in good position. Right neck IJ looks uninfected. He also has a right radial A line and a peripheral IV. His lungs are completely clear. Cardiac tones: Regular rate and rhythm without murmur. The abdomen is somewhat distended with an open abdomen continuing at this point, and formation now of a diverting loop on the right side. Penis and scrotum appear normal. Extremities without rash or synovitis. LABORATORIES: Include white count stable 13,000 with modest left shift. Creatinine 0.6. LFTs improving. His ALT is down to 118. Albumin 3.3. Procalcitonin which had extraordinarily elevated at more than 400 is now down to 100 which in relative returns is a victory. Serologic studies include a positive serology for hep C, negative for HIV. Hep C viral load pending. Blood cultures negative. MRSA screen negative. I discussed the peritoneal fluid cultures from the with microbiology. At least two different anaerobes are growing at this point, including a gram-positive coccus which is likely the Peptostreptococcus group. In addition there is a gram-negative anaerobe growing which will likely prove to be Bacteroides or Prevotella, though these identifications will not be available for a couple days. Impression: Perforated viscus with peritonitis, improving RECOMMENDATIONS: 1. Will continue with high-dose Zosyn as well as micafungin. 2. We await further developments in terms of his definitive surgical management. 3. Will continue to closely follow this patient with you. TYRELL
[2017-02-20] MEDS: fentaNYL 2,500 mCg/250 mL 2,500 MCG in IV Premix 1 EACH IV SCH ×2 (08:16→19:29)
[2017-02-20] MEDS: Micafungin Inj 150 MG in 0.9% Sodium Chloride 100 ML IV SCH (08:18)
[2017-02-20] MEDS: Famotidine Inj 20 MG in IV Premix 1 EACH IV SCH ×2 (08:21→19:30)
--- NOTE | 2017-02-20 08:21 | ABG ---
DateTimeAnalyzed 08:14:00 -_ pH ____7.460 - 7.350 7.450 pCO2 ___33.2__ -mmHg 35.0 45.0 pO2 ___97.3__ -mmHg 69.0 116 HCO3- ___23.3__ -mmol/L 22.0 26.0 ABE ____0.4__ -mmol/L -2.0 2.0 tHb ___11.5__ -g/dL 12.0 18.0 O2Hb ___95.5__ -% COHb ____1.0__ -% 0.0 1.5 MetHb ____1.0__ -% 0.4 1.5 sO2 ___97.5__ -% 25.0 FIO2 ___25.0__ -% PRVC 556 - PEEP ____5.0__ -cmH2O Set_RR ___12.0__ -b/min Vt __530.0__ -L Drawn By jmw - Date/Time Notified____ 08:21:00 -_ Spontaneous_RR ___13.0__ -b/min Notified By JMW - Notified Whom DR MORGAN - B 759 -mmHg tO2 ___15.5__ -Vol% [facility] test N/A -
[2017-02-20] MEDS: Heparin 5,000 Unit/mL Inj SUBQ SCH ×4 (08:31→23:46)
--- NOTE | 2017-02-20 09:10 | PCM.PNMED ---
Subjective Date of Service Feb 20, 2017 Subjective Pulmonary critical care progress note, consult requested by Dr. Hurst Rui Perez is a 36 year old man with a PMH of polysubstance abuse who presents with a several day history of abdominal pain; he had been incarceration for 12 days prior to presentation. He had a CT scan which demonstrated free air in the abdomen, and was subsequently taken for emergent surgery and found to have ruptured appendicitis with feculent peritonitis and diffuse necrosis throughout the peritoneum. Overnight the patient had robust diuresis of about 10.7 L over the course of about 15 hours with 2 doses of IV lasix with resultant improvement of air movement to auscultation and marked improvement of his edema. He had an overnight ABG which demonstrated respiratory alkalosis, thus his respiratory rate on the vent was decreased from 20 to 12, repeat ABG in the AM demonstrated a trend towards correction of his acidosis. The case was discussed with Dr. Freedman from General surgery who is planning on bringing the patient back to the OR tomorrow if the patient continues on his current trajectory towards euvolemia. Discussion on extubation will be deferred until the patient's open abdominal wound is closed. Comprehensive ROS unable to be obtained in this intubated and sedated patient. Exam Vital Signs Vital Sign - Last Date Time Temp Pulse Resp B/P Pulse Ox O2 Delivery O2 Flow Rate FiO2 02/20/17 08:52 107 121/70 96 25 02/20/17 04:12 37.4 20 Mechanical Ventilator Intake and Output 02/19/17 02/19/17 02/20/17 Cumulative From/Thru 15:00 23:00 07:00 02/17/17 00:10 - 02/20/17 06:00 Intake Total 800 ml 2873 ml 1360 ml 79679 ml Output Total 2570 ml 6595 ml 5600 ml 18137 ml Balance -1770 ml -3722 ml -4240 ml 13117 ml Intake Oral 0 ml 0 ml 0 ml IV Total 800 ml 2873 ml 1360 ml 77430 ml Packed Cells 350 ml Output Urine Total 400 ml 2800 ml 4025 ml 62724 ml Stool Total 600 ml 600 ml Gastric Drainage Total 1000 ml 1900 ml 425 ml 6875 ml Drainage Total 1885 ml 550 ml 4760 ml Peritoneal Fluid 1160 ml 1160 ml Estimated Blood Loss 10 ml 10 ml 20 ml # Bowel Movements 0 0 Exam Gen: Intubated and sedated young man with extensive Tattoos, minimally responsive to external stimuli Neck: Right IJ in place and appears patent, no JVD, HEENT: ET tube in place and appears patent, PERRL with miosis, does not track consistently, mucous membranes moist CV: Regular Tachycardia with no murmurs rubs or gallops Resp: Diffuse mild crackles BL, no wheezing rales or rhonchi Abd: Large football size and shaped open abdominal wound with wound vac in place expressing copious sero-sanguinous fluid, distended, slightly firm, patient retracts from abdominal palpation, ostomy in RLQ with pink well perfused stoma and output of brown liquid stool Extr: Warm to the touch, Edema much improved since prior exam, no cyanosis or clubbing Neuro: CN difficult to assess in this intubated and sedated patient, no focal neurologic deficit . IVs and Medications Medications Reviewed: Medications were reviewed in detail Lab and Diagnostics Item Value Date Time Red Blood Count 3.75 mil/mm3 L 02/20/17334 Mean Corpuscular Volume 76.5 fL L 02/20/17334 Mean Corpuscular Hemoglobin 26.9 pg L 02/20/17334 Mean Corpuscular Hemoglobin Concent 35.2 % 02/20/17334 Red Cell Distribution Width 14.7 % 02/20/17334 Neutrophils (%) (Auto) 83.2 % H 02/20/17334 Lymphocytes (%) (Auto) 11.8 % L 02/20/17334 Monocytes (%) (Auto) 3.9 % L 02/20/17334 Eosinophils (%) (Auto) 0.3 % 02/20/17334 Basophils (%) (Auto) 0.1 % 02/20/17334 Estimat Glomerular Filtration Rate 162 mL/min 02/20/17334 Calcium Level 7.1 mg/dL L 02/20/17334 Phosphorus Level 2.2 mg/dL L 02/20/17334 Total Bilirubin 2.9 mg/dL H 02/20/17334 Magnesium Level 2.0 mg/dL 02/20/17334 Aspartate Amino Transf (AST/SGOT) 52 U/L H 02/20/17334 Alanine Aminotransferase (ALT/SGPT) 118 U/L H 02/20/17334 Alkaline Phosphatase 80 U/L 02/20/17334 Total Protein 4.9 g/dL L 02/20/17334 Albumin 3.3 g/dL L 02/20/17334 Procalcitonin 109.60 ng/mL H 02/20/17334 Result Diagram: 02/20/1733402/20/17334 Microbiology Nasal MRSA negative Blood cultures negative to date Urine culture negative to date X-Rays, CTs and MRIs CT of Abdomen IMPRESSION: 1. Extensive large and small bowel pneumatosis in the setting of small bowel obstruction with extensive portal venous gas which has developed in the interval since prior CT scan obtained 02/17/17 at 0235 hours. Findings compatible with bowel ischemia. 2. Peritoneal pneumatosis and pneumoretroperitoneum which could be related to ruptured bowel versus infection with gas-forming organism. 3. Free intraperitoneal air and mesenteric air consistent with bowel perforation and/or mesenteric ischemia. 4. Decreased IVC caliber highly suspicious for severe hypotension. Please correlate with clinical data. 5. Moderate to large amount of ascites which is increased in volume compared to 02/17/17. The ascites has increased density compared to the prior CT scan which could be related to hemorrhage, proteinaceous fluid or infectious fluid. 6. Dilated loops of small bowel compatible with small bowel obstruction. 7. Probable right lower quadrant pericecal abscess suboptimally visualized in the absence of intravenous contrast does not appear significantly changed compared to prior CT scan. 8. Trace bilateral pleural effusions. Dictated by: Radha Cruz MD, PhD on 02/17/2017 at 10:08 Approved by: Radha Cruz MD, PhD on 02/17/2017 at 10:58 Cardiac Echo Impressions ECHO on 02/17/17 Interpretation Summary Technically difficult study limits valve visualization. 1) Normal left ventricular thickness and size with severely reduced systolic function (EF 20-25%). 2) Borderline right ventricular enlargement with moderately reduced function. 3) No significant valvular abnormalities. 4) No prior Echo available for comparison. If endocarditis is suspected, consider CATRACHITO. Assessment & Plan Mr. Perez is a 36-year-old gentleman with PMHX significant for polysubstance abuse and has been incarcerated at [facility] for the recent 12 days prior to admission, who presented to the emergency department with a 2 week onset of increasing abdominal pain with associated fever, chills, nausea, vomiting, diaphoresis. CT scan showed free air in the abdomen and was taken emergently to surgery and found to have severe necrotizing perforated appendicitis. Patient was taken back to the OR 02/19 and received a RLQ ostomy. The patient is being actively diuresed which will hopefully reduce his degree of gut edema to the point that his abdominal wound can be closed. Dr. Freedman from general surgery is planning to take the patient back to the OR on 02/21, at which point she will evaluate the patient for closure of his abdominal wound. Following closure of his abdominal wound the patient will be transitioned to weaning trials to hopefully proceed quickly to extubation in this young healthy patient without antecedent lung disease. Severe Sepsis, acute, present on admission, Improving -Secondary to severe necrotizing perforated appendicitis with feculent peritonitis -On admit: T 35.9, P1 44, RR 34, lactic acid 7.6, with repeat 4.8 -Patient underwent laparotomy with appendectomy and colectomy -Surgery found his appendix obviously ruptured and in 2 pieces, with extensive associated necrotic tissue through the peritoneal cavity, as well as a likely abscess in the RLQ -Continue Zosyn, Micafungin per ID -Patient was initially dependent upon aggressive fluid resuscitation with copious NS, Albumin, and 2U PRBC to date -Transitioning to diuresis to improve gut edema in anticipation of wound closure -Patient has now been weaned off pressors, and esmolol drip -On fentanyl drip for analgesia -Propofol/ fentanyl for sedation -Per surgery, scheduled to go back on 02/21 for ileocolic anastomosis, possible closure of fascia, possible placement of [place] patch Severe necrotizing perforated appendicitis, acute, present on admission, Active -As evidenced by the CT above -Surgical intervention as above -Patient has yet to be anastamosed, ostomy in place -Dr. Freedman from General surgery is managing the surgical aspect of this patient , anticipates return to OR 02/21 -Patient with open abdominal wound and wound vac in place, output has been copious, surgery will continue to manage -Current analgesia with Fentanyl drip, patient with likely pre-existing opiate habituation Tachycardia and stress induced cardiomyopathy, POA, acute. Active -ECHO demonstrated EF of 20-25% with little structural heart disease, likely indicative of acute decompensation -Was briefly on Dobutamine drip -Weaned off esmolol drip Lactic acidosis, acute, present on admission, Active -Likely secondary to septic process as above -On admit: Initial 7.6 -Is trending towards normal -Continue Fluid Hydration, with consideration for reduced EF -Patient is currently intubated, ventilator dependent History of incarceration - BIOMEDICAL ANALYTICAL SCIENTIST consult - Hep panel indicative of past infection -HIV negative -MRSA nasal swab negative . Pain Evaluation: Adequate Pain Control GI Prophylaxis: H2 mack VTE Prophylaxis: Sub-Q Heparin (Unfractionated) VTE Mechanical Devices: Intermittant Pneumatic CD Resuscitation Status: CPR: Attempt Resuscitation Antonio Lewis DO Feb 20, 2017 09:10
[2017-02-20] MEDS: Albumin 25% 25 Gm/100 mL IV SCH (09:16)
--- NOTE | 2017-02-20 09:29 | DRSVH ---
PROCEDURE: X-RAY CHEST ONE VIEW, PORTABLE ([id number]) INDICATIONS: intubated TECHNIQUE: One view of the chest was acquired. COMPARISON: [facility], CR, XR CHEST 1VW (PORTABLE), 02/18/2017, 5:18. [facility], CR, XR CHEST 1VW (PORTABLE), 02/19/2017, 5:25. FINDINGS: Surgical changes and devices: Stable positioning of the ETT, nasogastric tube and right IJ CVL. Lungs and pleura: Mid/bibasilar airspace opacities present similar to prior examination and not signi ficantly changed to prior exam Mediastinum: Mediastinal contours appear normal. Heart size is normal. Bones and chest wall: No suspicious bony lesions. Overlying soft tissues appear unremarkable. IMPRESSION: 1. Stable support lines and tubes. 2. Persistent mid/basilar airspace opacities not significantly changed from prior examination the sug gestive of bilateral pneumonia and/or atelectasis versus aspiration. 3. Persistent small effusions. Dictated by: Harvinder Tamez [facility] Interpreted: Verito Donnelly MD on 02/20/2017 at 9:06 Approved by: Verito Donnelly M.D. on 02/20/2017 at 9:28
--- NOTE | 2017-02-20 10:07 | PCM.PNSURG ---
Subjective Date of Service: Feb 20, 2017 Date of Service: Feb 20, 2017 Visit Information: Reason for Visit Pericecal Abscess,Sbo,Sepsis Surgery/Surgery Date Post-Op Day # Date of Admission: Feb 17, 2017 at 04:07 Hospital Day # Subjective: Excellent diuresis overnight with net negative 10L Tmax 38.2, still tachycardic Otherwise hemodynamically stable, not requiring pressors Objective Vital Sign- Last 8 Hours Date Time Temp Pulse Resp B/P Pulse Ox O2 Delivery O2 Flow Rate FiO2 02/20/17 08:52 107 121/70 96 02/20/17 04:12 37.4 97 20 153/80 96 Mechanical Ventilator 02/20/17 04:12 Ventilator Intake and Output- Last 8 Hour 02/20/17 Cumulative From/Thru 07:00 02/17/17 00:10 - 02/20/17 06:00 Intake Total 1360 ml 52212 ml Output Total 5600 ml 28257 ml Balance -4240 ml 41534 ml Intake Oral 0 ml 0 ml IV Total 1360 ml 22294 ml Packed Cells 350 ml Output Urine Total 4025 ml 86351 ml Stool Total 600 ml 600 ml Gastric Drainage Total 425 ml 6875 ml Drainage Total 550 ml 4760 ml Peritoneal Fluid 1160 ml Estimated Blood Loss 20 ml # Bowel Movements 0 0 General: Other (Intubated/sedated) Lungs: Clear to Auscultation, Other (Mechanical breath sounds. ) Heart: Other (Tachycardic. ) Abdomen: Other (Open abdomen with wound vac in place, serosanguinous drainage. RLQ ostomy viable appearing, sweat in bag. NG with bilious output. Abdomen soft but still quite distended, though improved from pre-op yesterday. ) Extremities: Warm Catheters: Urethral 2 Way Cash Result Diagram: 02/20/1733402/20/17334 Assessment & Plan Impression 36M with peritonitis and septic shock 2/2 necrotizing appendicitis now POD#3 s/ p ex lap and ileocectomy and POD#1 s/p re-exploration, washout, and diverting ileostomy. His shock has resolved and he is beginning to diurese. Problems: Plan - Continue NG decompression - Abdominal wound vac to suction - Continue broad spectrum antibiosis - Aggressive diuresis as tolerated as this will increase our odds of closing his abdominal wall - Plan for takeback on Wednesday 02/21 with anticipated re-anastomsosis ( ileocolostomy) and potential abdominal wall closure - Rest of care per CCU team (thanks!) VTE Prophylaxis: Sub-Q Heparin (Unfractionated) Resuscitation Status: CPR: Attempt Resuscitation Cristian Haddad MD Feb 20, 2017 10:07
--- NOTE | 2017-02-20 10:32 | NUR ---
NUTRITION FOLLOW-UP: Assess: 36 YO M admitted to CCU for pericecal abscess, SBO, and sepsis. Pt went to OR 02/18 and was found to have severe necrotizing perforated appendicitis. He is s/p laparotomy with ileocecectomy. He returned to OR 02/19 and ileostomy was placed. Plan to return to OR 02/21 for ileocolic anastomosis. Currently intubated and sedated. He has abd wound vac in place. TPN to start tonight. Pharmacy is aware. PMHX: Heroin use. DIET: NPO x3 LABS:K 3.4, CO2 17, housing inspector .60, Ca 7.1, phos 2.2, T.bili 2.9, AST 52, ALT 118, Alb 3.3 MEDICATIONS: Reviewed. Fentanyl, propofol currently running at 16ml/hr providing 422kcal/day GI: No BM noted- open wound on abdomen with large output SKIN: No issues noted. ANTHROPOMETRICS: Wt: 91.7 kg, BMI 28.2kg/m2, Admit wt: 72.73 kg. ESTIMATED NEEDS: (VENT, surgery- based off admit wt) Calories: 1455-1820kcal/day (20-25kcal/kg) Protein: 110-130g/day (1.5-1.8g/kg) NUTRITION DIAGNOSIS: 1) Inadequate oral intake related to decreased ability to consume sufficient energy as evidenced by NPO status. --PERSISTS INTERVENTION: 1) As Pt continues to be NPO and require bowel rest recommend TPN be started. Recommend start at 150g Dex, 65g AA and 10g lipids to provide 870kcal (1292kcal and 65g pro (~75% kcal and 60% pro needs). 2) If tolerated, advance towards eventual goal of 275g Dex, 125g AA and 40g lipids to provide 1835kcal and 125g pro (100% estimated needs). Adjust lipids based on daily propofol rate. 3) If bowel function does return, recommend TF be considered. MONITOR/EVALUATE: NPO status, TPN start/david, labs, GI/nutrition status. Follow per high nutrition risk guidelines.
--- NOTE | 2017-02-20 12:11 | PCM.CONPHA ---
Subjective Abdominal pain with associated nausea, vomiting, diaphoresis, fever, chills Reason for Pharmacy Consult: TPN Management Assessment/Plan Assessment/Plan PARENTERAL NUTRITION ORDERS 1 20-Feb-17 Standard Hang Time: 2100 Substrates Total kcal: 870 AMINO ACIDS 65 g DEXTROSE 150 g Total Volume (mL): 1000 LIPIDS 10 g Sterile Water for Injection mL To Infuse Over (hrs): 24 Total Volume 1000 mL At at a rate of (mL/hr): 42 Additives Sodium Chloride 50 mEq "typical" daily requirements Sodium Acetate 30 mEq Sodium 50-120mEq Potassium Chloride 20 mEq Potassium 60-120mEq Potassium Phosphate 30 mEq Phosphate 20-40mEq Calcium Gluconate 9 mEq Magnesium 8-32mEq Magnesium Sulfate 16 mEq Calcium 9-22mEq Acetate* 80-120mEq Chloride* 80-120mEq Regular Insulin units *Depending on acid-base status Famotidine 40 mg Multivitamins 1 std dose Insulin Regimen Trace Elements 1 std dose none Thiamine 100 mg Regular Low Intensity Subcut Folic Acid 1 mg Regular Medium Intensity Subcut Ascorbic Acid 500 mg Regular High Intensity Subcut Regular Insulin Infusion Other: Special Instructions: To be infused via central line only. For delay or inturruption of TPN contact the pharmacist for alternative replacement solution. Signature Date: LEON SOTOMAYOR [address] [facility] New start TPN. Starting with lower volume since we are diuresing pt. Potassium currently being replaced but will recommend rechecking level this afternoon. If low, would consider replacing with Kphos to address low level. Adding famotidine to TPN and will stop the IV dose this evening. Ascorbic acid added for wound healing. Thiamine and folic acid added for refeeding risk. Miguel Gramajo, PharmD Miguel Gramajo Feb 20, 2017 12:11
--- NOTE | 2017-02-20 14:12 | NUR ---
Social Work: Continued Discharge Planning/Multidisciplinary Rounds D: Pt discussed in multidisciplinary rounds. Pt is scheduled for his third surgery on Friday. He is still in CCU, vented and sedated. VINICIUS has left multiple message with the patient's aunt to determine if there is DPOA paperwork and who the patient's legal NOK would be. Requested return phone call. A: Pt who remains in CCU on mechanical vent. P: Evolving; VINICIUS to continue to follow to assess for d/c needs. VINICIUS Estrada Addendum: 02/20/17 at 1747 by PAT BURRIS VINICIUS met with the patient's aunt at bedside. VINICIUS informed her that a letter for court cannot be provided. VINICIUS provided her with the contact information for the Patient Complaint Hotline and a Patient Advocate as she does not understand why this cannot be provided. She states that she will contact the pt's magnet valve assembler and will offer to testify on pt's condition via telephone if this is needed.
[2017-02-20 14:49] LABS: Magnesium 1.7 mg/dL (1.6-2.6); Phosphorus 1.9 mg/dL (2.5-4.9)
[2017-02-20] MEDS ORDERED: Sodium Chloride LOK Flush 10 mL Syringe IVFLUSH PRN (15:25)
--- NOTE | 2017-02-20 16:02 | PCM.PNMED ---
Subjective Date of Service Feb 20, 2017 Subjective Mr. Perez is a 36-year-old gentleman with PMHX significant for polysubstance abuse and has been incarcerated at [facility] for the recent 12 days prior to admission, who presented to the emergency department with a 2 week onset of increasing abdominal pain with associated fever, chills, nausea, vomiting, diaphoresis. CT scan showed free air in the abdomen and was taken emergently to surgery and found to have severe necrotizing perforated appendicitis. Overnight, patient was given IV Lasix and diuresed about of 10.7 L of fluid. He has been weaned off of pressors and esmolol drip. His ABGs showed respiratory alkalosis and as a result, his rate was turned down from 20-12. Patient is scheduled to go back to the OR tomorrow. Comprehensive ROS unable to be obtained in this intubated and sedated patient. Exam Vital Signs Vital Sign - Last Date Time Temp Pulse Resp B/P Pulse Ox O2 Delivery O2 Flow Rate FiO2 02/20/17 12:43 108 126/72 95 25 02/20/17 12:30 Ventilator 02/20/17 12:30 37.2 20 Intake and Output 02/19/17 02/19/17 02/20/17 Cumulative From/Thru 15:00 23:00 07:00 02/17/17 00:10 - 02/20/17 06:00 Intake Total 800 ml 2873 ml 1360 ml 43340 ml Output Total 2570 ml 6595 ml 5600 ml 91492 ml Balance -1770 ml -3722 ml -4240 ml 74693 ml Intake Oral 0 ml 0 ml 0 ml IV Total 800 ml 2873 ml 1360 ml 92164 ml Packed Cells 350 ml Output Urine Total 400 ml 2800 ml 4025 ml 56933 ml Stool Total 600 ml 600 ml Gastric Drainage Total 1000 ml 1900 ml 425 ml 6875 ml Drainage Total 1885 ml 550 ml 4760 ml Peritoneal Fluid 1160 ml 1160 ml Estimated Blood Loss 10 ml 10 ml 20 ml # Bowel Movements 0 0 Exam General: Patient is intubated and sedated, minimally responsive to external stimuli HEENT: ET tube in place, PERRL with miosis, Right IJ in place Cardio: Tachycardic, s1 and s2 heard, no murmurs, rubs or gallops Lungs: patient is intubated, breath sounds heard anteriorly with diffuse mild crackles Skin: feels warm to touch, has several tattoos on UE Abdomen: Distended abdomen with AbThera device, draining serosanguineous fluid. Ostomy in right lower quadrant Extremities: no edema or erythema Neuro: difficult to assess as patient is sedated IVs and Medications Medications Reviewed: Medications were reviewed in detail Lab and Diagnostics Laboratory Tests Test 02/19/17 19:50 02/20/17 03:35 02/20/17 14:26 Sodium Level 136mEq/L (134-144) 138mEq/L (134-144) 138mEq/L (134-144) Potassium Level 3.3mEq/L (3.5-5.2) 3.4mEq/L (3.5-5.2) 3.4mEq/L (3.5-5.2) Chloride Level 104mEq/L (97-108) 104mEq/L (97-108) 97mEq/L (97-108) Carbon Dioxide Level 17mmol/L (18-29) 17mmol/L (18-29) 24mmol/L (18-29) Blood Urea Nitrogen 7mg/dL (6-20) 7mg/dL (6-20) 8mg/dL (6-20) Creatinine 0.71mg/dL (0.76-1.27) 0.60mg/dL (0.76-1.27) 0.55mg/dL (0.76-1.27) Estimat Glomerular Filtration Rate 133mL/min (>59) 162mL/min (>59) 179mL/min (>59) Glucose Level 95mg/dL (60-99) 95mg/dL (60-99) 98mg/dL (60-99) Calcium Level 7.1mg/dL (8.5-10.1) 7.1mg/dL (8.5-10.1) 7.6mg/dL (8.5-10.1) Phosphorus Level 2.0mg/dL (2.5-4.9) 2.2mg/dL (2.5-4.9) 1.9mg/dL (2.5-4.9) White Blood Count 13.5th/mm3 (3.8-10.1) Red Blood Count 3.75mil/mm3 (4.40-5.80) Hemoglobin 10.1g/dL (13.8-17.2) Hematocrit 28.7% (41.0-50.0) Mean Corpuscular Volume 76.5fL (81-100) Mean Corpuscular Hemoglobin 26.9pg (27.0-35.0) Mean Corpuscular Hemoglobin Concent 35.2% (32.0-37.0) Red Cell Distribution Width 14.7% (12.3-15.4) Platelet Count 135bil/L (150-400) Neutrophils (%) (Auto) 83.2% (40-74) Lymphocytes (%) (Auto) 11.8% (14-46) Monocytes (%) (Auto) 3.9% (4-12) Eosinophils (%) (Auto) 0.3% (0-5) Basophils (%) (Auto) 0.1% (0-3) Magnesium Level 2.0mg/dL (1.6-2.6) 1.7mg/dL (1.6-2.6) Total Bilirubin 2.9mg/dL (0.0-1.2) Aspartate Amino Transf (AST/SGOT) 52U/L (0-50) Alanine Aminotransferase (ALT/SGPT) 118U/L (0-44) Alkaline Phosphatase 80U/L (25-150) Total Protein 4.9g/dL (6.4-8.4) Albumin 3.3g/dL (3.4-5.0) Procalcitonin 109.60ng/mL (0.00-0.08) Microbiology 02/17/17 Blood Culture - Preliminary, Resulted No growth at 2 days; culture examined... 02/17/17 Gram Stain - Final, Resulted 02/17/17 Culture & Sensitivity - Preliminary, Resulted 02/17/17 Anaerobic Culture - Preliminary, Resulted 02/17/17 MRSA (PCR) - Final, Complete Result Diagram: 02/20/17 0335 02/20/17 1426 Microbiology Nasal MRSA negative Blood cultures negative to date Urine culture negative to date X-Rays, CTs and MRIs CT of Abdomen IMPRESSION: 1. Extensive large and small bowel pneumatosis in the setting of small bowel obstruction with extensive portal venous gas which has developed in the interval since prior CT scan obtained 02/17/17 at 0235 hours. Findings compatible with bowel ischemia. 2. Peritoneal pneumatosis and pneumoretroperitoneum which could be related to ruptured bowel versus infection with gas-forming organism. 3. Free intraperitoneal air and mesenteric air consistent with bowel perforation and/or mesenteric ischemia. 4. Decreased IVC caliber highly suspicious for severe hypotension. Please correlate with clinical data. 5. Moderate to large amount of ascites which is increased in volume compared to 02/17/17. The ascites has increased density compared to the prior CT scan which could be related to hemorrhage, proteinaceous fluid or infectious fluid. 6. Dilated loops of small bowel compatible with small bowel obstruction. 7. Probable right lower quadrant pericecal abscess suboptimally visualized in the absence of intravenous contrast does not appear significantly changed compared to prior CT scan. 8. Trace bilateral pleural effusions. Dictated by: Radha Cruz MD, PhD on 02/17/2017 at 10:08 Approved by: Radha Cruz MD, PhD on 02/17/2017 at 10:58 Cardiac Echo Impressions ECHO on 02/17/17 Interpretation Summary Technically difficult study limits valve visualization. 1) Normal left ventricular thickness and size with severely reduced systolic function (EF 20-25%). 2) Borderline right ventricular enlargement with moderately reduced function. 3) No significant valvular abnormalities. 4) No prior Echo available for comparison. If endocarditis is suspected, consider CATRACHITO. Assessment & Plan Mr. Perez is a 36-year-old gentleman with PMHX significant for polysubstance abuse and has been incarcerated at [facility] for the recent 12 days prior to admission, who presented to the emergency department with a 2 week onset of increasing abdominal pain with associated fever, chills, nausea, vomiting, diaphoresis. CT scan showed free air in the abdomen and was taken emergently to surgery and found to have severe necrotizing perforated appendicitis. Severe necrotizing perforated appendicitis, acute, present on admission, Active -As evidenced by the CT above --On 02/17/17, patient underwent Exploratory laparotomy, ileocecectomy, VAC dressing placement. -On 02/19/17, patient returned to surgery for Exploration of previous laparotomy , Adhesiolysis, Resection of distal ileum, 10 cm., Resection of hepatic flexure (7 cm)., and Loop ileostomy -Dr. Freedman from General surgery is managing the surgical aspect of this patient , anticipates return to OR tomorrow 02/21 for ileocolic anastomosis, possible closure of fascia, possible placement of [place] patch -Patient with open abdominal wound and wound vac in place, output has been copious, surgery will continue to manage -Current analgesia with Fentanyl drip, patient with likely pre-existing opiate habituation --Continue Zosyn, Micafungin per ID -Patient is intubated on ventilation support Severe Sepsis, acute, present on admission, Resolved -Secondary to severe necrotizing perforated appendicitis with feculent peritonitis -On admit: T 35.9, P1 44, RR 34, lactic acid 7.6, with repeat 4.8 -Surgery found his appendix obviously ruptured and in 2 pieces, with extensive associated necrotic tissue through the peritoneal cavity, as well as a likely abscess in the RLQ -Continue Zosyn, Micafungin per ID -Patient has been dependent upon aggressive fluid resuscitation with copious NS , Albumin, and 2U PRBC to date -Overnight, patient has been getting diuresis with IV Lasix to improve gut edema -Patient has now been weaned off pressors, and esmolol drip -On fentanyl drip for analgesia -Propofol/ fentanyl for sedation Tachycardia and stress induced cardiomyopathy, POA, acute. Active -ECHO demonstrated EF of 20-25% with little structural heart disease, likely indicative of acute decompensation -Was briefly on Dobutamine drip -Weaned off esmolol drip -Follow up ECHO prior to discharge Lactic acidosis, acute, present on admission, Resolved -Likely secondary to septic process as above -On admit: Initial 7.6 -Lactic acid has now normalized -Patient is currently intubated, ventilator dependent Erythrocythemia, chronicity unknown, present on admission, Resolved - On admit: Hemoglobin 18.9, hematocrit 54.1 - Likely secondary to dehydration from recent nausea and vomiting due to abdominal pain - Patient is now anemic with H&H 9.8/28.3 respectively Microcytic anemia, not present on admission, ongoing -Patient has received 2 units PRBC to maintain intravascular volume -We will check iron studies Electrolyte abnormalities, present on admission, ongoing - On admit: K 3.0, Mg 2.2, K rider was given initially - Today, K 3.3, Ca 7.1, Phos 2.2 -The goal is to start patient on TPN when he is able to tolerate it Acute kidney injury, present on admission, resolved - On admit:Cr 1.35 - Likely secondary to dehydration resulting from nausea and vomiting due to underlying infection -After extensive fluid resuscitation, Cr today is 0.74 Hypertension, ongoing -This could be due to withdrawals or possibly pain -Consider giving labetalol IV push for blood pressure control -Continue to monitor blood pressure Hyperglycemia, likely acute, present on admission, resolved - On admit:Glc 215 - Likely secondary to stress release - Continue to monitor, no indication for insulin at this time Elevated liver function tests, chronicity unknown, present on admission, under evaluation - On admit: total bili 0.6, AST 74, ALT 561, alkaline phosphatase 160 -Today, Total bili 2.9, AST 52, ALT 118 - Hep panel was indicative of past infection -HIV negative History of incarceration - [employer]CH[employer]IC consult - Hep panel indicative of past infection -HIV negative -MRSA nasal swab negative . Patient status: Due to severity of presenting symptoms, likely course of care, and risk of adverse events, anticipated length of stay exceeds 2 midnights; patient admitted under inpatient status to CCU Pain Evaluation: Adequate Pain Control GI Prophylaxis: H2 mack VTE Prophylaxis: Sub-Q Heparin (Unfractionated) VTE Mechanical Devices: Intermittant Pneumatic CD Resuscitation Status: CPR: Attempt Resuscitation Time spent 35 minutes Attending Statement I have seen and evaluated the patient at bedside in addition to directly supervising care provided by Dr Zelaya on 02/20/2017. I agree with above documentation. Leah Zelaya DO Feb 20, 2017 16:02 Jose Moore DO Feb 21, 2017 07:39
--- NOTE | 2017-02-20 17:25 | PCM.PNMED ---
Subjective Date of Service Feb 20, 2017 Subjective 36 yo incarcerated heroin addict and alcoholic admitted with approximately 2 weeks of abdominal pain, fever, chills, and constipation. Initial CT showed suspected perforated appendicitis with RLQ abscess and the plan was to treat conservatively with percutaneous drainage by IR and IV antibiotics. Unfortunately, the patient deteriorated rapidly over night and a repeat CT now showed free air in the peritoneal space, retroperitoneum, portal system and bowel wall. He was taken to the OR urgently where he was found to have purulent peritonitis and a RLQ abscess with diffuse hemorrhage of the bowel and 4 quadrant necrosis of the peritoneal surface. The underlying bowel was felt to be viable however. He underwent limited resection of a necrotic area of his right colon and the ends were stapled closed. His abdomen was lavaged and a wound dressing was applied before he was brought to the ICU on mechanical ventilation. On 02/19 he was returned to OR and tolerated creation of an ileostomy. Over night he has diuresed over 10 L. Remains comfortable on vent and off pressors. NO critical events over night Exam Vital Signs Vital Sign - Last Date Time Temp Pulse Resp B/P Pulse Ox O2 Delivery O2 Flow Rate FiO2 02/20/17 16:41 113 139/74 95 25 02/20/17 12:30 Ventilator 02/20/17 12:30 37.2 20 Intake and Output 02/19/17 02/19/17 02/20/17 Cumulative From/Thru 15:00 23:00 07:00 02/17/17 00:10 - 02/20/17 06:00 Intake Total 800 ml 2873 ml 1360 ml 16585 ml Output Total 2570 ml 6595 ml 5600 ml 40918 ml Balance -1770 ml -3722 ml -4240 ml 82444 ml Intake Oral 0 ml 0 ml 0 ml IV Total 800 ml 2873 ml 1360 ml 01364 ml Packed Cells 350 ml Output Urine Total 400 ml 2800 ml 4025 ml 27628 ml Stool Total 600 ml 600 ml Gastric Drainage Total 1000 ml 1900 ml 425 ml 6875 ml Drainage Total 1885 ml 550 ml 4760 ml Peritoneal Fluid 1160 ml 1160 ml Estimated Blood Loss 10 ml 10 ml 20 ml # Bowel Movements 0 0 Exam WDWM man orally intubated on vent, Sedated Lungs Bilat crackles, NO wheezes CV RRR, normal S1S2, no m/g/r Abd Soft, healthy pink wound edges, RLQ stoma with thin dark bile stained output. NO BTs Ext Warm, pulses 2+ all 4, tr edema IVs and Medications Medications Reviewed: Medications were reviewed in detail Lab and Diagnostics Result Diagram: 02/20/17 0335 02/20/17 1426 Microbiology Nasal MRSA negative Blood cultures negative to date Urine culture negative to date X-Rays, CTs and MRIs CT of Abdomen IMPRESSION: 1. Extensive large and small bowel pneumatosis in the setting of small bowel obstruction with extensive portal venous gas which has developed in the interval since prior CT scan obtained 02/17/17 at 0235 hours. Findings compatible with bowel ischemia. 2. Peritoneal pneumatosis and pneumoretroperitoneum which could be related to ruptured bowel versus infection with gas-forming organism. 3. Free intraperitoneal air and mesenteric air consistent with bowel perforation and/or mesenteric ischemia. 4. Decreased IVC caliber highly suspicious for severe hypotension. Please correlate with clinical data. 5. Moderate to large amount of ascites which is increased in volume compared to 02/17/17. The ascites has increased density compared to the prior CT scan which could be related to hemorrhage, proteinaceous fluid or infectious fluid. 6. Dilated loops of small bowel compatible with small bowel obstruction. 7. Probable right lower quadrant pericecal abscess suboptimally visualized in the absence of intravenous contrast does not appear significantly changed compared to prior CT scan. 8. Trace bilateral pleural effusions. Dictated by: Radha Cruz MD, PhD on 02/17/2017 at 10:08 Approved by: Radha Cruz MD, PhD on 02/17/2017 at 10:58 Cardiac Echo Impressions ECHO on 02/17/17 Interpretation Summary Technically difficult study limits valve visualization. 1) Normal left ventricular thickness and size with severely reduced systolic function (EF 20-25%). 2) Borderline right ventricular enlargement with moderately reduced function. 3) No significant valvular abnormalities. 4) No prior Echo available for comparison. If endocarditis is suspected, consider CATRACHITO. Assessment & Plan IMP Perforated appendicitis with gross generalized fecal soiling of peritoneal cavity. Fortunately, his small bowel and most of his colon appeared viable. His course since laparotomy shows steady improvement and today he has tolerated creation of an ileostomy Sepsis, improved with resuscitation, antibiotics, damage control surgery. Now appears to be mobilizing fluid and remains off pressors Post operative respiratory failure, stable REC Maintain on vent until abdomen can be closed which may yet be several days. Abx per ID consult Continue cautious diuresis Return to OR per surgery Replace K+, PO4 SAT/SBT upon return from OR . GI Prophylaxis: H2 mack VTE Prophylaxis: Sub-Q Heparin (Unfractionated) VTE Mechanical Devices: Intermittant Pneumatic CD Resuscitation Status: CPR: Attempt Resuscitation Scott Aparicio MD Feb 20, 2017 17:23
[2017-02-20 17:27] LABS: Unsaturated Iron Binding 59.5 ug/dL
[2017-02-20] MEDS ORDERED: KCl 40 mEq/100 mL (CENTRAL) 40 MEQ in IV Premix 1 EACH IV ONE (17:30)
[2017-02-20] MEDS ORDERED: DEXTROSE 5% IV ONE (17:30)
[2017-02-20] MEDS ORDERED: POTASSIUM PHOS IV ONE (17:30)
--- NOTE | 2017-02-20 18:14 | NUR ---
OR Pt is scheduled to go back to OR for ABD closure on 02/21/17 at 0730. Consent signed by and pts aunt Belinda. Output today, Cash=4L, WV=1L, LB=[id number], and [id number]=[id number]. Vent 25% . Only gtts are fentanyl, propofol and ABX. 3L right IJ and right artline intact. ST 110 with stable BP's, no pressers. x2 K+ given with a 3.4 level.
--- NOTE | 2017-02-20 18:20 | PATH ---
SURGICAL PATHOLOGY Attending Physician:Latoya Freedman MD CASE STATUS: Signed Out PATIENT NAME: LEON GUERRERO PID: [id number] : 1980 DATE COLLECTED:02/17/2017 18:49 SPECIMEN: Colon, Total Resection CLINICAL HISTORY: ASHLEY-CECAL ABSCESS, PERFORATED VISCUS 1). ILEOCECTOMY FINAL DIAGNOSIS: Terminal Ileum, Cecum and Appendix, Ileocectomy: Ruptured acute appendicitis with detached appendiceal tip adherent to cecal serosa; negative for neoplasm. Terminal ileum with serositis. Cecum with serositis. Ileal and cecal mucosa negative for active inflammation, chronic architectural changes, granulomata, dysplasia, or malignancy. ICD10: K35.2 NOTE: The findings were discussed with Dr. Freedman by Dr. Naren Lloyd on 02/19/2017 at 3:45 p.m. GROSS DESCRIPTION: Received in formalin, labeled "Leon Guerrero, ileocectomy", is a right hemicolectomy specimen. There is an attached segment of terminal ileum measuring 25 cm in length and up to 3.8 cm in diameter with an attached portion of mesentery measuring up to 4.5 cm in depth. The segment of cecum measures 17 cm in length and up to 7.5 cm in diameter. There is an apparent disrupted appendix with the tip self-adherent to the cecum. The apparent tip measures 1.8 cm in length by 0.8 cm in diameter. The proximal appendix attached to the cecum measures 2.7 cm in length and up to 1.0 cm in circumference. The serosal surface of the ileum, cecum and appendix are dusky brown with multiple areas of fibrinopurulent exudate. The specimen is opened longitudinally revealing scott-brown mucosa with normal appearing intestinal folds and scattered areas of erythema. No mucosal masses or lesions are identified. 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 ([id number]) ICD-9 CODES: CPT CODES: 44392 Electronically Signed Out Naren Lloyd MD, Ph.D. [facility] [address], [place] [address] Technical component performed at [facility], [facility] [address], [place], [address]
[2017-02-20] MEDS: TPN Per Pharmacist XX SCH (19:28)
[2017-02-20] MEDS: Total Parenteral Nutrition 1 BAG IV SCH (21:01)
[2017-02-21] VITALS (10 sets, daily range): BP systolic 110–148; BP diastolic 68–76; PULSE 98–126; RESP 15–20; O2SAT 95–97
[2017-02-21] MEDS: Piperacillin-Tazo 3.375 Gm Inj 3.375 GM in Dextrose 5% Minibag Plus 50 ML IV SCH ×5 (01:55→20:10)
[2017-02-21] MEDS: Propofol Inj 1,000,000 MCG in IV Premix 1 EACH IV SCH ×4 (02:32→20:52)
[2017-02-21] MEDS: Chlorhexidine 0.12% 15 mL Oral Solution MT SCH ×5 (03:40→20:10)
[2017-02-21 03:58] LABS: BASOPHILS % (AUTO) 0.2 % (0-3); EOSINOPHILS % (AUTO) 1.8 % (0-5); MONOCYTES % (AUTO) 11.3 % (4-12); Mean Corpuscular Hemoglobin 26.8 pg (27.0-35.0); Mean Corpuscular Volume 76.9 fL (81-100); Platelet Count 139 bil/L (150-400)
--- NOTE | 2017-02-21 04:23 | NUR ---
Cardiac/Resp/GI Patient remains on vent and intubated, awakens with repositioning and oral care, follows commands and nods appropriately to answer questions, sedated on Fentanyl and Propofol, calm and cooperative when awake, grimaces with turns and repositioning but falls back to sleep quickly, HR NSR 90's this AM, BP stable this shift 130's/70's at this time, good output from iliostomy tea colored with some small bits of solids, iliostomy stoma dark pink/brown in areas and MD aware yesterday morning, OGT putting out green bile, tolerating TPN well, midline incision intact and wound vac working well without problems, CHG bath done and plan to go to OR this AM, no distress noted, uneventful shift. Addendum: 02/21/17 at 0429 by GIANNA BUCK RN Amended: Links added.
[2017-02-21 04:36] LABS: Phosphorus 2.1 mg/dL (2.5-4.9)
[2017-02-21] MEDS ORDERED: Lactated Ringer's 1,000 ML IV SCH (05:00)
--- NOTE | 2017-02-21 06:25 | ABG ---
DateTimeAnalyzed 04:49:00 -_ pH ____7.460 - 7.350 7.450 pCO2 ___36.9__ -mmHg 35.0 45.0 pO2 ___75.5__ -mmHg 69.0 116 HCO3- ___25.9__ -mmol/L 22.0 26.0 ABE ____2.5__ -mmol/L -2.0 2.0 tHb ___10.7__ -g/dL 12.0 18.0 O2Hb ___93.3__ -% COHb ____1.2__ -% 0.0 1.5 MetHb ____1.1__ -% 0.4 1.5 sO2 ___95.5__ -% 25.0 FIO2 ___25.0__ -% Pressure_Support ___16.0__ -cmH2O PEEP ____5.0__ -cmH2O Set_RR ___12.0__ -b/min Drawn By LT - Date/Time Notified____ 06:24:00 -_ Oxygen Device 1 VENTILATOR - B 759 -mmHg tO2 ___14.1__ -Vol% [facility] test _Positive -
--- NOTE | 2017-02-21 07:21 | PCM.HPANE ---
Patient Data Surgeon Admitting Provider:Isabel Mcduffie DO Attending Provider:Jose Moore DO Primary Care Physician:Sawyer Other Provider:Gila Khan Anesthesia Reason for Visit Pericecal Abscess,Sbo,Sepsis Ht/WT & BMI Height (Feet): 5 Height (Inches): 11.00 Weight (Kilograms): 86.900 Body Mass Index 22.45 Allergies Coded Allergies: No Known Allergies (Unverified , 02/17/17) Past Anesthesia History Anesthesia History: Denies:: Abnormal Airway, Anesthesia Reactions, Difficult Intubation Diabetes History Hx Diabetes?: No Current Bedside Blood Glucose: 96 Medications Hypertension Medication: No Home Meds Incl Beta Ayana: No History History of ENT Problems?: No HEENT History: Denies:: Abnormal Airway Difficult Intubation Denture Type: None Teeth Condition: Tooth Decay Other HEENT Pertinent History: ETT in-situ Hx of Heart Problems?: Yes Cardiovascular History: Positive for:: Chest Pain Denies:: Cardiac Surgery Congestive Heart Failure Edema Heart Murmur Hypertension Irregular Heartbeat Pacemaker Thrombophlebitis Hx of Respiratory Problem?: Yes Respiratory History: Positive for:: Pneumonia Denies:: Asthma COPD Chest Surgery Dyspnea Emphysema Hemoptysis Tuberculosis Other Resp Pertinent History: Intubated and ventialted in ICU due to respitory failure. Hx Neurologic Problems?: No Neurological History: Positive for:: Headaches Denies:: Alzheimer's Disease CVA Dementia Dizziness Parkinson's Disease Seizures Hx of GI Problems?: Yes Other GI Pertinent History: Sepsis secondary to GI perforation Hx of Problems?: No Genitourinary History: Denies:: HX of Hemodialysis Kidney Stones Urinary Tract Infection HX of Peritoneal Dialysis: No Male Hx: Denies:: Prostate Problems Scrotal Mass Testicular Surgery Hx Musculoskeletal Problems?: Yes Musculoskeletal History: Positive for:: Back Injury Musculoskeletal Trauma Hx of Psycho/Social Problems?: Yes Psycho Social History: Positive for:: Anxiety Hx Depression Denies:: Bipolar Disorder Suicide Attempt Other Psych Pertinent History: history substance abuse Hx Surgeries?: Yes (several broken bones) Hx Any Other Health Problems?: Yes Other History: Positive for:: Hospitalization Denies:: Cancer (father had CA) Thyroid Disease History Blood Transfusions: Positive for:: Accept Blood Products? Denies:: Blood Transfusions Hx Diabetes: NoBedside Blood Glucose: 96 Occupation: currently incarcerated Hx Alcohol Use: Yes (Rarely, used to drink more several years ago)Hx Substance Use: Yes (heroin IV; last use approximately 14 of January; weed; "I've tried it all") Smoking Status: Unknown if Ever Smoker Have You Smoked inLast 12 mo: NoApprox How Many Cigarettes/day: "A cigarette here and there" Stop/Bang Treated for Sleep Apnea?: No Do You Have a CPAP Machine?: No S-Snoring: Do You Snore Loudly: No T-Tired: feel tired, fatigued: No O-Obsered: Observed not breath: No P-Blood Pressure: treated: No B- Body Mass Index > 35 kg/m2: No A- Age over 50: No N- Neck Large Circumference: No G- Gender Male: Yes WILLI Total Score: 1 WILLI Risk Assessment: Low Risk, <3 Yes Risk Assessment Category Category 1A: Patient has history of documented sleep apnea, and HAS NOT received any narcotic, sedative or anesthesia administration during this stay. Category 1B: Patient has history of documented sleep apnea, and HAS received any narcotic , sedative or anesthesia administration during this stay Category 2: Patient has SUSPECTED Obstructive Sleep Apnea, and HAS received any narcotic , sedative or anesthesia administration during this stay. Category 3: Patient has SUSPECTED Obstructive Sleep Apnea and HAS NOT received narcotic, sedative or anesthesia administration during this stay. Category 4: Outpatient in Procedural Areas with known sleep apnea or who screen positive for High Risk via the STOP/BANG questionnaire. Low Risk, <3 Yes Exam Exam Vital Signs Vital Signs Date Time Temp Pulse Resp B/P Pulse Ox O2 Delivery O2 Flow Rate FiO2 02/21/17 05:16 98 146/71 96 25 02/21/17 03:37 37.5 98 20 136/72 97 Mechanical Ventilator 02/21/17 03:37 Ventilator 02/21/17 00:40 97 148/74 95 25 General Appearance: Alert, Oriented X3, Cooperative, Moderate Distress HEENT/AIRWAY: MP 1, Neck Movement (Full) Lungs: Clear to Auscultation, Other (Mechanical breath sounds. ) Heart: Other (Tachycardic. ) Meds/Labs/Diagnostics Admission Meds Current Medications Chlorhexidine Gluconate (Peridex 0.12% Oral Soln) 5 ml Q4 MT Last administered on 02/21/17t 03:40; Start 02/20/17 at 08:30 Furosemide 40 mg 40 mg ONCE ONCE IVPUSH Last administered on 02/20/17 10:02; Start 02/20/17 at 09:00; Stop 02/20/17 at 09:10; Status DC Lactated Ringer's 1,000 ml @ 120 mls/hr Q8H20M IV Last administered on 05:12; Start 02/21/17 at 05:00; Stop 02/21/17 at 13:19 Total Parenteral Nutrition 1,000 ml @ 41.667 mls/ hr Q24@21 IV Last administered on 02/20/17 21:01; Start 02/20/17 at 21:00 Potassium Chloride 40 meq/ Premix 100 ml @ 25 mls/hr ONCE ONCE IV Last administered on 02/20/17 17:59; Start 02/20/17 at 17:30; Stop 02/20/17 at 21:29 ; Status DC Potassium Phosphate/ Dextrose/Water (Potassium Phos (mMol) Inj/D5W) 254 ml @ 63.5 mls/hr ONCE ONCE IV Last administered on 02/20/17 18:41; Start 02/20/17 at 17:30; Stop 02/20/17 at 21:29; Status DC Bedside Blood Glucose: 96 Labs Test 02/17/17 00:32 02/17/17 05:10 02/17/17 08:40 02/17/17 21:00 Lipase 19U/L (13-60) Hepatitis A IgM Antibody Negative (Negative) Hepatitis B Surface Antigen Negative (Negative) Hepatitis B Core IgM Antibody Negative (Negative) Hepatitis C Antibody >11.0s/co ratio Hepatitis C Antibody Comment Comment (.) HIV (1&2) Ag and Ab, 4th Generation Non reactive (Non Reactive) Urine Color Dark yellow (YELLOW) Urine Appearance Hazy (CLEAR,HAZY) Urine pH 5.5 (5.0-8.0) Urine Specific [place] 1.015 (1.003-1.035) Urine Protein 30mg/dL (NEG,TRACE) Urine Glucose (UA) Negativemg/dL (NEGATIVE) Urine Ketones Tracemg/dL (NEGATIVE) Urine Occult Blood Negative (NEGATIVE) Urine Nitrite Negative (NEGATIVE) Urine Bilirubin Negative (NEGATIVE) Urine Urobilinogen Normalmg/dL (NORMAL) Urine Leukocyte Esterase Negative (NEGATIVE) Urine RBC 0-2/hpf (0-2) Urine WBC 0-5/hpf (0-5) Urine Epithelial Cells Occasional/hpf (NONE-MOD) Urine Crystals None seen (NONE SEEN) Urine Bacteria Few/hpf (NONE-FEW) Urine Hyaline Casts Occasional/lpf (NONE) Urine Granular Casts None seen (NONE SEEN) Urine Waxy Casts None seen (NONE SEEN) Urine Red Blood Cell Casts None seen (NONE SEEN) Urine White Blood Cell Casts None seen (NONE SEEN) Urine Mucus None seen (None Seen) Urine Trichomonas None seen (NONE SEEN) Urine Yeast None (NONE SEEN) Urinalysis Comment None Urine Culture Reflexed Not indicated Myelocytes % 0% (0-0) Test 02/18/17 02:45 02/18/17 08:24 02/19/17 04:40 02/20/17 14:26 Metamyelocytes % 1% (0-0) Hematology Comments Wbc Thyroid Stimulating Hormone (TSH) 1.410uIU/mL (0.450-4.500) Lactic Acid Level 1.8mmol/L (0.4-2.0) Hepatitis C Virus Quantitation [id number]/mL (.) Hepatitis C RNA (PCR) log10 5.417 (.) Hepatitis C Comment Comment (.) Band Neutrophils % 9% (1-5) Prothrombin Time 12.0sec (8.1-12.5) Prothromb Time International Ratio 1.12ratio Iron Level 19ug/dL (35-150) Total Iron Binding Capacity 79ug/dL (250-450) Percent Iron Saturation 24%sat (15-50) Unsaturated Iron Binding 59.5ug/dL Test 02/21/17 03:50 White Blood Count 9.3th/mm3 (3.8-10.1) Red Blood Count 3.99mil/mm3 (4.40-5.80) Hemoglobin 10.7g/dL (13.8-17.2) Hematocrit 30.7% (41.0-50.0) Mean Corpuscular Volume 76.9fL (81-100) Mean Corpuscular Hemoglobin 26.8pg (27.0-35.0) Mean Corpuscular Hemoglobin Concent 34.9% (32.0-37.0) Red Cell Distribution Width 14.5% (12.3-15.4) Platelet Count 139bil/L (150-400) Neutrophils (%) (Auto) 70.0% (40-74) Lymphocytes (%) (Auto) 15.2% (14-46) Monocytes (%) (Auto) 11.3% (4-12) Eosinophils (%) (Auto) 1.8% (0-5) Basophils (%) (Auto) 0.2% (0-3) Sodium Level 135mEq/L (134-144) Potassium Level 3.7mEq/L (3.5-5.2) Chloride Level 99mEq/L (97-108) Carbon Dioxide Level 24mmol/L (18-29) Blood Urea Nitrogen 9mg/dL (6-20) Creatinine 0.45mg/dL (0.76-1.27) Estimat Glomerular Filtration Rate 226mL/min (>59) Glucose Level 163mg/dL (60-99) Calcium Level 7.3mg/dL (8.5-10.1) Phosphorus Level 2.1mg/dL (2.5-4.9) Magnesium Level 2.0mg/dL (1.6-2.6) Total Bilirubin 2.0mg/dL (0.0-1.2) Aspartate Amino Transf (AST/SGOT) 41U/L (0-50) Alanine Aminotransferase (ALT/SGPT) 92U/L (0-44) Alkaline Phosphatase 90U/L (25-150) Total Protein 5.0g/dL (6.4-8.4) Albumin 3.4g/dL (3.4-5.0) Prealbumin 9mg/dL (20-40) Procalcitonin 65.98ng/mL (0.00-0.08) Plan Impression Patient chart reviewed, patient interviewed and anesthestic plan with risks, benefits, and alternatives discussed, and informed consent obtained. NPO per Anesth. Guidelines: Yes ASA Physical Status: ASA4 Life Threatening Anesthetic Plan: GA Bene/Risks/Altern/Consents: Yes HP Complete Prior to Induction: Yes Naren Nielson MD Feb 21, 2017 07:21
[2017-02-21] MEDS: Lactated Ringer's 1,000 ML IV SCH ×2 (07:38→09:56)
[2017-02-21] MEDS ORDERED: Potassium Phos (mEq) Inj 40 MEQ in Dextrose 5% 250 ML IV ONE (08:25)
[2017-02-21] MEDS: Micafungin Inj 150 MG in 0.9% Sodium Chloride 100 ML IV SCH ×2 (08:25→08:30)
--- NOTE | 2017-02-21 08:29 | NUR ---
OR Pt left for OR at 0730. Pt was given Versed by anesthesia prior to transfer. Propofol at 35mcg and Fentanyl at 200mcg left with pt. RT at bedside. Chart with consent given to nurse. Pt opening eyes and shaking his head yes to understanding that he is going to OR and that we are taking good care of him. Personal belongings in room. Aunt is not currently present but aware that surgery was scheduled for today at 0730.
[2017-02-21] MEDS: TPN Per Pharmacist XX SCH (08:30)
[2017-02-21] MEDS ORDERED: Propofol 10,000 mCg/mL 20 mL Inj ONE (10:05)
[2017-02-21] MEDS ORDERED: fentaNYL-PF 50 mCg/mL 2 mL Inj ONE (10:05)
[2017-02-21] MEDS ORDERED: Rocuronium 10 mg/mL 5 mL Inj ONE (10:05)
[2017-02-21] MEDS ORDERED: HYDROmorphone 1 mg/mL Inj ONE (10:05)
--- NOTE | 2017-02-21 10:44 | PCM.PHAPRO ---
Progress Abdominal pain with associated nausea, vomiting, diaphoresis, fever, chills TPN #2 Patient ID: I. Fluid Status II. Chem III. Glucose IV. Macronutrients PARENTERAL NUTRITION ORDERS 1 20-Feb-17 Standard Hang Time: 2100 Substrates Total kcal: 870 AMINO ACIDS 65 g DEXTROSE 150 g Total Volume (mL): 1000 LIPIDS 10 g Sterile Water for Injection mL To Infuse Over (hrs): 24 Total Volume 1000 mL At at a rate of (mL/hr): 42 Additives Sodium Chloride 50 mEq "typical" daily requirements Sodium Acetate 30 mEq Sodium 50-120mEq Potassium Chloride 30 mEq Potassium 60-120mEq Potassium Phosphate 40 mEq Phosphate 20-40mEq Calcium Gluconate 9 mEq Magnesium 8-32mEq Magnesium Sulfate 16 mEq Calcium 9-22mEq Acetate* 80-120mEq Chloride* 80-120mEq Regular Insulin units *Depending on acid-base status Famotidine 40 mg Multivitamins 1 std dose Insulin Regimen Trace Elements 1 std dose none Thiamine 100 mg Regular Low Intensity Subcut x Folic Acid 1 mg Regular Medium Intensity Subcut Ascorbic Acid 500 mg Regular High Intensity Subcut Regular Insulin Infusion Other: Special Instructions: To be infused via central line only. For delay or inturruption of TPN contact the pharmacist for alternative replacement solution. Signature Date: Octavio Bansal Pharm D Feb 21, 2017 10:44
[2017-02-21] MEDS: fentaNYL 2,500 mCg/250 mL 2,500 MCG in IV Premix 1 EACH IV SCH ×2 (10:54→21:57)
--- NOTE | 2017-02-21 11:33 | PCM.PNMED ---
Subjective Date of Service Feb 21, 2017 Subjective Pulmonary critical care progress note, consult requested by Dr. Hurst Rui Perez is a 36 year old man with a PMH of polysubstance abuse who presents with a several day history of abdominal pain; he had been incarceration for 12 days prior to presentation. He had a CT scan which demonstrated free air in the abdomen, and was subsequently taken for emergent surgery and found to have ruptured appendicitis with feculent peritonitis and diffuse necrosis throughout the peritoneum. Today the patient was taken to the OR by Dr. Freedman, she found his abdominal cavity to be clear of necrotic tissue, but likely too edematous to facilitate closure of his open abdominal incision, thus a David patch was placed to incrementally close the patient's fascia as abdominal distension and edema gradually decrease. Three further drains were placed at various post about the abdomen to facilitate continued abdominal drainage. The patient tolerated the procedure well and was returned to the ICU where he will remain on sedation and mechanical ventilation given his open abdomen. Prior to surgery the patient was intermittently aware of his surroundings, following commands, and nodding yes/no appropriately, was able to deny pain or discomfort. . Exam Vital Signs Vital Sign - Last Date Time Temp Pulse Resp B/P Pulse Ox O2 Delivery O2 Flow Rate FiO2 02/21/17 10:35 98 112/76 96 35 02/21/17 03:37 37.5 20 Mechanical Ventilator Intake and Output 02/20/17 02/20/17 02/21/17 Cumulative From/Thru 15:00 23:00 07:00 02/17/17 00:10 - 02/21/17 05:12 Intake Total 892 ml 999 ml 23933 ml Output Total 6400 ml 1850 ml 86262 ml Balance -5508 ml -851 ml 8548 ml Intake Oral 0 ml 0 ml IV Total 892 ml 661 ml 28013 ml TPN/PPN 338 ml 338 ml Packed Cells 350 ml Output Urine Total 4000 ml 600 ml 37697 ml Stool Total 1100 ml 850 ml 2550 ml Gastric Drainage Total 800 ml 50 ml 7725 ml Drainage Total 500 ml 350 ml 5610 ml Peritoneal Fluid 1160 ml Estimated Blood Loss 20 ml # Bowel Movements 0 Exam Gen: Intubated and sedated young man with extensive Tattoos, will intermittently follow commands and respond appropriately with yes/no nodding to questioning Neck: Right IJ in place and appears patent, no JVD, HEENT: ET tube in place and appears patent, PERRL with miosis, does not track consistently, mucous membranes moist CV: Regular Tachycardia with no murmurs rubs or gallops Resp: Diffuse mild crackles BL, no wheezing rales or rhonchi Abd: Large football size and shaped open abdominal wound with wound vac in place expressing copious sero-sanguinous fluid, 4 [place] drains along patient's flanks, distended, slightly firm, patient retracts from abdominal palpation, ostomy in RLQ with pink well perfused stoma and output of brown liquid stool Extr: Warm to the touch, continued improvement of edema, no cyanosis or clubbing Neuro: CN difficult to assess in this intubated and sedated patient, no focal neurologic deficit . IVs and Medications Medications Reviewed: Medications were reviewed in detail Lab and Diagnostics Item Value Date Time Red Blood Count 3.99 mil/mm3 L 02/21/17349 Mean Corpuscular Volume 76.9 fL L 02/21/17349 Mean Corpuscular Hemoglobin 26.8 pg L 02/21/17349 Mean Corpuscular Hemoglobin Concent 34.9 % 02/21/17349 Red Cell Distribution Width 14.5 % 02/21/17349 Neutrophils (%) (Auto) 70.0 % 02/21/17349 Lymphocytes (%) (Auto) 15.2 % 02/21/17349 Monocytes (%) (Auto) 11.3 % 02/21/17349 Eosinophils (%) (Auto) 1.8 % 02/21/17349 Basophils (%) (Auto) 0.2 % 02/21/17349 Estimat Glomerular Filtration Rate 226 mL/min 02/21/17349 Calcium Level 7.3 mg/dL L 02/21/17349 Phosphorus Level 2.1 mg/dL L 02/21/17349 Magnesium Level 2.0 mg/dL 02/21/17349 Total Bilirubin 2.0 mg/dL H 02/21/17349 Aspartate Amino Transf (AST/SGOT) 41 U/L 02/21/17349 Alanine Aminotransferase (ALT/SGPT) 92 U/L H 02/21/17349 Alkaline Phosphatase 90 U/L 8/25/17 0350 Total Protein 5.0 g/dL L 02/21/17 0350 Albumin 3.4 g/dL 02/21/17 0350 Prealbumin 9 mg/dL L 02/21/17 0350 Procalcitonin 65.98 ng/mL H 02/21/17 0350 Result Diagram: 02/21/17 0350 02/21/17 0350 Microbiology Nasal MRSA negative Blood cultures negative to date Urine culture negative to date X-Rays, CTs and MRIs CT of Abdomen IMPRESSION: 1. Extensive large and small bowel pneumatosis in the setting of small bowel obstruction with extensive portal venous gas which has developed in the interval since prior CT scan obtained 02/17/17 at 0235 hours. Findings compatible with bowel ischemia. 2. Peritoneal pneumatosis and pneumoretroperitoneum which could be related to ruptured bowel versus infection with gas-forming organism. 3. Free intraperitoneal air and mesenteric air consistent with bowel perforation and/or mesenteric ischemia. 4. Decreased IVC caliber highly suspicious for severe hypotension. Please correlate with clinical data. 5. Moderate to large amount of ascites which is increased in volume compared to 02/17/17. The ascites has increased density compared to the prior CT scan which could be related to hemorrhage, proteinaceous fluid or infectious fluid. 6. Dilated loops of small bowel compatible with small bowel obstruction. 7. Probable right lower quadrant pericecal abscess suboptimally visualized in the absence of intravenous contrast does not appear significantly changed compared to prior CT scan. 8. Trace bilateral pleural effusions. Dictated by: Radha Cruz MD, PhD on 02/17/2017 at 10:08 Approved by: Radha Cruz MD, PhD on 02/17/2017 at 10:58 Cardiac Echo Impressions ECHO on 02/17/17 Interpretation Summary Technically difficult study limits valve visualization. 1) Normal left ventricular thickness and size with severely reduced systolic function (EF 20-25%). 2) Borderline right ventricular enlargement with moderately reduced function. 3) No significant valvular abnormalities. 4) No prior Echo available for comparison. If endocarditis is suspected, consider CATR[place]ITO. Assessment & Plan Mr. Perez is a 36-year-old gentleman with PMHX significant for polysubstance abuse and has been incarcerated at [facility] for the recent 12 days prior to admission, who presented to the emergency department with a 2 week onset of increasing abdominal pain with associated fever, chills, nausea, vomiting, diaphoresis. CT scan showed free air in the abdomen and was taken emergently to surgery and found to have severe necrotizing perforated appendicitis. Patient was taken back to the OR 02/19 and received a RLQ ostomy. Patient was again taken to the OR on 02/21 where a David patch was placed to facilitate gradual fascial closure, 3 further [place] drains were placed to further expedite drainage of abdominal edema and fluid as this is the limiting factor on wound closure. His open abdominal wound precludes lightening of sedation and trials towards extubation as this relatively young and healthy patient could likely generate sufficient intra-abdominal pressure with cough or agitation to threaten evisceration through the open wound. Severe Sepsis, acute, present on admission, Improving -Secondary to severe necrotizing perforated appendicitis with feculent peritonitis -On admit: T 35.9, P1 44, RR 34, lactic acid 7.6, with repeat 4.8 -Patient underwent laparotomy with appendectomy and colectomy -Surgery found his appendix obviously ruptured and in 2 pieces, with extensive associated necrotic tissue through the peritoneal cavity, as well as a likely abscess in the RLQ -Continue Zosyn, Micafungin per ID -Patient was initially dependent upon aggressive fluid resuscitation with copious NS, Albumin, and 2U PRBC to date -Transitioning to diuresis to improve gut edema in anticipation of wound closure -Patient has now been weaned off pressors, and esmolol drip -On fentanyl drip for analgesia -Propofol/ fentanyl for sedation -Patient returned to OR 02/21 with placement of [place] patch to facilitate gradual wound closure, anastamosis performed with good results -Further [place] drains placed to expedite intra-abdominal drainage Severe necrotizing perforated appendicitis, acute, present on admission, Improving -As evidenced by the CT above -Surgical intervention as above -Ostomy in place, Surgery anticipated a fairly extended period of ostomy use before takedown -Dr. Freedman from General surgery is managing the surgical aspect of this patient , anticipates return to OR 02/21 -Patient with open abdominal wound and wound vac in place, output has been copious, surgery will continue to manage -Current analgesia with Fentanyl drip, patient with likely pre-existing opiate habituation Tachycardia and stress induced cardiomyopathy, POA, acute. Active -ECHO demonstrated EF of 20-25% with little structural heart disease, likely indicative of acute decompensation -Was briefly on Dobutamine drip -Weaned off esmolol drip Lactic acidosis, acute, present on admission, Resolved -Likely secondary to septic process as above -On admit: Initial 7.6 -Has normalized -Patient has been adequately fluid resuscitated, transitioning to diuresis -Patient is currently intubated, sedated, and ventilated History of incarceration -[employer] consult -Hep panel indicative of past infection -HIV negative -MRSA nasal swab negative Pain Evaluation: Adequate Pain Control GI Prophylaxis: H2 mack VTE Prophylaxis: Sub-Q Heparin (Unfractionated) VTE Mechanical Devices: Intermittant Pneumatic CD Resuscitation Status: CPR: Attempt Resuscitation Antonio Lewis DO Feb 21, 2017 11:33
[2017-02-21] MEDS ORDERED: Furosemide 10 mg/mL 4 mL Inj IVPUSH ONE (11:35)
--- NOTE | 2017-02-21 11:41 | PCM.ANEP1 ---
Post Anesthesia PACU Phase 1 Assessment Vital Signs Vital Signs Date Time Temp Pulse Resp B/P Pulse Ox O2 Delivery O2 Flow Rate FiO2 02/21/17 10:35 98 112/76 96 35 02/21/17 05:16 98 146/71 96 25 Anesthetic Administered: GA Level of Alertness: Drowsy, not talking MOSES's with Equal Strength: No Pain: No Nausea or Vomiting: No CV Function & Hydration Stable: Yes Airway Device: Endotrachial Tube Oxygen Delivery: Mechanical Ventilator Lungs: Clear to Auscultation, Other (Mechanical breath sounds. ) PACU Phase 2 Assessment Complications: No Follow up Care: N/A Patient Instructions Provided: N/A Naren Nielson MD Feb 21, 2017 11:41
--- NOTE | 2017-02-21 11:47 | OP ---
[address] [address] OPERATIVE REPORT PATIENT: LEON GUERRERO : 1980 MR#: [id number] ADMIT: 02/17/2017 JOB ID: [id number] DATE OF SURGERY: 02/21/2017 PREOPERATIVE DIAGNOSIS(ES): Open abdomen, intestinal discontinuity after damage control laparotomy. POSTOPERATIVE DIAGNOSIS(ES): Open abdomen, intestinal discontinuity after damage control laparotomy. PROCEDURE PERFORMED: Reopening of recent laparotomy, ileocolic anastomosis, placement of Basile patch. SURGEON: Latoya Freedman MD ASSIST: Anjel Haddad MD, MR3 and Brianna Villarreal MS3. HISTORY OF PRESENT ILLNESS: This is a 36-year-old man who presented in septic shock due to perforated appendicitis. Five days ago he underwent a damage control laparotomy with ileocecectomy and his abdomen was left open. He was on pressors and required massive resuscitation. Two days later he returned to the operating room and, although he was hemodynamically stable, he had received greater than 30 L of resuscitation and his abdomen could not be closed, and his intestine was extremely boggy and edematous such that an anastomosis appeared worrisome to create. At that time his distal ileum and the hepatic flexure of his colon also appeared inadequate for anastomosis and therefore they were resected and then the two ends were placed adjacent to each other in anticipation of anastomosis after further diuresis and bowel decompression. A diverting loop ileostomy was created at that time as well. The plan today was to bring him to the operating room, create an ileocolic anastomosis, and attempt to close his abdomen versus placing a Basile patch. FINDINGS: 1. The distal ileum and proximal transverse colon appeared healthy and viable such that a jckt-da-[id number] hand-sewn anastomosis could be created. 2. Diverting loop ileostomy appeared healthy. 3. Visualized intestines appeared healthy. 4. Significant intraperitoneal clear serous benign-appearing fluid. 5. The fascia could not be reapproximated and a Basile patch was placed. The final distance between the fascia was 6.5 cm. DESCRIPTION OF PROCEDURE: The patient was brought to the operating room and placed in supine position. General anesthesia was induced. The patient remained intubated, as he was when he entered the operating room. Antibiotics were infused. A warming blanket and SCDs were placed. The operative field was prepped and draped in sterile fashion after the ostomy had its own separate dressing created and the previous ABThera device had been removed. A preprocedural pause was performed to confirm the correct patient, procedure, and site. The bowel bag overlying the intestines was carefully removed under gentle sterile technique. Underlying intestines appeared viable. There were a fair amount of gelatinous adhesions forming. These were carefully broken up with finger fracture and the distal ileum and proximal transverse colon were exposed. They appeared completely pink and viable such that an anastomosis appeared possible without further resection. A zhpi-kk-kfmc hand-sewn anastomosis was created with a posterior and anterior row of 2-0 silk Lembert stitches and running 3-0 Vicryl as an inner full-thickness layer. Once the anastomosis was created, and there was confirmed to be no tension on the ileostomy, attention was turned to the possibility of fascial closure. The fascia appeared tight and wide and therefore a full closure did not appear possible, therefore a Basile patch closure was chosen. The two sides of the Basile patch were sewn to the fascia using a running 0 Prolene stitch. They were then reapproximated with the hook and loop side facing down and the soft side facing up. The final distance between the edges of the fascia was 6.5 cm. Of note, gown and gloves were changed after the creation of the anastomosis. Of note, a 19-Beninese Marco drain was placed near the anastomosis and a 2nd 19-Beninese Marco drain was placed in the pelvis for drainage of the significant intraperitoneal fluid. Moist Kerlix was placed on top of the Basile patch, followed by two 19-Beninese Marco drains, additional moist Kerlix, and an Ioban. The Marco drains were placed to suction and the Ioban was reinforced. The patient was then taken to the intensive care unit, sedated and intubated. ESTIMATED BLOOD LOSS: 10 mL. COMPLICATIONS: None. SPECIMENS: None.
--- NOTE | 2017-02-21 11:50 | PCM.PNSURG ---
Subjective Visit Information: Reason for Visit Pericecal Abscess,Sbo,Sepsis Surgery/Surgery Date Post-Op Day # Date of Admission: Feb 17, 2017 at 04:07 Hospital Day # Subjective: Laparotomy explored today. No sign of bowel ischemia. No sign of intra- abdominal purulent or fecal matter. Ileocolic anastomosis created in hand sewn fashion. Fascia could not be closed, so a [place] Patch (velcro) was sewn to his fascia, and will require daily adjustments.. Hemodynamically he has remained stable, with a mild tachycardia. He began to have some succus out of his ostomy this morning. He is having good Cash output. OG is functioning. Objective Vital Sign- Last 8 Hours Date Time Temp Pulse Resp B/P Pulse Ox O2 Delivery O2 Flow Rate FiO2 02/21/17 10:35 98 112/76 96 35 02/21/17 05:16 98 146/71 96 25 Intake and Output- Last 8 Hour 02/21/17 Cumulative From/Thru 07:00 02/17/17 00:10 - 02/21/17 05:12 Intake Total 999 ml 21215 ml Output Total 1850 ml 39496 ml Balance -851 ml 8548 ml Intake Oral 0 ml 0 ml IV Total 661 ml 43698 ml TPN/PPN 338 ml 338 ml Packed Cells 350 ml Output Urine Total 600 ml 24110 ml Stool Total 850 ml 2550 ml Gastric Drainage Total 50 ml 7725 ml Drainage Total 350 ml 5610 ml Peritoneal Fluid 1160 ml Estimated Blood Loss 20 ml # Bowel Movements 0 General: Other (while on a ventilator) Abdomen: Other (distended abdomen. Vac with good suction. Serous fluid and succus in his ostomy bag.) Result Diagram: 02/21/17 0350 02/21/17 0350 Assessment & Plan Impression 36-year-old male status post damage control laparotomy with ileocecectomy on February 17; reexploration laparotomy with diverting loop ileostomy on February 19, reexploration laparotomy with ileocolic anastomosis on February 21, currently with a [place] patch in place pending fascial closure. Plan: -The [place] patch will be adjusted every 24-48 hours until his fascia has been reapproximated such that it may be close in the operating room. I therefore anticipate one additional trip to the operating room elderly sometime early next week. --Continue OG and TPN. If he shows signs of return of bowel function, okay to begin tube feeds In transition off of TPN - I anticipate he will need to remain intubated until the abdomen may be closed , which we will try to do as soon as possible. -I appreciate any diuresis that he may tolerate in order to decrease edema in the intra-abdominal cavity to facilitate fascial closure. -Drains: --There are 2 drains in his abdominal dressing, which should be to low suction. -- There is a [place] drain in the right upper quadrant, which is adjacent to the anastomosis, and should be to bulb drainage -- There is a [place]O in the left lower quadrant, which is draining peritoneal fluid out of the pelvis, and should be to bulb drainage Problems: VTE Prophylaxis: Sub-Q Heparin (Unfractionated) Resuscitation Status: CPR: Attempt Resuscitation Latoya Freedman MD Feb 21, 2017 11:50
--- NOTE | 2017-02-21 13:05 | PROG NOTE ---
[address] [address] PROGRESS NOTE PATIENT: LEON GUERRERO : 1980 MR#: [id number] ADMIT: 02/17/2017 JOB ID: [id number] INFECTIOUS DISEASE FOLLOWUP: DATE: 02/21/2017 REASON FOR FOLLOWUP: Complicated intra-abdominal infection with perforation and air throughout the liver and peritoneum. INTERVAL HISTORY: The patient was returned to surgery today by Dr. Freedman and reanastomosis was performed. He still has open fascia, and the plan is to use mechanical means to bring the margins close together and close the fascia in the near future. I discussed this case in person with Dr. Freedman and reviewed the CT scan. Since his surgery earlier this morning, the patient has been stable in the ICU. His eyes are open and he appears awake on the ventilator but does not do much in the way of tracking or following commands, but he is just postop and so it is hard to know exactly how much to ascribe to that. I did discuss the case at the bedside with nursing, the ICU team, Respiratory Therapy and the patient's mother. PHYSICAL EXAMINATION: Reveals a critically ill gentleman lying supine with eyes open in the ICU. Temp 37.5, he has been afebrile for about 24 hours. His blood pressure 112/76 without vasopressors, pulse currently 110 and sinus, blood pressure 112/76, saturating well on 35% and 5 of PEEP. Examination of the eyes reveals they are open. There is no conjunctivitis or scleral icterus. Oral endotracheal tube in good position. He has a central line with TPN infusion infusing. His lungs are clear. Cardiac tones tachycardic without any murmur. He still has an open abdomen with an ostomy present on the right side. There is diffuse edema and swelling of the abdominal wall but it is actually seems to be improving. Cash catheter is present. No skin rash. LABORATORY DATA: Labs include a white count which is now normalized at 9300 with a normal diff. His creatinine 0.45. His bilirubin has come down from 2.9 to 2. His ALT has dropped from 118 to 92. His procalcitonin has dropped from 110 to 66. His urinalysis was without pyuria. Serologic studies include a positive hep C with a viral load of 261,000. HIV is negative. Micro studies include negative blood cultures and negative MRSA screen but the peritoneal fluid culture from surgery on the is now growing Peptostreptococcus, fusobacterium and B fragilis. The Peptostreptococcus and fusobacterium are penicillin sensitive whereas the Bacteroides is beta lactamase positive. Sputum from the has many polys but no organisms basically. IMAGING: Includes a chest x-ray done yesterday which shows airspace opacities bilaterally which look like atelectasis though pneumonia could of course not be excluded. IMPRESSION: This critically ill gentleman seems to be improving steadily with repeat surgery and expert care from Dr. Latoya Freedman of General Surgery. He had his initial series of CT scans reviewed and discussed by Dr. Freedman and I today. There is an incredible amount of air in the peritoneum as well as air completely replacing all potential spaces within the liver prior to his original surgery. The fact that the patient has survived all this is truly extraordinary testament to his good surgical and Intensive Care Unit care. At this point, we have isolated three anaerobic organisms all of which should be well covered by Zosyn and the patient is steadily improving. RECOMMENDATIONS: 1. Will continue with IV Zosyn. 2. Surgery has installed a [place] patch which will be used until the fascia is approximated and can be surgically closed. 3. I see no indication at this point of any fungal process and I think we can go ahead and stop the micafungin. I have discussed this with Dr. Feredman and will go ahead and discontinue that at this time.
--- NOTE | 2017-02-21 13:09 | NUR ---
NUTRITION FOLLOW-UP: Assess: 36 YO male admitted to CCU with pericecal abscess, status post damage control laparotomy with ileocecectomy on February 17; re-exploration laparotomy with diverting loop ileostomy on February 19. Laparotomy explored today, with no sign of bowel ischemia, intra-abdominal purulent or fecal matter. Ileocolic anastomosis created in hand sewn fashion. Fascia could not be closed, so a [place] Patch (velcro) was sewn to his fascia, and will require daily adjustments. Hemodynamically he has remained stable, with a mild tachycardia. He began to have some succus out of his ostomy this morning. He is having good Cash output. OG is functioning. TPN initiated yesterday and appears well tolerated. Plan is to keep patient intubated and sedated, pending wound closure. PMHX: Heroin use. DIET: NPO x 4 D. TPN: D 150 g, amino acid 65 g, lipid 10 g, to provide 870 kcal (1345 kcal with propofol and 65 g pro (~75% kcal and 60% pro needs). LABS:Cr 0.45, Ca 7.3, Phos 2.1, Total Bili 2.0, ALT 92, PAB 9. MEDICATIONS: Reviewed. Fentanyl, albumin, lasix, insulin. Propofol currently running at 18 ml/hr providing 475 kcal/day GI: Stool output 1100 mL (02/20). SKIN: No issues noted. ANTHROPOMETRICS: Wt: 86.9 kg, BMI 26.0 kg/m2, Admit wt: 72.73 kg. ESTIMATED NEEDS: (VENT, surgery- based off admit wt) Calories: 1455-1820kcal/day (20-25kcal/kg) Protein: 110-130g/day (1.5-1.8g/kg) NUTRITION DIAGNOSIS: 1) Inadequate oral intake related to decreased ability to consume sufficient energy as evidenced by NPO status - PERSISTS. INTERVENTION: 1) Once TPN well tolerated, advance towards eventual goal of 275g Dex, 125g AA and 40g lipids to provide 1835kcal and 125g pro (100% estimated needs). Adjust lipids based on daily propofol rate. 3) If bowel function does return, recommend enteral feeding be considered. MONITOR/EVALUATE: NPO status, TPN david / advance, labs, GI/nutrition status. Follow per high nutrition risk guidelines.
--- NOTE | 2017-02-21 14:22 | PCM.PNMED ---
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 Initial CT showed suspected perforated appendicitis with RLQ abscess and the plan was to treat conservatively with percutaneous drainage by IR and IV antibiotics. Unfortunately, the patient deteriorated rapidly over night and a repeat CT showed free air in the peritoneal space, retroperitoneum, portal system and bowel wall. He was taken to the OR urgently where he was found to have purulent peritonitis and a RLQ abscess with diffuse hemorrhage of the mesentery and 4 quadrant necrosis of the peritoneal surface. The underlying bowel was felt to be viable however. He underwent limited resection of a necrotic area of his right colon and the ends were stapled closed. His abdomen was lavaged and a wound dressing was applied before he was brought to the ICU on mechanical ventilation. On 02/19 he was returned to OR and tolerated creation of an ileostomy. On 02/20 he has diuresed over 10 L, remaining comfortable on vent and off pressors. After diuresing an additional 7 L over night, he was taken to the OR on 02/21 where he had a pxcf-le-rhoh anastomosis of the previously created blind ends of the ilem and right colon. The diverting ileostomy was left i place and a Sarah patch was applied as the fascia could not yet be closed due to bowel and abdominal wall edema. He was returned to the CCU in stable condition. Opens eyes slightly to loud voice His mother is at his bedside and is updated as to events and plan. Exam Vital Signs Vital Sign - Last Date Time Temp Pulse Resp B/P Pulse Ox O2 Delivery O2 Flow Rate FiO2 02/21/17 10:35 98 112/76 96 35 02/21/17 03:37 37.5 20 Mechanical Ventilator Intake and Output 02/20/17 02/20/17 02/21/17 Cumulative From/Thru 15:00 23:00 07:00 02/17/17 00:10 - 02/21/17 05:12 Intake Total 892 ml 999 ml 67877 ml Output Total 6400 ml 1850 ml 48517 ml Balance -5508 ml -851 ml 8548 ml Intake Oral 0 ml 0 ml IV Total 892 ml 661 ml 58665 ml TPN/PPN 338 ml 338 ml Packed Cells 350 ml Output Urine Total 4000 ml 600 ml 41333 ml Stool Total 1100 ml 850 ml 2550 ml Gastric Drainage Total 800 ml 50 ml 7725 ml Drainage Total 500 ml 350 ml 5610 ml Peritoneal Fluid 1160 ml Estimated Blood Loss 20 ml # Bowel Movements 0 Exam Pale WDWN young man orally intubated and well sedated [id number]% on 0.30 FiO2 Lungs Decreased BS, scattered crackles at both bases. NO wheezes CV RRR, distant HTs, no m/g/r Abd Open midline incision with clean edges and wound vac. OR[place]O drains exit all quadrants x 4. NO BTs Ext Warm, pulses 2+ all 4, no edema IVs and Medications Medications Reviewed: Medications were reviewed in detail Lab and Diagnostics Result Diagram: 02/21/17 0350 02/21/17 0350 Microbiology Nasal MRSA negative Blood cultures negative to date Urine culture negative to date X-Rays, CTs and MRIs CT of Abdomen IMPRESSION: 1. Extensive large and small bowel pneumatosis in the setting of small bowel obstruction with extensive portal venous gas which has developed in the interval since prior CT scan obtained 02/17/17 at 0235 hours. Findings compatible with bowel ischemia. 2. Peritoneal pneumatosis and pneumoretroperitoneum which could be related to ruptured bowel versus infection with gas-forming organism. 3. Free intraperitoneal air and mesenteric air consistent with bowel perforation and/or mesenteric ischemia. 4. Decreased IVC caliber highly suspicious for severe hypotension. Please correlate with clinical data. 5. Moderate to large amount of ascites which is increased in volume compared to 02/17/17. The ascites has increased density compared to the prior CT scan which could be related to hemorrhage, proteinaceous fluid or infectious fluid. 6. Dilated loops of small bowel compatible with small bowel obstruction. 7. Probable right lower quadrant pericecal abscess suboptimally visualized in the absence of intravenous contrast does not appear significantly changed compared to prior CT scan. 8. Trace bilateral pleural effusions. Dictated by: Radha Cruz MD, PhD on 02/17/2017 at 10:08 Approved by: Radha Cruz MD, PhD on 02/17/2017 at 10:58 Cardiac Echo Impressions ECHO on 02/17/17 Interpretation Summary Technically difficult study limits valve visualization. 1) Normal left ventricular thickness and size with severely reduced systolic function (EF 20-25%). 2) Borderline right ventricular enlargement with moderately reduced function. 3) No significant valvular abnormalities. 4) No prior Echo available for comparison. If endocarditis is suspected, consider CATRACHITO. Assessment & Plan IMP Perforated appendicitis with gross generalized fecal soiling of peritoneal cavity. Fortunately, his small bowel and most of his colon appeared viable. His course since laparotomy shows steady improvement and today he has tolerated creation of an ileostomy and side to side ileocolic anastamosis. Sepsis, improved with resuscitation, antibiotics, damage control surgery. Now appears to be mobilizing fluid and remains off pressors. Net fluid negative over 17 L over the last 48 hours. Post operative respiratory failure, stable REC Maintain on vent until abdomen can be closed which may yet be several days. Abx per ID consult (Day #3 Zosyn) Continue cautious diuresis Return to OR per surgery for closure of fascia TPN SAT/SBT upon return from OR following abdominal closure Routine ICU prophylaxis Pain Evaluation: Adequate Pain Control GI Prophylaxis: H2 mack VTE Prophylaxis: Sub-Q Heparin (Unfractionated) VTE Mechanical Devices: Intermittant Pneumatic CD Resuscitation Status: CPR: Attempt Resuscitation Time spent 35 minutes of critical care exclusive of shared time and procedures. Scott Aparicio MD Feb 21, 2017 14:22 before takedown -Dr. Freedman from General surgery is managing the surgical aspect of this patient , anticipates return to OR 02/21 -Patient with open abdominal wound and wound vac in place, output has been copious, surgery will continue to manage -Current analgesia with Fentanyl drip, patient with likely pre-existing opiate habituation Tachycardia and stress induced cardiomyopathy, POA, acute. Active -ECHO demonstrated EF of 20-25% with little structural heart disease, likely indicative of acute decompensation -Was briefly on Dobutamine drip -Weaned off esmolol drip Lactic acidosis, acute, present on admission, Resolved -Likely secondary to septic process as above -On admit: Initial 7.6 -Has normalized -Patient has been adequately fluid resuscitated, transitioning to diuresis -Patient is currently intubated, sedated, and ventilated History of incarceration -[employer] consult -Hep panel indicative of past infection -HIV negative -MRSA nasal swab negative Pain Evaluation: Adequate Pain Control GI Prophylaxis: H2 mack VTE Prophylaxis: Sub-Q Heparin (Unfractionated) VTE Mechanical Devices: Intermittant Pneumatic CD Resuscitation Status: CPR: Attempt Resuscitation Time spent 35 minutes of critical care exclusive of shared time and procedures. Scott Aparicio MD Feb 21, 2017 14:22
[2017-02-21] MEDS: Insulin Human REGular 300 Unit/3 mL Inj - Low SUBQ SCH ×2 (14:30→20:28)
--- NOTE | 2017-02-21 15:39 | NUR ---
Inpatient Wound Nurse Patient seen for Pressure Injury Prevention protocol. Patient demonstrated signs of pain, such as facial grimacing. He was turned onto R side for CWON to visualize posterior. A suspected deep tissue injury was identified at midline sacrum, approximately 2 cm L x 2 c W, circular, dark purple, with blanchable periwound tissue. This area was warmer to touch than tissue six inches proximal. A 9 cm x 9 cm piece of Mepilex sheet foam was placed on the diagonal over sacrum and coccyx. Although a bordered sacral dressing is advised, the sheet foam can be applied or exchanged much more quickly which, for this patient, is a priority given his pain and tenuous condition. Heels without bogginess or erythema. Patient was gently propped at about 30 degree tilt onto R side with pillows. CWON RN will see patient on Friday.
--- NOTE | 2017-02-21 16:36 | NUR ---
Post op RUQ and LUQ [place] drains to minimal wall suction with minimal drainage. RLQ and LLQ having moderate amount of sero sanguineous drain into large [place]O bulbs. Ileostomy had 200cc dark green out put and now 200cc dark red output. Dr. Freedman notified and assessed pt. One time dose of 40mg Lasix given post op with 2.5L out. Propofol and fentanyl continue and ns TKO with antibiotics. K+ Phos given over 4 hours and completed at 1630, lab sent. Opening eyes and shaking head yes to pain, gave fentanyl bolus. Pts mom is at bedside. TPN at 41.7ml/hr. WC saw pt today, sacral bruise documented. Pt grimacing with turning fully on side, only WC observation for now. Dressing placed as a barrier by WC.
[2017-02-21] MEDS: Heparin 5,000 Unit/mL Inj SUBQ SCH (18:00)
--- NOTE | 2017-02-21 18:50 | PCM.PNMED ---
Subjective Date of Service Feb 21, 2017 Subjective Mr. Perez is a 36-year-old gentleman with PMHX significant for polysubstance abuse and has been incarcerated at [facility] for the recent 12 days prior to admission, who presented to the emergency department with a 2 week onset of increasing abdominal pain with associated fever, chills, nausea, vomiting, diaphoresis. CT scan showed free air in the abdomen and was taken emergently to surgery and found to have severe necrotizing perforated appendicitis. Patient was opening his eyes to voice today. Patient nodded appropriately in response to questions. Today, patient underwent reexploration laparotomy with ileocolic anastomosis. Fascia could not be closed so a [place] patch is in place pending fascial closure. Patient returned to CCU in stable condition. Overnight, patient remained on vent and intubated. He diuresed over 7 L. Exam Vital Signs Vital Sign - Last Date Time Temp Pulse Resp B/P Pulse Ox O2 Delivery O2 Flow Rate FiO2 02/21/17 05:16 98 146/71 96 25 02/21/17 03:37 37.5 20 Mechanical Ventilator Intake and Output 02/20/17 02/20/17 02/21/17 Cumulative From/Thru 15:00 23:00 07:00 02/17/17 00:10 - 02/21/17 05:12 Intake Total 892 ml 999 ml 99656 ml Output Total 6400 ml 1850 ml 25545 ml Balance -5508 ml -851 ml 8548 ml Intake Oral 0 ml 0 ml IV Total 892 ml 661 ml 72347 ml TPN/PPN 338 ml 338 ml Packed Cells 350 ml Output Urine Total 4000 ml 600 ml 69452 ml Stool Total 1100 ml 850 ml 2550 ml Gastric Drainage Total 800 ml 50 ml 7725 ml Drainage Total 500 ml 350 ml 5610 ml Peritoneal Fluid 1160 ml Estimated Blood Loss 20 ml # Bowel Movements 0 Exam General: Patient is intubated, opening eyes today and nodding in response to questions HEENT: ET tube in place, PERRL with miosis, Right IJ in place Cardio: Tachycardic, s1 and s2 heard, no murmurs, rubs or gallops Lungs: patient is intubated, breath sounds heard anteriorly with diffuse mild crackles Skin: feels warm to touch, has several tattoos on UE Abdomen: Distended abdomen with AbThera device, draining serosanguineous fluid. Has multiple [place] drains, ostomy in RLQ Extremities: no edema or erythema Neuro: difficult to assess as patient is sedated IVs and Medications Medications Reviewed: Medications were reviewed in detail Lab and Diagnostics Result Diagram: 02/21/17 0350 02/21/17 0350 Microbiology Nasal MRSA negative Blood cultures negative to date Urine culture negative to date Peritoneal Fluid: ACACIA GS (GRAM STAIN) Final 02/17/17-1007 GRAM STAIN RESULT FEW POLYS FEW GRAM POS COCCI ACACIA CULT AEROBIC Final 02/21/17 No growth. ANAEROBIC CULTURE Final 02/21/17 Organism 1 PEPTOCOCCUS ANAEROBIUS COLONY COUNT/QUANTITY HEAVY GROWTH BETA LACTAM (CEFINASE) SENSITIVE Organism 2 FUSOBACTERIUM NUCLEATUM COLONY COUNT/QUANTITY HEAVY GROWTH BETA LACTAM (CEFINASE) SENSITIVE Organism 3 BACTEROIDES FRAGILIS GROUP COLONY COUNT/QUANTITY HEAVY GROWTH BETA LACTAM (CEFINASE) RESISTANT BETA LACTAM (CEFINASE) SENSITIVE BETA LACTAM NEGATIVE BETA LACTAM POSITIVE Cumulative Anaerobic Susceptibility Guidelines from the CLSI 2011 R704-T33 are available on the [facility] Intranet under the "antibiograms" selection. Contact Microbiology at tel: [phone] if susceptibility testing is warranted. X-Rays, CTs and MRIs CT of Abdomen IMPRESSION: 1. Extensive large and small bowel pneumatosis in the setting of small bowel obstruction with extensive portal venous gas which has developed in the interval since prior CT scan obtained 02/17/17 at 0235 hours. Findings compatible with bowel ischemia. 2. Peritoneal pneumatosis and pneumoretroperitoneum which could be related to ruptured bowel versus infection with gas-forming organism. 3. Free intraperitoneal air and mesenteric air consistent with bowel perforation and/or mesenteric ischemia. 4. Decreased IVC caliber highly suspicious for severe hypotension. Please correlate with clinical data. 5. Moderate to large amount of ascites which is increased in volume compared to 02/17/17. The ascites has increased density compared to the prior CT scan which could be related to hemorrhage, proteinaceous fluid or infectious fluid. 6. Dilated loops of small bowel compatible with small bowel obstruction. 7. Probable right lower quadrant pericecal abscess suboptimally visualized in the absence of intravenous contrast does not appear significantly changed compared to prior CT scan. 8. Trace bilateral pleural effusions. Dictated by: Radha Cruz MD, PhD on 02/17/2017 at 10:08 Approved by: Radha Cruz MD, PhD on 02/17/2017 at 10:58 Cardiac Echo Impressions ECHO on 02/17/17 Interpretation Summary Technically difficult study limits valve visualization. 1) Normal left ventricular thickness and size with severely reduced systolic function (EF 20-25%). 2) Borderline right ventricular enlargement with moderately reduced function. 3) No significant valvular abnormalities. 4) No prior Echo available for comparison. If endocarditis is suspected, consider CATRACHITO. Assessment & Plan Mr. Perez is a 36-year-old gentleman with PMHX significant for polysubstance abuse and has been incarcerated at [facility] for the recent 12 days prior to admission, who presented to the emergency department with a 2 week onset of increasing abdominal pain with associated fever, chills, nausea, vomiting, diaphoresis. CT scan showed free air in the abdomen and was taken emergently to surgery and found to have severe necrotizing perforated appendicitis. Severe necrotizing perforated appendicitis, acute, present on admission, Active -As evidenced by the CT above --On 02/17/17, patient underwent Exploratory laparotomy, ileocecectomy, VAC dressing placement. -On 02/19/17, patient returned to surgery for Exploration of previous laparotomy , Adhesiolysis, Resection of distal ileum, 10 cm., Resection of hepatic flexure (7 cm)., and Loop ileostomy -On 02/21/17, patient returned to surgery for another exploratory laparotomy with ileocolic anastomosis but unable to close the fascia so [place] Patch was sewn to his fascia and will require daily adjustments -Patient with open abdominal wound and wound vac in place, output has been copious, surgery will continue to manage -Current analgesia with Fentanyl drip, patient with likely pre-existing opiate habituation --Continue Zosyn, Micafungin per ID -Patient is intubated on ventilation support Severe Sepsis, acute, present on admission, Resolved -Secondary to severe necrotizing perforated appendicitis with feculent peritonitis -On admit: T 35.9, P1 44, RR 34, lactic acid 7.6, with repeat 4.8 -Surgery found his appendix obviously ruptured and in 2 pieces, with extensive associated necrotic tissue through the peritoneal cavity, as well as a likely abscess in the RLQ -Continue Zosyn, Micafungin per ID -Patient has been dependent upon aggressive fluid resuscitation with copious NS , Albumin, and 2U PRBC to date -Overnight, patient has been getting diuresis with IV Lasix to improve gut edema -Patient has now been weaned off pressors, and esmolol drip -On fentanyl drip for analgesia -Propofol/ fentanyl for sedation Tachycardia and stress induced cardiomyopathy, POA, acute. Active -ECHO demonstrated EF of 20-25% with little structural heart disease, likely indicative of acute decompensation -Was briefly on Dobutamine drip -Weaned off esmolol drip -Follow up ECHO prior to discharge Lactic acidosis, acute, present on admission, Resolved -Likely secondary to septic process as above -On admit: Initial 7.6 -Lactic acid has now normalized -Patient is currently intubated, ventilator dependent Erythrocythemia, chronicity unknown, present on admission, Resolved - On admit: Hemoglobin 18.9, hematocrit 54.1 - Likely secondary to dehydration from recent nausea and vomiting due to abdominal pain - Patient is now anemic with H&H 10.7/ 30.7 respectively Microcytic anemia, not present on admission, ongoing -Patient has received 2 units PRBC to maintain intravascular volume -Iron Studies show low iron 19 and low TIBC -Continue to follow CBC Electrolyte abnormalities, present on admission, ongoing - On admit: K 3.0, Mg 2.2, K rider was given initially - Today, K 3.7, Ca 7.3, Phos 2.2, Mg 2.0 -TPN was started yesterday Acute kidney injury, present on admission, resolved - On admit:Cr 1.35 - Likely secondary to dehydration resulting from nausea and vomiting due to underlying infection -After extensive fluid resuscitation, Cr today is 0.45 Hypertension, ongoing -This could be due to withdrawals or possibly pain -Started enalaprilat prn -Continue to monitor blood pressure Hyperglycemia, likely acute, present on admission, resolved - On admit:Glc 215 - Likely secondary to stress release - Regular insulin Low dose correctional scale through his TPN -check blood glucose q 6 hrs Elevated liver function tests, chronicity unknown, present on admission, under evaluation - On admit: total bili 2.0 AST, 41 ALT, 92 Alk Phos 90 -Today, Total bili 2.9, AST 52, ALT 118 - Hep panel indicates active Hep C infection -HIV negative History of incarceration - [employer] consult - Hep panel indicative of past infection -HIV negative -MRSA nasal swab negative . Patient status: Due to severity of presenting symptoms, likely course of care, and risk of adverse events, anticipated length of stay exceeds 2 midnights; patient admitted under inpatient status to CCU Pain Evaluation: Adequate Pain Control GI Prophylaxis: H2 mack VTE Prophylaxis: Sub-Q Heparin (Unfractionated) VTE Mechanical Devices: Intermittant Pneumatic CD Resuscitation Status: CPR: Attempt Resuscitation Time spent 35 minutes Attending Statement I have seen and evaluated the patient at bedside in addition to directly supervising care provided by resident physician. I agree with above documentation. Leah Zelaya DO Feb 21, 2017 06:41 Jose Moore DO Feb 22, 2017 08:16
[2017-02-21] MEDS ORDERED: Calcium GLUCO 10% (Gm) Inj 2 GM in 0.9% Sodium Chloride 100 ML IV ONE (19:25)
[2017-02-21 19:38] LABS: Phosphorus 3.5 mg/dL (2.5-4.9)
[2017-02-21] MEDS: Total Parenteral Nutrition 1 BAG IV SCH (20:52)
[2017-02-22] VITALS (15 sets, daily range): BP systolic 110–130; BP diastolic 67–76; PULSE 103–121; RESP 12–19; O2SAT 89–97
[2017-02-22] MEDS: Chlorhexidine 0.12% 15 mL Oral Solution MT SCH ×6 (00:09→20:28)
[2017-02-22] MEDS: Propofol Inj 1,000,000 MCG in IV Premix 1 EACH IV SCH ×5 (00:09→17:37)
[2017-02-22] MEDS: Insulin Human REGular 300 Unit/3 mL Inj - Low SUBQ SCH ×4 (02:30→20:28)
[2017-02-22] MEDS: Heparin 5,000 Unit/mL Inj SUBQ SCH ×3 (02:51→17:37)
[2017-02-22] MEDS: Piperacillin-Tazo 3.375 Gm Inj 3.375 GM in Dextrose 5% Minibag Plus 50 ML IV SCH ×4 (02:51→20:32)
--- NOTE | 2017-02-22 04:19 | ABG ---
DateTimeAnalyzed 04:10:00 -_ pH ____7.478 - 7.350 7.450 pCO2 ___35.3__ -mmHg 35.0 45.0 pO2 ___84.5__ -mmHg 69.0 116 HCO3- ___25.9__ -mmol/L 22.0 26.0 ABE ____2.9__ -mmol/L -2.0 2.0 tHb ___12.1__ -g/dL 12.0 18.0 O2Hb ___94.4__ -% COHb ____1.1__ -% 0.0 1.5 MetHb ____1.1__ -% 0.4 1.5 sO2 ___96.5__ -% 25.0 FIO2 ___30.0__ -% CPAP ___16.0__ -cmH2O PEEP ____5.0__ -cmH2O Drawn By MM - Date/Time Notified____ 04:18:00 -_ Spontaneous_RR ___16.0__ -b/min Oxygen Device 1 VENTILATOR - Notified Whom ESSIE, RN - B 761 -mmHg tO2 ___16.1__ -Vol% Mayo test N/A -
[2017-02-22 04:20] LABS: Mean Corpuscular Hemoglobin 26.6 pg (27.0-35.0); Mean Corpuscular Volume 77.2 fL (81-100); Platelet Count 207 bil/L (150-400)
[2017-02-22 04:41] LABS: BASOPHILS % (AUTO) 0 % (0-3); EOSINOPHILS % (AUTO) 2 % (0-5); MONOCYTES % (AUTO) 6 % (4-12); NEUTROPHILS % (AUTO) 78 % (40-74)
[2017-02-22 05:09] LABS: Magnesium 2.1 mg/dL (1.6-2.6); Phosphorus 3.3 mg/dL (2.5-4.9)
--- NOTE | 2017-02-22 05:57 | NUR ---
Drains/ostomy/sedation/vent: Pt on pressure support with peep of 5 and PS 16 above peep. pt restless off and on does arouse and follows commands. Pt did several boluses of propofol and the rate was increased to help with ventilation. Ostomy is putting out dark bloody drainage with clots Dr. Freedman is aware. JPs continue to have sero sang drainage.
[2017-02-22] MEDS: fentaNYL 2,500 mCg/250 mL 2,500 MCG in IV Premix 1 EACH IV SCH (08:05)
[2017-02-22] MEDS ORDERED: Calcium GLUCO 10% (Gm) Inj 1 GM in Dextrose 5% 100 ML IV SCH (08:30)
[2017-02-22] MEDS: TPN Per Pharmacist XX SCH (08:30)
--- NOTE | 2017-02-22 09:05 | PCM.PHAPRO ---
Progress Abdominal pain with associated nausea, vomiting, diaphoresis, fever, chills PARENTERAL NUTRITION ORDERS 2 21-Feb-17 Standard Hang Time: 2100 Substrates Total kcal: 1116 AMINO ACIDS 80 g DEXTROSE 190 g Total Volume (mL): 1250 LIPIDS 15 g Sterile Water for Injection mL To Infuse Over (hrs): 24 Total Volume 1250 mL At at a rate of (mL/hr): 52 Additives Sodium Chloride 50 mEq "typical" daily requirements Sodium Acetate 30 mEq Sodium 50-120mEq Potassium Chloride 20 mEq Potassium 60-120mEq Potassium Phosphate 40 mEq Phosphate 20-40mEq Calcium Gluconate 9 mEq Magnesium 8-32mEq Magnesium Sulfate 16 mEq Calcium 9-22mEq Acetate* 80-120mEq Chloride* 80-120mEq Regular Insulin units *Depending on acid-base status Famotidine 40 mg Multivitamins 1 std dose Insulin Regimen Trace Elements 1 std dose none Thiamine 100 mg Regular Low Intensity Subcut x Folic Acid 1 mg Regular Medium Intensity Subcut Ascorbic Acid 500 mg Regular High Intensity Subcut Regular Insulin Infusion Other: Special Instructions: To be infused via central line only. For delay or inturruption of TPN contact the pharmacist for alternative replacement solution. Signature Date: LEON SOTOMAYOR [address] [facility] John Gomez Pharm.D Feb 22, 2017 09:05
--- NOTE | 2017-02-22 10:21 | PCM.PNSURG ---
Subjective Date of Service: Feb 22, 2017 Visit Information: Intraabdominal sepsis likely from perforated Appendicitis Laparotomy with ileocecectomy, 02/17/2017 Resection of more ileum and right colon with loop ileostomy 02/19/2017 Hand sewn ileotransverse colostomy with temporary closure with [place] patch Date of Admission: Feb 17, 2017 at 04:07 Hospital Day # 6 Subjective: Responded well to diuresis, on pressure support, doing well Objective Vital Sign- Last 8 Hours Date Time Temp Pulse Resp B/P Pulse Ox O2 Delivery O2 Flow Rate FiO2 02/22/17 09:15 96 50 02/22/17 09:10 36.6 103 17 110/70 94 Mechanical Ventilator 02/22/17 08:15 100 02/22/17 08:00 113 110/69 96 50 02/22/17 04:30 Ventilator 02/22/17 04:30 37.5 112 19 113/74 95 Mechanical Ventilator 30 02/22/17 04:06 113 110/69 96 30 Intake and Output- Last 8 Hour 02/22/17 Cumulative From/Thru 07:00 02/17/17 00:10 - 02/22/17 05:39 Intake Total 1110 ml 32366.5 ml Output Total 1595 ml 60118 ml Balance -485 ml 6841.5 ml Intake Oral 0 ml IV Total 600 ml 40726.5 ml TPN/PPN 510 ml 1194 ml Packed Cells 350 ml Output Urine Total 675 ml 36097 ml Stool Total 370 ml 3420 ml Gastric Drainage Total 130 ml 7955 ml Drainage Total 420 ml 6355 ml Peritoneal Fluid 1160 ml Estimated Blood Loss 22 ml # Bowel Movements 0 Abdomen: Other (Stoma with output. JPs serous) Result Diagram: 02/22/17 0410 02/22/17 0410 Assessment & Plan Impression Doing well Problems: Plan Changed dressing by the bedside and tightened the patch under sterile precautions Continue diuresis Hoping to close the laparotomy tomorrow. Continue antibiotics & vent rx per ICU team VTE Prophylaxis: Sub-Q Heparin (Unfractionated) Resuscitation Status: CPR: Attempt Resuscitation Leo Hurst MD Feb 22, 2017 10:21
--- NOTE | 2017-02-22 10:32 | DRSVH ---
PROCEDURE: X-RAY CHEST ONE VIEW, PORTABLE ([id number]) INDICATIONS: Saturation changes/Vent changes TECHNIQUE: One view of the chest was acquired. COMPARISON: [facility], CR, XR CHEST 1VW (PORTABLE), 02/20/2017, 3:46. [facility], CR, XR CHEST 1VW (PORTABLE), 02/22/2017, 4:18. FINDINGS: Surgical changes and devices: The endotracheal tube, nasogastric and right IJ central line are stable in position. Lungs and pleura: Right perihilar opacity is increased. There is left basilar consolidation. Trace r ight pleural effusion. No pneumothorax. Mediastinum: Mediastinal contours appear normal. Heart size is normal. Bones and chest wall: No suspicious bony lesions. Overlying soft tissues appear unremarkable. IMPRESSION: 1. Stable support tubes/lines. 2. Increased right perihilar opacity may be secondary to atelectasis or pneumonia. 3. Persistent left basilar consolidation. Dictated by: Vane Saldana M.D. on 02/22/2017 at 10:27 Approved by: Vane Saldana M.D. on 02/22/2017 at 10:31
--- NOTE | 2017-02-22 10:42 | PCM.PNMED ---
Subjective Date of Service Feb 22, 2017 Subjective 36 yo incarcerated heroin addict and alcoholic admitted with approximately 2 weeks of abdominal pain, fever, chills, and constipation. Initial CT showed suspected perforated appendicitis with RLQ abscess and the plan was to treat conservatively with percutaneous drainage by IR and IV antibiotics. Unfortunately, the patient deteriorated rapidly over night and a repeat CT showed free air in the peritoneal space, retroperitoneum, portal system and bowel wall. He was taken to the OR urgently where he was found to have purulent peritonitis and a RLQ abscess with diffuse hemorrhage of the mesentery and 4 quadrant necrosis of the peritoneal surface. The underlying bowel was felt to be viable however. He underwent limited resection of a necrotic area of his right colon and the ends were stapled closed. His abdomen was lavaged and a wound dressing was applied before he was brought to the ICU on mechanical ventilation. On 02/19 he was returned to OR and tolerated creation of an ileostomy. On 02/20 he has diuresed over 10 L, remaining comfortable on vent and off pressors. After diuresing an additional 7 L over night, he was taken to the OR on 02/21 where he had a [id number] anastomosis of the previously created blind ends of the ilem and right colon. The diverting ileostomy was left i place and a Sarah patch was applied as the fascia could not yet be closed due to bowel and abdominal wall edema. He was returned to the CCU in stable condition. The Sarah patch was tensioned by Surgery and while the patient was fully supine for this, he desaturated. He is now requiring FiO2 1.0 to maintain his Spo2. A CXR shows new RLL atelectasis and he has absent breath sounds at his Rt base. There is no clear PTX. . Exam Vital Signs Vital Sign - Last Date Time Temp Pulse Resp B/P Pulse Ox O2 Delivery O2 Flow Rate FiO2 02/22/17 09:15 96 50 02/22/17 09:10 36.6 103 17 110/70 Mechanical Ventilator Intake and Output 02/21/17 02/21/17 02/22/17 Cumulative From/Thru 15:00 23:00 07:00 02/17/17 00:10 - 02/22/17 05:39 Intake Total 1257.5 ml 948 ml 1110 ml 27366.5 ml Output Total 402 ml 3025 ml 1595 ml 94488 ml Balance 855.5 ml -2077 ml -485 ml 6841.5 ml Intake Oral 0 ml IV Total 1257.5 ml 602 ml 600 ml 09048.5 ml TPN/PPN 346 ml 510 ml 1194 ml Packed Cells 350 ml Output Urine Total 400 ml 2100 ml 675 ml 65306 ml Stool Total 500 ml 370 ml 3420 ml Gastric Drainage Total 100 ml 130 ml 7955 ml Drainage Total 325 ml 420 ml 6355 ml Peritoneal Fluid 1160 ml Estimated Blood Loss 2 ml 22 ml # Bowel Movements 0 Exam Pale WDWN man orally intubated Lungs Decreased BS over lower 1/2 of his Rt chest. Good air movement on his LT side. NO wheezes, No crepitus of chest wall or tracheal deviation. CV RRR, no m/g/r Abd Open midline incision with clean edges. Vacuum drain sponge in place with thin serous drainage. NO BTs Ext tr edema IVs and Medications Medications Reviewed: Medications were reviewed in detail Lab and Diagnostics Result Diagram: 02/22/1740902/22/17409 Microbiology Nasal MRSA negative Blood cultures negative to date Urine culture negative to date Peritoneal Fluid: ACACIA GS (GRAM STAIN) Final 02/17/17-1006 GRAM STAIN RESULT FEW POLYS FEW GRAM POS COCCI ACACIA CULT AEROBIC Final 02/21/17 No growth. ANAEROBIC CULTURE Final 02/21/17 Organism 1 PEPTOCOCCUS ANAEROBIUS COLONY COUNT/QUANTITY HEAVY GROWTH BETA LACTAM (CEFINASE) SENSITIVE Organism 2 FUSOBACTERIUM NUCLEATUM COLONY COUNT/QUANTITY HEAVY GROWTH BETA LACTAM (CEFINASE) SENSITIVE Organism 3 BACTEROIDES FRAGILIS GROUP COLONY COUNT/QUANTITY HEAVY GROWTH BETA LACTAM (CEFINASE) RESISTANT BETA LACTAM (CEFINASE) SENSITIVE BETA LACTAM NEGATIVE BETA LACTAM POSITIVE Cumulative Anaerobic Susceptibility Guidelines from the CLSI 2011 [id number] are available on the [facility] Intranet under the "antibiograms" selection. Contact Microbiology at tel: [phone] if susceptibility testing is warranted. X-Rays, CTs and MRIs CT of Abdomen IMPRESSION: 1. Extensive large and small bowel pneumatosis in the setting of small bowel obstruction with extensive portal venous gas which has developed in the interval since prior CT scan obtained 02/17/17 at 0235 hours. Findings compatible with bowel ischemia. 2. Peritoneal pneumatosis and pneumoretroperitoneum which could be related to ruptured bowel versus infection with gas-forming organism. 3. Free intraperitoneal air and mesenteric air consistent with bowel perforation and/or mesenteric ischemia. 4. Decreased IVC caliber highly suspicious for severe hypotension. Please correlate with clinical data. 5. Moderate to large amount of ascites which is increased in volume compared to 02/17/17. The ascites has increased density compared to the prior CT scan which could be related to hemorrhage, proteinaceous fluid or infectious fluid. 6. Dilated loops of small bowel compatible with small bowel obstruction. 7. Probable right lower quadrant pericecal abscess suboptimally visualized in the absence of intravenous contrast does not appear significantly changed compared to prior CT scan. 8. Trace bilateral pleural effusions. Dictated by: Radha Cruz MD, PhD on 02/17/2017 at 10:08 Approved by: Radha Cruz MD, PhD on 02/17/2017 at 10:58 Cardiac Echo Impressions ECHO on 02/17/17 Interpretation Summary Technically difficult study limits valve visualization. 1) Normal left ventricular thickness and size with severely reduced systolic function (EF 20-25%). 2) Borderline right ventricular enlargement with moderately reduced function. 3) No significant valvular abnormalities. 4) No prior Echo available for comparison. If endocarditis is suspected, consider CATRACHITO. Assessment & Plan IMP Perforated appendicitis with gross generalized fecal soiling of peritoneal cavity. Fortunately, his small bowel and most of his colon were viable. His course since laparotomy shows steady improvement and today he has tolerated creation of an ileostomy and side to side ileocolic anastamosis. Sepsis, improved with resuscitation, antibiotics, damage control surgery. Now appears to be mobilizing fluid and remains off pressors. Net fluid negative over 17 L over the last 48 hours. Post operative respiratory failure, stable. Worsening hypoxemia acutely after tensioning of Sarah patch seems due to RLL atelectasis due to plug and or compression REC Maintain on vent until abdomen can be closed which may yet be several days. Pulm toilet. Pleural ultrasound exam, Consider CT if unable to definitively exclude PTX or PE. Abx per ID consult (Day #3 Zosyn) Continue cautious diuresis Return to OR per surgery for closure of fascia TPN SAT/SBT upon return from OR following abdominal closure Routine ICU prophylaxis 12:06 hours Bedside ultrasound showed lung sliding at both bases in the midaxillary lines. His LV is now hyperdynamic and EF appears normal Pain Evaluation: Adequate Pain Control GI Prophylaxis: H2 mack VTE Prophylaxis: Sub-Q Heparin (Unfractionated) VTE Mechanical Devices: Intermittant Pneumatic CD Resuscitation Status: CPR: Attempt Resuscitation Time spent 45 minutes critical care as of the time of this note exclusive of shared time and procedures Scott Aparicio MD Feb 22, 2017 10:42 Lactic acidosis, acute, present on admission, Resolved -Likely secondary to septic process as above -On admit: Initial 7.6 -Lactic acid has now normalized -Patient is currently intubated, ventilator dependent Erythrocythemia, chronicity unknown, present on admission, Resolved - On admit: Hemoglobin 18.9, hematocrit 54.1 - Likely secondary to dehydration from recent nausea and vomiting due to abdominal pain - Patient is now anemic with H&H 10.7/ 30.7 respectively Microcytic anemia, not present on admission, ongoing -Patient has received 2 units PRBC to maintain intravascular volume -Iron Studies show low iron 19 and low TIBC -Continue to follow CBC Electrolyte abnormalities, present on admission, ongoing - On admit: K 3.0, Mg 2.2, K rider was given initially - Today, K 3.7, Ca 7.3, Phos 2.2, Mg 2.0 -TPN was started yesterday Acute kidney injury, present on admission, resolved - On admit:Cr 1.35 - Likely secondary to dehydration resulting from nausea and vomiting due to underlying infection -After extensive fluid resuscitation, Cr today is 0.45 Hypertension, ongoing -This could be due to withdrawals or possibly pain -Started enalaprilat prn -Continue to monitor blood pressure Hyperglycemia, likely acute, present on admission, resolved - On admit:Glc 215 - Likely secondary to stress release - Regular insulin Low dose correctional scale through his TPN -check blood glucose q 6 hrs Elevated liver function tests, chronicity unknown, present on admission, under evaluation - On admit: total bili 2.0 AST, 41 ALT, 92 Alk Phos 90 -Today, Total bili 2.9, AST 52, ALT 118 - Hep panel indicates active Hep C infection -HIV negative History of incarceration - STORAGE MANAGER consult - Hep panel indicative of past infection -HIV negative -MRSA nasal swab negative . Patient status: Due to severity of presenting symptoms, likely course of care, and risk of adverse events, anticipated length of stay exceeds 2 midnights; patient admitted under inpatient status to CCU Pain Evaluation: Adequate Pain Control GI Prophylaxis: H2 mack VTE Prophylaxis: Sub-Q Heparin (Unfractionated) VTE Mechanical Devices: Intermittant Pneumatic CD Resuscitation Status: CPR: Attempt Resuscitation Time spent 45 minutes critical care as of the time of this note exclusive of shared time and procedures Scott Aparicio MD Feb 22, 2017 10:42
--- NOTE | 2017-02-22 10:49 | NUR ---
NUTRITION FOLLOW-UP: Assess: 36 YO male admitted to CCU with pericecal abscess, status post damage control laparotomy with ileocecectomy on February 17; re-exploration laparotomy with diverting loop ileostomy on February 19. Exploratory laparotomy completed yesterday, with no sign of bowel ischemia, intra-abdominal purulent or fecal matter. Ileocolic anastomosis was created in hand sewn fashion. Fascia could not be closed, so a [place] Patch was sewn to his fascia, requiring daily adjustments. Closure may be indicated tomorrow. The patient was obviously supine during surgery, during which he desaturated. He is now requiring FiO2 1.0 to maintain his Spo2. A CXR shows new RLL atelectasis, and he has absent breath sounds at his Rt base. Mild tachycardia continues. TPN advanced toward goal today, approximately 70% goal macronutrient content. Plan is to keep patient intubated and sedated, pending wound closure. PMHX: Heroin use. DIET: NPO x 5 D. TPN: D 150 g, amino acid 65 g, lipid 10 g, to provide 870 kcal (1345 kcal with propofol and 65 g pro (~75% kcal and 60% pro needs). LABS:Cr 0.56, Glu 154, Ca 7.6, Total Bili 1.4, ALT 66, PAB 9, Procalc. 34.40. MEDICATIONS: Reviewed. Fentanyl, insulin. Propofol rate currently 18 ml/hr providing 475 kcal/day GI: Stool output 1350 mL (02/21). SKIN: Per Magnet Placer, suspected deep tissue injury was identified at midline sacrum, approximately 2 cm L x 2 c W, circular, dark purple, with blanchable periwound tissue. ANTHROPOMETRICS: Wt: 81.4 kg, BMI 25.0 kg/m2, Admit wt: 72.73 kg. ESTIMATED NEEDS: (VENT, surgery- based off admit wt) Calories: 1455-1820kcal/day (20-25kcal/kg) Protein: 110-130g/day (1.5-1.8g/kg) NUTRITION DIAGNOSIS: 1) Inadequate oral intake related to decreased ability to consume sufficient energy as evidenced by NPO status - PERSISTS. INTERVENTION: 1) TPN macronutrient content advanced today, as follows: D190 g, amino acid 80 g, lipid 15 g. Goal macronutrient is 275g Dex, 125g AA and 40g lipids to provide 1835 kcal and 125 g pro (100% estimated needs). Adjust lipids based on daily propofol rate. 2) Once bowel function returns,, recommend enteral feeding be considered. MONITOR/EVALUATE: NPO status, TPN david / advance, labs, GI/nutrition status. Follow per high nutrition risk guidelines.
--- NOTE | 2017-02-22 12:28 | DRSVH ---
PROCEDURE: X-RAY CHEST ONE VIEW, PORTABLE ([id number]) INDICATIONS: fu intubated TECHNIQUE: One view of the chest was acquired. COMPARISON: [facility], CR, XR CHEST 1VW (PORTABLE), 02/22/2017, 10:16. [facility], CR, XR CHEST 1VW (PORTABLE), 02/20/2017, 3:46. FINDINGS: Surgical changes and devices: Endotracheal tube, nasogastric tube and IJ central line are stable in p osition. Lungs and pleura: Improvement aeration in the right perihilar region. There is left basilar consolid ation or atelectasis. No pleural effusions or pneumothorax. Mediastinum: Mediastinal contours appear normal. Heart size is normal. Bones and chest wall: No suspicious bony lesions. Overlying soft tissues appear unremarkable. IMPRESSION: Improved aeration in the right perihilar region and persistent left basilar consolidation or atelectasis. Dictated by: Vane Saldana M.D. on 02/22/2017 at 12:25 Approved by: Vane Saldana M.D. on 02/22/2017 at 12:26
--- NOTE | 2017-02-22 15:34 | PCM.PNMED ---
Subjective Date of Service Feb 22, 2017 Subjective This morning, surgery tightened the Sarah patch and patient began to desaturate. His present settings were adjusted to maintain his SPO2. Stat chest x-ray shows increased right perihilar opacity may be secondary to atelectasis or pneumonia. Overnight, Per nursing, patient did several boluses of propofol and the rate was increased to help with ventilation. Ostomy is putting out dark bloody drainage and JPs continue to have serosanguineous drainage. Review of systems is unobtainable as patient is sedated Exam Vital Signs Vital Sign - Last Date Time Temp Pulse Resp B/P Pulse Ox O2 Delivery O2 Flow Rate FiO2 02/22/17 04:30 Ventilator 02/22/17 04:30 37.5 112 19 113/74 95 30 Intake and Output 02/21/17 02/21/17 02/22/17 Cumulative From/Thru 15:00 23:00 07:00 02/17/17 00:10 - 02/22/17 05:39 Intake Total 1257.5 ml 948 ml 1110 ml 29594.5 ml Output Total 402 ml 3025 ml 1595 ml 62572 ml Balance 855.5 ml -2077 ml -485 ml 6841.5 ml Intake Oral 0 ml IV Total 1257.5 ml 602 ml 600 ml 81152.5 ml TPN/PPN 346 ml 510 ml 1194 ml Packed Cells 350 ml Output Urine Total 400 ml 2100 ml 675 ml 22044 ml Stool Total 500 ml 370 ml 3420 ml Gastric Drainage Total 100 ml 130 ml 7955 ml Drainage Total 325 ml 420 ml 6355 ml Peritoneal Fluid 1160 ml Estimated Blood Loss 2 ml 22 ml # Bowel Movements 0 Exam General: Patient is intubated, opening eyes today and nodding in response to questions HEENT: ET tube in place, PERRL with miosis, Right IJ in place Cardio: Tachycardic, s1 and s2 heard, no murmurs, rubs or gallops Lungs: patient is intubated, absent breath sounds in right lung bases and coarse breath sounds in right lung upper lobe Skin: feels warm to touch, has several tattoos on UE Abdomen: Has multiple OR[place]O drains, ostomy in RLQ Extremities: no edema or erythema Neuro: difficult to assess as patient is sedated IVs and Medications Medications Reviewed: Medications were reviewed in detail Lab and Diagnostics Laboratory Tests Test 02/21/17 18:30 02/22/17 04:10 Potassium Level 4.3mEq/L (3.5-5.2) 4.6mEq/L (3.5-5.2) Phosphorus Level 3.5mg/dL (2.5-4.9) 3.3mg/dL (2.5-4.9) Hold Spencer Top Tube Received (Received) White Blood Count 11.9th/mm3 (3.8-10.1) Red Blood Count 4.51mil/mm3 (4.40-5.80) Hemoglobin 12.0g/dL (13.8-17.2) Hematocrit 34.8% (41.0-50.0) Mean Corpuscular Volume 77.2fL (81-100) Mean Corpuscular Hemoglobin 26.6pg (27.0-35.0) Mean Corpuscular Hemoglobin Concent 34.5% (32.0-37.0) Red Cell Distribution Width 14.6% (12.3-15.4) Platelet Count 207bil/L (150-400) Neutrophils (%) (Auto) 78% (40-74) Lymphocytes (%) (Auto) 19% (14-46) Monocytes (%) (Auto) 6% (4-12) Eosinophils (%) (Auto) 2% (0-5) Basophils (%) (Auto) 0% (0-3) Band Neutrophils % 2% (1-5) Metamyelocytes % 2% (0-0) Hematology Comments Sodium Level 136mEq/L (134-144) Chloride Level 99mEq/L (97-108) Carbon Dioxide Level 24mmol/L (18-29) Blood Urea Nitrogen 10mg/dL (6-20) Creatinine 0.56mg/dL (0.76-1.27) Estimat Glomerular Filtration Rate 175mL/min (>59) Glucose Level 154mg/dL (60-99) Calcium Level 7.6mg/dL (8.5-10.1) Magnesium Level 2.1mg/dL (1.6-2.6) Total Bilirubin 1.4mg/dL (0.0-1.2) Aspartate Amino Transf (AST/SGOT) 33U/L (0-50) Alanine Aminotransferase (ALT/SGPT) 66U/L (0-44) Alkaline Phosphatase 89U/L (25-150) Total Protein 5.1g/dL (6.4-8.4) Albumin 2.9g/dL (3.4-5.0) Procalcitonin 34.40ng/mL (0.00-0.08) Microbiology 02/17/17 Blood Culture - Final, Complete NO GROWTH AFTER 5 DAYS 02/17/17 Gram Stain - Final, Complete 02/17/17 Culture & Sensitivity - Final, Complete No growth. 02/17/17 Anaerobic Culture - Final, Complete Peptococcus Anaerobius Fusobacterium Nucleatum Bacteroides Fragilis Group 02/17/17 MRSA (PCR) - Final, Complete 02/20/17 Sputum Quality Screen - Final, Complete 02/20/17 Sputum Culture - Final, Complete Result Diagram: 02/22/1740902/22/17409 Microbiology Nasal MRSA negative Blood cultures negative to date Urine culture negative to date Peritoneal Fluid: ACACIA GS (GRAM STAIN) Final 02/17/17-1006 GRAM STAIN RESULT FEW POLYS FEW GRAM POS COCCI ACACIA CULT AEROBIC Final 02/21/17-45 No growth. ANAEROBIC CULTURE Final 02/21/17 Organism 1 PEPTOCOCCUS ANAEROBIUS COLONY COUNT/QUANTITY HEAVY GROWTH BETA LACTAM (CEFINASE) SENSITIVE Organism 2 FUSOBACTERIUM NUCLEATUM COLONY COUNT/QUANTITY HEAVY GROWTH BETA LACTAM (CEFINASE) SENSITIVE Organism 3 BACTEROIDES FRAGILIS GROUP COLONY COUNT/QUANTITY HEAVY GROWTH BETA LACTAM (CEFINASE) RESISTANT BETA LACTAM (CEFINASE) SENSITIVE BETA LACTAM NEGATIVE BETA LACTAM POSITIVE Cumulative Anaerobic Susceptibility Guidelines from the CLSI 2011 E287-T47 are available on the [facility] Intranet under the "antibiograms" selection. Contact Microbiology at tel: [phone] if susceptibility testing is warranted. Microbiology ACACIA CULT SPUTUM GS Final 02/20/17-2230 SPT GRAM STAIN MANY POLYS RARE MIXED NORMAL TIFF This Spec is of good Quality and acceptable for Cult RESPIRATORY CULTURE Final 02/22/17-0733 Light growth of Yeast, NOT Cryptocccus neoforms Consistent with Commensal Tiff X-Rays, CTs and MRIs CT of Abdomen IMPRESSION: 1. Extensive large and small bowel pneumatosis in the setting of small bowel obstruction with extensive portal venous gas which has developed in the interval since prior CT scan obtained 02/17/17 at 0235 hours. Findings compatible with bowel ischemia. 2. Peritoneal pneumatosis and pneumoretroperitoneum which could be related to ruptured bowel versus infection with gas-forming organism. 3. Free intraperitoneal air and mesenteric air consistent with bowel perforation and/or mesenteric ischemia. 4. Decreased IVC caliber highly suspicious for severe hypotension. Please correlate with clinical data. 5. Moderate to large amount of ascites which is increased in volume compared to 02/17/17. The ascites has increased density compared to the prior CT scan which could be related to hemorrhage, proteinaceous fluid or infectious fluid. 6. Dilated loops of small bowel compatible with small bowel obstruction. 7. Probable right lower quadrant pericecal abscess suboptimally visualized in the absence of intravenous contrast does not appear significantly changed compared to prior CT scan. 8. Trace bilateral pleural effusions. Dictated by: Radha Cruz MD, PhD on 02/17/2017 at 10:08 Approved by: Radha Cruz MD, PhD on 02/17/2017 at 10:58 Chest XRay IMPRESSION: 1. Stable support tubes/lines. 2. Increased right perihilar opacity may be secondary to atelectasis or pneumonia. 3. Persistent left basilar consolidation. Dictated by: Vane Saldana M.D. on 02/22/2017 at 10:27 Approved by: Vane Saldana M.D. on 02/22/2017 at 10:31 Cardiac Echo Impressions ECHO on 02/17/17 Interpretation Summary Technically difficult study limits valve visualization. 1) Normal left ventricular thickness and size with severely reduced systolic function (EF 20-25%). 2) Borderline right ventricular enlargement with moderately reduced function. 3) No significant valvular abnormalities. 4) No prior Echo available for comparison. If endocarditis is suspected, consider CATRACHITO. Assessment & Plan Mr. Perez is a 36-year-old gentleman with PMHX significant for polysubstance abuse and has been incarcerated at [facility] for the recent 12 days prior to admission, who presented to the emergency department with a 2 week onset of increasing abdominal pain with associated fever, chills, nausea, vomiting, diaphoresis. CT scan showed free air in the abdomen and was taken emergently to surgery and found to have severe necrotizing perforated appendicitis. Severe necrotizing perforated appendicitis, acute, present on admission, Active -As evidenced by the CT above --On 02/17/17, patient underwent Exploratory laparotomy, ileocecectomy, VAC dressing placement. -On 02/19/17, patient returned to surgery for Exploration of previous laparotomy , Adhesiolysis, Resection of distal ileum, 10 cm., Resection of hepatic flexure (7 cm)., and Loop ileostomy -On 02/21/17, patient returned to surgery for another exploratory laparotomy with ileocolic anastomosis but unable to close the fascia so Hockley Patch was sewn to his fascia and will require daily adjustments -Patient with open abdominal wound and wound vac in place, output has been copious, surgery will continue to manage -Current analgesia with Fentanyl drip, patient with likely pre-existing opiate habituation --Continue Zosyn, Micafungin per ID -Patient is intubated on ventilation support, continue cautious diureses -Returned to surgery per OR for abdominal wound closure Severe Sepsis, acute, present on admission, Resolved -Secondary to severe necrotizing perforated appendicitis with feculent peritonitis -On admit: T 35.9, P1 44, RR 34, lactic acid 7.6, with repeat 4.8 -Surgery found his appendix obviously ruptured and in 2 pieces, with extensive associated necrotic tissue through the peritoneal cavity, as well as a likely abscess in the RLQ -Continue Zosyn, Micafungin per ID -Patient has been dependent upon aggressive fluid resuscitation with copious NS , Albumin, and 2U PRBC to date -Overnight, patient has been getting diuresis with IV Lasix to improve gut edema -Patient has now been weaned off pressors, and esmolol drip -On fentanyl drip for analgesia -Propofol/ fentanyl for sedation Tachycardia and stress induced cardiomyopathy, POA, acute. Active -ECHO demonstrated EF of 20-25% with little structural heart disease, likely indicative of acute decompensation -Was briefly on Dobutamine drip -Weaned off esmolol drip -Follow up ECHO prior to discharge Acute Hypoxemia, Active - Worsening hypoxemia acutely after tensioning of Sarah patch seems due to RLL atelectasis due to plug and or compression -Vent setting adjusted Lactic acidosis, acute, present on admission, Resolved -Likely secondary to septic process as above -On admit: Initial 7.6 -Lactic acid has now normalized -Patient is currently intubated, ventilator dependent Erythrocythemia, chronicity unknown, present on admission, Resolved - On admit: Hemoglobin 18.9, hematocrit 54.1 - Likely secondary to dehydration from recent nausea and vomiting due to abdominal pain - Patient is now anemic with H&H 12.0/34.8 respectively Microcytic anemia, not present on admission, ongoing -Patient has received 2 units PRBC to maintain intravascular volume -Iron Studies show low iron 19 and low TIBC -However, H&H has been trending up and there is no indication to get iron supplementation -Today,H&H 12.0/34.8 respectively Electrolyte abnormalities, present on admission, ongoing - On admit: K 3.0, Mg 2.2, K rider was given initially - Today, K 4.6, Ca 7.6, Phos 3.3, Mg 2.1 -Continue TPN Acute kidney injury, present on admission, resolved - On admit:Cr 1.35 - Likely secondary to dehydration resulting from nausea and vomiting due to underlying infection -After extensive fluid resuscitation, Cr today is 0.56 Hypertension, ongoing -This could be due to withdrawals or possibly pain -Started enalaprilat prn -Continue to monitor blood pressure Hyperglycemia, likely acute, present on admission, resolved - On admit:Glc 215 - Likely secondary to stress release - Regular insulin Low dose correctional scale through his TPN -check blood glucose q 6 hrs Elevated liver function tests, chronicity unknown, present on admission, under evaluation - On admit: total bili 2.0 AST, 41 ALT, 92 Alk Phos 90 -Today, Total bili 2.9, AST 52, ALT 118 - Hep panel indicates active Hep C infection -HIV negative History of incarceration - [employer] consult - Hep panel indicative of past infection -HIV negative -MRSA nasal swab negative . Patient status: Due to severity of presenting symptoms, likely course of care, and risk of adverse events, anticipated length of stay exceeds 2 midnights; patient admitted under inpatient status to CCU Pain Evaluation: Adequate Pain Control GI Prophylaxis: H2 mack VTE Prophylaxis: Sub-Q Heparin (Unfractionated) VTE Mechanical Devices: Intermittant Pneumatic CD Resuscitation Status: CPR: Attempt Resuscitation Time spent 30 minutes Attending Statement I have seen and evaluated patient at bedside in addition to directly supervising care provided by resident physician Dr Zelaya for care provided on 02/22/2017. I agree with above documentation Leah Zelaya DO Feb 22, 2017 07:57 Jose Mooer DO Feb 23, 2017 07:54
[2017-02-22] MEDS ORDERED: Acetaminophen IV 1,000 MG in IV Premix 1 EACH IV PRN (17:30)
--- NOTE | 2017-02-22 19:40 | NUR ---
Wound Care/Vent/Temp: Dr Hurst tightened wittmann patch this morning. For this procedure patient needed to be in supine position with HOB at 15 degrees. Shortly after procedure was started SpO2 dropped to mid 80s. RT was called to assess and changed vent settings several times to keep SpO2 at mid 90s. Procedure lasted from 0800 to 0910. Vent settings: 100%/5PEEP/12RR/16 PC. Lung sounds absent at R lower lobe and decreased, coarse with wheezes a t R mid and upper lobes. L lung sounds decreased coarse with wheezes throughout. Dr Moncada notified. Stat chest Xray ordered. Vent settings titrated down as patient was able to tolerate by RT. Current vent setting 35%/8PEEP/12RR/20PC above PEEP. SpO2: high 90s. Temp. 37.9 this evening. notified. No further orders at this time.
[2017-02-22] MEDS: Total Parenteral Nutrition 1 BAG IV SCH (20:28)
[2017-02-23] VITALS (16 sets, daily range): BP systolic 100–153; BP diastolic 59–90; PULSE 100–115; RESP 12–37; O2SAT 92–98
[2017-02-23] MEDS: fentaNYL 2,500 mCg/250 mL 2,500 MCG in IV Premix 1 EACH IV SCH ×3 (00:48→17:04)
[2017-02-23] MEDS: Heparin 5,000 Unit/mL Inj SUBQ SCH ×3 (00:49→17:03)
[2017-02-23] MEDS: Chlorhexidine 0.12% 15 mL Oral Solution MT SCH ×7 (00:49→23:52)
[2017-02-23] MEDS: Propofol Inj 1,000,000 MCG in IV Premix 1 EACH IV SCH ×6 (01:17→23:58)
[2017-02-23] MEDS: Sodium Chloride LOK Flush 10 mL Syringe IVFLUSH PRN (01:18)
[2017-02-23] MEDS: Piperacillin-Tazo 3.375 Gm Inj 3.375 GM in Dextrose 5% Minibag Plus 50 ML IV SCH ×4 (01:51→19:36)
[2017-02-23] MEDS: Insulin Human REGular 300 Unit/3 mL Inj - Low SUBQ SCH ×4 (04:36→19:39)
[2017-02-23] MEDS: HYDROmorphone 1 mg/mL Inj IVPUSH PRN (05:02)
--- NOTE | 2017-02-23 05:29 | ABG ---
DateTimeAnalyzed 05:22:00 -_ pH ____7.406 - 7.350 7.450 pCO2 ___40.2__ -mmHg 35.0 45.0 pO2 ___70.0__ -mmHg 69.0 116 HCO3- ___24.7__ -mmol/L 22.0 26.0 ABE ____0.5__ -mmol/L -2.0 2.0 tHb ___10.8__ -g/dL 12.0 18.0 O2Hb ___91.8__ -% COHb ____0.6__ -% 0.0 1.5 MetHb ____0.8__ -% 0.4 1.5 sO2 ___93.1__ -% 25.0 FIO2 __100.0__ -% PRVC 16 - PEEP ____8.0__ -cmH2O Set_RR ___16.0__ -b/min Vt __500.0__ -L Drawn By MM - Date/Time Notified____ 05:29:00 -_ Spontaneous_RR ___17.0__ -b/min Oxygen Device 1 VENTILATOR - Notified Whom DR YANCHUK - B 760 -mmHg tO2 ___14.0__ -Vol% Mayo test N/A -
--- NOTE | 2017-02-23 05:49 | PCM.PNMED ---
Subjective Date of Service Feb 23, 2017 Subjective OVERNIGHT EVENTS ONLY Patient desaturated into the high 70s, low 80s on pulse Ox. He was noted to be fighting the vent, grimacing in pain and to be diaphoretic, for this reason his sedation was increased. Dilaudid pushes PRN were added as well which helped with the asynchrony. A stat CXR shows worsening RLL atelectasis. Hand CPT was performed by the RT with improvement in saturation, however this was temporary and required recurrent CPT. Suctioning was of marginal benefit. Exam Vital Signs Vital Sign - Last Date Time Temp Pulse Resp B/P Pulse Ox O2 Delivery O2 Flow Rate FiO2 02/23/17 05:07 Ventilator 02/23/17 05:05 110 37 125/65 92 70 02/23/17 00:54 37.0 Intake and Output 02/22/17 02/22/17 02/23/17 Cumulative From/Thru 15:00 23:00 07:00 02/17/17 00:10 - 02/23/17 05:13 Intake Total 885 ml 36259.5 ml Output Total 1010 ml 30222 ml Balance -125 ml 6716.5 ml Intake Oral 0 ml 0 ml IV Total 885 ml 74269.5 ml TPN/PPN 1194 ml Packed Cells 350 ml Output Urine Total 600 ml 16585 ml Stool Total 125 ml 3545 ml Gastric Drainage Total 50 ml 8005 ml Drainage Total 235 ml 6590 ml Peritoneal Fluid 1160 ml Estimated Blood Loss 22 ml # Bowel Movements 0 Lab and Diagnostics Result Diagram: 02/22/17 0410 02/22/17 0410 Assessment & Plan Acute hypoxemic respiratory failure -Patient required higher FiO2 to oxygenate -Patient's CXR appears to have more pronounced atelectasis -Consider manual CPT or bronchoscopy GI Prophylaxis: H2 mack VTE Prophylaxis: Sub-Q Heparin (Unfractionated) VTE Mechanical Devices: Intermittant Pneumatic CD Resuscitation Status: CPR: Attempt Resuscitation Attending Statement The patient was seen and examined together with Dr. Love on 02/23 and I agree with the history, exam and plan as outlined in the note above. Saritha Love DO Feb 23, 2017 05:19 Abelardo Ayers MD Feb 23, 2017 19:20
[2017-02-23 06:06] LABS: Mean Corpuscular Hemoglobin 26.7 pg (27.0-35.0); Mean Corpuscular Volume 79.6 fL (81-100); NEUTROPHILS % (AUTO) 67 % (40-74); Platelet Count 258 bil/L (150-400)
[2017-02-23 06:07] LABS: BASOPHILS % (AUTO) 1 % (0-3); EOSINOPHILS % (AUTO) 3 % (0-5); MONOCYTES % (AUTO) 7 % (4-12)
[2017-02-23 06:23] LABS: Magnesium 2.3 mg/dL (1.6-2.6); Phosphorus 3.7 mg/dL (2.5-4.9)
--- NOTE | 2017-02-23 06:28 | NUR ---
Vent Changes/Oxygenation At 0415 pt desaturated while changing linen out from underneath him. RT Mo called to assess patient. FiO2 increased to 100% in the meantime with patient's Spo2 in the mid 70s to low 80s. Dr. Love called and ordered pushes of Dilaudid IV and increased parameters for Propofol up to 100mcg/kg/minute. Stat CXR performed. Vent mode changed from pressure control to PRVC with FiO2 of 100%, Peep +8, RR 16, and vT500. Took approximately 1 hour for saturations to return to greater than 90% after copious suctioning, percussion therapy of the patient's chest.
--- NOTE | 2017-02-23 07:26 | DRSVH ---
PROCEDURE: X-RAY CHEST ONE VIEW, PORTABLE ([id number]) INDICATIONS: hypoxia TECHNIQUE: One view of the chest was acquired. COMPARISON: [facility], CR, XR CHEST 1VW (PORTABLE), 02/22/2017, 10:16. [facility], CR, XR CHEST 1VW (PORTABLE), 02/22/2017, 4:18. [facility], CR, XR CHEST 1VW (PORT ABLE), 02/20/2017, 3:46. [facility], CR, XR CHEST 1VW (PORTABLE), 02/19/2017, 5:25. FINDINGS: Surgical changes and devices: ET tube with tip presumably alberto. Right IJ CVC with tip in the SVC. E nteric tube with tip below the diaphragm. New left basilar infiltrates with small left pleural effusi on. Dense left lower lobe volume loss. Right perihilar pulmonary opacities have improved. Lungs and pleura: No pleural effusions or pneumothorax. Lungs are clear. Mediastinum: Mediastinal contours appear normal. Heart size is normal. Bones and chest wall: No suspicious bony lesions. Overlying soft tissues appear unremarkable. IMPRESSION: 1. New left lower lobe infiltrates with associated pleural effusion. Improved right perihilar pulmona ry opacities. 2. Stable support devices. Dictated by: Dylon Gonzalez M.D. on 02/23/2017 at 7:22 Approved by: Dylon Gonzalez M.D. on 02/23/2017 at 7:24
[2017-02-23] MEDS: TPN Per Pharmacist XX SCH ×2 (08:30→23:51)
[2017-02-23] MEDS ORDERED: fentaNYL-PF 50 mCg/mL 2 mL Inj ONE (08:48)
[2017-02-23] MEDS ORDERED: Propofol 10,000 mCg/mL 20 mL Inj ONE (08:48)
[2017-02-23] MEDS ORDERED: Rocuronium 10 mg/mL 5 mL Inj ONE (08:48)
[2017-02-23] MEDS ORDERED: HYDROmorphone 1 mg/mL Inj ONE (08:48)
--- NOTE | 2017-02-23 09:25 | PCM.PHAPRO ---
Progress Abdominal pain with associated nausea, vomiting, diaphoresis, fever, chills PARENTERAL NUTRITION ORDERS 4 23-Feb-17 Standard Hang Time: 2100 Substrates Total kcal: 1116 AMINO ACIDS 80 g DEXTROSE 190 g Total Volume (mL): 1250 LIPIDS 15 g Sterile Water for Injection mL To Infuse Over (hrs): 24 Total Volume 1250 mL At at a rate of (mL/hr): 52 Additives Sodium Chloride 50 mEq "typical" daily requirements Sodium Acetate 30 mEq Sodium 50-120mEq Potassium Chloride 20 mEq Potassium 60-120mEq Potassium Phosphate 40 mEq Phosphate 20-40mEq Calcium Gluconate 9 mEq Magnesium 8-32mEq Magnesium Sulfate 16 mEq Calcium 9-22mEq Acetate* 80-120mEq Chloride* 80-120mEq Regular Insulin units *Depending on acid-base status Famotidine 40 mg Multivitamins 1 std dose Insulin Regimen Trace Elements 1 std dose none Thiamine 100 mg Regular Low Intensity Subcut x Folic Acid 1 mg Regular Medium Intensity Subcut Ascorbic Acid 500 mg Regular High Intensity Subcut Regular Insulin Infusion Other: Special Instructions: To be infused via central line only. For delay or inturruption of TPN contact the pharmacist for alternative replacement solution. Signature Date: LEON SOTOMAYOR [address] [facility] John Gomez Pharm.D Feb 23, 2017 09:25
--- NOTE | 2017-02-23 10:49 | PCM.PNSURG ---
Subjective Date of Service: Feb 23, 2017 Visit Information: Intraabdominal sepsis likely from perforated Appendicitis Laparotomy with ileocecectomy, 02/17/2017 Resection of more ileum and right colon with loop ileostomy 02/19/2017 Hand sewn ileotransverse colostomy with temporary closure with Whittmann patch Date of Admission: Feb 17, 2017 at 04:07 Hospital Day # 7 Subjective: Some temporary respiratory deterioration overnight, thought to be due to mucus plugging, atelectasis, resolved with chest PT Objective Vital Sign- Last 8 Hours Date Time Temp Pulse Resp B/P Pulse Ox O2 Delivery O2 Flow Rate FiO2 02/23/17 08:22 37.3 100 16 106/61 94 Mechanical Ventilator 70 02/23/17 07:50 Ventilator 02/23/17 07:45 102 100/59 70 02/23/17 05:17 115 19 110/61 93 Mechanical Ventilator 100 02/23/17 05:07 Ventilator 02/23/17 05:05 110 37 125/65 92 Mechanical Ventilator 70 02/23/17 04:49 115 117/61 100 Intake and Output- Last 8 Hour 02/23/17 Cumulative From/Thru 07:00 02/17/17 00:10 - 02/23/17 06:00 Intake Total 1329 ml 22684.5 ml Output Total 1155 ml 02576 ml Balance 174 ml 6890.5 ml Intake Oral 0 ml 0 ml IV Total 741 ml 28961.5 ml TPN/PPN 588 ml 1782 ml Packed Cells 350 ml Output Urine Total 550 ml 68299 ml Stool Total 300 ml 3845 ml Gastric Drainage Total 8005 ml Drainage Total 305 ml 6895 ml Peritoneal Fluid 1160 ml Estimated Blood Loss 22 ml # Bowel Movements 0 Abdomen: Soft, Other (Dressing intact, JPs serous) Result Diagram: 02/23/17 0540 02/23/17 0540 Assessment & Plan Impression Doing well Fevers & Tachycardia continue to improve Problems: Plan Continue diuresis Hoping to close the laparotomy later today. Continue antibiotics & vent rx per ICU team Leo Hurst MD Feb 23, 2017 10:49
[2017-02-23] MEDS ORDERED: Acetaminophen IV 1,000 MG in IV Premix 1 EACH IV PRN (12:10)
[2017-02-23] MEDS ORDERED: Acetaminophen 32.5 mg/mL 20 mL Liquid TUBE PRN (12:10)
--- NOTE | 2017-02-23 15:25 | PCM.PNMED ---
Subjective Date of Service Feb 23, 2017 Subjective 36 yo incarcerated heroin addict and alcoholic admitted with approximately 2 weeks of abdominal pain, fever, chills, and constipation. Initial CT showed suspected perforated appendicitis with RLQ abscess and the plan was to treat conservatively with percutaneous drainage by IR and IV antibiotics. Unfortunately, the patient deteriorated rapidly over night and a repeat CT showed free air in the peritoneal space, retroperitoneum, portal system and bowel wall. He was taken to the OR urgently where he was found to have purulent peritonitis and a RLQ abscess with diffuse hemorrhage of the mesentery and 4 quadrant necrosis of the peritoneal surface. The underlying bowel was felt to be viable however. He underwent limited resection of a necrotic area of his right colon and the ends were stapled closed. His abdomen was lavaged and a wound dressing was applied before he was brought to the ICU on mechanical ventilation. On 02/19 he was returned to OR and tolerated creation of an ileostomy. On 02/20 he has diuresed over 10 L, remaining comfortable on vent and off pressors. After diuresing an additional 7 L over night, he was taken to the OR on 02/21 where he had a [id number] anastomosis of the previously created blind ends of the ilem and right colon. The diverting ileostomy was left i place and a Sarah patch was applied as the fascia could not yet be closed due to bowel and abdominal wall edema. He was returned to the CCU in stable condition. The Sarah patch was tensioned by Surgery and while the patient was fully supine for this, he desaturated. He is now requiring FiO2 1.0 to maintain his Spo2. A CXR shows new RLL atelectasis and he has absent breath sounds at his Rt base. There is no clear PTX. Exam Vital Signs Vital Sign - Last Date Time Temp Pulse Resp B/P Pulse Ox O2 Delivery O2 Flow Rate FiO2 02/23/17 13:47 37.4 111 16 123/66 94 Mechanical Ventilator 40 Intake and Output 02/22/17 02/22/17 02/23/17 Cumulative From/Thru 15:00 23:00 07:00 02/17/17 00:10 - 02/23/17 06:00 Intake Total 885 ml 1329 ml 35048.5 ml Output Total 1010 ml 1155 ml 51868 ml Balance -125 ml 174 ml 6890.5 ml Intake Oral 0 ml 0 ml 0 ml IV Total 885 ml 741 ml 60886.5 ml TPN/PPN 588 ml 1782 ml Packed Cells 350 ml Output Urine Total 600 ml 550 ml 81052 ml Stool Total 125 ml 300 ml 3845 ml Gastric Drainage Total 50 ml 8005 ml Drainage Total 235 ml 305 ml 6895 ml Peritoneal Fluid 1160 ml Estimated Blood Loss 22 ml # Bowel Movements 0 IVs and Medications Medications Reviewed: Medications were reviewed in detail Lab and Diagnostics Result Diagram: 02/23/1753902/23/17539 Assessment & Plan IMP Perforated appendicitis with gross generalized fecal soiling of peritoneal cavity. Fortunately, his small bowel and most of his colon were viable. His course since laparotomy shows steady improvement and he has tolerated creation of an ileostomy and side to side ileocolic anastamosis. Sepsis, improved with resuscitation, antibiotics, damage control surgery. Now appears to be mobilizing fluid and remains off pressors. Net fluid negative over 17 L over the last 48 hours. Post operative respiratory failure, stable. Worsening hypoxemia acutely after tensioning of Sarah patch seemed due to RLL atelectasis due to plug and or compression. Suddenly worse hypoxemia over night seems related to new/worsening LLL atelectasis and infiltrate. He does not have a Hi Lo Evac ETT so this might explain the problems we are having with recurrent mucus plugging. REC Increase PEEP. Wean FiO2 as tolerates. Maintain on vent until abdomen can be closed. Pulm toilet. Percussion and continuous lateral rotation therapy Abx per ID consult (Day #5 Zosyn) Continue cautious diuresis Return to OR per surgery for closure of fascia TPN SAT/SBT upon return from OR following abdominal closure Routine ICU prophylaxis Pain Evaluation: Adequate Pain Control GI Prophylaxis: H2 mack VTE Mechanical Devices: Intermittant Pneumatic CD Time spent 45 minutes critical care exclusive of shared time and procedures Scott Aparicio MD Feb 23, 2017 15:19
[2017-02-23] MEDS ORDERED: Lactated Ringer's 1,000 ML IV ONE (16:42)
--- NOTE | 2017-02-23 17:32 | PCM.PNMED ---
Subjective Date of Service Feb 23, 2017 Subjective overnight: Overnight at approximately 4:15 the patient acutely desaturated during a linen change with oxygen saturation into the low to mid 70s. The ventilator was changed from pressure control to PRVC with FiO2 of 100% PEEP of 8 , respiratory rate of 16 and tidal volumes of 500. RT was called in to begin localized just percussion therapy of the patient's chest and after approximately one hour of CPT and copious ET suction patient's oxygen saturation improved. Today: The patient has remained stable on FiO2 of 0.5 with good oxygen saturation. No acute changes otherwise noted. Surgery plans on taking the patient back today for possible abdominal incision closure. Exam Vital Signs Vital Sign - Last Date Time Temp Pulse Resp B/P Pulse Ox O2 Delivery O2 Flow Rate FiO2 02/23/17 05:17 115 19 110/61 93 Mechanical Ventilator 100 02/23/17 00:54 37.0 Intake and Output 02/22/17 02/22/17 02/23/17 Cumulative From/Thru 15:00 23:00 07:00 02/17/17 00:10 - 02/23/17 06:00 Intake Total 885 ml 1329 ml 06937.5 ml Output Total 1010 ml 1155 ml 67920 ml Balance -125 ml 174 ml 6890.5 ml Intake Oral 0 ml 0 ml 0 ml IV Total 885 ml 741 ml 83988.5 ml TPN/PPN 588 ml 1782 ml Packed Cells 350 ml Output Urine Total 600 ml 550 ml 77521 ml Stool Total 125 ml 300 ml 3845 ml Gastric Drainage Total 50 ml 8005 ml Drainage Total 235 ml 305 ml 6895 ml Peritoneal Fluid 1160 ml Estimated Blood Loss 22 ml # Bowel Movements 0 Exam General: Young middle-aged man intubated and sedated lying on his right side at 30 Eyes: Pupils constricted equal round and reactive to light, anicteric sclera, noninjected conjunctiva HENT: Normocephalic atraumatic, ET tube in place Neck: Supple, trachea midline, without thyromegaly or JVD, right central venous IJ in place Cardiovascular: Regularly regular tachycardic rhythm, S1-S2 present, no S3-S4, without murmurs rubs or gallops noted Lungs: Decreased breath sounds on right and left bases bilaterally worse on right than left, coarse breath sounds noted in left lower lung barber, without wheezing Abdomen: Soft,ostomy with minimal output without notable blood or erythema around ostomy site, [place] drain noted in the right lower quadrant nontender, midline incision with wound VAC in place, nondistended, tympanic to percussion, normal active bowel sounds, without organomegaly Extremities: No cyanosis clubbing or edema noted, pulses intact bilaterally at dorsalis pedis and radial : Cash catheter in place Skin: Warm and dry Neuro: Unable to assess given intubated and sedated Psych: Unable to assess given intubated and sedated Lab and Diagnostics Result Diagram: 02/23/1753902/23/1740 X-Rays, CTs and MRIs CT ABDOMEN AND PELVIS WITH CONTRAST IMPRESSION: 1. Multiple dilated loops of small bowel associated circumferential wall thickening compatible small bowel obstruction. 2. Fluid collection with irregular peripheral enhancement in the right lower quadrant adjacent to cecum and terminal ileum concerning for abscess. The appendix is not definitely visualized in ruptured appendix cannot be excluded. 3. Circumferential wall thickening involving the terminal ileum which could related to pathology involving the appendix or a Crohn's disease. 4. Moderate amount of ascites scattered throughout the abdomen and pelvis. There is associated mild peritoneal enhancement consistent with peritonitis. 5. 5 mm nodule in the left lower lobe. Recommend follow up imaging based on criteria outlined below. ADDENDUM IMPRESSION: 1. Multiple dilated loops of small bowel associated circumferential wall thickening compatible small bowel obstruction and possible bowel ischemia. 2. Fluid collection with irregular peripheral enhancement in the right lower quadrant adjacent to cecum and terminal ileum concerning for abscess. The appendix is not definitely visualized and ruptured appendix cannot be excluded. 3. Circumferential wall thickening involving the terminal ileum which could related to pathology involving the adjacent appendix or inflammatory bowel disease such as Crohn's disease. 4. Moderate amount of ascites scattered throughout the abdomen and pelvis. There is associated mild peritoneal enhancement consistent with peritonitis. 5. 5 mm nodule in the left lower lobe. Recommend follow up imaging based on criteria outlined below. Approved by: Radha Cruz MD, PhD on 02/17/2017 at 9:54 Approved by: Radha Cruz MD, PhD on 02/17/2017 at 10:36 CT ABDOMEN AND PELVIS WITHOUT CONTRAST IMPRESSION: 1. Extensive large and small bowel pneumatosis in the setting of small bowel obstruction with extensive portal venous gas which has developed in the interval since prior CT scan obtained 02/17/17 at 0235 hours. Findings compatible with bowel ischemia. 2. Peritoneal pneumatosis and pneumoretroperitoneum which could be related to ruptured bowel versus infection with gas-forming organism. 3. Free intraperitoneal air and mesenteric air consistent with bowel perforation and/or mesenteric ischemia. 4. Decreased IVC caliber highly suspicious for severe hypotension. Please correlate with clinical data. 5. Moderate to large amount of ascites which is increased in volume compared to 02/17/17. The ascites has increased density compared to the prior CT scan which could be related to hemorrhage, proteinaceous fluid or infectious fluid. 6. Dilated loops of small bowel compatible with small bowel obstruction. 7. Probable right lower quadrant pericecal abscess suboptimally visualized in the absence of intravenous contrast does not appear significantly changed compared to prior CT scan. 8. Trace bilateral pleural effusions. Approved by: Radha Cruz MD, PhD on 02/17/2017 at 10:58 X-RAY CHEST ONE VIEW, PORTABLE IMPRESSION: 1. New left lower lobe infiltrates with associated pleural effusion. Improved right perihilar pulmonary opacities. 2. Stable support devices. Approved by: Dylon Gonzalez M.D. on 02/23/2017 at 7:24 Assessment & Plan Mr. Perez is a 36-year-old gentleman with PMHX significant for polysubstance abuse and has been incarcerated at [facility] for the recent 12 days prior to admission, who presented to the emergency department with a 2 week onset of increasing abdominal pain with associated fever, chills, nausea, vomiting, diaphoresis. CT scan showed free air in the abdomen and was taken emergently to surgery and found to have severe necrotizing perforated appendicitis. Acute Hypoxemia Respiratory Failure, not present on admission, Active - Overnight 02/23/2017 the patient acutely desaturated during a linen change with oxygen saturation into the low to mid 70s. The ventilator was changed from pressure control to PRVC with FiO2 of 100% PEEP of 8, respiratory rate of 16 and tidal volumes of 500. - Worsening hypoxemia acutely after tensioning of Sarah patch seems due to RLL atelectasis due to mucus plug and or compression - currently returned to FIO2 of 0.5 - Respiratory therapy to perform localized CPT Severe necrotizing perforated appendicitis, acute, present on admission, Active -As evidenced by the CT above --On 02/17/17, patient underwent Exploratory laparotomy, ileocecectomy, VAC dressing placement. -On 02/19/17, patient returned to surgery for Exploration of previous laparotomy , Adhesiolysis, Resection of distal ileum, 10 cm., Resection of hepatic flexure (7 cm)., and Loop ileostomy -On 02/21/17, patient returned to surgery for another exploratory laparotomy with ileocolic anastomosis but unable to close the fascia so Vance Patch was sewn to his fascia and will require daily adjustments -Patient with open abdominal wound and wound vac in place, output has been copious, surgery will continue to manage -Current analgesia with Fentanyl drip, patient with likely pre-existing opiate habituation -Continue Zosyn per ID, able to discontinue micafungin -Patient is intubated on ventilation support, continue cautious diureses -Surgery has plans to close the patient's abdominal incision 02/23/2017 Severe Sepsis with severe lactic acidosis, acute, present on admission, under evaluation -Initially Secondary to severe necrotizing perforated appendicitis with feculent peritonitis -On admit: T 35.9, P1 44, RR 34, lactic acid 7.6, with repeat 4.8 -Surgery found his appendix obviously ruptured and in 2 pieces, with extensive associated necrotic tissue through the peritoneal cavity, as well as a likely abscess in the RLQ, patient had multiple staged I&D of necrotic tissue and patient was started on broad-spectrum antibiotics -Patient has been dependent upon aggressive fluid resuscitation with copious NS , Albumin, and 2U PRBC to date -Propofol/ fentanyl for sedation and analgesia -The patient continues to have worsening leukocytosis with fever of 38.4 with tachycardia consistent with possible ongoing infection stress induced cardiomyopathy, POA, acute. Active -ECHO demonstrated EF of 20-25% with little structural heart disease, likely indicative of acute decompensation -Was briefly on Dobutamine drip after being admitted -Follow up ECHO prior to discharge Microcytic anemia, not present on admission, ongoing -Patient has received 2 units PRBC to maintain intravascular volume -Iron Studies show low iron 19 and low TIBC -However, H&H has been trending up and there is no indication to get iron supplementation -Today,H&H 12.0/34.8 respectively Hypertension, ongoing -This could be due to withdrawals or possibly pain -Started enalaprilat prn for systolic blood pressure greater than 150 -Continue to monitor blood pressure Hyperglycemia, acute, present on admission, under evaluation - On admit:Glc 215 - Likely secondary to stress release - Regular insulin Low dose correctional scale through his TPN - check blood glucose q 6 hrs Elevated liver function tests likely secondary to active hepatitis C infection, chronicity unknown, present on admission, improving - On admit: total bili 2.0 AST, 41 ALT, 92 Alk Phos 90 -Today, Total bili 2.9, AST 52, ALT 118 - Hep panel indicates active Hep C infection with viral load of 260,000 - HIV negative Acute kidney injury, present on admission, resolved - On admit:Cr 1.35 - Likely secondary to dehydration resulting from nausea and vomiting due to underlying infection -After extensive fluid resuscitation, Cr today is 0.56 Multiple Electrolyte abnormalities, present on admission, resolved - On admit: K 3.0, Mg 2.2, K rider was given initially - Today, K 4.6, Ca 7.6, Phos 3.3, Mg 2.1 -Continue TPN Polycythemia, chronicity unknown, present on admission, Resolved - On admit: Hemoglobin 18.9, hematocrit 54.1 - Likely secondary to dehydration from recent nausea and vomiting due to abdominal pain History of incarceration -[employer] consult -Hep panel indicative of past infection -HIV negative -MRSA nasal swab negative DVT prophylaxis: Currently contraindicated given need for ongoing surgical procedures GI prophylaxis: None indicated at this time CODE STATUS full Disposition: The patient will likely remain inpatient for possibly up to one more week as he will require a closure of his abdominal incision and being weaned from the ventilator. GI Prophylaxis: H2 mack VTE Prophylaxis: Sub-Q Heparin (Unfractionated) VTE Mechanical Devices: Intermittant Pneumatic CD Resuscitation Status: CPR: Attempt Resuscitation Time spent 35 minutes Attending Statement I have seen and evaluated patient at bedside in addition to directly supervising care provided by resident physician Dr Hurst on 02/23/2017. I agree with above documentation. Augusto Hurst DO Feb 23, 2017 07:38 Jose Moore DO Feb 24, 2017 07:14
--- NOTE | 2017-02-23 17:59 | NUR ---
respiratory/cardiac/systemic/sedation/surgical Continues on ventilator with 40% fi02, 12 of peep, and TV of 550. Saturation maintained in the mid 90s throughout shift. Lungs sounds remain decreased, left > right. Percussion treatments and CLRT continued. Scant thick white secretions with ET suction. ST per clinical research monitor. Pressure stable, MAP >65. Tmax 38.5, PRN tylenol ordered for temperature > 38.5. Following commands, gripping and moving extremities. Fentanyl and propofol continued for pain control and ventilator tolerance. Midline surgical dressing secure. Absent bowel sounds. Upper and lower [place] drains with small amount of serosanguineous output. OG to low wall suction, 150cc this shift. Cash to DD, 450 concentrated varun urine output.
[2017-02-23] MEDS: Lactated Ringer's 1,000 ML IV SCH (20:50)
[2017-02-23] MEDS ORDERED: Bupivacaine-MPF 0.5% 30 mL Inj INFILTRATE ONE (21:32)
--- NOTE | 2017-02-23 21:46 | PCM.HPANE ---
Patient Data Surgeon Admitting Provider:Isabel Mcduffie DO Attending Provider:Jose Moore DO Primary Care Physician:Sawyer Other Provider:Gila Khan Anesthesia Reason for Visit Pericecal Abscess,Sbo,Sepsis Ht/WT & BMI Height (Feet): 5 Height (Inches): 11.00 Weight (Kilograms): 77.600 Body Mass Index 22.45 Allergies Coded Allergies: No Known Allergies (Unverified , 02/17/17) Past Anesthesia History Anesthesia History: Denies:: Abnormal Airway, Anesthesia Reactions, Difficult Intubation Diabetes History Hx Diabetes?: No Current Bedside Blood Glucose: 121 Medications Hypertension Medication: No Home Meds Incl Beta Ayana: No History History of ENT Problems?: No HEENT History: Denies:: Abnormal Airway Difficult Intubation Denture Type: None Teeth Condition: Tooth Decay Other HEENT Pertinent History: ETT in-situ Hx of Heart Problems?: Yes Cardiovascular History: Positive for:: Chest Pain Denies:: Cardiac Surgery Congestive Heart Failure Edema Heart Murmur Hypertension Irregular Heartbeat Pacemaker Thrombophlebitis Hx of Respiratory Problem?: Yes Respiratory History: Positive for:: Pneumonia Denies:: Asthma COPD Chest Surgery Dyspnea Emphysema Hemoptysis Tuberculosis Other Resp Pertinent History: Intubated and ventialted in ICU due to respitory failure. Hx Neurologic Problems?: No Neurological History: Positive for:: Headaches Denies:: Alzheimer's Disease CVA Dementia Dizziness Parkinson's Disease Seizures Hx of GI Problems?: Yes Other GI Pertinent History: Sepsis secondary to GI perforation Hx of Problems?: No Genitourinary History: Denies:: HX of Hemodialysis Kidney Stones Urinary Tract Infection HX of Peritoneal Dialysis: No Male Hx: Denies:: Prostate Problems Scrotal Mass Testicular Surgery Hx Musculoskeletal Problems?: Yes Musculoskeletal History: Positive for:: Back Injury Musculoskeletal Trauma Hx of Psycho/Social Problems?: Yes Psycho Social History: Positive for:: Anxiety Hx Depression Denies:: Bipolar Disorder Suicide Attempt Other Psych Pertinent History: history substance abuse Hx Surgeries?: Yes (several broken bones) Hx Any Other Health Problems?: Yes Other History: Positive for:: Hospitalization Denies:: Cancer (father had CA) Thyroid Disease History Blood Transfusions: Positive for:: Accept Blood Products? Denies:: Blood Transfusions Hx Diabetes: NoBedside Blood Glucose: 121 Occupation: currently incarcerated Hx Alcohol Use: Yes (Rarely, used to drink more several years ago)Hx Substance Use: Yes (heroin IV; last use approximately 14 of January; weed; "I've tried it all") Smoking Status: Unknown if Ever Smoker Have You Smoked inLast 12 mo: NoApprox How Many Cigarettes/day: "A cigarette here and there" Stop/Bang Treated for Sleep Apnea?: No Do You Have a CPAP Machine?: No S-Snoring: Do You Snore Loudly: No T-Tired: feel tired, fatigued: No O-Obsered: Observed not breath: No P-Blood Pressure: treated: No B- Body Mass Index > 35 kg/m2: No A- Age over 50: No N- Neck Large Circumference: No G- Gender Male: Yes WILLI Total Score: 1 WILLI Risk Assessment: Low Risk, <3 Yes Risk Assessment Category Category 1A: Patient has history of documented sleep apnea, and HAS NOT received any narcotic, sedative or anesthesia administration during this stay. Category 1B: Patient has history of documented sleep apnea, and HAS received any narcotic , sedative or anesthesia administration during this stay Category 2: Patient has SUSPECTED Obstructive Sleep Apnea, and HAS received any narcotic , sedative or anesthesia administration during this stay. Category 3: Patient has SUSPECTED Obstructive Sleep Apnea and HAS NOT received narcotic, sedative or anesthesia administration during this stay. Category 4: Outpatient in Procedural Areas with known sleep apnea or who screen positive for High Risk via the STOP/BANG questionnaire. Low Risk, <3 Yes Exam Exam Vital Signs Vital Signs Date Time Temp Pulse Resp B/P Pulse Ox O2 Delivery O2 Flow Rate FiO2 02/23/17 20:03 106 122/64 98 40 02/23/17 19:45 Ventilator 02/23/17 19:07 37.7 111 20 125/66 96 02/23/17 17:00 38.4 109 16 131/68 96 Mechanical Ventilator 40 02/23/17 16:37 109 150/72 96 40 02/23/17 16:05 Ventilator 02/23/17 13:47 37.4 111 16 123/66 94 Mechanical Ventilator 40 General Appearance: Alert, Oriented X3, Cooperative, Moderate Distress HEENT/AIRWAY: MP 1, Neck Movement (Full) Lungs: Clear to Auscultation, Other (Mechanical breath sounds. ) Heart: Other (Tachycardic. ) Additional Information Intubated, ventilated Meds/Labs/Diagnostics Admission Meds Current Medications Propofol 5690008 mcg/Premix 100 ml @ 2.44 mls/hr Q24H IV Last administered on 02/23/17 18:12; Start 02/23/17 at 04:24 Lactated Ringer's (Lr) 1,000 ml @ ud STK-MED ONCE IV Last administered on 02/23 16:42; Start 02/23/17 at 16:42; Stop 02/23/17 at 16:44; Status DC Bupivacaine HCl (Sensorcaine-MPF 0.5% Inj) 30 ml STK-MED ONCE INFILTRATE Last administered on 02/23/17 21:32; Start 02/23/17 at 21:32; Stop 02/23/17 at 21:42 ; Status DC Bedside Blood Glucose: 121 Labs Test 02/17/17 00:32 02/17/17 05:10 02/17/17 08:40 02/17/17 21:00 Lipase 19U/L (13-60) Hepatitis A IgM Antibody Negative (Negative) Hepatitis B Surface Antigen Negative (Negative) Hepatitis B Core IgM Antibody Negative (Negative) Hepatitis C Antibody >11.0s/co ratio Hepatitis C Antibody Comment Comment (.) HIV (1&2) Ag and Ab, 4th Generation Non reactive (Non Reactive) Urine Color Dark yellow (YELLOW) Urine Appearance Hazy (CLEAR,HAZY) Urine pH 5.5 (5.0-8.0) Urine Specific [place] 1.015 (1.003-1.035) Urine Protein 30mg/dL (NEG,TRACE) Urine Glucose (UA) Negativemg/dL (NEGATIVE) Urine Ketones Tracemg/dL (NEGATIVE) Urine Occult Blood Negative (NEGATIVE) Urine Nitrite Negative (NEGATIVE) Urine Bilirubin Negative (NEGATIVE) Urine Urobilinogen Normalmg/dL (NORMAL) Urine Leukocyte Esterase Negative (NEGATIVE) Urine RBC 0-2/hpf (0-2) Urine WBC 0-5/hpf (0-5) Urine Epithelial Cells Occasional/hpf (NONE-MOD) Urine Crystals None seen (NONE SEEN) Urine Bacteria Few/hpf (NONE-FEW) Urine Hyaline Casts Occasional/lpf (NONE) Urine Granular Casts None seen (NONE SEEN) Urine Waxy Casts None seen (NONE SEEN) Urine Red Blood Cell Casts None seen (NONE SEEN) Urine White Blood Cell Casts None seen (NONE SEEN) Urine Mucus None seen (None Seen) Urine Trichomonas None seen (NONE SEEN) Urine Yeast None (NONE SEEN) Urinalysis Comment None Urine Culture Reflexed Not indicated Myelocytes % 0% (0-0) Test 02/18/17 02:45 02/18/17 08:24 02/19/17 04:40 02/20/17 14:26 Thyroid Stimulating Hormone (TSH) 1.410uIU/mL (0.450-4.500) Lactic Acid Level 1.8mmol/L (0.4-2.0) Hepatitis C Virus Quantitation [id number]/mL (.) Hepatitis C RNA (PCR) log10 5.417 (.) Hepatitis C Comment Comment (.) Prothrombin Time 12.0sec (8.1-12.5) Prothromb Time International Ratio 1.12ratio Iron Level 19ug/dL (35-150) Total Iron Binding Capacity 79ug/dL (250-450) Percent Iron Saturation 24%sat (15-50) Unsaturated Iron Binding 59.5ug/dL Test 02/21/17 03:50 02/21/17 18:30 02/22/17 04:10 02/23/17 05:40 Prealbumin 9mg/dL (20-40) Hold [place] Top Tube Received (Received) Procalcitonin 34.40ng/mL (0.00-0.08) White Blood Count 12.8th/mm3 (3.8-10.1) Red Blood Count 3.93mil/mm3 (4.40-5.80) Hemoglobin 10.5g/dL (13.8-17.2) Hematocrit 31.3% (41.0-50.0) Mean Corpuscular Volume 79.6fL (81-100) Mean Corpuscular Hemoglobin 26.7pg (27.0-35.0) Mean Corpuscular Hemoglobin Concent 33.5% (32.0-37.0) Red Cell Distribution Width 14.4% (12.3-15.4) Platelet Count 258bil/L (150-400) Neutrophils (%) (Auto) 67% (40-74) Lymphocytes (%) (Auto) 15% (14-46) Monocytes (%) (Auto) 7% (4-12) Eosinophils (%) (Auto) 3% (0-5) Basophils (%) (Auto) 1% (0-3) Band Neutrophils % 5% (1-5) Metamyelocytes % 1% (0-0) Hematology Comments Sodium Level 137mEq/L (134-144) Potassium Level 4.4mEq/L (3.5-5.2) Chloride Level 100mEq/L (97-108) Carbon Dioxide Level 21mmol/L (18-29) Blood Urea Nitrogen 12mg/dL (6-20) Creatinine 0.59mg/dL (0.76-1.27) Estimat Glomerular Filtration Rate 165mL/min (>59) Glucose Level 156mg/dL (60-99) Calcium Level 7.9mg/dL (8.5-10.1) Phosphorus Level 3.7mg/dL (2.5-4.9) Magnesium Level 2.3mg/dL (1.6-2.6) Total Bilirubin 0.9mg/dL (0.0-1.2) Aspartate Amino Transf (AST/SGOT) 30U/L (0-50) Alanine Aminotransferase (ALT/SGPT) 52U/L (0-44) Alkaline Phosphatase 92U/L (25-150) Total Protein 5.5g/dL (6.4-8.4) Albumin 2.9g/dL (3.4-5.0) Plan Impression Patient chart reviewed, patient interviewed and anesthestic plan with risks, benefits, and alternatives discussed, and informed consent obtained. NPO per Anesth. Guidelines: Yes ASA Physical Status: ASA4 Life Threatening Anesthetic Plan: GA Bene/Risks/Altern/Consents: Yes HP Complete Prior to Induction: Yes Naren Nielson MD Feb 23, 2017 21:46
--- NOTE | 2017-02-23 23:19 | PCM.SURGPO ---
Immediate Operative Note Date of Surgery: Feb 23, 2017 Pre Operative Diagnosis Open Abdomen Post Operative Diagnosis Open Abdomen Procedure Laparotomy, Abdominal Washout, Removal of [place] Patch, Fascial Closure Surgeon and Vacuum Form Operator Surgeon: Leo Hurst MD Assistants: Cy Miller, PAC Findings Closed with Interupted 0 PDS Complications There were no periprocedural complications identified. Surgical Specimen Removed: No Specimen sent to Pathology: No Anesthetic Administered: GA Grafts, Implants: None Output, Estimated Blood Loss: 2 Blood Admin during surgery: No Attending Statement Distribution Field Engineer listed was medically necessary for the successful completion of the case Leo Hurst MD Feb 23, 2017 23:19
[2017-02-23] MEDS: Total Parenteral Nutrition 1 BAG IV SCH (23:30)
--- NOTE | 2017-02-23 23:41 | PCM.ANEP1 ---
Post Anesthesia PACU Phase 1 Assessment Vital Signs Vital Signs Date Time Temp Pulse Resp B/P Pulse Ox O2 Delivery O2 Flow Rate FiO2 02/23/17 23:29 134 145/90 97 40 02/23/17 20:03 106 122/64 98 40 02/23/17 19:45 Ventilator 02/23/17 19:07 37.7 111 20 125/66 96 02/23/17 17:00 38.4 109 16 131/68 96 Mechanical Ventilator 40 02/23/17 16:37 109 150/72 96 40 02/23/17 16:05 Ventilator Anesthetic Administered: GA Level of Alertness: Drowsy, not talking MOSES's with Equal Strength: Yes Pain: No Pain Scale Score: 0 Nausea or Vomiting: No CV Function & Hydration Stable: Yes Airway Device: Endotrachial Tube Oxygen Delivery: Mechanical Ventilator Lungs: Clear to Auscultation, Other (Mechanical breath sounds. ) PACU Phase 2 Assessment Complications: No Follow up Care: N/A Patient Instructions Provided: N/A Naren Nielson MD Feb 23, 2017 23:41
[2017-02-24] VITALS (19 sets, daily range): BP systolic 128–149; BP diastolic 74–90; PULSE 98–112; RESP 14–29; O2SAT 92–99
--- NOTE | 2017-02-24 00:16 | OP ---
[address] [address] OPERATIVE REPORT PATIENT: LEON GUERRERO : 1980 MR#: [id number] ADMIT: 02/17/2017 JOB ID: [id number] DATE OF SURGERY: 02/23/2017 PREOPERATIVE DIAGNOSIS(ES): Open abdomen after perforated appendicitis requiring ileocolectomy, diverting ileostomy, and delayed anastomosis of ileum to the transverse colon. POSTOPERATIVE DIAGNOSIS(ES): PROCEDURE PERFORMED: Laparotomy, abdominal washout, removal of [place] patch, and closure of fascia. SURGEON: Leo Hurst MD MINIATURE TRAIN DRIVER: VIRIDIANA Xie COMPLICATIONS: None. CONDITION OF THE PATIENT: Stable. INDICATIONS: The patient is a 36-year-old male who came in with acute abdomen and sepsis and was found to have extensive portal venous gas, and Dr. Latoya Freedman took him to the operating room on February 17, 2017 and performed ileocecectomy and found perforated appendicitis and left the abdomen open. After that, he went back to the operating room for resection of more small bowel and colon for diverting ileostomy and then followed by ileotransverse colostomy, with handsewn anastomosis along with [place] patch placement. After diuresis in the intensive care unit and tightening the patch a little yesterday, we thought he is ready to be closed, prompting us to discuss the risks, benefits, and alternatives with the family and bring him to the operating room today. PROCEDURE DETAILS: He was brought to the operating room from the intensive care unit. The abdominal vacuum dressing was removed and abdomen was prepped and draped in the usual sterile fashion. A surgical time-out was undertaken using safety checklist, and all were in agreement. I began by opening the [place] patch and removing it after cutting the Prolene suture anchoring it to the fascia on both sides. After that, I irrigated the abdominal cavity with warm saline, suctioned all the fluid out, and proceeded to close the fascia with interrupted 0 PDS sutures. The fascia came together well without too much tension. The quality of the fascia was suboptimal given his open abdomen for the last week, but in the end, the closure felt sound. After the fascial closure, we found instrument counts to be correct. I then proceeded to dress the wound with a VAC dressing. A new stoma appliance was placed after that. The patient was taken back to the intensive care unit intubated.
[2017-02-24] MEDS: Heparin 5,000 Unit/mL Inj SUBQ SCH ×3 (00:30→16:02)
[2017-02-24] MEDS ORDERED: Labetalol 5 mg/mL 20 mL Inj IVPUSH ONE (01:00)
[2017-02-24] MEDS: Piperacillin-Tazo 3.375 Gm Inj 3.375 GM in Dextrose 5% Minibag Plus 50 ML IV SCH ×4 (02:10→20:32)
[2017-02-24] MEDS: Insulin Human REGular 300 Unit/3 mL Inj - Low SUBQ SCH ×4 (02:30→20:30)
[2017-02-24] MEDS: Propofol Inj 1,000,000 MCG in IV Premix 1 EACH IV SCH ×2 (02:43→06:17)
[2017-02-24] MEDS: Chlorhexidine 0.12% 15 mL Oral Solution MT SCH ×2 (03:09→08:50)
[2017-02-24 03:13] LABS: BASOPHILS % (AUTO) 1 % (0-3); EOSINOPHILS % (AUTO) 1 % (0-5); MONOCYTES % (AUTO) 5 % (4-12); Mean Corpuscular Volume 80.6 fL (81-100); NEUTROPHILS % (AUTO) 74 % (40-74); Platelet Count 339 bil/L (150-400)
[2017-02-24] MEDS: fentaNYL 2,500 mCg/250 mL 2,500 MCG in IV Premix 1 EACH IV SCH (03:24)
--- NOTE | 2017-02-24 03:51 | NUR ---
Return from OR Patient in the OR from 2049 to 2329. Patient's aunt is updated when patient arrived back to the floor. Initially upon return patient is hypertensive and tachycardic in the 130s. Propofol and Fentanyl are adjusted to improve comfort and HR decreases to 100-110. BP remains high with SBP 170s-180s. MD notified and one time dose of Labetolol is administered. BP improves to SBP of 140-160. Patient has 2 [place] drains to bulb suction and a wound vac. Dressing c/d/i.
[2017-02-24 03:59] LABS: Magnesium 2.1 mg/dL (1.6-2.6); Phosphorus 3.8 mg/dL (2.5-4.9)
--- NOTE | 2017-02-24 04:30 | ABG ---
DateTimeAnalyzed 04:23:00 -_ pH ____7.482 - 7.350 7.450 pCO2 ___33.0__ -mmHg 35.0 45.0 pO2 107 -mmHg 69.0 116 HCO3- ___24.4__ -mmol/L 22.0 26.0 ABE ____1.6__ -mmol/L -2.0 2.0 tHb ____9.9__ -g/dL 12.0 18.0 O2Hb ___96.2__ -% COHb ____1.0__ -% 0.0 1.5 MetHb ____0.8__ -% 0.4 1.5 sO2 ___98.0__ -% 25.0 FIO2 ___40.0__ -% PEEP ___12.0__ -cmH2O Set_RR ___16.0__ -b/min Vt __550.0__ -L Drawn By MM - Date/Time Notified____ 04:30:00 -_ Spontaneous_RR ___16.0__ -b/min Oxygen Device 1 VENTILATOR - Notified By MM - Notified Whom DR WILLIAM - B 756 -mmHg tO2 ___13.5__ -Vol% Mayo test N/A -
[2017-02-24] MEDS: HYDROmorphone 1 mg/mL Inj IVPUSH PRN ×3 (06:12→12:08)
[2017-02-24] MEDS ORDERED: HYDROmorphone PCA 0.2 mg/mL 30 mL Inj IV PRN (08:15)
[2017-02-24] MEDS ORDERED: Furosemide 10 mg/mL 2 mL Inj IVPUSH ONE (08:25)
[2017-02-24] MEDS: TPN Per Pharmacist XX SCH (08:30)
--- NOTE | 2017-02-24 10:26 | PCM.PNSURG ---
Subjective Date of Service: Feb 24, 2017 Date of Service: Feb 24, 2017 Visit Information: Reason for Visit Pericecal Abscess,Sbo,Sepsis Surgery/Surgery Date Post-Op Day # 1 Status post Laparotomy, abdominal washout, removal of [place] patch, and closure of fascia secondary to Open abdomen after perforated appendicitis requiring ileocolectomy, diverting ileostomy, and delayed anastomosis of ileum to the transverse colon. Date of Admission: Feb 17, 2017 at 04:07 Hospital Day # 8 Subjective: No significant issues overnight. Medicine team dc'd the OG tube and extubated the patient this AM. RN reports generous urine output since he was given lasix this AM. Pain is adequately controlled. Postop General: No Complaints Gastrointestinal: Passing Stool (via ostomy ) Pain Management: Continued Pain Issues Objective Vital Sign- Last 8 Hours Date Time Temp Pulse Resp B/P Pulse Ox O2 Delivery O2 Flow Rate FiO2 02/24/17 08:55 26 98 02/24/17 07:53 106 148/75 99 40 02/24/17 07:29 Ventilator 02/24/17 07:24 37.7 98 16 128/86 97 Mechanical Ventilator 40 02/24/17 04:15 98 149/86 98 40 02/24/17 03:28 Ventilator 02/24/17 03:07 37.1 100 16 137/74 98 Mechanical Ventilator Intake and Output- Last 8 Hour 02/24/17 Cumulative From/Thru 07:00 02/17/17 00:10 - 02/24/17 06:45 Intake Total 1230 ml 42586.5 ml Output Total 987 ml 67294 ml Balance 243 ml 7667.5 ml Intake Oral 0 ml IV Total 701 ml 71931.5 ml TPN/PPN 529 ml 2915 ml Packed Cells 350 ml Output Urine Total 475 ml 93444 ml Stool Total 155 ml 4000 ml Gastric Drainage Total 250 ml 8405 ml Drainage Total 105 ml 7220 ml Peritoneal Fluid 1160 ml Estimated Blood Loss 2 ml 24 ml # Bowel Movements 0 General: Alert, No Acute Distress Lungs: Rhonchorus (R > L Bases) Heart: Exam Unremarkable Abdomen: Soft, Appropriately tender, Non-distended, Ostomy pink & viable ( bilius liquid stool output) SURGICAL WOUND : Wound General Appearence: Wound Vac (suction operating), Intact (fascia per operative report last night) Wound Drainage Type: [place] Drain #3 (minimal serosanguineous output), [place] Drain #4 (minimal serosanguineous output) Extremities: Thigh&Calf Soft/Nontender Result Diagram: 02/24/17 0250 02/24/17 0250 Assessment & Plan Impression Primary Diagnoses: 1. Perforated appendicitis with abscess & pneumoperitoneum 2. Status post takeback laparotomy, abdominal washout, removal of [place] patch, and closure of fascia following ileocolectomy, diverting ileostomy, and delayed anastomosis of ileum to the transverse colon: DOS - Doing well with diuresis this AM recommend optimizing pulmonary function before conservative diet. Mobilization is now a goal for his rehabilitation. Surgery will follow wound care management & hold [place] drains despite likely stress related leukocytosis. Other Medical Diagnosis: Substance abuse disorder Problems: Plan 1. Wound care therapist Eval & Tx (VAC & ostomy management). 2. Respiratory therapy Eval & Tx (Cough exercises & incentive spirometry). 3. Physical therapy Eval & Tx (Out of bed standing to chair today). 4. Advance diet to clear liquids if his lungs are stable per the Medicine Team? VTE Prophylaxis: Sub-Q Heparin (Unfractionated), SCDs Resuscitation Status: CPR: Attempt Resuscitation Max Au PA-C Feb 24, 2017 10:26
--- NOTE | 2017-02-24 10:44 | PROG NOTE ---
[address] [address] PROGRESS NOTE PATIENT: LEON GUERRERO : 1980 MR#: [id number] ADMIT: 02/17/2017 JOB ID: [id number] DATE: 02/24/2017 REASON FOR FOLLOWUP: Complicated intraabdominal infection. INTERVAL HISTORY: Over the weekend, the patient has been relatively stable though there has been some degree of recrudescent fever as well as a rising bandemia. Recall that late last week we stopped the micafungin while we continued the patient on Zosyn as he had suffered a bernardo perforation with peritonitis and has had multiple surgeries in an effort to finally close the fascia. He still has a wound VAC present. Today, the patient is awake and appears to be alert, though he is not terribly interactive. Note that the patient was extubated just within the past hour and is still not saying much, he does express that he has abdominal pain. The patient continues to be very worried about his status and survival prospects. Little else can be obtained this morning from talked to the patient though we did discuss the patient at the bedside with nursing staff as well as during ICU rounds. PHYSICAL EXAMINATION: Reveals a gentleman who is 37.7. He has been as high as 38.4 over the past 24 hours. His pulse is currently 110. Respiratory rate in the mid 20s. Blood pressure 148/75. He is just extubated and is saturating well on nasal oxygen. His eyes without conjunctivitis. Oral cavity negative. He has a right central line in the IJ and he is receiving TPN through that. He also has a right radial A-line. Both of these lines appear benign though it is not clear the A-line is still needed. His lungs are notable for relatively clear breath sounds bilaterally. Cardiac tones are clear. The patient's abdomen is notable for the ileostomy on the right side as well as two large [place] drains one on each side as well as a midline approximately 15 cm long wound VAC. A midline vertical 15 cm wound VAC. His abdomen is not surprisingly mildly firm and somewhat tender. No skin rash noted. LABORATORIES: Include white count currently 14,000, which is up from 9000 on Friday. On Friday his white count francisca at 9000 with a completely normal diff. Today is 14,000 with 9% bands. This may be related to surgeries he has had over the past few days to attempt and get his fascia closed which have now been successful, but there is a significant new bandemia. Also very notable is 2% metamyelocytes. Creatinine 0.63. LFTs normal. Procalcitonin continues its fall from greater than 400, it is now down to 8 suggesting excellent bacterial infection control. Hep C has come back positive, viral load is 261,000 which sounds bad, but is really not in and of itself a concern at this point. Labs include the peritoneal fluid which grew Peptostreptococcus fusobacterium and a Bacteroides species. MRSA screen negative. Blood cultures negative and sputum basically negative including a sputum from yesterday. IMAGING: Includes a chest x-ray which shows a right-sided hilar type infiltrate. This is certainly worse since chest x-rays done earlier in his hospital stay. IMPRESSION: This patient continues to make steady progress and his fascia is now being closed by surgery, and we discussed this with the surgical PA during rounds this morning. He also seems to be improving in an overall point of view, and his procalcitonin is certainly steadily dropping. The major concern from an Infectious Disease point of view today is his rising bandemia, which has occurred shortly after we stopped the empiric micafungin. In a patient with ongoing TPN and multiple lines this is of concern to me for possible fungal superinfection. I note that he does have some pulmonary infiltrates a little bit in the left base and more in the right hilar area, but I suspect this is more atelectasis than pneumonia in this patient who has just now been successfully extubated. RECOMMENDATIONS: 1. Will continue with Zosyn. 2. Fungal blood cultures will be obtained from his right central line and right radial A-line. 3. I would recommend discontinuing the A-line if it is not needed and culturing the tip. 4. Will restart micafungin therapy pending more definition as to a course on his white count and fevers.
--- NOTE | 2017-02-24 11:03 | NUR ---
NUTRITION FOLLOW-UP: Assess: 36 YO male admitted to CCU with pericecal abscess, status post damage control laparotomy with ileocecostomy; re-exploration laparotomy with diverting loop ileostomy. Exploratory laparotomy completed yesterday, with no sign of bowel ischemia, intra-abdominal purulent or fecal matter. TPN continues, appears well tolerated. Pt extubated this morning, plan for ST eval with possible diet advance. PMHX: Heroin use. DIET: NPO x 7 D. TPN: D 190 g, amino acid 80 g, lipid 15 g, providing 1116 kcal, 80 g protein. LABS: Cr 0.63, Glu 148, Ca 7.6, Alb 2.9 MEDICATIONS: Reviewed. Fentanyl, insulin. GI: Stool via ileostomy. SKIN: Per Director Of Surgery, suspected DTI at midline sacrum ANTHROPOMETRICS: Wt: 83.8 kg, BMI 25.8 kg/m2, Admit wt: 72.73 kg. ESTIMATED NEEDS: Calories: 2427-0829 kcal/day (25-30 kcal/kg BW) Protein: 84-101 g/day (1.0-1.2 g/kg BW) NUTRITION DIAGNOSIS: 1) Inadequate oral intake related to decreased ability to consume sufficient energy as evidenced by NPO status - PERSISTS. INTERVENTION: 1) Recommend diet advancement per speech therapy recommendations. 2) Continue current TPN today. If diet able to be advanced, recommend stopping or tapering TPN. 3) If diet unable to advance, recommend increasing tomorrow's TPN to 250 g dextrose, 90 g AA, 40 g lipids to provide 1610 kcal, 90 g protein; meeting 77% calorie, 100% protein needs. Eventual goal TPN of 350 g Dex, 100 g AA and 55 g lipids to provide 2140 kcal and 100 g protein. (100% estimated needs). MONITOR/EVALUATE: NPO status, ST eval, diet advance, TPN tolerance/advance/taper, labs, GI/nutrition status. Follow per high nutrition risk guidelines.
--- NOTE | 2017-02-24 11:21 | PCM.PNMED ---
Subjective Date of Service Feb 24, 2017 Subjective Pulmonary critical care progress note, consult requested by Dr. Aris Bobcorey Perez is a 36 year old man with a PMH of polysubstance abuse who presents with a several day history of abdominal pain; he had been incarceration for 12 days prior to presentation. He had a CT scan which demonstrated free air in the abdomen, and was subsequently taken for emergent surgery and found to have ruptured appendicitis with feculent peritonitis and diffuse necrosis throughout the peritoneum. Overnight the patient tolerated weaning trials well having had his fascia closed by general surgery earlier in the day. Today the patient continued to do well on breathing trials, and was extubated without complication. 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 He otherwise complains of dry mouth and thirst. Exam Vital Signs Vital Sign - Last Date Time Temp Pulse Resp B/P Pulse Ox O2 Delivery O2 Flow Rate FiO2 02/24/17 11:10 26 98 02/24/17 11:07 Supplement Oxygen 02/24/17 07:53 106 148/75 40 02/24/17 07:24 37.7 Intake and Output 02/23/17 02/23/17 02/24/17 Cumulative From/Thru 15:00 23:00 07:00 02/17/17 00:10 - 02/24/17 06:45 Intake Total 1354 ml 1230 ml 11144.5 ml Output Total 820 ml 987 ml 25556 ml Balance 534 ml 243 ml 7667.5 ml Intake Oral 0 ml IV Total 750 ml 701 ml 04822.5 ml TPN/PPN 604 ml 529 ml 2915 ml Packed Cells 350 ml Output Urine Total 450 ml 475 ml 17525 ml Stool Total 155 ml 4000 ml Gastric Drainage Total 150 ml 250 ml 8405 ml Drainage Total 220 ml 105 ml 7220 ml Peritoneal Fluid 1160 ml Estimated Blood Loss 2 ml 24 ml # Bowel Movements 0 Exam Gen: Intubated and sedated young man with extensive Tattoos, post extubation patient communicating appropriately with a hoarse voice Neck: Right IJ in place and appears patent, no JVD, HEENT:PERRL with miosis, EOMI, no scleral icterus CV: Regular Tachycardia with no murmurs rubs or gallops Resp: Diffuse mild crackles BL, no wheezing rales or rhonchi Abd: Large abdominal wound with closed fascia and wound vac in soft tissue in place, 4 [place]O drains along patient's flanks, distended, slightly firm, ostomy in RLQ with pink well perfused stoma and output of brown liquid stool Extr: Warm to the touch, continued improvement of edema, no cyanosis or clubbing Neuro: CN 2-12 grossly intact. no focal neurologic deficit. Psych: Patient somewhat anxious and tremulous, active signs of pain IVs and Medications Medications Reviewed: Medications were reviewed in detail Lab and Diagnostics Item Value Date Time Red Blood Count 3.81 mil/mm3 L 02/24/17249 Mean Corpuscular Volume 80.6 fL L 02/24/17249 Mean Corpuscular Hemoglobin 26.0 pg L 02/24/17249 Mean Corpuscular Hemoglobin Concent 32.2 % 02/24/17249 Red Cell Distribution Width 14.4 % 02/24/17249 Neutrophils (%) (Auto) 74 % 02/24/17249 Lymphocytes (%) (Auto) 8 % L 02/24/17249 Monocytes (%) (Auto) 5 % 02/24/17249 Eosinophils (%) (Auto) 1 % 02/24/17249 Basophils (%) (Auto) 1 % 02/24/17249 Band Neutrophils % 9 % H 02/24/17249 Metamyelocytes % 2 % H 02/24/17249 Estimat Glomerular Filtration Rate 153 mL/min 02/24/17249 Calcium Level 7.6 mg/dL L 02/24/17249 Phosphorus Level 3.8 mg/dL 02/24/17249 Magnesium Level 2.1 mg/dL 02/24/17249 Total Bilirubin 0.9 mg/dL 02/24/17249 Aspartate Amino Transf (AST/SGOT) 26 U/L 02/24/17249 Alanine Aminotransferase (ALT/SGPT) 41 U/L 02/24/17249 Alkaline Phosphatase 105 U/L 02/24/17249 Total Protein 5.4 g/dL L 02/24/17249 Albumin 2.9 g/dL L 02/24/17249 Procalcitonin 8.02 ng/mL H 02/24/17249 Result Diagram: 02/24/1724902/24/17249 Microbiology Peritoneal fluid culture reveals: Peptostreptococcus Anaerobius Fusobacterium Nucleatum Bacteroides Fragilis . X-Rays, CTs and MRIs CT ABDOMEN AND PELVIS WITH CONTRAST IMPRESSION: 1. Multiple dilated loops of small bowel associated circumferential wall thickening compatible small bowel obstruction. 2. Fluid collection with irregular peripheral enhancement in the right lower quadrant adjacent to cecum and terminal ileum concerning for abscess. The appendix is not definitely visualized in ruptured appendix cannot be excluded. 3. Circumferential wall thickening involving the terminal ileum which could related to pathology involving the appendix or a Crohn's disease. 4. Moderate amount of ascites scattered throughout the abdomen and pelvis. There is associated mild peritoneal enhancement consistent with peritonitis. 5. 5 mm nodule in the left lower lobe. Recommend follow up imaging based on criteria outlined below. ADDENDUM IMPRESSION: 1. Multiple dilated loops of small bowel associated circumferential wall thickening compatible small bowel obstruction and possible bowel ischemia. 2. Fluid collection with irregular peripheral enhancement in the right lower quadrant adjacent to cecum and terminal ileum concerning for abscess. The appendix is not definitely visualized and ruptured appendix cannot be excluded. 3. Circumferential wall thickening involving the terminal ileum which could related to pathology involving the adjacent appendix or inflammatory bowel disease such as Crohn's disease. 4. Moderate amount of ascites scattered throughout the abdomen and pelvis. There is associated mild peritoneal enhancement consistent with peritonitis. 5. 5 mm nodule in the left lower lobe. Recommend follow up imaging based on criteria outlined below. Approved by: Radha Cruz MD, PhD on 02/17/2017 at 9:54 Approved by: Radha Cruz MD, PhD on 02/17/2017 at 10:36 CT ABDOMEN AND PELVIS WITHOUT CONTRAST IMPRESSION: 1. Extensive large and small bowel pneumatosis in the setting of small bowel obstruction with extensive portal venous gas which has developed in the interval since prior CT scan obtained 02/17/17 at 0235 hours. Findings compatible with bowel ischemia. 2. Peritoneal pneumatosis and pneumoretroperitoneum which could be related to ruptured bowel versus infection with gas-forming organism. 3. Free intraperitoneal air and mesenteric air consistent with bowel perforation and/or mesenteric ischemia. 4. Decreased IVC caliber highly suspicious for severe hypotension. Please correlate with clinical data. 5. Moderate to large amount of ascites which is increased in volume compared to 02/17/17. The ascites has increased density compared to the prior CT scan which could be related to hemorrhage, proteinaceous fluid or infectious fluid. 6. Dilated loops of small bowel compatible with small bowel obstruction. 7. Probable right lower quadrant pericecal abscess suboptimally visualized in the absence of intravenous contrast does not appear significantly changed compared to prior CT scan. 8. Trace bilateral pleural effusions. Approved by: Radha Cruz MD, PhD on 02/17/2017 at 10:58 X-RAY CHEST ONE VIEW, PORTABLE IMPRESSION: 1. New left lower lobe infiltrates with associated pleural effusion. Improved right perihilar pulmonary opacities. 2. Stable support devices. Approved by: Dylon Gonzalez M.D. on 02/23/2017 at 7:24 Cardiac Echo Impressions Interpretation Summary Technically difficult study limits valve visualization. 1) Normal left ventricular thickness and size with severely reduced systolic function (EF 20-25%). 2) Borderline right ventricular enlargement with moderately reduced function. 3) No significant valvular abnormalities. 4) No prior Echo available for comparison. If endocarditis is suspected, consider CATRACHITO. Reading Physician:03:23 PM . Assessment & Plan Mr. Perez is a 36-year-old gentleman with PMHX significant for polysubstance abuse and has been incarcerated at [facility] for the recent 12 days prior to admission, who presented to the emergency department with a 2 week onset of increasing abdominal pain with associated fever, chills, nausea, vomiting, diaphoresis. CT scan showed free air in the abdomen and was taken emergently to surgery and found to have severe necrotizing perforated appendicitis. Patient has had further abdominal surgery x3 with progressive alimentary revision and wound closure with current ostomy and fascial but not subq tissue closure. Patient Extubated 02/24 without complication. Severe Sepsis, acute, present on admission, Improving -Secondary to severe necrotizing perforated appendicitis with feculent peritonitis -On admit: T 35.9, P1 44, RR 34, lactic acid 7.6, with repeat 4.8 -Patient underwent laparotomy with appendectomy and colectomy -Surgery found his appendix obviously ruptured and in 2 pieces, with extensive associated necrotic tissue through the peritoneal cavity, as well as a likely abscess in the RLQ -Continue Zosyn, Micafungin per ID -Patient was initially dependent upon aggressive fluid resuscitation with copious NS, Albumin, and 2U PRBC to date -Transitioning to diuresis to improve gut edema -Patient has now been weaned off pressors, and esmolol drip -Further [place]O drains placed to expedite intra-abdominal drainage -Patient extubated 02/24 Severe necrotizing perforated appendicitis, acute, present on admission, Improving -As evidenced by the CT above -Surgical intervention as above -Ostomy in place, Surgery anticipated a fairly extended period of ostomy use before takedown -Dr. Freedman from General surgery is managing the surgical aspect of this patient -Patient returned to OR 02/21 with placement of David patch to facilitate gradual wound closure, anastamosis performed with good results -Fascia closure on 02/23 -Patient with open abdominal wound(fascia closed) and wound vac in place, output has been copious, surgery will continue to manage -Will continue to confer with surgery in regards to advancing diet -Begin PT and mobilization now post extubation -Dilaudid SCREW MACHINE OPERATOR for analgesia Tachycardia and stress induced cardiomyopathy, POA, acute. Active -ECHO demonstrated EF of 20-25% with little structural heart disease, likely indicative of acute decompensation -Was briefly on Dobutamine drip -Weaned off esmolol drip -Will repeat ECHO later in hospital stay or as outpatient to assess for improvement post shock Lactic acidosis, acute, present on admission, Resolved -Likely secondary to septic process as above -On admit: Initial 7.6 -Has normalized -Patient has been adequately fluid resuscitated, transitioning to diuresis -Patient is currently intubated, sedated, and ventilated History of incarceration -EAR SPECIALIST consult -Hep panel indicative of past infection -Be aware of pre-existing opiate abuse and habituation when managing analgesia -HIV negative -MRSA nasal swab negative Pain Evaluation: Adequate Pain Control GI Prophylaxis: H2 mack VTE Prophylaxis: Sub-Q Heparin (Unfractionated), SCDs VTE Mechanical Devices: Intermittant Pneumatic CD Resuscitation Status: CPR: Attempt Resuscitation Antonio Lewis DO Feb 24, 2017 11:21
[2017-02-24] MEDS ORDERED: HYDROMORPHONE HP IV PRN ×2 (11:30)
[2017-02-24] MEDS ORDERED: NS IV PRN ×2 (11:30)
[2017-02-24] MEDS: HYDROmorphone PCA 0.2 mg/mL 30 mL Inj IV PRN ×5 (11:37→21:12)
--- NOTE | 2017-02-24 12:08 | DRSVH ---
PROCEDURE: X-RAY CHEST ONE VIEW, PORTABLE ([id number]) INDICATIONS: respiratory failure TECHNIQUE: One view of the chest was acquired. COMPARISON: [facility], CR, XR CHEST 1VW (PORTABLE), 02/19/2017, 5:25. [facility], CR, XR CHEST 1VW (PORTABLE), 02/23/2017, 4:34. FINDINGS: Surgical changes and devices: None. Lungs and pleura: Persistent small left pleural effusion and there is a slight decrease in left lower lobe consolidation. Midright lung and basilar air space opacity not significantly changed. Mediastinum: Mediastinal contours appear normal. Heart size is normal. Bones and chest wall: No suspicious bony lesions. Overlying soft tissues appear unremarkable. IMPRESSION: 1. Stable support lines and tubes. 2. Small left pleural effusion with slight decrease in consolidation involving the left lung base con sistent with decreasing atelectasis versus pneumonia. 3. Persistent mid right lung base airspace opacity consistent with atelectasis versus pneumonia. Dictated by: Harvinder Tamez [facility] Interpreted: Vane Saldana MD on 02/24/2017 at 8:17 Approved by: Vane Saldana M.D. on 02/24/2017 at 12:06
--- NOTE | 2017-02-24 13:25 | PCM.PHAPRO ---
Progress Abdominal pain with associated nausea, vomiting, diaphoresis, fever, chills TPN#5 Briefly, Euvolemic, stable HD, lytes WNL, multiple surgeries completed, approaching readiness for enteral feeding. p/ Continue w/o changes PARENTERAL NUTRITION ORDERS 5 24-Feb-17 Standard Hang Time: 2100 Substrates Total kcal: 1116 AMINO ACIDS 80 g DEXTROSE 190 g Total Volume (mL): 1250 LIPIDS 15 g Sterile Water for Injection mL To Infuse Over (hrs): 24 Total Volume 1250 mL At at a rate of (mL/hr): 52 Additives Sodium Chloride 50 mEq "typical" daily requirements Sodium Acetate 30 mEq Sodium 50-120mEq Potassium Chloride 20 mEq Potassium 60-120mEq Potassium Phosphate 40 mEq Phosphate 20-40mEq Calcium Gluconate 9 mEq Magnesium 8-32mEq Magnesium Sulfate 16 mEq Calcium 9-22mEq Acetate* 80-120mEq Chloride* 80-120mEq Regular Insulin units *Depending on acid-base status Famotidine 40 mg Multivitamins 1 std dose Insulin Regimen Trace Elements 1 std dose none Thiamine 100 mg Regular Low Intensity Subcut x Folic Acid 1 mg Regular Medium Intensity Subcut Ascorbic Acid 500 mg Regular High Intensity Subcut Regular Insulin Infusion Other: Special Instructions: To be infused via central line only. For delay or inturruption of TPN contact the pharmacist for alternative replacement solution. Octavio Bansal Pharm D Feb 24, 2017 13:25
--- NOTE | 2017-02-24 14:21 | NUR ---
Evaluation completed. Please go to "Notes" then click on "Assessments and Notes" (bottom left corner of screen). Then select appropriate discipline tab on top of screen.
--- NOTE | 2017-02-24 14:33 | NUR ---
Wound Care Asked to see patient by surgical MA due to leaking NPWT device, 36 yo male recently extubated in CCU bed, leak alarm at NPWT sounding although there does seem to be therapeutic pressure at the abdominal wound that is being treated. multiple attempts were made to achieve a quiet seal but in the end the whole draping system needed to be removed and be redone, foam was not removed from the wound bed though. A good seal was attained. Will plan on changing the complete dressing on Friday02/26/17.
--- NOTE | 2017-02-24 14:48 | NUR ---
Evaluation completed. Please go to "Notes" then click on "Assessments and Notes" (bottom left corner of screen). Then select appropriate discipline tab on top of screen.
--- NOTE | 2017-02-24 14:52 | PCM.PNMED ---
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 Initial CT showed suspected perforated appendicitis with RLQ abscess and the plan was to treat conservatively with percutaneous drainage by IR and IV antibiotics. Unfortunately, the patient deteriorated rapidly over night and a repeat CT showed free air in the peritoneal space, retroperitoneum, portal system and bowel wall. He was taken to the OR urgently where he was found to have purulent peritonitis and a RLQ abscess with diffuse hemorrhage of the mesentery and 4 quadrant necrosis of the peritoneal surface. The underlying bowel was felt to be viable however. He underwent limited resection of a necrotic area of his right colon and the ends were stapled closed. His abdomen was lavaged and a wound dressing was applied before he was brought to the ICU on mechanical ventilation. On 02/19 he was returned to OR and tolerated creation of an ileostomy. On 02/20 he has diuresed over 10 L, remaining comfortable on vent and off pressors. After diuresing an additional 7 L over night, he was taken to the OR on 02/21 where he had a [id number] anastomosis of the previously created blind ends of the ilem and right colon. The diverting ileostomy was left i place and a Sarah patch was applied as the fascia could not yet be closed due to bowel and abdominal wall edema. He was returned to the CCU in stable condition. Interval history Late on 02/23, he had the Sarah patch removed and fascia closed. He has done well and tolerated extubation after a successful SBT. Pain control is requiring impressive amounts of dilaudid but he is being monitored closely in CCU and this is not unexpected given his tolerance before admission. Exam Vital Signs Vital Sign - Last Date Time Temp Pulse Resp B/P Pulse Ox O2 Delivery O2 Flow Rate FiO2 02/24/17 12:08 105 29 143/78 97 Nasal Cannula 2.00 02/24/17 11:49 36.7 02/24/17 07:53 40 Intake and Output 02/23/17 02/23/17 02/24/17 Cumulative From/Thru 15:00 23:00 07:00 02/17/17 00:10 - 02/24/17 06:45 Intake Total 1354 ml 1230 ml 95604.5 ml Output Total 820 ml 987 ml 83119 ml Balance 534 ml 243 ml 7667.5 ml Intake Oral 0 ml IV Total 750 ml 701 ml 03865.5 ml TPN/PPN 604 ml 529 ml 2915 ml Packed Cells 350 ml Output Urine Total 450 ml 475 ml 69517 ml Stool Total 155 ml 4000 ml Gastric Drainage Total 150 ml 250 ml 8405 ml Drainage Total 220 ml 105 ml 7220 ml Peritoneal Fluid 1160 ml Estimated Blood Loss 2 ml 24 ml # Bowel Movements 0 Exam Pale young man in NAD, resting comfortably Lungs good air movement, NO wheezes, scattered crackles at both bases. CV RRR, no m/g/r IVs and Medications Medications Reviewed: Medications were reviewed in detail Lab and Diagnostics Labs personally reviewed in detail Result Diagram: 02/24/1724902/24/17249 Microbiology Peritoneal fluid culture reveals: Peptostreptococcus Anaerobius Fusobacterium Nucleatum Bacteroides Fragilis . X-Rays, CTs and MRIs CT ABDOMEN AND PELVIS WITH CONTRAST IMPRESSION: 1. Multiple dilated loops of small bowel associated circumferential wall thickening compatible small bowel obstruction. 2. Fluid collection with irregular peripheral enhancement in the right lower quadrant adjacent to cecum and terminal ileum concerning for abscess. The appendix is not definitely visualized in ruptured appendix cannot be excluded. 3. Circumferential wall thickening involving the terminal ileum which could related to pathology involving the appendix or a Crohn's disease. 4. Moderate amount of ascites scattered throughout the abdomen and pelvis. There is associated mild peritoneal enhancement consistent with peritonitis. 5. 5 mm nodule in the left lower lobe. Recommend follow up imaging based on criteria outlined below. ADDENDUM IMPRESSION: 1. Multiple dilated loops of small bowel associated circumferential wall thickening compatible small bowel obstruction and possible bowel ischemia. 2. Fluid collection with irregular peripheral enhancement in the right lower quadrant adjacent to cecum and terminal ileum concerning for abscess. The appendix is not definitely visualized and ruptured appendix cannot be excluded. 3. Circumferential wall thickening involving the terminal ileum which could related to pathology involving the adjacent appendix or inflammatory bowel disease such as Crohn's disease. 4. Moderate amount of ascites scattered throughout the abdomen and pelvis. There is associated mild peritoneal enhancement consistent with peritonitis. 5. 5 mm nodule in the left lower lobe. Recommend follow up imaging based on criteria outlined below. Approved by: Radha Cruz MD, PhD on 02/17/2017 at 9:54 Approved by: Radha Cruz MD, PhD on 02/17/2017 at 10:36 CT ABDOMEN AND PELVIS WITHOUT CONTRAST IMPRESSION: 1. Extensive large and small bowel pneumatosis in the setting of small bowel obstruction with extensive portal venous gas which has developed in the interval since prior CT scan obtained 02/17/17 at 0235 hours. Findings compatible with bowel ischemia. 2. Peritoneal pneumatosis and pneumoretroperitoneum which could be related to ruptured bowel versus infection with gas-forming organism. 3. Free intraperitoneal air and mesenteric air consistent with bowel perforation and/or mesenteric ischemia. 4. Decreased IVC caliber highly suspicious for severe hypotension. Please correlate with clinical data. 5. Moderate to large amount of ascites which is increased in volume compared to 02/17/17. The ascites has increased density compared to the prior CT scan which could be related to hemorrhage, proteinaceous fluid or infectious fluid. 6. Dilated loops of small bowel compatible with small bowel obstruction. 7. Probable right lower quadrant pericecal abscess suboptimally visualized in the absence of intravenous contrast does not appear significantly changed compared to prior CT scan. 8. Trace bilateral pleural effusions. Approved by: Radha Cruz MD, PhD on 02/17/2017 at 10:58 X-RAY CHEST ONE VIEW, PORTABLE IMPRESSION: 1. New left lower lobe infiltrates with associated pleural effusion. Improved right perihilar pulmonary opacities. 2. Stable support devices. Approved by: Dylon Gonzalez M.D. on 02/23/2017 at 7:24 Cardiac Echo Impressions Interpretation Summary Technically difficult study limits valve visualization. 1) Normal left ventricular thickness and size with severely reduced systolic function (EF 20-25%). 2) Borderline right ventricular enlargement with moderately reduced function. 3) No significant valvular abnormalities. 4) No prior Echo available for comparison. If endocarditis is suspected, consider CATRACHITO. Reading Physician:03:23 PM . Assessment & Plan IMP Perforated appendicitis with gross generalized fecal soiling of peritoneal cavity. Fortunately, his small bowel and most of his colon were viable. His course since laparotomy has shown steady improvement and his abdomen is now closed. S/P ileostomy and ileocolic anastamosis. Sepsis, improved with resuscitation, antibiotics, damage control surgery. Now appears to be mobilizing fluid and remains off pressors. Net fluid negative over 17 L over the last 72 hours. Post operative respiratory failure, stable. Resolved. SpO2 96% on 2 L NC. REC Pulm toilet with IS, Accapella, cough and deep breathing. Abx per ID consult Continue cautious diuresis TPN, Swallow eval today, Consider reintroduction of oral intake tomorrow. Routine ICU prophylaxis Pain Evaluation: Adequate Pain Control GI Prophylaxis: H2 mack VTE Prophylaxis: Sub-Q Heparin (Unfractionated), SCDs VTE Mechanical Devices: Intermittant Pneumatic CD Resuscitation Status: CPR: Attempt Resuscitation Time spent 40 minutes critical care exclusive of shared time and procedures. Scott Apaircio MD Feb 24, 2017 14:48
--- NOTE | 2017-02-24 15:46 | PCM.PNMED ---
Subjective Date of Service Feb 24, 2017 Subjective Mr. Perez is a 36-year-old gentleman with PMHX significant for polysubstance abuse and has been incarcerated at [facility] for the recent 12 days prior to admission, who presented to the emergency department with a 2 week onset of increasing abdominal pain with associated fever, chills, nausea, vomiting, diaphoresis. CT scan showed free air in the abdomen and was taken emergently to surgery and found to have severe necrotizing perforated appendicitis. Last night, patient underwent laparotomy, abdominal washout, removal of [place] patch, and closure of fascia. After the procedure, his blood pressure increased to 170s but decreased nicely with 5 mg of labetalol.Propofol and Fentanyl were adjusted to improve comfort and HR decreases to 100-110 Today, he was extubated. He was complaining of 10 out of 10 pain and has been started on a VEHICLE SALES PROFESSIONAL pump. Exam Vital Signs Vital Sign - Last Date Time Temp Pulse Resp B/P Pulse Ox O2 Delivery O2 Flow Rate FiO2 02/24/17 04:15 98 149/86 98 40 02/24/17 03:28 Ventilator 02/24/17 03:07 37.1 16 Intake and Output 02/23/17 02/23/17 02/24/17 Cumulative From/Thru 15:00 23:00 07:00 02/17/17 00:10 - 02/24/17 06:45 Intake Total 1354 ml 1230 ml 29965.5 ml Output Total 820 ml 987 ml 21762 ml Balance 534 ml 243 ml 7667.5 ml Intake Oral 0 ml IV Total 750 ml 701 ml 36432.5 ml TPN/PPN 604 ml 529 ml 2915 ml Packed Cells 350 ml Output Urine Total 450 ml 475 ml 68679 ml Stool Total 155 ml 4000 ml Gastric Drainage Total 150 ml 250 ml 8405 ml Drainage Total 220 ml 105 ml 7220 ml Peritoneal Fluid 1160 ml Estimated Blood Loss 2 ml 24 ml # Bowel Movements 0 Exam Gen: Intubated and sedated young man with extensive Tattoos, post extubation patient communicating appropriately with a hoarse voice Neck: Right IJ in place and appears patent, no JVD, HEENT:PERRL with miosis, EOMI, no scleral icterus CV: Regular Tachycardia with no murmurs rubs or gallops Resp: Diffuse mild crackles BL, no wheezing rales or rhonchi Abd: Large abdominal wound with closed fascia and wound vac in soft tissue in place, 4 [place] drains along patient's flanks, distended, slightly firm, ostomy in RLQ with pink well perfused stoma and output of brown liquid stool Extr: Warm to the touch, continued improvement of edema, no cyanosis or clubbing Neuro: CN 2-12 grossly intact. no focal neurologic deficit. Psych: Patient somewhat anxious and tremulous, active signs of pain General: Patient has recently been extubated. He responds to questions and communicates appropriately HEENT: PERRL with miosis, Right IJ in place Cardio: Tachycardic, s1 and s2 heard, no murmurs, rubs or gallops Lungs: Coarse breath sounds bilaterally with crackles Skin: feels warm to touch, has several tattoos on UE Abdomen: Has multiple [place] drains, ostomy in RLQ, large abdominal wound with closed fascia Extremities: no edema or erythema Neuro:CN 2-12 grossly intact. no focal neurologic deficit. Psych: Patient is somewhat anxious. IVs and Medications Medications Reviewed: Medications were reviewed in detail Medications High risk meds include Dilaudid Lab and Diagnostics Result Diagram: 02/24/17 02502/24/17 025 X-Rays, CTs and MRIs CT ABDOMEN AND PELVIS WITH CONTRAST IMPRESSION: 1. Multiple dilated loops of small bowel associated circumferential wall thickening compatible small bowel obstruction. 2. Fluid collection with irregular peripheral enhancement in the right lower quadrant adjacent to cecum and terminal ileum concerning for abscess. The appendix is not definitely visualized in ruptured appendix cannot be excluded. 3. Circumferential wall thickening involving the terminal ileum which could related to pathology involving the appendix or a Crohn's disease. 4. Moderate amount of ascites scattered throughout the abdomen and pelvis. There is associated mild peritoneal enhancement consistent with peritonitis. 5. 5 mm nodule in the left lower lobe. Recommend follow up imaging based on criteria outlined below. ADDENDUM IMPRESSION: 1. Multiple dilated loops of small bowel associated circumferential wall thickening compatible small bowel obstruction and possible bowel ischemia. 2. Fluid collection with irregular peripheral enhancement in the right lower quadrant adjacent to cecum and terminal ileum concerning for abscess. The appendix is not definitely visualized and ruptured appendix cannot be excluded. 3. Circumferential wall thickening involving the terminal ileum which could related to pathology involving the adjacent appendix or inflammatory bowel disease such as Crohn's disease. 4. Moderate amount of ascites scattered throughout the abdomen and pelvis. There is associated mild peritoneal enhancement consistent with peritonitis. 5. 5 mm nodule in the left lower lobe. Recommend follow up imaging based on criteria outlined below. Approved by: Radha Cruz MD, PhD on 02/17/2017 at 9:54 Approved by: Radha Cruz MD, PhD on 02/17/2017 at 10:36 CT ABDOMEN AND PELVIS WITHOUT CONTRAST IMPRESSION: 1. Extensive large and small bowel pneumatosis in the setting of small bowel obstruction with extensive portal venous gas which has developed in the interval since prior CT scan obtained 02/17/17 at 0235 hours. Findings compatible with bowel ischemia. 2. Peritoneal pneumatosis and pneumoretroperitoneum which could be related to ruptured bowel versus infection with gas-forming organism. 3. Free intraperitoneal air and mesenteric air consistent with bowel perforation and/or mesenteric ischemia. 4. Decreased IVC caliber highly suspicious for severe hypotension. Please correlate with clinical data. 5. Moderate to large amount of ascites which is increased in volume compared to 02/17/17. The ascites has increased density compared to the prior CT scan which could be related to hemorrhage, proteinaceous fluid or infectious fluid. 6. Dilated loops of small bowel compatible with small bowel obstruction. 7. Probable right lower quadrant pericecal abscess suboptimally visualized in the absence of intravenous contrast does not appear significantly changed compared to prior CT scan. 8. Trace bilateral pleural effusions. Approved by: Radha Cruz MD, PhD on 02/17/2017 at 10:58 X-RAY CHEST ONE VIEW, PORTABLE IMPRESSION: 1. New left lower lobe infiltrates with associated pleural effusion. Improved right perihilar pulmonary opacities. 2. Stable support devices. Approved by: Dylon Gonzalez M.D. on 02/23/2017 at 7:24 Cardiac Echo Impressions Echocardiogram on 02/17/2017 Interpretation Summary Technically difficult study limits valve visualization. 1) Normal left ventricular thickness and size with severely reduced systolic function (EF 20-25%). 2) Borderline right ventricular enlargement with moderately reduced function. 3) No significant valvular abnormalities. 4) No prior Echo available for comparison. If endocarditis is suspected, consider CATRACHITO. Assessment & Plan Mr. Perez is a 36-year-old gentleman with PMHX significant for polysubstance abuse and has been incarcerated at [facility] for the recent 12 days prior to admission, who presented to the emergency department with a 2 week onset of increasing abdominal pain with associated fever, chills, nausea, vomiting, diaphoresis. CT scan showed free air in the abdomen and was taken emergently to surgery and found to have severe necrotizing perforated appendicitis. Acute Hypoxemia Respiratory Failure, not present on admission, Active - Overnight 02/23/2017 the patient acutely desaturated during a linen change with oxygen saturation into the low to mid 70s. The ventilator was changed from pressure control to PRVC with FiO2 of 100% PEEP of 8, respiratory rate of 16 and tidal volumes of 500. - Worsening hypoxemia acutely after tensioning of [place] patch seems due to RLL atelectasis due to mucus plug and or compression - currently returned to FIO2 of 0.5 - Respiratory therapy to perform localized CPT -Today 02/24, patient was successfully extubated without complications Severe necrotizing perforated appendicitis, acute, present on admission, Active -As evidenced by the CT above --On 02/17/17, patient underwent Exploratory laparotomy, ileocecectomy, VAC dressing placement. -On 02/19/17, patient returned to surgery for Exploration of previous laparotomy , Adhesiolysis, Resection of distal ileum, 10 cm., Resection of hepatic flexure (7 cm)., and Loop ileostomy -On 02/21/17, patient returned to surgery for another exploratory laparotomy with ileocolic anastomosis but unable to close the fascia so [place] Patch was sewn to his fascia and will require daily adjustments -Patient with open abdominal wound and wound vac in place, output has been copious, surgery will continue to manage -Current analgesia with Fentanyl drip, patient with likely pre-existing opiate habituation -Continue Zosyn per ID, able to discontinue micafungin -Patient is intubated on ventilation support, continue cautious diureses -Surgery closed the patient's abdominal incision 02/23/2017 -Begin PT and mobilization now post extubation -Dilaudid VEHICLE SALES PROFESSIONAL for analgesia Severe Sepsis with severe lactic acidosis, acute, present on admission, under evaluation -Initially Secondary to severe necrotizing perforated appendicitis with feculent peritonitis -On admit: T 35.9, P1 44, RR 34, lactic acid 7.6, with repeat 4.8 -Surgery found his appendix obviously ruptured and in 2 pieces, with extensive associated necrotic tissue through the peritoneal cavity, as well as a likely abscess in the RLQ, patient had multiple staged I&D of necrotic tissue and patient was started on broad-spectrum antibiotics -Patient has been dependent upon aggressive fluid resuscitation with copious NS , Albumin, and 2U PRBC to date -Propofol/ fentanyl for sedation and analgesia -The patient continues to have worsening leukocytosis with fever of 38.4 with tachycardia consistent with possible ongoing infection Tachycardia and stress induced cardiomyopathy, POA, acute. Active -ECHO demonstrated EF of 20-25% with little structural heart disease, likely indicative of acute decompensation -Was briefly on Dobutamine drip after being admitted -Follow up ECHO prior to discharge Microcytic anemia, not present on admission, ongoing -Patient has received 2 units PRBC to maintain intravascular volume -Iron Studies show low iron 19 and low TIBC -However, H&H has been trending up and there is no indication to get iron supplementation -Today,H&H 9.9/30.7 respectively Hypertension, ongoing -This could be due to withdrawals or possibly pain -Started enalaprilat prn for systolic blood pressure greater than 150 -Continue to monitor blood pressure Hyperglycemia, acute, present on admission, under evaluation - On admit:Glc 215 - Likely secondary to stress release - Regular insulin Low dose correctional scale through his TPN - check blood glucose q 6 hrs Elevated liver function tests likely secondary to active hepatitis C infection, chronicity unknown, present on admission, improving - On admit: total bili 2.0 AST, 41 ALT, 92 Alk Phos 90 -Today, Total bili 2.9, AST 52, ALT 118 - Hep panel indicates active Hep C infection with viral load of 260,000 - HIV negative Acute kidney injury, present on admission, resolved - On admit:Cr 1.35 - Likely secondary to dehydration resulting from nausea and vomiting due to underlying infection -After extensive fluid resuscitation, Cr today is 0.56 Multiple Electrolyte abnormalities, present on admission, resolved - On admit: K 3.0, Mg 2.2, K rider was given initially - Today, K 4.6, Ca 7.6, Phos 3.3, Mg 2.1 -Continue TPN, titrate down and swallow/feeding as tolerated -Will continue to confer with surgery in regards to advancing diet Polycythemia, chronicity unknown, present on admission, Resolved - On admit: Hemoglobin 18.9, hematocrit 54.1 - Likely secondary to dehydration from recent nausea and vomiting due to abdominal pain History of incarceration -STENCIL CUTTER MACHINE consult -Hep panel indicative of past infection -HIV negative -MRSA nasal swab negative DVT prophylaxis: Currently contraindicated given need for ongoing surgical procedures GI prophylaxis: None indicated at this time CODE STATUS full Disposition: The patient will likely remain inpatient for possibly up to one more week as he will require a closure of his abdominal incision and being weaned from the ventilator. Pain Evaluation: Adequate Pain Control GI Prophylaxis: H2 mack VTE Prophylaxis: Sub-Q Heparin (Unfractionated) VTE Mechanical Devices: Intermittant Pneumatic CD Resuscitation Status: CPR: Attempt Resuscitation Attending Statement The patient was seen and examined together with Dr. Zelaya on 02/24/2017 and I agree with the history, exam and plan as outlined in the note above. . Leah Zelaya DO Feb 24, 2017 07:24 Godfrey Bolton MD Feb 27, 2017 18:14
--- NOTE | 2017-02-24 16:17 | NUR ---
Progressing towards planned outcomes. Alert and oriented x 3. ST per attic blower. Pressure stable, MAP >65. Systolic pressures trending in 140s, diastolic 90s. Arterial line d/c. Cash to DD with 2900cc out this shift. Lungs barber decreased in bases. Denies SOA. Sp02 >92% on room air. ISP and pulmonary hygiene encouraged hourly. Dilaudid BODY ARTIST with basal and bolus dose continued for pain control, pain adequately controlled at this time. Up to chair with PT, pt tolerating increased activity levels. Speech evaluation completed, STIM diet ordered. Denies nausea. No reported flatus. Wound vac secure draining scant amount of sanguineous fluid. Lower bulb drains secure with minimal serous output. Family remains at bedside.
--- NOTE | 2017-02-24 16:30 | PATH ---
SURGICAL PATHOLOGY Attending Physician:Latoya Freedman MD CASE STATUS: Signed Out PATIENT NAME: LEON GUERRERO PID: [id number] : 1980 DATE COLLECTED:02/19/2017 00:00 SPECIMEN: 1: Colon, Segment Resection, Non-Tumor 2: Colon, Segment Resection, Non-Tumor CLINICAL HISTORY: 1). PROXIMAL TRANSVERSE COLON 2). DISTAL ILEUM FINAL DIAGNOSIS: 1. Proximal Transverse Colon, Resection: Segment of colon with serositis. Negative for dysplasia or malignancy. Histologically viable margins of resection. 2. Distal Ileum, Resection: Segment of small bowel with serositis and granulation tissue. Negative for dysplasia or malignancy. Histologically viable margins of resection. ICD10: K35.2 GROSS DESCRIPTION: The specimens are received in formalin, labeled with the patient's name, and sublabeled as the following: (1) proximal transverse colon; (2) distal ileum. (1) The specimen consists of an unoriented segment of colon (length-8.8 cm, resection margin #1 diameter-1.5 cm, resection margin #2 diameter-5.5 cm). The resection margins are received stapled. The serosa is scott smooth and shiny. The wall is focally thin. The mucosa is andrade with normal folds and focally flat involving the thin area. No nodules, masses or lesions are identified. Ink code: black-resection margin. Section code: (1A) resection margin #1, longitudinally sectioned, sales development representative; (1B) resection margin #2, longitudinally sectioned, sales development representative; (1C-1G) colon segment, serially sectioned and submitted from resection margin #1 to #2, sales development representative. (2) The specimen consists of an unoriented segment of small bowel (length-13.5 cm, resection margin #1 diameter - 4.1 cm, resection margin #2 diameter-3.7 cm), and attached adipose tissue (up to 2.5 cm in depth). The resection margins are received stapled. The serosa is red-brown smooth and shiny. The mucosa is scott-andrade with enlarged edematous folds. The adipose tissue is partially covered by andrade-white flaky friable exudate. No nodules, masses or lesions are identified. Ink code: black-resection margin. Section code: (2A) resection margin #1, longitudinally sectioned, sales development representative; (2B) resection margin #2, longitudinally sectioned, sales development representative; (2C-2G) small bowel segment, serially sectioned and submitted from resection margin #1 to #2, sales development representative. 02/20/17 ICD-9 CODES: CPT CODES: 1: 75337 2: 94710 Electronically Signed Out Naren Lloyd MD, Ph.D. [facility] [address], [place] [address] Technical component performed at [facility], [address], [place], [address]
--- NOTE | 2017-02-24 17:46 | NUR ---
spiritual care: follow up/family pt's aunt offered update and asked for continued support. brief caring visit with pt who was tearful, emotive, expressive, oriented. Pt expressed gratitude and overwhelm as he is coming to terms with his situation. will follow.
[2017-02-24] MEDS: Sodium Chloride LOK Flush 10 mL Syringe IVFLUSH PRN (20:33)
[2017-02-24] MEDS ORDERED: 0.9% Sodium Chloride 1,000 ML IV SCH (22:10)
[2017-02-25] VITALS (13 sets, daily range): BP systolic 131–142; BP diastolic 84–93; PULSE 96–109; RESP 16–20; O2SAT 97–100
[2017-02-25] MEDS: Heparin 5,000 Unit/mL Inj SUBQ SCH ×3 (00:23→17:26)
[2017-02-25] MEDS: HYDROmorphone PCA 0.2 mg/mL 30 mL Inj IV PRN ×8 (00:35→20:51)
[2017-02-25] MEDS: Insulin Human REGular 300 Unit/3 mL Inj - Low SUBQ SCH ×4 (02:30→20:30)
[2017-02-25] MEDS: Piperacillin-Tazo 3.375 Gm Inj 3.375 GM in Dextrose 5% Minibag Plus 50 ML IV SCH ×4 (03:17→20:51)
[2017-02-25 04:43] LABS: Mean Corpuscular Hemoglobin 26.1 pg (27.0-35.0); Mean Corpuscular Volume 81.7 fL (81-100); Platelet Count 376 bil/L (150-400)
[2017-02-25 05:05] LABS: INR 0.98 ratio
[2017-02-25 05:13] LABS: Magnesium 2.4 mg/dL (1.6-2.6); Phosphorus 3.5 mg/dL (2.5-4.9)
[2017-02-25 05:20] LABS: BASOPHILS % (AUTO) 0 % (0-3); EOSINOPHILS % (AUTO) 3 % (0-5); MONOCYTES % (AUTO) 13 % (4-12); NEUTROPHILS % (AUTO) 64 % (40-74)
[2017-02-25] MEDS: TPN Per Pharmacist XX SCH (07:49)
[2017-02-25] MEDS: Micafungin Inj 150 MG in 0.9% Sodium Chloride 100 ML IV SCH (08:06)
--- NOTE | 2017-02-25 09:21 | NUR ---
Evaluation completed. Please go to "Notes" then click on "Assessments and Notes" (bottom left corner of screen). Then select appropriate discipline tab on top of screen.
--- NOTE | 2017-02-25 09:49 | PROG NOTE ---
[address] [address] PROGRESS NOTE PATIENT: LEON GUERRERO : 1980 MR#: [id number] ADMIT: 02/17/2017 JOB ID: [id number] DATE: 02/25/2017 INFECTIOUS DISEASE FOLLOW UP NOTE: REASON FOR FOLLOWUP: Complicated intra-abdominal infection. INTERVAL HISTORY: Overnight, the patient has been alert and experiencing some abdominal pain, though it is gradually improving. He also has a bit of a cough but not severe. He denies significant fevers, chills, sweats or shortness of breath. This patient was discussed at the bedside with the ICU nurse. PHYSICAL EXAMINATION: Reveals a consistently afebrile gentleman. He has now been afebrile for 48 hours. Current temperature 36.6, pulse about 100, respiratory rate about 18, blood pressure 137/93, saturating well on 2 L. He is in no distress though he is quite anxious. He is alert and oriented. Oral cavity negative. His lungs are notable for a few crackles at the right base but relatively clear. Cardiac tones regular rate and rhythm. Abdomen still with a midline Wound VAC as well as an ileostomy and bilateral [place] drains. The abdomen is only mildly tender, however. LABORATORIES: Include white count which is normalized 9700 though still with left shift as he has 1% myelocytes and metamyelocytes. Creatinine 0.69. LFTs normal. Procalcitonin down to 4 from a level greater than 400 so has had a 99% fall in procalcitonin which in the literature correlates with an excellent response to antibacterial agents. Hep C viral load 261,000. This is not an emergent problem but will need to be addressed after the patient's discharge. Micro includes negative fungal blood cultures from yesterday. His peritoneal fluid grew three anaerobes as previously mentioned. IMAGING: His chest x-ray from today was reviewed on the computer and compared to prior films. There may be a hint more infiltrate at the right base and less at the left base as compared to prior films. Probably this largely represents atelectasis. The pathology report is now available. It shows serositis but no malignancy. IMPRESSION: This patient continues to steadily improve. His procalcitonin has now dropped by 99% and his white count is normal except for the bit of a left shift. Yesterday, we were concerned because he had an increasing bandemia which seems to have already resolved, but at this point, I think we should continue with his micafungin which had been previously stopped. RECOMMENDATIONS: 1. Continue with Zosyn and micafungin. 2. We await fungal blood cultures. 3. Will continue to closely follow this patient with you.
--- NOTE | 2017-02-25 10:16 | PCM.PNSURG ---
Subjective Visit Information: Reason for Visit Pericecal Abscess,Sbo,Sepsis Surgery/Surgery Date Post-Op Day # Date of Admission: Feb 17, 2017 at 04:07 Hospital Day # Subjective: Extubated, having ostomy output, minimal drainage in left lower quadrant [place] and right upper quadrant [place]. He has been off pressors for almost a week. He is net positive approximately 5.5 L, a significant improvement. Urine output approximately 4 L. Ostomy output approximately 200 mL. Objective Vital Sign- Last 8 Hours Date Time Temp Pulse Resp B/P Pulse Ox O2 Delivery O2 Flow Rate FiO2 02/25/17 08:50 109 02/25/17 07:51 36.8 99 18 137/93 99 Nasal Cannula 2.00 02/25/17 07:51 17 99 02/25/17 03:57 37.0 107 20 131/86 98 Nasal Cannula 2.00 02/25/17 03:49 20 97 Intake and Output- Last 8 Hour 02/25/17 Cumulative From/Thru 07:00 02/17/17 00:10 - 02/25/17 03:53 Intake Total 1012 ml 24483.5 ml Output Total 1040 ml 34182 ml Balance -28 ml 5749.5 ml Intake Oral 125 ml IV Total 381 ml 11674.5 ml TPN/PPN 631 ml 4070 ml Packed Cells 350 ml Output Urine Total 1000 ml 20511 ml Stool Total 4050 ml Gastric Drainage Total 8405 ml Drainage Total 40 ml 7300 ml Peritoneal Fluid 1160 ml Estimated Blood Loss 24 ml # Bowel Movements 0 General: Alert, Oriented X3, Cooperative, No Acute Distress Abdomen: Soft, Appropriately tender, Other (wound VAC is in place with good suction in the midline. Left lower quadrant abdominal pain with trace serous drainage. Right upper quadrant abdominal drain with trace serous drainage.) Result Diagram: 02/25/17 0430 02/25/17 0430 Assessment & Plan Impression 36-year-old male who presented in septic shock. He required laparotomy with an open abdomen and ileocecectomy; reexcision of terminal ileum and hepatic flexure of colon with diverting loop ileostomy; ileocolic anastomosis with placement of [place] patch and closure of fascia, now postoperative day 2 from this. He is stable, extubated, and diet is being advanced. Problems: Plan 1. Advance diet as tolerated. 2. Discontinue Cash. 3. Ambulation. 4. From a surgical standpoint, OK to discharge from ICU to PCC status. 5. Left lower quadrant abdominal drain will be discontinued. Continue right upper quadrant abdominal drain for now. Continue wound VAC. 6. Appreciate management by the hospitalist service, the intensive care team, and Dr. Lerner's ID team. VTE Prophylaxis: Sub-Q Heparin (Unfractionated) Resuscitation Status: CPR: Attempt Resuscitation Latoya Freedman MD Feb 25, 2017 10:16
--- NOTE | 2017-02-25 11:00 | PCM.PNMED ---
Subjective Date of Service Feb 25, 2017 Subjective Pulmonary critical care progress note, consult requested by Dr. Aris Bobcorey Perez is a 36 year old man with a PMH of polysubstance abuse who presents with a several day history of abdominal pain; he had been incarceration for 12 days prior to presentation. He had a CT scan which demonstrated free air in the abdomen, and was subsequently taken for emergent surgery and found to have ruptured appendicitis with feculent peritonitis and diffuse necrosis throughout the peritoneum. The patient was extubated yesterday and is progressing well from a pulmonary standpoint, upon examination today he was tolerating room air without difficulty. He continues to complain of a large degree of abdominal pain, and would like to advance his diet. Otherwise he has no focal complaints. Exam Vital Signs Vital Sign - Last Date Time Temp Pulse Resp B/P Pulse Ox O2 Delivery O2 Flow Rate FiO2 02/25/17 08:50 109 02/25/17 07:51 36.8 18 137/93 99 Nasal Cannula 2.00 02/24/17 07:53 40 Intake and Output 02/24/17 02/24/17 02/25/17 Cumulative From/Thru 15:00 23:00 07:00 02/17/17 00:10 - 02/25/17 03:53 Intake Total 1100 ml 1012 ml 56097.5 ml Output Total 2990 ml 1040 ml 88360 ml Balance -1890 ml -28 ml 5749.5 ml Intake Oral 125 ml 125 ml IV Total 451 ml 381 ml 24570.5 ml TPN/PPN 524 ml 631 ml 4070 ml Packed Cells 350 ml Output Urine Total 2900 ml 1000 ml 60598 ml Stool Total 50 ml 4050 ml Gastric Drainage Total 8405 ml Drainage Total 40 ml 40 ml 7300 ml Peritoneal Fluid 1160 ml Estimated Blood Loss 24 ml # Bowel Movements 0 Exam Gen: Intubated and sedated young man with extensive Tattoos, post extubation patient communicating appropriately with a hoarse voice though quite somnolent Neck: Right IJ in place and appears patent, no JVD, HEENT:PERRL with miosis, EOMI, no scleral icterus CV: Regular Tachycardia with no murmurs rubs or gallops Resp: Diffuse mild crackles BL, no wheezing rales or rhonchi Abd: Large abdominal wound with closed fascia and wound vac in soft tissue in place, 4 OR[place]O drains along patient's flanks, distended, slightly firm, ostomy in RLQ with pink well perfused stoma and output of brown liquid stool Extr: Warm to the touch, no edema, no cyanosis or clubbing Neuro: CN 2-12 grossly intact. no focal neurologic deficit. Psych: Patient somewhat somnolent with delayed response to questioning, endorses pain but does not manifest any objective signs of distress IVs and Medications Medications Reviewed: Medications were reviewed in detail Lab and Diagnostics Item Value Date Time Red Blood Count 3.56 mil/mm3 L 02/25/17429 Mean Corpuscular Volume 81.7 fL 02/25/17429 Mean Corpuscular Hemoglobin 26.1 pg L 02/25/17429 Mean Corpuscular Hemoglobin Concent 32.0 % 02/25/17429 Red Cell Distribution Width 14.7 % 02/25/17429 Neutrophils (%) (Auto) 64 % 02/25/17429 Lymphocytes (%) (Auto) 16 % 02/25/17429 Eosinophils (%) (Auto) 3 % 02/25/17429 Monocytes (%) (Auto) 13 % H 02/25/17429 Basophils (%) (Auto) 0 % 02/25/17429 Band Neutrophils % 2 % 02/25/17429 Metamyelocytes % 1 % H 02/25/17429 Myelocytes % 1 % H 02/25/17429 Estimat Glomerular Filtration Rate 138 mL/min 02/25/17429 Calcium Level 8.3 mg/dL L 02/25/17429 Phosphorus Level 3.5 mg/dL 02/25/17429 Magnesium Level 2.4 mg/dL 02/25/17429 Total Bilirubin 1.0 mg/dL 02/25/17429 Aspartate Amino Transf (AST/SGOT) 30 U/L 02/25/17429 Alanine Aminotransferase (ALT/SGPT) 38 U/L 02/25/17429 Alkaline Phosphatase 97 U/L 02/25/17429 Total Protein 6.5 g/dL 02/25/17429 Albumin 2.8 g/dL L 02/25/17429 Procalcitonin 3.89 ng/mL H 02/25/17429 Result Diagram: 02/25/1742902/25/17 0430 Microbiology Peritoneal fluid culture reveals: Peptostreptococcus Anaerobius Fusobacterium Nucleatum Bacteroides Fragilis . X-Rays, CTs and MRIs CT ABDOMEN AND PELVIS WITH CONTRAST IMPRESSION: 1. Multiple dilated loops of small bowel associated circumferential wall thickening compatible small bowel obstruction. 2. Fluid collection with irregular peripheral enhancement in the right lower quadrant adjacent to cecum and terminal ileum concerning for abscess. The appendix is not definitely visualized in ruptured appendix cannot be excluded. 3. Circumferential wall thickening involving the terminal ileum which could related to pathology involving the appendix or a Crohn's disease. 4. Moderate amount of ascites scattered throughout the abdomen and pelvis. There is associated mild peritoneal enhancement consistent with peritonitis. 5. 5 mm nodule in the left lower lobe. Recommend follow up imaging based on criteria outlined below. ADDENDUM IMPRESSION: 1. Multiple dilated loops of small bowel associated circumferential wall thickening compatible small bowel obstruction and possible bowel ischemia. 2. Fluid collection with irregular peripheral enhancement in the right lower quadrant adjacent to cecum and terminal ileum concerning for abscess. The appendix is not definitely visualized and ruptured appendix cannot be excluded. 3. Circumferential wall thickening involving the terminal ileum which could related to pathology involving the adjacent appendix or inflammatory bowel disease such as Crohn's disease. 4. Moderate amount of ascites scattered throughout the abdomen and pelvis. There is associated mild peritoneal enhancement consistent with peritonitis. 5. 5 mm nodule in the left lower lobe. Recommend follow up imaging based on criteria outlined below. Approved by: Radha Cruz MD, PhD on 02/17/2017 at 9:54 Approved by: Radha Cruz MD, PhD on 02/17/2017 at 10:36 CT ABDOMEN AND PELVIS WITHOUT CONTRAST IMPRESSION: 1. Extensive large and small bowel pneumatosis in the setting of small bowel obstruction with extensive portal venous gas which has developed in the interval since prior CT scan obtained 02/17/17 at 0235 hours. Findings compatible with bowel ischemia. 2. Peritoneal pneumatosis and pneumoretroperitoneum which could be related to ruptured bowel versus infection with gas-forming organism. 3. Free intraperitoneal air and mesenteric air consistent with bowel perforation and/or mesenteric ischemia. 4. Decreased IVC caliber highly suspicious for severe hypotension. Please correlate with clinical data. 5. Moderate to large amount of ascites which is increased in volume compared to 02/17/17. The ascites has increased density compared to the prior CT scan which could be related to hemorrhage, proteinaceous fluid or infectious fluid. 6. Dilated loops of small bowel compatible with small bowel obstruction. 7. Probable right lower quadrant pericecal abscess suboptimally visualized in the absence of intravenous contrast does not appear significantly changed compared to prior CT scan. 8. Trace bilateral pleural effusions. Approved by: Radha Cruz MD, PhD on 02/17/2017 at 10:58 X-RAY CHEST ONE VIEW, PORTABLE IMPRESSION: 1. New left lower lobe infiltrates with associated pleural effusion. Improved right perihilar pulmonary opacities. 2. Stable support devices. Approved by: Dylon Gonzalez M.D. on 02/23/2017 at 7:24 Cardiac Echo Impressions Echocardiogram on 02/17/2017 Interpretation Summary Technically difficult study limits valve visualization. 1) Normal left ventricular thickness and size with severely reduced systolic function (EF 20-25%). 2) Borderline right ventricular enlargement with moderately reduced function. 3) No significant valvular abnormalities. 4) No prior Echo available for comparison. If endocarditis is suspected, consider CATRACHITO. Assessment & Plan Mr. Perez is a 36-year-old gentleman with PMHX significant for polysubstance abuse and has been incarcerated at [facility] for the recent 12 days prior to admission, who presented to the emergency department with a 2 week onset of increasing abdominal pain with associated fever, chills, nausea, vomiting, diaphoresis. CT scan showed free air in the abdomen and was taken emergently to surgery and found to have severe necrotizing perforated appendicitis. Patient has had further abdominal surgery x3 with progressive alimentary revision and wound closure with current ostomy and fascial but not subq tissue closure. Patient Extubated 02/24 without complication, alternately tolerating room air and nasal cannula. Patient is progressing quite well from a pulmonary standpoint, we will sign off at this time. Severe Sepsis, acute, present on admission, Improving -Secondary to severe necrotizing perforated appendicitis with feculent peritonitis -On admit: T 35.9, P1 44, RR 34, lactic acid 7.6, with repeat 4.8 -Patient underwent laparotomy with appendectomy and colectomy -Surgery found his appendix obviously ruptured and in 2 pieces, with extensive associated necrotic tissue through the peritoneal cavity, as well as a likely abscess in the RLQ -Continue Zosyn, Micafungin per ID -Patient was initially dependent upon aggressive fluid resuscitation with copious NS, Albumin, and 2U PRBC to date -Transitioning to diuresis to improve gut edema, patient approaching euvolemia -Patient has now been weaned off pressors, and esmolol drip -Further [place] drains placed to expedite intra-abdominal drainage -Patient extubated 02/24 Severe necrotizing perforated appendicitis, acute, present on admission, Improving -As evidenced by the CT above -Surgical intervention as above -Ostomy in place, Surgery anticipated a fairly extended period of ostomy use before takedown -Dr. Freedman from General surgery is managing the surgical aspect of this patient -Patient returned to OR 02/21 with placement of Cataño patch to facilitate gradual wound closure, anastamosis performed with good results -Fascia closure on 02/23 -Patient with open abdominal wound(fascia closed) and wound vac in place, output was initially copious, now declining, surgery will continue to manage -Will continue to confer with surgery in regards to advancing diet, currently on Stim -Begin PT and mobilization now post extubation -Dilaudid PHYSICAL GEOGRAPHER for analgesia -Will progressively wean back analgesic regimen Tachycardia and stress induced cardiomyopathy, POA, acute. Active -ECHO demonstrated EF of 20-25% with little structural heart disease, likely indicative of acute decompensation -Was briefly on Dobutamine drip -Weaned off esmolol drip -Will repeat ECHO later in hospital stay or as outpatient to assess for improvement post shock Lactic acidosis, acute, present on admission, Resolved -Likely secondary to septic process as above -On admit: Initial 7.6 -Has normalized -Patient has been adequately fluid resuscitated, transitioning to diuresis -Patient is currently intubated, sedated, and ventilated History of incarceration -[employer] TECHNICIAN consult -Hep panel indicative of past infection -Be aware of pre-existing opiate abuse and habituation when managing analgesia -HIV negative -MRSA nasal swab negative Pulmonary critical care will sign off at this time; if there are any further concerns feel free to consult us at any time. Pain Evaluation: Adequate Pain Control GI Prophylaxis: H2 mack VTE Prophylaxis: Sub-Q Heparin (Unfractionated) VTE Mechanical Devices: Intermittant Pneumatic CD Resuscitation Status: CPR: Attempt Resuscitation Antonio Lewis DO Feb 25, 2017 11:00
--- NOTE | 2017-02-25 11:40 | DRSVH ---
PROCEDURE: X-RAY CHEST ONE VIEW, PORTABLE ([id number]) INDICATIONS: fu post extubation TECHNIQUE: One view of the chest was acquired. COMPARISON: [facility], CR, XR CHEST 1VW (PORTABLE), 02/23/2017, 4:34. [facility], CR, XR CHEST 1VW (PORTABLE), 02/22/2017, 10:16. [facility], CR, XR CHEST 1VW (PORT ABLE), 02/22/2017, 4:18. [facility], CR, XR CHEST 1VW (PORTABLE), 02/20/2017, 3:46. [facility], CR, XR CHEST 1VW (PORTABLE), 02/19/2017, 5:25. [facility], CR, XR CHES T 1VW (PORTABLE), 02/24/2017, 5:11. FINDINGS: Surgical changes and devices: Right IJ CVL tip projected over the lower SVC. Lungs and pleura: Lung volumes have decreased and there's been interval increase in bibasilar airspac e opacities. No pneumothorax. Mediastinum: Mediastinal contours appear normal. Heart size is normal. Bones and chest wall: No suspicious bony lesions. Overlying soft tissues appear unremarkable. IMPRESSION: Bibasilar atelectasis versus aspiration or pneumonia increased from prior exam. . Dictated by: Harvinder Tamez RRA Interpreted: Hema Leonardo MD on 02/25/2017 at 9:32 Approved by: Hema Leonardo M.D. on 02/25/2017 at 11:38
--- NOTE | 2017-02-25 12:26 | PROG NOTE ---
[address] [address] PROGRESS NOTE PATIENT: LEON GUERRERO : 1980 MR#: [id number] ADMIT: 02/17/2017 JOB ID: [id number] DATE: PLAN: Left lower quadrant [place] drain was removed without difficulty.
[2017-02-25] MEDS ORDERED: 0.9% Sodium Chloride 250 ML ONE (12:51)
--- NOTE | 2017-02-25 13:15 | PCM.PHAPRO ---
Progress Abdominal pain with associated nausea, vomiting, diaphoresis, fever, chills TPN#6 PARENTERAL NUTRITION ORDERS 6 25-Feb-17 Standard Hang Time: 2100 Substrates Total kcal: 1116 AMINO ACIDS 80 g DEXTROSE 190 g Total Volume (mL): 2400 LIPIDS 15 g Sterile Water for Injection mL To Infuse Over (hrs): 24 Total Volume 2400 mL At at a rate of (mL/hr): 100 Additives Sodium Chloride 80 mEq "typical" daily requirements Sodium Acetate 60 mEq Sodium 50-120mEq Potassium Chloride 40 mEq Potassium 60-120mEq Potassium Phosphate 40 mEq Phosphate 20-40mEq Calcium Gluconate 9 mEq Magnesium 8-32mEq Magnesium Sulfate 16 mEq Calcium 9-22mEq Acetate* 80-120mEq Chloride* 80-120mEq Regular Insulin units *Depending on acid-base status Famotidine 40 mg Multivitamins 1 std dose Insulin Regimen Trace Elements 1 std dose none Thiamine 100 mg Regular Low Intensity Subcut x Folic Acid 1 mg Regular Medium Intensity Subcut Ascorbic Acid 500 mg Regular High Intensity Subcut Regular Insulin Infusion Other: Special Instructions: Octavio Bansal Pharm D Feb 25, 2017 13:15
--- NOTE | 2017-02-25 13:55 | NUR ---
NUTRITION FOLLOW-UP: Assess: 36 YO male admitted with pericecal abscess, status post damage control laparotomy with ileocecostomy; re-exploration laparotomy with diverting loop ileostomy. TPN discontinued. Pt extubated 02/24. Diet advanced to soft, no PO intake recorded yet. PMHX: Heroin use. DIET: Soft. No PO intake yet. TPN: (D/C') D 190 g, amino acid 80 g, lipid 15 g, providing 1116 kcal, 80 g protein. LABS: Cr 0.69, Glu 113, Ca 8.3, Alb 2.8 MEDICATIONS: Reviewed. GI: Stool via ileostomy. SKIN: Per Audit Consultant, suspected DTI at midline sacrum. Abdominal wound with wound vac requiring closure. ANTHROPOMETRICS: Wt: 78.9 kg, BMI 24.3 kg/m2, Admit wt: 72.73 kg. ESTIMATED NEEDS: Calories: 6035-5286 kcal/day (25-30 kcal/kg BW) Protein: 84-101 g/day (1.0-1.2 g/kg BW) NUTRITION DIAGNOSIS: 1) Inadequate oral intake related to decreased ability to consume sufficient energy as evidenced by NPO status - PERSISTS. INTERVENTION: 1) Continue current diet as ordered. MONITOR/EVALUATE: PO intake, diet tolerance, labs, GI/nutrition status. Follow per high nutrition risk guidelines.
--- NOTE | 2017-02-25 14:44 | PCM.PNMED ---
Subjective Date of Service Feb 25, 2017 Subjective Mr. Perez is a 36-year-old gentleman with PMHX significant for polysubstance abuse and has been incarcerated at [facility] for the recent 12 days prior to admission, who presented to the emergency department with a 2 week onset of increasing abdominal pain with associated fever, chills, nausea, vomiting, diaphoresis. CT scan showed free air in the abdomen and was taken emergently to surgery and found to have severe necrotizing perforated appendicitis. He was extubated yesterday on 02/24/2017. He has been doing well since then. Dilaudid MARGIN TRIMMER with basal and bolus dose continued for pain control, pain adequately controlled at this time. Up to chair with PT, pt tolerating increased activity levels. Today, the goal is to increase mobilization and advance diet as tolerated. There were no acute events overnight. On review of systems, patient reports mild chest tenderness, shortness of breath and abdominal pain. Exam Vital Signs Vital Sign - Last Date Time Temp Pulse Resp B/P Pulse Ox O2 Delivery O2 Flow Rate FiO2 02/25/17 03:57 37.0 107 20 131/86 98 Nasal Cannula 2.00 02/24/17 07:53 40 Intake and Output 02/24/17 02/24/17 02/25/17 Cumulative From/Thru 15:00 23:00 07:00 02/17/17 00:10 - 02/25/17 03:53 Intake Total 1100 ml 1012 ml 38572.5 ml Output Total 2990 ml 1040 ml 78544 ml Balance -1890 ml -28 ml 5749.5 ml Intake Oral 125 ml 125 ml IV Total 451 ml 381 ml 15330.5 ml TPN/PPN 524 ml 631 ml 4070 ml Packed Cells 350 ml Output Urine Total 2900 ml 1000 ml 95389 ml Stool Total 50 ml 4050 ml Gastric Drainage Total 8405 ml Drainage Total 40 ml 40 ml 7300 ml Peritoneal Fluid 1160 ml Estimated Blood Loss 24 ml # Bowel Movements 0 Exam Gen: young man with extensive Tattoos, post extubation patient communicating appropriately, patient is alert awake oriented 3 and was conversational Neck: Right IJ in place and appears patent, no JVD, HEENT:PERRL with miosis, EOMI, no scleral icterus CV: Regular Tachycardia with no murmurs rubs or gallops Resp: Diffuse mild crackles BL, no wheezing rales or rhonchi Abd: Large abdominal wound with closed fascia and wound vac in soft tissue in place, 4 [place] drains along patient's flanks, distended, slightly firm, ostomy in RLQ with pink well perfused stoma and output of brown liquid stool Extr: Warm to the touch, continued improvement of edema, no cyanosis or clubbing Neuro: CN 2-12 grossly intact. no focal neurologic deficit. Psych: Patient reports today that he is in pain IVs and Medications Medications Reviewed: Medications were reviewed in detail Medications High risk medications include Dilaudid MARGIN TRIMMER Lab and Diagnostics Laboratory Tests Test 02/25/17 04:30 White Blood Count 9.7th/mm3 (3.8-10.1) Red Blood Count 3.56mil/mm3 (4.40-5.80) Hemoglobin 9.3g/dL (13.8-17.2) Hematocrit 29.1% (41.0-50.0) Mean Corpuscular Volume 81.7fL (81-100) Mean Corpuscular Hemoglobin 26.1pg (27.0-35.0) Mean Corpuscular Hemoglobin Concent 32.0% (32.0-37.0) Red Cell Distribution Width 14.7% (12.3-15.4) Platelet Count 376bil/L (150-400) Neutrophils (%) (Auto) 64% (40-74) Lymphocytes (%) (Auto) 16% (14-46) Monocytes (%) (Auto) 13% (4-12) Eosinophils (%) (Auto) 3% (0-5) Basophils (%) (Auto) 0% (0-3) Band Neutrophils % 2% (1-5) Metamyelocytes % 1% (0-0) Myelocytes % 1% (0-0) Prothrombin Time 10.5sec (8.1-12.5) Prothromb Time International Ratio 0.98ratio Sodium Level 141mEq/L (134-144) Potassium Level 4.0mEq/L (3.5-5.2) Chloride Level 104mEq/L (97-108) Carbon Dioxide Level 24mmol/L (18-29) Blood Urea Nitrogen 11mg/dL (6-20) Creatinine 0.69mg/dL (0.76-1.27) Estimat Glomerular Filtration Rate 138mL/min (>59) Glucose Level 113mg/dL (60-99) Calcium Level 8.3mg/dL (8.5-10.1) Phosphorus Level 3.5mg/dL (2.5-4.9) Magnesium Level 2.4mg/dL (1.6-2.6) Total Bilirubin 1.0mg/dL (0.0-1.2) Aspartate Amino Transf (AST/SGOT) 30U/L (0-50) Alanine Aminotransferase (ALT/SGPT) 38U/L (0-44) Alkaline Phosphatase 97U/L (25-150) Total Protein 6.5g/dL (6.4-8.4) Albumin 2.8g/dL (3.4-5.0) Procalcitonin 3.89ng/mL (0.00-0.08) Microbiology 02/24/17 Blood Fungal Culture, Received Pending 02/17/17 Gram Stain - Final, Complete 02/17/17 Culture & Sensitivity - Final, Complete No growth. 02/17/17 Anaerobic Culture - Final, Complete Peptococcus Anaerobius Fusobacterium Nucleatum Bacteroides Fragilis Group 02/17/17 MRSA (PCR) - Final, Complete 02/23/17 Sputum Quality Screen - Final, Resulted 02/23/17 Sputum Culture - Preliminary, Resulted No growth to date Result Diagram: 02/25/1742902/25/17 043 Microbiology Peritoneal fluid culture reveals: Peptostreptococcus Anaerobius Fusobacterium Nucleatum Bacteroides Fragilis . X-Rays, CTs and MRIs CT ABDOMEN AND PELVIS WITH CONTRAST IMPRESSION: 1. Multiple dilated loops of small bowel associated circumferential wall thickening compatible small bowel obstruction. 2. Fluid collection with irregular peripheral enhancement in the right lower quadrant adjacent to cecum and terminal ileum concerning for abscess. The appendix is not definitely visualized in ruptured appendix cannot be excluded. 3. Circumferential wall thickening involving the terminal ileum which could related to pathology involving the appendix or a Crohn's disease. 4. Moderate amount of ascites scattered throughout the abdomen and pelvis. There is associated mild peritoneal enhancement consistent with peritonitis. 5. 5 mm nodule in the left lower lobe. Recommend follow up imaging based on criteria outlined below. ADDENDUM IMPRESSION: 1. Multiple dilated loops of small bowel associated circumferential wall thickening compatible small bowel obstruction and possible bowel ischemia. 2. Fluid collection with irregular peripheral enhancement in the right lower quadrant adjacent to cecum and terminal ileum concerning for abscess. The appendix is not definitely visualized and ruptured appendix cannot be excluded. 3. Circumferential wall thickening involving the terminal ileum which could related to pathology involving the adjacent appendix or inflammatory bowel disease such as Crohn's disease. 4. Moderate amount of ascites scattered throughout the abdomen and pelvis. There is associated mild peritoneal enhancement consistent with peritonitis. 5. 5 mm nodule in the left lower lobe. Recommend follow up imaging based on criteria outlined below. Approved by: Radha Cruz MD, PhD on 02/17/2017 at 9:54 Approved by: Radha Cruz MD, PhD on 02/17/2017 at 10:36 CT ABDOMEN AND PELVIS WITHOUT CONTRAST IMPRESSION: 1. Extensive large and small bowel pneumatosis in the setting of small bowel obstruction with extensive portal venous gas which has developed in the interval since prior CT scan obtained 02/17/17 at 0235 hours. Findings compatible with bowel ischemia. 2. Peritoneal pneumatosis and pneumoretroperitoneum which could be related to ruptured bowel versus infection with gas-forming organism. 3. Free intraperitoneal air and mesenteric air consistent with bowel perforation and/or mesenteric ischemia. 4. Decreased IVC caliber highly suspicious for severe hypotension. Please correlate with clinical data. 5. Moderate to large amount of ascites which is increased in volume compared to 02/17/17. The ascites has increased density compared to the prior CT scan which could be related to hemorrhage, proteinaceous fluid or infectious fluid. 6. Dilated loops of small bowel compatible with small bowel obstruction. 7. Probable right lower quadrant pericecal abscess suboptimally visualized in the absence of intravenous contrast does not appear significantly changed compared to prior CT scan. 8. Trace bilateral pleural effusions. Approved by: Radha Cruz MD, PhD on 02/17/2017 at 10:58 X-RAY CHEST ONE VIEW, PORTABLE IMPRESSION: 1. New left lower lobe infiltrates with associated pleural effusion. Improved right perihilar pulmonary opacities. 2. Stable support devices. Approved by: Dylon Gonzalez M.D. on 02/23/2017 at 7:24 Cardiac Echo Impressions Echocardiogram on 02/17/2017 Interpretation Summary Technically difficult study limits valve visualization. 1) Normal left ventricular thickness and size with severely reduced systolic function (EF 20-25%). 2) Borderline right ventricular enlargement with moderately reduced function. 3) No significant valvular abnormalities. 4) No prior Echo available for comparison. If endocarditis is suspected, consider CATRACHITO. Assessment & Plan Mr. Perez is a 36-year-old gentleman with PMHX significant for polysubstance abuse and has been incarcerated at [facility] for the recent 12 days prior to admission, who presented to the emergency department with a 2 week onset of increasing abdominal pain with associated fever, chills, nausea, vomiting, diaphoresis. CT scan showed free air in the abdomen and was taken emergently to surgery and found to have severe necrotizing perforated appendicitis. Patient underwent surgery 3 times, including an ileocecectomy, resection of distal ileum and ileostomy, ileocolic anastomosis, and wound closure with current ostomy and fascial but not subcutaneous tissue closure. He was extubated on 02/24/2017 and has had significant improvement since hospitalization. Goals of care for today includes mobilization, pain control, advancing diet as tolerated. Acute Hypoxemia Respiratory Failure, not present on admission, resolved - Overnight 02/23/2017 the patient acutely desaturated during a linen change with oxygen saturation into the low to mid 70s. The ventilator was changed from pressure control to PRVC with FiO2 of 100% PEEP of 8, respiratory rate of 16 and tidal volumes of 500. - Worsening hypoxemia acutely after tensioning of Sarha patch seems due to RLL atelectasis due to mucus plug and or compression - currently returned to FIO2 of 0.5 - Respiratory therapy to perform localized CPT -Today 02/24, patient was successfully extubated without complications -He is tolerating nasal cannula supplemental oxygen and room air Severe necrotizing perforated appendicitis, acute, present on admission, Active -As evidenced by the CT above --On 02/17/17, patient underwent Exploratory laparotomy, ileocecectomy, VAC dressing placement. -On 02/19/17, patient returned to surgery for Exploration of previous laparotomy , Adhesiolysis, Resection of distal ileum, 10 cm., Resection of hepatic flexure (7 cm)., and Loop ileostomy -On 02/21/17, patient returned to surgery for another exploratory laparotomy with ileocolic anastomosis but unable to close the fascia so [place] Patch was sewn to his fascia and will require daily adjustments -Patient with open abdominal wound and wound vac in place, output has been copious, surgery will continue to manage -Current analgesia with Fentanyl drip, patient with likely pre-existing opiate habituation -Continue Zosyn per ID, able to discontinue micafungin -Patient is intubated on ventilation support, continue cautious diureses -Surgery closed the patient's abdominal incision 02/23/2017 -Begin PT and mobilization now post extubation -Dilaudid MARGIN TRIMMER for analgesia -Per surgery, we have Discontinue Cash, PT has been consulted for ambulation -Left lower quadrant abdominal drain has been discontinued. Continue right upper quadrant abdominal drain for now. Continue wound VAC -Surgery notes that in 6 weeks to 3 months, patient will have a takedown of the ileostomy and closure of the subcutaneous tissue. Severe Sepsis with severe lactic acidosis, acute, present on admission, under evaluation -Initially Secondary to severe necrotizing perforated appendicitis with feculent peritonitis -On admit: T 35.9, P1 44, RR 34, lactic acid 7.6, with repeat 4.8 -Surgery found his appendix obviously ruptured and in 2 pieces, with extensive associated necrotic tissue through the peritoneal cavity, as well as a likely abscess in the RLQ, patient had multiple staged I&D of necrotic tissue and patient was started on broad-spectrum antibiotics -Patient has been dependent upon aggressive fluid resuscitation with copious NS , Albumin, and 2U PRBC to date -We have discontinued Propofol/ fentanyl for sedation and analgesia Tachycardia and stress induced cardiomyopathy, POA, acute. Active -ECHO demonstrated EF of 20-25% with little structural heart disease, likely indicative of acute decompensation -Was briefly on Dobutamine drip after being admitted -Follow up ECHO prior to discharge Microcytic anemia, not present on admission, ongoing -Patient has received 2 units PRBC to maintain intravascular volume -Iron Studies show low iron 19 and low TIBC -Today,H&H 9.3/29.1respectively -Consider iron replacement Hypertension, ongoing, stable -This could be due to withdrawals or possibly pain -Started enalaprilat prn for systolic blood pressure greater than 150 -Continue to monitor blood pressure Hyperglycemia, acute, present on admission, under evaluation - On admit:Glc 215 - Likely secondary to stress release - Regular insulin Low dose correctional scale -Advance diet as tolerated - check blood glucose q 6 hrs Elevated liver function tests likely secondary to active hepatitis C infection, chronicity unknown, present on admission, improving - On admit: total bili 2.0 AST, 41 ALT, 92 Alk Phos 90 -Today, Total bili 2.9, AST 52, ALT 118 - Hep panel indicates active Hep C infection with viral load of 260,000 - HIV negative Acute kidney injury, present on admission, resolved - On admit:Cr 1.35 - Likely secondary to dehydration resulting from nausea and vomiting due to underlying infection -After extensive fluid resuscitation, Cr today is 0.69 Multiple Electrolyte abnormalities, present on admission, resolved - On admit: K 3.0, Mg 2.2, K rider was given initially - Today, K 4.0 Ca 7.6, Phos 3.3, Mg 2.1 -Advance diet as tolerated Polycythemia, chronicity unknown, present on admission, Resolved - On admit: Hemoglobin 18.9, hematocrit 54.1 - Likely secondary to dehydration from recent nausea and vomiting due to abdominal pain History of incarceration -WASTE CHOPPER consult -Hep panel indicative of past infection -HIV negative -MRSA nasal swab negative DVT prophylaxis: Currently contraindicated given need for ongoing surgical procedures GI prophylaxis: None indicated at this time CODE STATUS full Disposition: The patient will likely remain inpatient for possibly up to one more week as he will require a closure of his abdominal incision and being weaned from the ventilator. Pain Evaluation: Adequate Pain Control GI Prophylaxis: H2 mack VTE Prophylaxis: Sub-Q Heparin (Unfractionated) VTE Mechanical Devices: Intermittant Pneumatic CD Resuscitation Status: CPR: Attempt Resuscitation Attending Statement The patient was seen and examined together with Dr. Zelaya on 02/25/2017 and I agree with the history, exam and plan as outlined in the note above. . Leah Zelaya DO Feb 25, 2017 06:26 Godfrey Bolton MD Feb 27, 2017 18:14
--- NOTE | 2017-02-25 16:00 | NUR ---
Social Work: Continued Discharge Planning/Multidisciplinary rounds D/A: Patient discussed in multidisciplinary rounds; the patient has been extubated. The patient's aunt is requesting to speak with [employer] about obtaining a letter for the court now that the patient is able to sign an ANABELA. VINICIUS spoke with Chayito with Administration about the pt and aunt's request for a court letter. She confirms that even though the patient is able to sign an ANABELA, [facility] will not release any information or notification to the patient's securities attorney. She states that the securities attorney is welcome to visit the patient at bedside to get an update. [employer] CENTER [employer]IST met with the patient and his aunt. Pt agrees that he would like to have his aunt proceed to manage his court issues while he is hospitalized. [employer] C[employer] SPECIALIST informed the patient's aunt that a letter cannot be provided even with an ANABELA. She is very confused by this. [employer] C[employer]IST provided her with the contact information for Amina Russ's office and suggested she contact them for more information/justification as to why a letter cannot be provided. She appreciates [employer] involvement and states that she will make this phone call. P: In regards to the patient's clinical status, the patient's discharge needs have yet to be determined. [employer] C[employer] SPECIALIST will continue to follow closely to assess. Anticipate that if the patient is able to ambulate safely, the patient will be discharged and recommended to immediately follow up with his director of public relations to settle any outstanding legal matters. VINICIUS Estrada
--- NOTE | 2017-02-25 19:55 | NUR ---
Activity/Diet/GI/: Up to chair for breakfast and was able to tolerate sitting in chair for about 30 minutes. Worked with PT this afternoon and declined to get into chair for lunch. Good bed mobility. Frequent reminders to use spirometer and acapella. Pt able to demonstrate proper use. Tolerating soft diet without report of N/V. Illeostomy putting out large amount of liquid green/brown stool (1500cc). RLQ [place] bulb was changed to smaller bulb as requested by Dr Freedman (10cc serous drainage). Cash cath DC'd and pt able to void using urinal.
[2017-02-25] MEDS ORDERED: Total Parenteral Nutrition 1 BAG IV SCH (21:00)
[2017-02-26] VITALS (13 sets, daily range): BP systolic 123–141; BP diastolic 82–95; PULSE 94–110; RESP 12–22; O2SAT 90–98
--- NOTE | 2017-02-26 | NUR ---
Anxiety Pt reports feeling mildly anxious. MD notified and ordered for PRN IV Ativan received and implemented. Care ongoing
[2017-02-26] MEDS: HYDROmorphone PCA 0.2 mg/mL 30 mL Inj IV PRN ×3 (00:11→08:01)
[2017-02-26] MEDS: Heparin 5,000 Unit/mL Inj SUBQ SCH ×3 (01:30→17:28)
[2017-02-26] MEDS: Insulin Human REGular 300 Unit/3 mL Inj - Low SUBQ SCH ×2 (02:30→08:10)
[2017-02-26] MEDS: Piperacillin-Tazo 3.375 Gm Inj 3.375 GM in Dextrose 5% Minibag Plus 50 ML IV SCH ×3 (02:55→17:27)
[2017-02-26 05:51] LABS: BASOPHILS % (AUTO) 0.6 % (0-3); EOSINOPHILS % (AUTO) 2.8 % (0-5); MONOCYTES % (AUTO) 14.9 % (4-12); Mean Corpuscular Hemoglobin 26.1 pg (27.0-35.0); Mean Corpuscular Volume 81.2 fL (81-100); NEUTROPHILS % (AUTO) 62.1 % (40-74); Platelet Count 519 bil/L (150-400)
--- NOTE | 2017-02-26 07:32 | NUR ---
Transfer/Pain/Anxiety/GI/IJ Pt transferred to room 2030, report from PARMINDER Hernandez. Pt very anxious at time of transfer and had increased abdominal pain at 9/10 after getting up to wheelchair to transfer, but once settled into new room pt appeared to fall asleep for some time and did not wake until nursing interventions were done. Dilaudid DIETARY COOK continues and pt has Ativan available, was given one time dose prior to transfer per report. Pt states this is helpful. Right [place]O w/ minimal serous output and wound vac also w/ minimal sero-sanguineous output. Pt continues on 2L NC and was monitored on MARKETING COMMUNICATION MANAGER. Ileostomy w/ high brown/green liquid output. See I&Os. Unable to draw blood from IJ this morning, however still flushes appropriately.
[2017-02-26] MEDS: TPN Per Pharmacist XX SCH (07:36)
[2017-02-26] MEDS: Micafungin Inj 150 MG in 0.9% Sodium Chloride 100 ML IV SCH (08:01)
--- NOTE | 2017-02-26 08:34 | PCM.PNSURG ---
Subjective Visit Information: Reason for Visit Pericecal Abscess,Sbo,Sepsis Surgery/Surgery Date Post-Op Day # Date of Admission: Feb 17, 2017 at 04:07 Hospital Day # Subjective: Stable overnight. About 2500 mL out ostomy. Tolerating regular diet including turkey sandwich. Cash out. Transferred to [facility]. Leukocytosis resolved, procalcitonin improving. Objective Vital Sign- Last 8 Hours Date Time Temp Pulse Resp B/P Pulse Ox O2 Delivery O2 Flow Rate FiO2 02/26/17 07:49 36.8 96 16 131/90 98 Room Air 02/26/17 07:49 16 98 02/26/17 07:28 22 98 02/26/17 04:11 22 97 02/26/17 02:52 37.3 101 16 138/88 97 Nasal Cannula 2.00 02/26/17 01:35 Supplement Oxygen 02/26/17 01:21 36.7 02/26/17 01:01 20 93 Intake and Output- Last 8 Hour 02/26/17 Cumulative From/Thru 07:00 02/17/17 00:10 - 02/26/17 06:05 Intake Total 300 ml 69330.5 ml Output Total 1690 ml 07737 ml Balance -1390 ml 3789.5 ml Intake Oral 300 ml 1825 ml IV Total 61583.5 ml TPN/PPN 4070 ml Packed Cells 350 ml Output Urine Total 600 ml 00340 ml Stool Total 1090 ml 6640 ml Gastric Drainage Total 8405 ml Drainage Total 7335 ml Peritoneal Fluid 1160 ml Estimated Blood Loss 24 ml # Bowel Movements 0 General: Alert, Oriented X3, Cooperative, No Acute Distress Abdomen: Soft, Appropriately tender, Other ([place]O on R with serous fluid. Vac suctioning well. ) Result Diagram: 02/26/17 0525 02/26/17 0525 Assessment & Plan Impression 36-year-old male who presented in septic shock. He required laparotomy with an open abdomen and ileocecectomy; reexcision of terminal ileum and hepatic flexure of colon with diverting loop ileostomy; ileocolic anastomosis with placement of [place] patch and closure of fascia, now postoperative day 3 from this. Improving. Problems: Plan I stopped MANAGER COMMUNITY RELATIONS and started oral oxycodone. Tylenol is now scheduled at 975 q6h. Needs to get out of bed Continue PT Consider discharge as soon as 2-3 days pending PT/OT assessments. VTE Prophylaxis: Sub-Q Heparin (Unfractionated) Resuscitation Status: CPR: Attempt Resuscitation Latoya Freedman MD Feb 26, 2017 08:34
--- NOTE | 2017-02-26 09:00 | PROG NOTE ---
[address] [address] PROGRESS NOTE PATIENT: LEON GUERRERO : 1980 MR#: [id number] ADMIT: 02/17/2017 JOB ID: [id number] DATE: 02/26/2017 REASON FOR FOLLOW UP: Perforated viscus with diffuse peritonitis. INTERVAL HISTORY: The patient continues to improve. He has now been transferred out of the ICU and is in the PCC status. He reports no significant fever, chills, though he did have a measured temperature of 38 degrees during the night which is his maximum for the past several days. He is eating relatively well including a turkey sandwich. He denies pulmonary complaint. He has minimal abdominal pain at this time. The patient reports he has been feeling "woozy" and still diffusely weak, not surprisingly. PHYSICAL EXAMINATION: Reveals an afebrile gentleman. He had a single temperature to 38 degrees, that was last night and that is his highest in the last four days. Pulse 96, respiratory rate 16, blood pressure 131/90, saturating well on room air. No acute distress, though clearly weak. Mental status is clear. Oral cavity negative. His lungs are relatively clear. Abdomen still with a midline wound VAC as well as the colostomy and right-sided [place] drain. Relatively nontender, and daily improvement noted in the abdominal exam. No skin rash noted. LABORATORIES: Include white count 9500, platelet count 519,000, which has jumped up. No more left shift in the white count, though creatinine 0.53. Procalcitonin down to 2.56 from a level greater than 400. Hep C viral load positive indicating continued infection. Peritoneal fluid grew three anaerobes as noted. Subsequent cultures, fungal cultures of blood have been negative. Most recent chest x-ray shows atelectasis. IMPRESSION: This patient is clearly improving on a day-by-day basis. His low-grade temperature spike of last night is of no great concern. How long to continue his antibiotics is an open question. He obviously had gross fecal soilage of his entire peritoneal cavity, but is now coming up on about 10 days of appropriate broad-spectrum antibiotics. All three isolated organisms from surgery were anaerobic. RECOMMENDATIONS: Will continue with the current antibiotics which include Zosyn and micafungin for at least one more day and then consider transition to an oral regimen perhaps for a few additional days. Note that his 99% improvement in procalcitonin strongly suggests a good outcome at this point. We will continue to follow this patient with you.
[2017-02-26] MEDS: Ondansetron 2 mg/mL 2 mL Inj IVPUSH PRN ×2 (11:36→22:35)
--- NOTE | 2017-02-26 15:13 | DRSVH ---
[facility] [address] [place] [address] Echocardiogram Report Name: LEON GUERRERO TStudy Date: 02/26/2017 Height: 71 in Hospital Exam Location: [facility] Weight: 169 lb Gender: Male BSA: 2.0 m2 : 1980 Age: 36 yrs BP: 131/90 mm Hg Reason For Study: Repeat echo to assess LV functionMR Ordering Physician: Ted MartinezPerformed By: Dex Wong Referring Physician: STACI MANSFIELD Interpretation Summary The left ventricle is normal in size. The ejection fraction is estimated to be 65-70%. Compared to the prior exam, left ventricular function is significantly improved. Anterior MV leaflet appears mildly elongated along with mild doming and mild calcification of tip of the anterior mitral leaflet.. There is no mitral valve stenosis. There is moderate mitral regurgitation. Compared to the prior echo study, there has been an increase in the severity of mitral regurgitation. Procedure: A two-dimensional transthoracic echocardiogram with color flow and Doppler was performed in limited views only. The study quality was technically good. Comparison is made with the echocardiogram of 02/17/17. The heart rate ranged between 95-107 bpm during the study. Left Ventricle: The left ventricle is normal in size. Proximal septal thickening is noted. The ejection fraction is estimated to be 65-70%. Compared to the prior exam, left ventricular function is significantly improved. There are no focal wall motion abnormalities. Right Ventricle: The right ventricle is normal size. The right ventricular systolic function is normal. Atria: Both atria are normal in size. Mitral Valve: Anterior MV leaflet appears mildly elongated along with mild doming and mild calcification of tip of the anterior mitral leaflet.. There is systolic anterior motion of the chordal apparatus. Redundant elongated chordae are noted. There is no mitral valve stenosis. There is moderate mitral regurgitation. Compared to the prior echo study, there has been an increase in the severity of mitral regurgitation. Aortic Valve: The aortic valve is trileaflet. The aortic valve opens well. There is no aortic valve stenosis. There is trace aortic regurgitation. Tricuspid Valve: The tricuspid valve is normal. Pulmonary artery pressures cannot be estimated because of the lack of a measurable TR jet velocity. There is trace tricuspid regurgitation. Pulmonic Valve: The pulmonic valve leaflets are thin and pliable; valve motion is normal. Reading Physician:SUGAR
--- NOTE | 2017-02-26 15:48 | NUR ---
Inpatient Ostomy Nurse Patient seen for ostomy education. Patient mildly anxious with shallow, rapid breathing and dilated pupils. CWON RN introduced self and topic and asked patient if he was comfortable proceeding or if topic was uncomfortable at this time. Patient gave permission to continue session, breathing regulated quickly, but he briefly displayed inappropriate behaviors such as looking out window instead of at ostomy demo board, intermittently avoiding eye-contact, and uncovering genitals during conversation. Demonstration of application of pouch and wafer was covered, as well as need for excellent adhesion to avoid peristomal breakdown. Two most important topics related to new ileostomies were covered, including increased risk of dehydration and increased risk of blockage. Strategies to avoid both of these were reviewed. Patient was instructed that after discharge he would likely need a consult with outpatient [facility] for ostomy supplies. He was provided the Margot booklet, "Understanding Your Illeostomy," and pertinent sections pointed out to him. Patient was invited to ask questions, he stated he had none at this time. Patient was reassured that CWON would check with him daily and available for further teaching.
--- NOTE | 2017-02-26 16:53 | NUR ---
Pain, Transfer 08 - Dr. Chopra came into the room to see the patient. This nurse noted that the patient had a sliding scale insulin ordered, but that he wasn't diabetic. Dr. Chopra said he didn't need to have his blood glucose checked and to contact the Hospitalist team to discontinue his insulin. 0815 - Dr. Freedman came in the room to assess him and said she was going to switch him from ASSISTANT PRINTER FLOOR COVERING IV Dilaudid to by mouth pain medication management. She also said she would like him to ambulate more and work with Physical Therapy (PT). Estevan from PT tried to come in sometime later, but the patient was eating breakfast and requested to work with PT afterwards. 0945 - Discussed the patient's care with Dr. Bolton and the rest of the multidisciplinary care team during morning rounds. Asked that his TPN and insulin orders be discontinued which they were. Dr. Bolton said he would like his IJ to be discontinued, have him work with PT, and transfer to [facility]. 1100 - Estevan Garrett from PT came to try to work with him again, but his ostomy started leaking all over the place. PT said they would come back later. Nursing staff cleaned him up and changed his ostomy. Noted that the sutures were still intact, his stoma was a beefy red, and there was a moderate amount of both dark and light blood coming from around and out of the stoma. 4546 - Spoke to Grace from Wound Therapy and gave her an update on his ostomy care and condition. She said she would try to stop by later to educate him on the care of his ostomy which she did. 0301 - Paged Dr. Zelaya who called back. Notified her the my mouth pain medication did not seem to be working for his 10/10 abdominal pain. Had given him 10 mg of Oxycodone and 975 mg of Tylenol. She said she would look into ordering him something else. Also, clarified that she wanted the IJ discontinued as he would be transferring to another unit and it would be helpful for IV access. She said to still discontinue it and give him medication through his peripheral IV. Informed her of the condition of his ostomy/stoma. This information was acknowledged. Called Dylon ZURITA from IV Therapy and notified her that there was an order to discontinue his IJ. She said they would come soon. They came later in the afternoon and discontinued the IJ. 1317 - Noted no new pain medication orders had been placed and the patient was still in a great deal of pain. Paged. Dr. Zelaya again about this. She called right back and said she was going to order him something. She called back again shortly after saying she had ordered 10-15 mg of Oxycodone instead of the 5-10 mg previously ordered. Gave the patient an extra 5 mg as it was too early to administer the full 15 mg. Also, gave him 1 mg of IV Ativan which he said calmed him and brought his pain down to a 9/10. He was noted to relax a bit more and was found to be sleeping several times. 1530 - Called report to Precious Mejia RN on O[facility]. 1608 - Estevan from PT called to say he had become too busy and would be unable to come work with the patient today. 1650 - He was taken via his bed and two CNAs from [facility] 2030 to [facility] 1026. Precious ZURITA was notified. Telemetry was discontinued per orders. All his belongings, chart, and medications were sent with him. Care continues.
--- NOTE | 2017-02-26 17:00 | NUR ---
Transfer Pt transferred to [facility] room 1026 at 1700. A&Ox3. Rates pain 04/08. Pain medication given before transfer. Medication to be given for anxiety. Belongings came with pts. Pt oriented to call light and room. Care continues.
[2017-02-26] MEDS ORDERED: 0.9% Sodium Chloride 100 ML ONE (17:18)
--- NOTE | 2017-02-26 18:51 | PCM.PNMED ---
Subjective Date of Service Feb 26, 2017 Subjective Today, patient states that he continues to be in extreme pain. He recently had his wound vac cleaned and afterwards, he was unable to participate much with physical therapy. In addition he reports some anxiety. Overnight, Pt reports feeling mildly anxious. Night team ordered for PRN IV Ativan received and implemented. On ROS, patient reports abdominal pain and some chest tenderness. He denies nausea and vomiting Exam Vital Signs Vital Sign - Last Date Time Temp Pulse Resp B/P Pulse Ox O2 Delivery O2 Flow Rate FiO2 02/26/17 07:28 22 98 02/26/17 02:52 37.3 101 138/88 Nasal Cannula 2.00 02/24/17 07:53 40 Intake and Output 02/25/17 02/25/17 02/26/17 Cumulative From/Thru 15:00 23:00 07:00 02/17/17 00:10 - 02/26/17 06:05 Intake Total 1885 ml 300 ml 66298.5 ml Output Total 2455 ml 1690 ml 35970 ml Balance -570 ml -1390 ml 3789.5 ml Intake Oral 1400 ml 300 ml 1825 ml IV Total 485 ml 57684.5 ml TPN/PPN 4070 ml Packed Cells 350 ml Output Urine Total 920 ml 600 ml 11391 ml Stool Total 1500 ml 1090 ml 6640 ml Gastric Drainage Total 8405 ml Drainage Total 35 ml 7335 ml Peritoneal Fluid 1160 ml Estimated Blood Loss 24 ml # Bowel Movements 0 Exam Gen: young man with extensive Tattoos, post extubation patient communicating appropriately, patient is alert awake oriented 3 and was conversational Neck: Right IJ in place and appears patent, no JVD, HEENT:PERRL with miosis, EOMI, no scleral icterus CV: Regular Tachycardia with no murmurs rubs or gallops Resp: Diffuse mild crackles BL, no wheezing rales or rhonchi Abd: Large abdominal wound with closed fascia and wound vac in soft tissue in place, 4 [place] drains along patient's flanks, distended, slightly firm, ostomy in RLQ with pink well perfused stoma and output of brown liquid stool Extr: Warm to the touch, continued improvement of edema, no cyanosis or clubbing Neuro: CN 2-12 grossly intact. no focal neurologic deficit. Psych: Patient reports today that he is in pain Lab and Diagnostics Result Diagram: 02/26/17 0525 02/26/17 0525 Microbiology Peritoneal fluid culture reveals: Peptostreptococcus Anaerobius Fusobacterium Nucleatum Bacteroides Fragilis . X-Rays, CTs and MRIs CT ABDOMEN AND PELVIS WITH CONTRAST IMPRESSION: 1. Multiple dilated loops of small bowel associated circumferential wall thickening compatible small bowel obstruction. 2. Fluid collection with irregular peripheral enhancement in the right lower quadrant adjacent to cecum and terminal ileum concerning for abscess. The appendix is not definitely visualized in ruptured appendix cannot be excluded. 3. Circumferential wall thickening involving the terminal ileum which could related to pathology involving the appendix or a Crohn's disease. 4. Moderate amount of ascites scattered throughout the abdomen and pelvis. There is associated mild peritoneal enhancement consistent with peritonitis. 5. 5 mm nodule in the left lower lobe. Recommend follow up imaging based on criteria outlined below. ADDENDUM IMPRESSION: 1. Multiple dilated loops of small bowel associated circumferential wall thickening compatible small bowel obstruction and possible bowel ischemia. 2. Fluid collection with irregular peripheral enhancement in the right lower quadrant adjacent to cecum and terminal ileum concerning for abscess. The appendix is not definitely visualized and ruptured appendix cannot be excluded. 3. Circumferential wall thickening involving the terminal ileum which could related to pathology involving the adjacent appendix or inflammatory bowel disease such as Crohn's disease. 4. Moderate amount of ascites scattered throughout the abdomen and pelvis. There is associated mild peritoneal enhancement consistent with peritonitis. 5. 5 mm nodule in the left lower lobe. Recommend follow up imaging based on criteria outlined below. Approved by: Radha Cruz MD, PhD on 02/17/2017 at 9:54 Approved by: Radha Cruz MD, PhD on 02/17/2017 at 10:36 CT ABDOMEN AND PELVIS WITHOUT CONTRAST IMPRESSION: 1. Extensive large and small bowel pneumatosis in the setting of small bowel obstruction with extensive portal venous gas which has developed in the interval since prior CT scan obtained 02/17/17 at 0235 hours. Findings compatible with bowel ischemia. 2. Peritoneal pneumatosis and pneumoretroperitoneum which could be related to ruptured bowel versus infection with gas-forming organism. 3. Free intraperitoneal air and mesenteric air consistent with bowel perforation and/or mesenteric ischemia. 4. Decreased IVC caliber highly suspicious for severe hypotension. Please correlate with clinical data. 5. Moderate to large amount of ascites which is increased in volume compared to 02/17/17. The ascites has increased density compared to the prior CT scan which could be related to hemorrhage, proteinaceous fluid or infectious fluid. 6. Dilated loops of small bowel compatible with small bowel obstruction. 7. Probable right lower quadrant pericecal abscess suboptimally visualized in the absence of intravenous contrast does not appear significantly changed compared to prior CT scan. 8. Trace bilateral pleural effusions. Approved by: Radha Cruz MD, PhD on 02/17/2017 at 10:58 X-RAY CHEST ONE VIEW, PORTABLE IMPRESSION: 1. New left lower lobe infiltrates with associated pleural effusion. Improved right perihilar pulmonary opacities. 2. Stable support devices. Approved by: Dylon Gonzalez M.D. on 02/23/2017 at 7:24 Cardiac Echo Impressions Echocardiogram on 02/17/2017 Interpretation Summary Technically difficult study limits valve visualization. 1) Normal left ventricular thickness and size with severely reduced systolic function (EF 20-25%). 2) Borderline right ventricular enlargement with moderately reduced function. 3) No significant valvular abnormalities. 4) No prior Echo available for comparison. If endocarditis is suspected, consider CATRACHITO. Repeat ECHO on 02/26/17 Interpretation Summary The left ventricle is normal in size. The ejection fraction is estimated to be 65-70%. Compared to the prior exam, left ventricular function is significantly improved. Anterior MV leaflet appears mildly elongated along with mild doming and mild calcification of tip of the anterior mitral leaflet.. There is no mitral valve stenosis. There is moderate mitral regurgitation. Compared to the prior echo study, there has been an increase in the severity of mitral regurgitation. Assessment & Plan Mr. Perez is a 36-year-old gentleman with PMHX significant for polysubstance abuse and has been incarcerated at [facility] for the recent 12 days prior to admission, who presented to the emergency department with a 2 week onset of increasing abdominal pain with associated fever, chills, nausea, vomiting, diaphoresis. CT scan showed free air in the abdomen and was taken emergently to surgery and found to have severe necrotizing perforated appendicitis. Patient underwent surgery 3 times, including an ileocecectomy, resection of distal ileum and ileostomy, ileocolic anastomosis, and wound closure with current ostomy and fascial but not subcutaneous tissue closure. He was extubated on 02/24/2017 and has had significant improvement since hospitalization. Goals of care for today includes mobilization, pain control, advancing diet as tolerated. Acute Hypoxemia Respiratory Failure, not present on admission, resolved - Overnight 02/23/2017 the patient acutely desaturated during a linen change with oxygen saturation into the low to mid 70s. The ventilator was changed from pressure control to PRVC with FiO2 of 100% PEEP of 8, respiratory rate of 16 and tidal volumes of 500. - Worsening hypoxemia acutely after tensioning of Sarah patch seems due to RLL atelectasis due to mucus plug and or compression - currently returned to FIO2 of 0.5 - Respiratory therapy to perform localized CPT -Today 02/24, patient was successfully extubated without complications -He is tolerating nasal cannula supplemental oxygen and room air Severe necrotizing perforated appendicitis, acute, present on admission, Resolved -As evidenced by the CT above --On 02/17/17, patient underwent Exploratory laparotomy, ileocecectomy, VAC dressing placement. -On 02/19/17, patient returned to surgery for Exploration of previous laparotomy , Adhesiolysis, Resection of distal ileum, 10 cm., Resection of hepatic flexure (7 cm)., and Loop ileostomy -On 02/21/17, patient returned to surgery for another exploratory laparotomy with ileocolic anastomosis but unable to close the fascia so [place] Patch was sewn to his fascia and will require daily adjustments -Patient with open abdominal wound and wound vac in place, output has been copious, surgery will continue to manage -Current analgesia with Fentanyl drip, patient with likely pre-existing opiate habituation -Continue Zosyn per ID, able to discontinue micafungin -Patient is intubated on ventilation support, continue cautious diureses -Surgery closed the patient's abdominal incision 02/23/2017 -Begin PT and mobilization now post extubation -Dilaudid EMAIL MARKETING PROCESSOR for analgesia has been discontinued per surgery -Per surgery, we have Discontinue Cash, PT has been consulted for ambulation -Left lower quadrant abdominal drain has been discontinued. Continue right upper quadrant abdominal drain for now. Continue wound VAC -Surgery notes that in 6 weeks to 3 months, patient will have a takedown of the ileostomy and closure of the subcutaneous tissue. -Tylenol is now scheduled at 975 q6h. -Consider discharge as soon as 2-3 days pending PT/OT assessments. Severe Sepsis with severe lactic acidosis, acute, present on admission, resolving -Initially Secondary to severe necrotizing perforated appendicitis with feculent peritonitis -On admit: T 35.9, P1 44, RR 34, lactic acid 7.6, with repeat 4.8 -Surgery found his appendix obviously ruptured and in 2 pieces, with extensive associated necrotic tissue through the peritoneal cavity, as well as a likely abscess in the RLQ, patient had multiple staged I&D of necrotic tissue and patient was started on broad-spectrum antibiotics -Patient has been dependent upon aggressive fluid resuscitation with copious NS , Albumin, and 2U PRBC to date -We have discontinued Propofol/ fentanyl for sedation and analgesia Tachycardia and stress induced cardiomyopathy, POA, acute. Active -ECHO demonstrated EF of 20-25% with little structural heart disease, likely indicative of acute decompensation -Was briefly on Dobutamine drip after being admitted -Follow up ECHO on 02/26/17 shows markedly improved EF of about 65%-70% Microcytic anemia, not present on admission, ongoing -Patient has received 2 units PRBC to maintain intravascular volume -Iron Studies show low iron 19 and low TIBC -Today,H&H 9.09/25.1respectively -Consider iron replacement Hypertension, ongoing, stable -This could be due to withdrawals or possibly pain -Started enalaprilat prn for systolic blood pressure greater than 150 -Continue to monitor blood pressure Hyperglycemia, acute, present on admission, under evaluation - On admit:Glc 215 - Likely secondary to stress release - Regular insulin Low dose correctional scale -Advance diet as tolerated - check blood glucose q 6 hrs Elevated liver function tests likely secondary to active hepatitis C infection, chronicity unknown, present on admission, improving - On admit: total bili 2.0 AST, 41 ALT, 92 Alk Phos 90 -Today, Total bili 2.9, AST 52, ALT 118 - Hep panel indicates active Hep C infection with viral load of 260,000 - HIV negative Acute kidney injury, present on admission, resolved - On admit:Cr 1.35 - Likely secondary to dehydration resulting from nausea and vomiting due to underlying infection -After extensive fluid resuscitation, Cr today is 0.69 Multiple Electrolyte abnormalities, present on admission, resolved - On admit: K 3.0, Mg 2.2, K rider was given initially - Today, K 4.0 Ca 7.6, Phos 3.3, Mg 2.1 -Advance diet as tolerated Polycythemia, chronicity unknown, present on admission, Resolved - On admit: Hemoglobin 18.9, hematocrit 54.1 - Likely secondary to dehydration from recent nausea and vomiting due to abdominal pain History of incarceration -[employer] consult -Hep panel indicative of past infection -HIV negative -MRSA nasal swab negative DVT prophylaxis: Currently contraindicated given need for ongoing surgical procedures GI prophylaxis: None indicated at this time CODE STATUS full Disposition: The patient will likely remain inpatient for possibly up to one more week as he will require a closure of his abdominal incision and being weaned from the ventilator. GI Prophylaxis: H2 mack VTE Prophylaxis: Sub-Q Heparin (Unfractionated) VTE Mechanical Devices: Intermittant Pneumatic CD Resuscitation Status: CPR: Attempt Resuscitation Attending Statement The patient was seen and examined together with Dr. Zelaya on 02/26/2017 and I agree with the history, exam and plan as outlined in the note above. . Leah Zelaya DO Feb 26, 2017 07:35 Godfrey Bolton MD Feb 27, 2017 18:15
[2017-02-26] MEDS ORDERED: HYDROmorphone 1 mg/mL Inj IVPUSH PRN ×2 (20:30→23:20)
[2017-02-26 21:08] LABS: BASOPHILS % (AUTO) 0.6 % (0-3); EOSINOPHILS % (AUTO) 0.2 % (0-5); MONOCYTES % (AUTO) 9.1 % (4-12); Mean Corpuscular Hemoglobin 26.1 pg (27.0-35.0); Mean Corpuscular Volume 77.8 fL (81-100); NEUTROPHILS % (AUTO) 77.7 % (40-74); Platelet Count 814 bil/L (150-400)
[2017-02-26] MEDS: Pantoprazole 4 mg/mL 10 mL Inj IVPUSH SCH (22:20)
[2017-02-26] MEDS: 0.9% Sodium Chloride 1,000 ML IV SCH (22:20)
--- NOTE | 2017-02-26 22:22 | NUR ---
Transfer At beginning of shift upon initial assessment patient was somnolent, and required stimulation to arouse. Patient was diaphoretic and had difficulty verbalizing and following commands. Vitals 129/90 T 36.5 HR 100 RR 16-22. Blood glucose was 123. From 1899 to 1999 ileostomy had put out 500cc of dark red drainage. Night hospitalist notified, and requested that the on-call surgeon be contacted, and well as put in stat CBC orders. photogrammetric stereo compiler surgeon contacted and states to hold evening dose of heparin, and ordered Pantoprazole IV to be given daily. Night hospitalist further consulted and recommends that patient be transferred to P[facility]. Report given to RN Sixto Orozco, and Charge CCU nurse aware. Belongings and chart left with patient, and medications sent to floor. Care continues
--- NOTE | 2017-02-26 22:29 | ABG ---
DateTimeAnalyzed 22:21:00 -_ pH ____7.526 - 7.350 7.450 pCO2 ___31.3__ -mmHg 35.0 45.0 pO2 ___62.4__ -mmHg 69.0 116 HCO3- ___25.8__ -mmol/L 22.0 26.0 ABE ____3.7__ -mmol/L -2.0 2.0 tHb ___12.4__ -g/dL 12.0 18.0 O2Hb ___90.9__ -% COHb ____1.2__ -% 0.0 1.5 MetHb ____0.9__ -% 0.4 1.5 sO2 ___92.8__ -% 25.0 FIO2 ___32.0__ -% Drawn By MM - Date/Time Notified____ 22:28:00 -_ Spontaneous_RR ___22.0__ -b/min Liter_Flow ____3.0__ -L/min Oxygen Device 1 __CANNULA - Notified By MM - Notified Whom DR SULLENBERGER - B 758 -mmHg tO2 ___15.9__ -Vol% Mayo test _Positive -
[2017-02-26] MEDS: HYDROmorphone 1 mg/mL Inj IVPUSH PRN (23:23)
[2017-02-27] VITALS (9 sets, daily range): BP systolic 104–130; BP diastolic 65–92; PULSE 87–108; RESP 15–26; O2SAT 95–100
[2017-02-27] MEDS ORDERED: HYDROmorphone 1 mg/mL Inj IVPUSH PRN (00:30)
[2017-02-27] MEDS: Piperacillin-Tazo 3.375 Gm Inj 3.375 GM in Dextrose 5% Minibag Plus 50 ML IV SCH ×3 (00:44→14:47)
[2017-02-27] MEDS: HYDROmorphone 1 mg/mL Inj IVPUSH PRN ×4 (03:56→19:36)
[2017-02-27 04:29] LABS: BASOPHILS % (AUTO) 1 % (0-3); EOSINOPHILS % (AUTO) 0 % (0-5); MONOCYTES % (AUTO) 9 % (4-12); Mean Corpuscular Volume 77.5 fL (81-100); NEUTROPHILS % (AUTO) 82 % (40-74); Platelet Count 751 bil/L (150-400)
--- NOTE | 2017-02-27 05:35 | NUR ---
transfer Pt transferred from [facility] around 2199. Pt was orient x3 but would drift off and was unable to hold attention for long periods of time. Pt able to MOSES and follow commands. Pt speech very delayed. EKG WNL and ABG pH 7.526 pCO2 31 pO2 62.4 [id number]. Pt c/o pain 8/10 administered 1mg IV Dilaudid and somewhat effective, pt rating pain 6/10. Administered 10mg of Oxycodone and not effective, pt still rating pain 6/10, administered 1mg IV Dilaudid and effective, pt also requesting Ativan, administered 1mg of that as well. Pt able to rest. VSS and Tele SR/T
[2017-02-27] MEDS: Heparin 5,000 Unit/mL Inj SUBQ SCH ×2 (09:13→17:31)
[2017-02-27] MEDS: Pantoprazole 4 mg/mL 10 mL Inj IVPUSH SCH (09:13)
--- NOTE | 2017-02-27 10:05 | NUR ---
Inpatient Wound and Ostomy Nurse CWON RN approached patient for assessment and found leaking at distal edge of wafer. Pouch and wafer were removed, pouch was half full of very thin, liquid-consistency dark brown fluid, no solid particles noted. When stoma was cleansed with warm, wet washcloth, bright red and dark red streaks were noted on white washcloth. Sutures are intact; one half of stoma is pink bowel at equal level of skin surface; the other half is dark and retracted below surface of opening with stringy coating. No distinct odor noted. Since stoma is retracted, a small, convex, moldable wafer was opened to maximum size and placed over stoma. Pouch was snapped into place. A warmed blanket was placed over system and pressure applied, which should improve adhesion. Pouch was checked for seal, appears to be completely clicked into ring. NPWT with black foam, excellent seal, no evidence of need for change. CWON RN is unsure when NPWT was last changed, though 02/26 prog notes indicates that Surgical Team will manage NPWT. Call was placed to Dr. Shepard alerting him to thin, sanguineous ostomy output, retracted stoma, and clarification of CWON role regarding NPWT management. Awaiting call back. Addendum: 02/27/17 at 1314 by SAV LAKHANI RN Call back received from Dr. Freedman who acknowledged CWON RN availability; no specific wound care needs at this time, will give orders for wound care if needed. CWON RN will continue to offer ostomy education to patient and staff support.
--- NOTE | 2017-02-27 10:26 | PROG NOTE ---
[address] [address] PROGRESS NOTE PATIENT: LEON GUERRERO : 1980 MR#: [id number] ADMIT: 02/17/2017 JOB ID: [id number] DATE: 02/27/2017 REASON FOR FOLLOWUP: Ruptured viscus with peritonitis. INTERVAL HISTORY: Overnight, the patient has felt relatively well though he continues to be to have some degree of abdominal pain and be distressed by leakage from the colostomy. His oral intake is poor, which he attributes to being just generally unhappy about the fact he has now been left with a colostomy in which he can view his GI output. He has no specific fevers, chills, or respiratory complaint today. PHYSICAL EXAMINATION: Temperature 36.5, pulse 100, respiratory rate 22, blood pressure 118/74, saturating well on room air. He does not appear to be in any acute distress though he is clearly depressed. Mental status is clear. Oral cavity negative. Lungs relatively clear. Cardiac tones without new murmur. The patient has a midline wound VAC, which is in good position without surrounding erythema. The colostomy seems to be functioning well, though there is some leakage around it and the wound management nurse is just arriving to address that issue. He also has a [place] drain still in the right side of his abdomen which is relatively nontender. LABORATORIES: Include white count 13,000 mild left shift that is persistent. His creatinine 0.83. ALT 78. He has active hepatitis C with moderately high viral load. Blood cultures are negative. Peritoneal fluid grew three anaerobes and followup blood cultures have been negative. No new x-rays. IMPRESSION: The patient seems to be doing reasonably well status post peritonitis and appropriate surgery. He had a low-grade temperature. A couple days ago 38.0 which has not been repeated. Otherwise he looks relatively well. RECOMMENDATIONS: 1. Will continue with Zosyn and micafungin for a bit longer even as the patient continues to steadily improve. 2. Will continue to follow this patient with you. 3. Our goal would be to see a lower procalcitonin perhaps 0.5 or less for a day or two and then suspend all antibiotic therapy at that point assuming he is stable.
--- NOTE | 2017-02-27 10:57 | PCM.PNMED ---
Subjective Date of Service Feb 27, 2017 Subjective Mr. Perez is a 36-year-old gentleman with PMHX significant for polysubstance abuse and has been incarcerated at [facility] for the recent 12 days prior to admission, who presented to the emergency department with a 2 week onset of increasing abdominal pain with associated fever, chills, nausea, vomiting, diaphoresis. CT scan showed free air in the abdomen and was taken emergently to surgery and found to have severe necrotizing perforated appendicitis. Patient underwent surgery 3 times, including an ileocecectomy, resection of distal ileum and ileostomy, ileocolic anastomosis, and wound closure with current ostomy and fascial but not subcutaneous tissue closure. He was extubated on 02/24/2017 and has had significant improvement since hospitalization. Goals of care for today includes mobilization, pain control, advancing diet as tolerated. Overnight, patient was transferred back to [facility] because he was diaphoretic, somnolent and had difficulty verbalizing and following commands. Today, patient reports that he feels better than he did yesterday when he had his wound VAC changed. He denies chest pain and shortness of breath. He notes that he still has some abdominal pain. He has not attempted to ambulate with physical therapy because he has been somnolent and feeling tired. Exam Vital Signs Vital Sign - Last Date Time Temp Pulse Resp B/P Pulse Ox O2 Delivery O2 Flow Rate FiO2 02/27/17 03:50 36.7 108 26 123/91 95 Room Air 02/26/17 02:52 2.00 02/24/17 07:53 40 Intake and Output 02/26/17 02/26/17 02/27/17 Cumulative From/Thru 15:00 23:00 07:00 02/17/17 00:10 - 02/27/17 06:45 Intake Total 422 ml 903 ml 786 ml 40105.5 ml Output Total 2200 ml 2100 ml 79755 ml Balance 422 ml -1297 ml -1314 ml 1600.5 ml Intake Oral 640 ml 400 ml 2865 ml IV Total 422 ml 263 ml 386 ml 35151.5 ml TPN/PPN 4070 ml Packed Cells 350 ml Output Urine Total 350 ml 0 ml 34837 ml Stool Total 1850 ml 2050 ml 48156 ml Gastric Drainage Total 8405 ml Drainage Total 50 ml 7385 ml Peritoneal Fluid 1160 ml Estimated Blood Loss 24 ml # Bowel Movements 0 0 Exam Gen: young man with extensive Tattoos, post extubation patient communicating appropriately, patient is alert awake oriented 3 and was conversational Neck: Right IJ in place and appears patent, no JVD, HEENT:PERRL with miosis, EOMI, no scleral icterus CV: Regular Tachycardia with no murmurs rubs or gallops Resp: Diffuse mild crackles BL, no wheezing rales or rhonchi Abd: Large abdominal wound with closed fascia and wound vac in soft tissue in place, 4 [place] drains along patient's flanks, distended, slightly firm, ostomy in RLQ with pink well perfused stoma and output of brown liquid stool Extr: Warm to the touch, continued improvement of edema, no cyanosis or clubbing Neuro: CN 2-12 grossly intact. no focal neurologic deficit. Psych: Patient reports today that he is in pain IVs and Medications Medications Reviewed: Medications were reviewed in detail Medications High risk medications include dilaudid. oxycodone and lorazepam Lab and Diagnostics Result Diagram: 02/27/17 03502/27/17 035 Microbiology Peritoneal fluid culture reveals: Peptostreptococcus Anaerobius Fusobacterium Nucleatum Bacteroides Fragilis . X-Rays, CTs and MRIs CT ABDOMEN AND PELVIS WITH CONTRAST IMPRESSION: 1. Multiple dilated loops of small bowel associated circumferential wall thickening compatible small bowel obstruction. 2. Fluid collection with irregular peripheral enhancement in the right lower quadrant adjacent to cecum and terminal ileum concerning for abscess. The appendix is not definitely visualized in ruptured appendix cannot be excluded. 3. Circumferential wall thickening involving the terminal ileum which could related to pathology involving the appendix or a Crohn's disease. 4. Moderate amount of ascites scattered throughout the abdomen and pelvis. There is associated mild peritoneal enhancement consistent with peritonitis. 5. 5 mm nodule in the left lower lobe. Recommend follow up imaging based on criteria outlined below. ADDENDUM IMPRESSION: 1. Multiple dilated loops of small bowel associated circumferential wall thickening compatible small bowel obstruction and possible bowel ischemia. 2. Fluid collection with irregular peripheral enhancement in the right lower quadrant adjacent to cecum and terminal ileum concerning for abscess. The appendix is not definitely visualized and ruptured appendix cannot be excluded. 3. Circumferential wall thickening involving the terminal ileum which could related to pathology involving the adjacent appendix or inflammatory bowel disease such as Crohn's disease. 4. Moderate amount of ascites scattered throughout the abdomen and pelvis. There is associated mild peritoneal enhancement consistent with peritonitis. 5. 5 mm nodule in the left lower lobe. Recommend follow up imaging based on criteria outlined below. Approved by: Radha Cruz MD, PhD on 02/17/2017 at 9:54 Approved by: Radha Cruz MD, PhD on 02/17/2017 at 10:36 CT ABDOMEN AND PELVIS WITHOUT CONTRAST IMPRESSION: 1. Extensive large and small bowel pneumatosis in the setting of small bowel obstruction with extensive portal venous gas which has developed in the interval since prior CT scan obtained 02/17/17 at 0235 hours. Findings compatible with bowel ischemia. 2. Peritoneal pneumatosis and pneumoretroperitoneum which could be related to ruptured bowel versus infection with gas-forming organism. 3. Free intraperitoneal air and mesenteric air consistent with bowel perforation and/or mesenteric ischemia. 4. Decreased IVC caliber highly suspicious for severe hypotension. Please correlate with clinical data. 5. Moderate to large amount of ascites which is increased in volume compared to 02/17/17. The ascites has increased density compared to the prior CT scan which could be related to hemorrhage, proteinaceous fluid or infectious fluid. 6. Dilated loops of small bowel compatible with small bowel obstruction. 7. Probable right lower quadrant pericecal abscess suboptimally visualized in the absence of intravenous contrast does not appear significantly changed compared to prior CT scan. 8. Trace bilateral pleural effusions. Approved by: Radha Cruz MD, PhD on 02/17/2017 at 10:58 X-RAY CHEST ONE VIEW, PORTABLE IMPRESSION: 1. New left lower lobe infiltrates with associated pleural effusion. Improved right perihilar pulmonary opacities. 2. Stable support devices. Approved by: Dylon Gonzalez M.D. on 02/23/2017 at 7:24 Cardiac Echo Impressions Echocardiogram on 02/17/2017 Interpretation Summary Technically difficult study limits valve visualization. 1) Normal left ventricular thickness and size with severely reduced systolic function (EF 20-25%). 2) Borderline right ventricular enlargement with moderately reduced function. 3) No significant valvular abnormalities. 4) No prior Echo available for comparison. If endocarditis is suspected, consider CATRACHITO. Repeat ECHO on 02/26/17 Interpretation Summary The left ventricle is normal in size. The ejection fraction is estimated to be 65-70%. Compared to the prior exam, left ventricular function is significantly improved. Anterior MV leaflet appears mildly elongated along with mild doming and mild calcification of tip of the anterior mitral leaflet.. There is no mitral valve stenosis. There is moderate mitral regurgitation. Compared to the prior echo study, there has been an increase in the severity of mitral regurgitation. Assessment & Plan Mr. Perez is a 36-year-old gentleman with PMHX significant for polysubstance abuse and has been incarcerated at [facility] for the recent 12 days prior to admission, who presented to the emergency department with a 2 week onset of increasing abdominal pain with associated fever, chills, nausea, vomiting, diaphoresis. CT scan showed free air in the abdomen and was taken emergently to surgery and found to have severe necrotizing perforated appendicitis. Patient underwent surgery 3 times, including an ileocecectomy, resection of distal ileum and ileostomy, ileocolic anastomosis, and wound closure with current ostomy and fascial but not subcutaneous tissue closure. He was extubated on 02/24/2017 and has had significant improvement since hospitalization. Acute Hypoxemia Respiratory Failure, not present on admission, resolved - Overnight 02/23/2017 the patient acutely desaturated during a linen change with oxygen saturation into the low to mid 70s. The ventilator was changed from pressure control to PRVC with FiO2 of 100% PEEP of 8, respiratory rate of 16 and tidal volumes of 500. - Worsening hypoxemia acutely after tensioning of Sarah patch seems due to RLL atelectasis due to mucus plug and or compression - currently returned to FIO2 of 0.5 - Respiratory therapy to perform localized CPT -Today 02/24, patient was successfully extubated without complications -He is tolerating nasal cannula supplemental oxygen and room air Severe necrotizing perforated appendicitis, acute, present on admission, Resolved -As evidenced by the CT above --On 02/17/17, patient underwent Exploratory laparotomy, ileocecectomy, VAC dressing placement. -On 02/19/17, patient returned to surgery for Exploration of previous laparotomy , Adhesiolysis, Resection of distal ileum, 10 cm., Resection of hepatic flexure (7 cm)., and Loop ileostomy -On 02/21/17, patient returned to surgery for another exploratory laparotomy with ileocolic anastomosis but unable to close the fascia so [place]ory Patch was sewn to his fascia and will require daily adjustments -Patient with open abdominal wound and wound vac in place, output has been copious, surgery will continue to manage -Current analgesia with Fentanyl drip, patient with likely pre-existing opiate habituation -Continue Zosyn per ID, able to discontinue micafungin -Patient is intubated on ventilation support, continue cautious diureses -Surgery closed the patient's abdominal incision 02/23/2017 -Begin PT and mobilization now post extubation -Dilaudid JOURNALISM INSTRUCTOR for analgesia has been discontinued per surgery -Per surgery, we have Discontinue Cash, PT has been consulted for ambulation -Left lower quadrant abdominal drain has been discontinued. Continue right upper quadrant abdominal drain for now. Continue wound VAC -Surgery notes that in 6 weeks to 3 months, patient will have a takedown of the ileostomy and closure of the subcutaneous tissue. -Tylenol is now scheduled at 975 q6h. -02/27/2017, per surgery, [place] drain was removed, Wound vac was removed, wound assessed, and delayed primary closure done today. -In addition, surgery has added Imodium to slow down ostomy bag output. -Consider discharge as soon as 2-3 days pending PT/OT assessments. Severe Sepsis with severe lactic acidosis, acute, present on admission, resolving -Initially Secondary to severe necrotizing perforated appendicitis with feculent peritonitis -On admit: T 35.9, P1 44, RR 34, lactic acid 7.6, with repeat 4.8 -Surgery found his appendix obviously ruptured and in 2 pieces, with extensive associated necrotic tissue through the peritoneal cavity, as well as a likely abscess in the RLQ, patient had multiple staged I&D of necrotic tissue and patient was started on broad-spectrum antibiotics -Patient has been dependent upon aggressive fluid resuscitation with copious NS , Albumin, and 2U PRBC to date - Per ID, Will continue with Zosyn and micafungin for a bit longer even as the patient continues to steadily improve. -Goal would be to see a lower procalcitonin perhaps 0.5 or less for a day or two and then suspend all antibiotic therapy at that point assuming he is stable History of Opiod Dependance, present on admission -While in the ICU, patient was receiving high doses of fentanyl and was later transitioned into a JOURNALISM INSTRUCTOR at 1.5 mg IV per hour of hydromorphone -This is equivalent to 30 mg/h of oxy by mouth -Patient is currently receiving 5-15 mg every 4 hours oxycodone, 1-2 mg every 4 Dilaudid and 1 mg every 4 hours lorazepam -Continue to Watch for signs of withdrawal and adjust pain medications as necessary Tachycardia and stress induced cardiomyopathy, POA, acute. Active -ECHO demonstrated EF of 20-25% with little structural heart disease, likely indicative of acute decompensation -Was briefly on Dobutamine drip after being admitted -Follow up ECHO on 02/26/17 shows markedly improved EF of about 65%-70% Microcytic anemia, not present on admission, ongoing -Patient has received 2 units PRBC to maintain intravascular volume -Iron Studies show low iron 19 and low TIBC -Today,H&H 9.09/25.1respectively -Consider iron replacement Hypertension, ongoing, stable -This could be due to withdrawals or possibly pain -Started enalaprilat prn for systolic blood pressure greater than 150 -Continue to monitor blood pressure Hyperglycemia, acute, present on admission, under evaluation - On admit:Glc 215 - Likely secondary to stress release - Regular insulin Low dose correctional scale -Advance diet as tolerated - check blood glucose q 6 hrs Elevated liver function tests likely secondary to active hepatitis C infection, chronicity unknown, present on admission, improving - On admit: total bili 2.0 AST, 41 ALT, 92 Alk Phos 90 -Today, Total bili 2.9, AST 52, ALT 118 - Hep panel indicates active Hep C infection with viral load of 260,000 - HIV negative Acute kidney injury, present on admission, resolved - On admit:Cr 1.35 - Likely secondary to dehydration resulting from nausea and vomiting due to underlying infection -After extensive fluid resuscitation, Cr today is 0.69 Multiple Electrolyte abnormalities, present on admission, resolved - On admit: K 3.0, Mg 2.2, K rider was given initially - Today, K 4.0 Ca 7.6, Phos 3.3, Mg 2.1 -Advance diet as tolerated Polycythemia, chronicity unknown, present on admission, Resolved - On admit: Hemoglobin 18.9, hematocrit 54.1 - Likely secondary to dehydration from recent nausea and vomiting due to abdominal pain History of incarceration -DIALS INSPECTOR consult -Hep panel indicative of past infection -HIV negative -MRSA nasal swab negative DVT prophylaxis: Currently contraindicated given need for ongoing surgical procedures GI prophylaxis: None indicated at this time CODE STATUS full Disposition: The patient will likely remain inpatient for possibly up to one more week as he will require a closure of his abdominal incision and being weaned from the ventilator. GI Prophylaxis: H2 mack VTE Prophylaxis: Sub-Q Heparin (Unfractionated) VTE Mechanical Devices: Intermittant Pneumatic CD Resuscitation Status: CPR: Attempt Resuscitation Attending Statement The patient was seen and examined together with Dr. Zelaya on 02/27/2017 and I agree with the history, exam and plan as outlined in the note above. . Leah Zelaya DO Feb 27, 2017 07:48 Godfrey Bolton MD Feb 27, 2017 18:15
--- NOTE | 2017-02-27 11:25 | PCM.PNSURG ---
Subjective Visit Information: Reason for Visit Pericecal Abscess,Sbo,Sepsis Surgery/Surgery Date Post-Op Day # Date of Admission: Feb 17, 2017 at 04:07 Hospital Day # Subjective: Copious ostomy output, about 3L yesterday and 2L overnight additional. Ostomy bag leaked and had to be changed. Wound vac is working. OR[place]O with 50mL serous output. Objective Vital Sign- Last 8 Hours Date Time Temp Pulse Resp B/P Pulse Ox O2 Delivery O2 Flow Rate FiO2 02/27/17 09:03 36.5 100 22 118/74 96 Room Air 02/27/17 03:50 36.7 108 26 123/91 95 Room Air Intake and Output- Last 8 Hour 02/27/17 Cumulative From/Thru 07:00 02/17/17 00:10 - 02/27/17 06:45 Intake Total 786 ml 27191.5 ml Output Total 2100 ml 28335 ml Balance -1314 ml 1600.5 ml Intake Oral 400 ml 2865 ml IV Total 386 ml 07642.5 ml TPN/PPN 4070 ml Packed Cells 350 ml Output Urine Total 0 ml 10533 ml Stool Total 2050 ml 37631 ml Gastric Drainage Total 8405 ml Drainage Total 50 ml 7385 ml Peritoneal Fluid 1160 ml Estimated Blood Loss 24 ml # Bowel Movements 0 0 General: Alert, Oriented X3, Cooperative, No Acute Distress Abdomen: Soft, Appropriately tender, Other (vac working, [place] with serous fluid, abdomen appropriately tender, non-distended, somewhat guarded) Result Diagram: 02/27/17 0350 02/27/17 0350 Assessment & Plan Impression 36-year-old male who presented in septic shock. He required laparotomy with an open abdomen and ileocecectomy; reexcision of terminal ileum and hepatic flexure of colon with diverting loop ileostomy; ileocolic anastomosis with placement of [place] patch and closure of fascia, now postoperative day 4 from this. Improving. Ostomy output is very high and creating problems with management of the bag and may also cause dehydration. Problems: Plan [place] drain will be removed. Wound vac will be removed, wound assessed, with possible delayed primary closure today. I have written for 2mg Imodium daily to slow down ostomy output. I may titrate this up while he is still in house. Continue PT and discharge planning. VTE Prophylaxis: Sub-Q Heparin (Unfractionated) Resuscitation Status: CPR: Attempt Resuscitation Latoya Freedman MD Feb 27, 2017 11:25
--- NOTE | 2017-02-27 13:07 | PCM.PROC ---
Procedure Note Date of Service: Feb 27, 2017 Pre Procedure Diagnosis: Post operative day 4 status post laparotomy with an open abdomen and ileocecectomy with fascial closure and wound VAC placement. Post Procedure Diagnosis: Same Procedure: Delayed primary closure of abdominal incision Provider and Drapery Hemmer Automatic: VIRIDIANA Chambers PAC Indication for Procedure: laparotomy with an open abdomen and intraoperative fascial closure with wound VAC placement. Findings: clean wound edge without erythema with good wound bed granulation, no dehiscence and minimal edema. Procedural Analgesia: 4mg dilaudid, and 1% lidocaine plain Procedure Details: Wound VAC was removed and wound bed examined. No evidence of necrotic tissue, eschar or erythema was found. Granulation was well in place. Decision was made to perform delayed primary closure of abdominal wound. Wound edge was infiltrated with approximately 40cc of 1% lidocaine plain and 4mg IV dilaudid was used for pain control. The area was prepped and draped and the incision was then primarily closed with 4-0 monocryl. The patient tolerated the procedure well. The closure was cleaned, and steristrips and gauze dressing was placed under hypafix tape dressing. Sharps were disposed and needle counts were correct. Specimen: None Post Procedure Plan: Outer dressing to leave in place for 48 hours then removed leaving steristrips in place. Monitor wound healing. Cristian Golden PA-C Feb 27, 2017 13:07
[2017-02-27] MEDS: Micafungin Inj 150 MG in 0.9% Sodium Chloride 100 ML IV SCH (13:08)
--- NOTE | 2017-02-27 16:00 | NUR ---
spiritual care: follow brief visit, pt expressed feeling cold and weak. Anticipating family visitors today. Following for emotional support.
--- NOTE | 2017-02-27 18:26 | NUR ---
Multidisciplinary Communication 0850 - Spoke to Pharmacy a couple of times as his SubQ heparin was not showing up in the [facility] under his profile. The order was re-entered and it was pulled and administered. 0906 - Spoke to Estevan from Physical Therapy (PT). He wanted to work with the patient, but the patient said he was too tired. Estevan said he would try later. 0945 - Discussed his care with Dr. Bolton and the rest of the multidisciplinary team during morning rounds. Informed them that he seemed to be slightly dehydrated and that his ostomy had put out over 2000 mls during the night. Was told by the Sap Administrator that his Dad would be coming in to talk to him today and that there were some family dynamics that would make the visit emotional. 1120 - Microbiology called to say his blood cultures were positive. They said that they would contact Dr. Lerner. 1145 - The Physicians assistants from the Surgical team came to take his wound vac out and close his abdominal wound. Per their and Dr. Bolton's verbal orders 1 mg of IV Ativan and 4 mg of IV Dialudid were given before the procedure. He tolerated the procedure fairly well and his wound was sutured and dressed. 1315 - Several of his family members had called multiple times wanting updates. As he was more alert, the nursing staff helped him call some of his family members and had him talk to them and update them. 1410 - His Dad came by to talk to him. When this nurse went in the room a little later they both seemed to be in good spirits. The patient said that they hadn't spent much time together, but that was going to change from now on. About this time Estevan tried to come work with him again, but the timing wasn't good. PT tried at least 3-4 times to work with him today, but each time it didn't work. About 1745 - Noted that after his dad left and he had received 15 mg of Oxycodone he become very sleepy. Able to awaken after repeated stimuli and calling his name. Falling asleep mid-sentence. Dr. Bolton made aware and laid eyes on the patient. Care continues.
[2017-02-27] MEDS: LORazepam 1 mg Tablet PO PRN (22:16)
[2017-02-27] MEDS: Ondansetron 2 mg/mL 2 mL Inj IVPUSH PRN (22:30)
[2017-02-27] MEDS: 0.9% Sodium Chloride 1,000 ML IV SCH (22:42)
[2017-02-28] VITALS (10 sets, daily range): BP systolic 101–130; BP diastolic 63–85; PULSE 80–133; RESP 16–20; O2SAT 95–99
[2017-02-28] MEDS: Heparin 5,000 Unit/mL Inj SUBQ SCH ×3 (00:30→16:29)
[2017-02-28] MEDS: Piperacillin-Tazo 3.375 Gm Inj 3.375 GM in Dextrose 5% Minibag Plus 50 ML IV SCH ×5 (00:52→21:49)
[2017-02-28] MEDS: LORazepam 1 mg Tablet PO PRN ×3 (03:29→18:42)
[2017-02-28] MEDS: HYDROmorphone 1 mg/mL Inj IVPUSH PRN ×5 (03:30→21:53)
[2017-02-28 03:50] LABS: BASOPHILS % (AUTO) 0.9 % (0-3); EOSINOPHILS % (AUTO) 1.5 % (0-5); MONOCYTES % (AUTO) 19.8 % (4-12); Mean Corpuscular Hemoglobin 26.2 pg (27.0-35.0); Mean Corpuscular Volume 79.5 fL (81-100); NEUTROPHILS % (AUTO) 56.3 % (40-74); Platelet Count 847 bil/L (150-400)
--- NOTE | 2017-02-28 05:25 | NUR ---
Anxiety/Pain Pt stating that anxiety is more prevalent than the pain but stating pain 8/10. Pt also stating that "I would give up all my pain medication if I could have more anxiety medication." MD notified and orders for PO Ativan 1-2 mg given. Administered 15mg of oxycodone and 2mg Ativan and effective. Pt able to rest and rating pain 4/10. Educated pt on the importance of ambulation and moving to help promote healing and decreasing pain. Pt verbalized understanding. Also talked with pt on the importance of using oral pain medication over IV medication as pt would not be able to use IV medications at home. Offered pt warm blankets and relaxation techniques to help decrease pain and allow for more rest. VSS and Tele SR/T
--- NOTE | 2017-02-28 08:15 | PCM.PNSURG ---
Subjective Visit Information: Reason for Visit Pericecal Abscess,Sbo,Sepsis Surgery/Surgery Date Post-Op Day # Date of Admission: Feb 17, 2017 at 04:07 Hospital Day # Subjective: Delayed primary closure of wound yesterday, wound vac discontinued. Last [place] drain is out. ~2500mL ostomy output, started 2mg imodium yesterday. Has not yet walked in the halls. Objective Vital Sign- Last 8 Hours Date Time Temp Pulse Resp B/P Pulse Ox O2 Delivery O2 Flow Rate FiO2 02/28/17 08:05 36.5 100 18 101/63 95 Room Air 02/28/17 08:05 100 02/28/17 05:38 93 02/28/17 03:07 36.5 100 16 120/85 99 Room Air Intake and Output- Last 8 Hour 02/28/17 Cumulative From/Thru 07:00 02/17/17 00:10 - 02/28/17 06:45 Intake Total 800 ml 00673.5 ml Output Total 1000 ml 92992 ml Balance -200 ml 1725.5 ml Intake Oral 800 ml 4465 ml IV Total 53791.5 ml TPN/PPN 4070 ml Packed Cells 350 ml Output Urine Total 500 ml 71910 ml Stool Total 500 ml 82592 ml Gastric Drainage Total 8405 ml Drainage Total 7385 ml Peritoneal Fluid 1160 ml Estimated Blood Loss 24 ml # Bowel Movements 0 General: Alert, Oriented X3, Cooperative, No Acute Distress Abdomen: Soft, Appropriately tender, Ostomy Result Diagram: 02/28/17 0340 02/28/17 0340 Assessment & Plan Impression 36-year-old male who presented in septic shock. He required laparotomy with an open abdomen and ileocecectomy; reexcision of terminal ileum and hepatic flexure of colon with diverting loop ileostomy; ileocolic anastomosis with placement of [place] patch and closure of fascia, now postoperative day 5 from this. Improving. High ostomy output, imodium started 02/27. Problems: Plan Regular diet. Needs to ambulate in halls. OK to slowly increase imodium by 2mg per day if ostomy output is creating concern for dehydration. I will keep it at 2mg/day today as output decreased yesterday. No sign of surgical complications at this time. VTE Prophylaxis: Sub-Q Heparin (Unfractionated) Resuscitation Status: CPR: Attempt Resuscitation Latoya Freedman MD Feb 28, 2017 08:15
[2017-02-28] MEDS: Micafungin Inj 150 MG in 0.9% Sodium Chloride 100 ML IV SCH (09:41)
[2017-02-28] MEDS: Pantoprazole 4 mg/mL 10 mL Inj IVPUSH SCH (09:41)
--- NOTE | 2017-02-28 09:59 | PROG NOTE ---
[address] [address] PROGRESS NOTE PATIENT: LEON GUERRERO : 1980 MR#: [id number] ADMIT: 02/17/2017 JOB ID: [id number] DATE: 02/28/2017 INFECTIOUS DISEASE FOLLOW UP NOTE: REASON FOR FOLLOWUP: Ruptured viscus with peritonitis and now fungemia. INTERVAL HISTORY: Overnight, the patient has continued to improve. He is able to walk some and he has no fevers, chills or sweats. He had his last [place] drain pulled and now just has his colostomy as well as a healing midline incision. The Wound VAC has been discontinued from that incision. His oral intake is improving and he seems in much better spirits today. No fevers, chills, or specific respiratory or abdominal complaint. PHYSICAL EXAMINATION: Reveals an afebrile gentleman, temperature 36.5, pulse 100, respiratory rate 18, blood pressure 103/63, saturating well on room air. He is in no distress. Sitting up in a chair eating. This is one of the few times we have seen him sitting up and being quite interactive. Oral cavity benign. Eyes without conjunctivitis. Lungs fairly clear bilaterally. Abdomen is slightly distended. He has a dressed midline wound. The VAC has been removed. Colostomy is present. Seems to be functioning well. His [place] drain has been pulled. LABORATORIES: Include white count of 10,500. He has 20% monocytes which accounts for his excessive white count. His platelets are still climbing 847,000. His creatinine 0.71. ALT is 97, AST 70. Procalcitonin down to 1.5. Remember it started over 400. Hepatitis C positive viral load noted. Yesterday we received word that a blood culture from the had turned positive for Juany glabrata and I have requested this be sent to the [facility] for susceptibility testing. We also had the peritoneal fluid cultures from February 17 which were positive for three anaerobic species. No new imaging is available. IMPRESSION: This case is now little more complicated in that we have Juany glabrata in a blood culture. Even a single blood culture positive for yeast or any mold is a very worrisome finding and this will require treatment for an absolute minimum of two weeks. The patient currently has no visual complaints and looks quite stable so I think probably two weeks of therapy will suffice but we will need to aggressively address this. Overall his procalcitonin is improving and I think we are nearing the end of his reasonable antibiotic course. RECOMMENDATIONS: 1. The patient should have a dilated eye examination within the next week or so but this could be deferred until he is discharged. A positive eye examination for Juany endophthalmitis would lengthen our therapy considerably. 2. I would continue with the Zosyn over the next couple 2-3 days anyway and continue to trend his white count and procalcitonin as we will probably be finishing these up during or just at the end of the long weekend which approaches. 3. Will continue with micafungin. 4. We await fungal susceptibilities from the . If his Juany glabrata is susceptible to fluconazole, we can switch to oral fluconazole and discontinue his intravenous antifungal therapy. If, on the other hand, it is moderately or completely resistant, we may be forced to continue with micafungin for a minimum two week total course. 5. I will continue to follow this patient with you.
--- NOTE | 2017-02-28 11:25 | NUR ---
spiritual care: follow up lengthy conversational visit. pt shared his interests/goals and explored values, spirituality and expressions of these as he considered recent medical events ojse c the feeling of being humbled and physically vulnerable. Pt reflected on options of ongoing medical care for dependence and commented he felt he was benefitting from the weaning from opioids he's experiencing and feels reluctant to use more medications. Pt shared his vocational history, his enjoyment of metalwork and hobbies jose c snowboarding. Pt reflected on family history, cultural stories, specific places that are important to him. Insightful, calm and hopeful about recovery process. appreciative of spiritual care and "someone different to talk to"
--- NOTE | 2017-02-28 11:40 | PCM.PNMED ---
Subjective Date of Service Feb 28, 2017 Subjective This morning, patient notes that he has been having difficulty sleeping at night. He seems quite anxious while his parents were in the room. He denies visual changes, chest pain, shortness of breath, abdominal pain, nausea, vomiting, and dysuria. He states that he did not ambulate much with PT yesterday but will try to do so today. He notes that his pain is better controlled. No acute events overnight Exam Vital Signs Vital Sign - Last Date Time Temp Pulse Resp B/P Pulse Ox O2 Delivery O2 Flow Rate FiO2 02/28/17 05:38 93 02/28/17 03:07 36.5 16 120/85 99 Room Air 02/26/17 02:52 2.00 02/24/17 07:53 40 Intake and Output 02/27/17 02/27/17 02/28/17 Cumulative From/Thru 15:00 23:00 07:00 02/17/17 00:10 - 02/28/17 06:45 Intake Total 1425 ml 800 ml 68206.5 ml Output Total 1100 ml 1000 ml 13763 ml Balance 325 ml -200 ml 1725.5 ml Intake Oral 800 ml 800 ml 4465 ml IV Total 625 ml 72443.5 ml TPN/PPN 4070 ml Packed Cells 350 ml Output Urine Total 600 ml 500 ml 55144 ml Stool Total 500 ml 500 ml 34990 ml Gastric Drainage Total 8405 ml Drainage Total 7385 ml Peritoneal Fluid 1160 ml Estimated Blood Loss 24 ml # Bowel Movements 0 Exam Gen: young man with extensive Tattoos, post extubation patient communicating appropriately, patient is alert awake oriented 3 and was conversational Neck:supple, non-tender, no JVD, HEENT:PERRL with miosis, EOMI, no scleral icterus CV: Regular Tachycardia with no murmurs rubs or gallops Resp: Clear to auscultation bilaterally Abd: ostomy in RLQ with pink well perfused stoma and output of brown liquid stool Extr: Warm to the touch, continued improvement of edema, no cyanosis or clubbing Neuro: CN 2-12 grossly intact. no focal neurologic deficit. Psych: Patient reports today that his pain is improved and he feels anxious and has difficulty sleeping IVs and Medications Medications Reviewed: Medications were reviewed in detail Medications High-risk medications include Dilaudid, Ativan, Restoril, oxycodone Lab and Diagnostics Result Diagram: 02/28/17 03402/28/17 034 Microbiology Peritoneal fluid culture reveals: Peptostreptococcus Anaerobius Fusobacterium Nucleatum Bacteroides Fragilis . X-Rays, CTs and MRIs CT ABDOMEN AND PELVIS WITH CONTRAST IMPRESSION: 1. Multiple dilated loops of small bowel associated circumferential wall thickening compatible small bowel obstruction. 2. Fluid collection with irregular peripheral enhancement in the right lower quadrant adjacent to cecum and terminal ileum concerning for abscess. The appendix is not definitely visualized in ruptured appendix cannot be excluded. 3. Circumferential wall thickening involving the terminal ileum which could related to pathology involving the appendix or a Crohn's disease. 4. Moderate amount of ascites scattered throughout the abdomen and pelvis. There is associated mild peritoneal enhancement consistent with peritonitis. 5. 5 mm nodule in the left lower lobe. Recommend follow up imaging based on criteria outlined below. ADDENDUM IMPRESSION: 1. Multiple dilated loops of small bowel associated circumferential wall thickening compatible small bowel obstruction and possible bowel ischemia. 2. Fluid collection with irregular peripheral enhancement in the right lower quadrant adjacent to cecum and terminal ileum concerning for abscess. The appendix is not definitely visualized and ruptured appendix cannot be excluded. 3. Circumferential wall thickening involving the terminal ileum which could related to pathology involving the adjacent appendix or inflammatory bowel disease such as Crohn's disease. 4. Moderate amount of ascites scattered throughout the abdomen and pelvis. There is associated mild peritoneal enhancement consistent with peritonitis. 5. 5 mm nodule in the left lower lobe. Recommend follow up imaging based on criteria outlined below. Approved by: Radha Cruz MD, PhD on 02/17/2017 at 9:54 Approved by: Radha Cruz MD, PhD on 02/17/2017 at 10:36 CT ABDOMEN AND PELVIS WITHOUT CONTRAST IMPRESSION: 1. Extensive large and small bowel pneumatosis in the setting of small bowel obstruction with extensive portal venous gas which has developed in the interval since prior CT scan obtained 02/17/17 at 0235 hours. Findings compatible with bowel ischemia. 2. Peritoneal pneumatosis and pneumoretroperitoneum which could be related to ruptured bowel versus infection with gas-forming organism. 3. Free intraperitoneal air and mesenteric air consistent with bowel perforation and/or mesenteric ischemia. 4. Decreased IVC caliber highly suspicious for severe hypotension. Please correlate with clinical data. 5. Moderate to large amount of ascites which is increased in volume compared to 02/17/17. The ascites has increased density compared to the prior CT scan which could be related to hemorrhage, proteinaceous fluid or infectious fluid. 6. Dilated loops of small bowel compatible with small bowel obstruction. 7. Probable right lower quadrant pericecal abscess suboptimally visualized in the absence of intravenous contrast does not appear significantly changed compared to prior CT scan. 8. Trace bilateral pleural effusions. Approved by: Radha Cruz MD, PhD on 02/17/2017 at 10:58 X-RAY CHEST ONE VIEW, PORTABLE IMPRESSION: 1. New left lower lobe infiltrates with associated pleural effusion. Improved right perihilar pulmonary opacities. 2. Stable support devices. Approved by: Dylon Gonzalez M.D. on 02/23/2017 at 7:24 Cardiac Echo Impressions Echocardiogram on 02/17/2017 Interpretation Summary Technically difficult study limits valve visualization. 1) Normal left ventricular thickness and size with severely reduced systolic function (EF 20-25%). 2) Borderline right ventricular enlargement with moderately reduced function. 3) No significant valvular abnormalities. 4) No prior Echo available for comparison. If endocarditis is suspected, consider CATRACHITO. Repeat ECHO on 02/26/17 Interpretation Summary The left ventricle is normal in size. The ejection fraction is estimated to be 65-70%. Compared to the prior exam, left ventricular function is significantly improved. Anterior MV leaflet appears mildly elongated along with mild doming and mild calcification of tip of the anterior mitral leaflet.. There is no mitral valve stenosis. There is moderate mitral regurgitation. Compared to the prior echo study, there has been an increase in the severity of mitral regurgitation. Assessment & Plan Mr. Perez is a 36-year-old gentleman with PMHX significant for polysubstance abuse and has been incarcerated at [facility] for the recent 12 days prior to admission, who presented to the emergency department with a 2 week onset of increasing abdominal pain with associated fever, chills, nausea, vomiting, diaphoresis. CT scan showed free air in the abdomen and was taken emergently to surgery and found to have severe necrotizing perforated appendicitis. Patient underwent surgery 3 times, including an ileocecectomy, resection of distal ileum and ileostomy, ileocolic anastomosis, and wound closure with current ostomy and fascial but not subcutaneous tissue closure. He was extubated on 02/24/2017 and has had significant improvement since hospitalization. Acute Hypoxemia Respiratory Failure, not present on admission, resolved - Overnight 02/23/2017 the patient acutely desaturated during a linen change with oxygen saturation into the low to mid 70s. The ventilator was changed from pressure control to PRVC with FiO2 of 100% PEEP of 8, respiratory rate of 16 and tidal volumes of 500. - Worsening hypoxemia acutely after tensioning of [place] patch seems due to RLL atelectasis due to mucus plug and or compression - currently returned to FIO2 of 0.5 - Respiratory therapy to perform localized CPT -Today 02/24, patient was successfully extubated without complications -He is tolerating nasal cannula supplemental oxygen and room air Severe necrotizing perforated appendicitis, acute, present on admission, Resolved -As evidenced by the CT above --On 02/17/17, patient underwent Exploratory laparotomy, ileocecectomy, VAC dressing placement. -On 02/19/17, patient returned to surgery for Exploration of previous laparotomy , Adhesiolysis, Resection of distal ileum, 10 cm., Resection of hepatic flexure (7 cm)., and Loop ileostomy -On 02/21/17, patient returned to surgery for another exploratory laparotomy with ileocolic anastomosis but unable to close the fascia so [place] Patch was sewn to his fascia and will require daily adjustments -Patient with open abdominal wound and wound vac in place, output has been copious, surgery will continue to manage -Current analgesia with Fentanyl drip, patient with likely pre-existing opiate habituation -Continue Zosyn per ID, able to discontinue micafungin -Patient is intubated on ventilation support, continue cautious diureses -Surgery closed the patient's abdominal incision 02/23/2017 -Begin PT and mobilization now post extubation -Dilaudid BACK PAD INSPECTOR for analgesia has been discontinued per surgery -Per surgery, we have Discontinue Cash, PT has been consulted for ambulation -Left lower quadrant abdominal drain has been discontinued. Continue right upper quadrant abdominal drain for now. Continue wound VAC -Surgery notes that in 6 weeks to 3 months, patient will have a takedown of the ileostomy and closure of the subcutaneous tissue. -Tylenol is now scheduled at 975 q6h. -02/27/2017, per surgery, [place] drain was removed, Wound vac was removed, wound assessed, and delayed primary closure done today. -In addition, surgery has added Imodium to slow down ostomy bag output. -Patient has been ambulating with PT Severe Sepsis with severe lactic acidosis, acute, present on admission, resolving -Initially Secondary to severe necrotizing perforated appendicitis with feculent peritonitis -On admit: T 35.9, P1 44, RR 34, lactic acid 7.6, with repeat 4.8 -Surgery found his appendix obviously ruptured and in 2 pieces, with extensive associated necrotic tissue through the peritoneal cavity, as well as a likely abscess in the RLQ, patient had multiple staged I&D of necrotic tissue and patient was started on broad-spectrum antibiotics -Patient has been dependent upon aggressive fluid resuscitation with copious NS , Albumin, and 2U PRBC to date - Per ID, Will continue with Zosyn and micafungin for a bit longer even as the patient continues to steadily improve. -Goal would be to see a lower procalcitonin perhaps 0.5 or less for a day or two and then suspend all antibiotic therapy at that point assuming he is stable - Infectious disease also suggest that the patient should have a dilated eye examination as an outpatient to assess for Juany endophthalmitis, which would lengthen antibiotic therapy - We await fungal susceptibilities from the . History of Opiod Dependance, present on admission -While in the ICU, patient was receiving high doses of fentanyl and was later transitioned into a BACK PAD INSPECTOR at 1.5 mg IV per hour of hydromorphone -This is equivalent to 30 mg/h of oxy by mouth -Patient is currently receiving 5-15 mg every 4 hours oxycodone, 1-2 mg every 4 Dilaudid and 1 mg every 4 hours lorazepam -Restoril for sleep -Continue to Watch for signs of withdrawal and adjust pain medications as necessary -Discussed possibility of Suboxone as outpatient -Consult with social work Tachycardia and stress induced cardiomyopathy, POA, acute. Active -ECHO demonstrated EF of 20-25% with little structural heart disease, likely indicative of acute decompensation -Was briefly on Dobutamine drip after being admitted -Follow up ECHO on 02/26/17 shows markedly improved EF of about 65%-70% Microcytic anemia, not present on admission, ongoing -Patient has received 2 units PRBC to maintain intravascular volume -Iron Studies show low iron 19 and low TIBC -Today,H&H 9.09/25.1respectively -Consider iron replacement Hypertension, ongoing, stable -This could be due to withdrawals or possibly pain -Started enalaprilat prn for systolic blood pressure greater than 150 -Continue to monitor blood pressure Hyperglycemia, acute, present on admission, under evaluation - On admit:Glc 215 - Likely secondary to stress release - Regular insulin Low dose correctional scale -Advance diet as tolerated - check blood glucose q 6 hrs Elevated liver function tests likely secondary to active hepatitis C infection, chronicity unknown, present on admission, improving - On admit: total bili 2.0 AST, 41 ALT, 92 Alk Phos 90 -Today, Total bili 2.9, AST 52, ALT 118 - Hep panel indicates active Hep C infection with viral load of 260,000 - HIV negative Acute kidney injury, present on admission, resolved - On admit:Cr 1.35 - Likely secondary to dehydration resulting from nausea and vomiting due to underlying infection -After extensive fluid resuscitation, Cr today is 0.69 Multiple Electrolyte abnormalities, present on admission, resolved - On admit: K 3.0, Mg 2.2, K rider was given initially - Today, K 4.0 Ca 7.6, Phos 3.3, Mg 2.1 -Advance diet as tolerated Polycythemia, chronicity unknown, present on admission, Resolved - On admit: Hemoglobin 18.9, hematocrit 54.1 - Likely secondary to dehydration from recent nausea and vomiting due to abdominal pain History of incarceration -MAINTENANCE TRUCK DRIVER consult -Hep panel indicative of past infection -HIV negative -MRSA nasal swab negative DVT prophylaxis: Currently contraindicated given need for ongoing surgical procedures GI prophylaxis: None indicated at this time CODE STATUS full Disposition: We will continue with IV antibiotics pending fungal culture results , continue ambulating with physical therapy, taper off of pain medications and consider the possibility of outpatient Suboxone treatment,. Pain Evaluation: Adequate Pain Control GI Prophylaxis: H2 mack VTE Prophylaxis: Sub-Q Heparin (Unfractionated) VTE Mechanical Devices: Intermittant Pneumatic CD Resuscitation Status: CPR: Attempt Resuscitation Attending Statement The patient was seen and examined together with Dr. Zelaya on 02/28/2017 and I agree with the history, exam and plan as outlined in the note above. . Leah Zelaya DO Feb 28, 2017 07:19 Godfrey Bolton MD Mar 01, 2017 07:33
--- NOTE | 2017-02-28 12:00 | NUR ---
Inpatient Wound and Ostomy Nurse Patient much more interactive and participatory regarding ostomy education, overall improved, talkative, and more focused. Ostomy wafer had been trimmed to accommodate abdominal incision dressing and was detached at medial edge. All dressings and wafer were removed. Incision is clean and dry, all steristrips intact, periwound warm and pink, no evidence of infection. Steristrips were undisturbed and entire incision was covered with [place]elf[place] Adhes[place] Dressing placed off-center to give maximum surface for ostomy wafer placement. One [place] Dressing was cut in half, the other overlapped, combined to cover entire length of incision. Site of removed ORLANDO drain was cleansed and covered with 4 x 4 bordered Mepilex with silicone facing. This dressing overlapped ostomy wafer but can be lifted and reapplied if wafer needs changing. Steps of ostomy system change were reviewed with patient who was much more hands-on, stated understanding of sequence steps, and was able to attach pouch to wafer. Medial side of ostomy wafer was trimmed to accommodate abdominal incision dressing, a small border of wafer was allowed on that medial edge rather than total removal. Stool in pouch was liquid but stool coming from stoma was peanut butter consistency and patient stated that he was now getting Lomotil. Portion of stoma is still retracted but what is budded is pink, firm and above skin surface. Paste was used with a small, convex wafer opened to max size since barrier has been trimmed, anchoring on that medial side is compromised. Hopefully with improved stool consistency, addition of ostomy paste to wafer, and discontinuation of NPWT, ostomy system will remain patent over the long weekend. If patient requires new wafer, a convex wafer should be used to improve stoma protrusion. Once discharge orders are written, a follow-up appointment should be scheduled with RENATA Rachel [facility] ([phone]). This practitioner will continue ostomy education and order supplies for patient based on his new, baseline stoma. If patient is still inpatient after holiday weekend, CWON RN will see on Friday (03/04).
--- NOTE | 2017-02-28 12:57 | PCM.PROC ---
Procedure Note Date of Service: Feb 27, 2017 Procedure: Alfonso-Lim surgical drain removed as indicated without complication. Max Au PA-C Feb 28, 2017 12:57
--- NOTE | 2017-02-28 13:49 | NUR ---
NUTRITION FOLLOW-UP: Assess: 36 YO male admitted with pericecal abscess, status post damage control laparotomy with ileocecostomy; re-exploration laparotomy with diverting loop ileostomy. The patient was extubated 02.24. TPN discontinued 02/25. Delayed primary closure of wound yesterday, wound vac discontinued. Last OR[place]O drain is out. ~2500mL ostomy output, started 2 mg imodium yesterday. The patient is participating in his ostomy teaching; Animal Husbandry Worker encouraged. PMHX: Heroin use. DIET: Soft, nectar thick liquids. Patient is taking minimal PO since TPN discontinued 02/25. TPN: (D/C') D 190 g, amino acid 80 g, lipid 15 g, providing 1116 kcal, 80 g protein. LABS: Na 133, Chloride 93, Cr 0.71, Glu 114, AST 70, ALT 97. MEDICATIONS: Reviewed. Imodium. GI: Stool via ileostomy. Approx. 2550 mL OP (02/27). SKIN: Per Animal Husbandry Worker, suspected DTI at midline sacrum. Abdominal wound with wound vac requiring closure. ANTHROPOMETRICS: Wt: 68.3kg, BMI 21.0 kg/m2, Admit wt: 72.73 kg. ESTIMATED NEEDS: Calories: 6610-6217 kcal/day (25-30 kcal/kg BW) Protein: 84-101 g/day (1.0-1.2 g/kg BW) NUTRITION DIAGNOSIS: 1) Inadequate oral intake related to decreased ability to consume sufficient energy as evidenced by NPO status - PERSISTS WITH MINIMAL PO INTAKE. INTERVENTION: 1) Continue current diet and supplements as ordered. 2) Recommend consideration of enteral nutrition for this deconditioned patient to mitigate further depletion of nutrition stores. MONITOR/EVALUATE: PO intake, diet tolerance, labs, GI/nutrition status. Follow per high nutrition risk guidelines.
--- NOTE | 2017-02-28 19:15 | NUR ---
Activity/Pain/Anxiety Patient a/o x 4, c/o abd pain at rest and with activity 6-10, meds given PRN. Patient amb in [place] with walker and sba david fair, but c/o drsg pulling at skin making it difficult to stand upright. Abd drsg c/d/i, ileostomy putting out liq brown stool. Patient c/o anxiety and insomnia, notified and new orders received. VSS, tele SR-ST 90-130's.
[2017-02-28] MEDS: 0.9% Sodium Chloride 1,000 ML IV SCH (21:49)
[2017-03-01] VITALS (9 sets, daily range): BP systolic 114–122; BP diastolic 74–83; PULSE 85–112; RESP 16–18; O2SAT 96–98
[2017-03-01] MEDS: HYDROmorphone 1 mg/mL Inj IVPUSH PRN ×6 (01:44→22:03)
[2017-03-01] MEDS: Heparin 5,000 Unit/mL Inj SUBQ SCH ×3 (01:44→16:50)
[2017-03-01 03:22] LABS: BASOPHILS % (AUTO) 1.3 % (0-3); EOSINOPHILS % (AUTO) 1.9 % (0-5); MONOCYTES % (AUTO) 21.7 % (4-12); Mean Corpuscular Hemoglobin 26.2 pg (27.0-35.0); Mean Corpuscular Volume 78.8 fL (81-100); NEUTROPHILS % (AUTO) 46.2 % (40-74); Platelet Count 878 bil/L (150-400)
[2017-03-01] MEDS: Piperacillin-Tazo 3.375 Gm Inj 3.375 GM in Dextrose 5% Minibag Plus 50 ML IV SCH ×4 (05:45→22:04)
[2017-03-01] MEDS: LORazepam 1 mg Tablet PO PRN ×3 (05:52→17:56)
--- NOTE | 2017-03-01 06:37 | NUR ---
Pain c/o abdominal pain x4 this shift. Prn Dilaudid and oxycodone administered and appears effective. Noted to be resting with eyes closed after administration and appears to be asleep.
[2017-03-01] MEDS: Pantoprazole 4 mg/mL 10 mL Inj IVPUSH SCH (07:56)
[2017-03-01] MEDS: Micafungin Inj 150 MG in 0.9% Sodium Chloride 100 ML IV SCH (07:57)
--- NOTE | 2017-03-01 11:24 | PROG NOTE ---
[address] [address] PROGRESS NOTE PATIENT: LEON GUERRERO : 1980 MR#: [id number] ADMIT: 02/17/2017 JOB ID: [id number] DATE: 03/01/2017 SUBJECTIVE: The patient is seen in followup. Yesterday, he underwent delayed primary closure of his midline wound. He complains of some tightness of the abdominal wall with ambulation. He has no nausea. OBJECTIVE: Temperature 36.8, pulse 112, blood pressure 120/75, saturation 96% on room air. In general, he is resting in bed in no acute distress. Chest is clear. Heart: Regular rate and rhythm. No murmurs. Abdomen is flat and soft, nondistended. He does have tenderness to palpation. His ileostomy has watery output but with some particulate matter. There is no erythema of the abdominal wall. LABORATORIES: White count is 7.8, hematocrit 31.6, platelets 878. Creatinine 0.80. Glucose 137. Procalcitonin 1.16. ASSESSMENT AND PLAN: A 36-year-old man with perforated appendicitis with diffuse purulent peritonitis, status post ileocecectomy, loop ileostomy, subsequent abdominal wall closure. He is doing well clinically. He continues to have fairly high ileostomy output. Low-dose Imodium had been started which he is tolerating. I will increase the Imodium to 2 mg t.i.d. today. Disposition is being worked out. Question is whether he can go home from the hospital with family or if he might need to go back to shelter or to respite.
--- NOTE | 2017-03-01 11:50 | PCM.PNMED ---
Subjective Date of Service Mar 01, 2017 Subjective Mr. Perez is a 36-year-old gentleman with PMHX significant for polysubstance abuse and has been incarcerated at [facility] for the recent 12 days prior to admission, who presented to the emergency department with a 2 week onset of increasing abdominal pain with associated fever, chills, nausea, vomiting, diaphoresis. CT scan showed free air in the abdomen and was taken emergently to surgery and found to have severe necrotizing perforated appendicitis. Patient underwent surgery 3 times, including an ileocecectomy, resection of distal ileum and ileostomy, ileocolic anastomosis, and wound closure with current ostomy and fascial but not subcutaneous tissue closure. He was extubated on 02/24/2017 and has had significant improvement since hospitalization. This morning, he has been ambulating with physical therapy. He mentions that he did not sleep well last night even with the Restoril. He complains of pain in the abdominal area. He denies headaches, visual changes, chest pain, SOB, nausea , vomiting, and dysuria. We discussed the importance of ambulating with Physical therapy and increasing his oral intake of food. In addition, we discussed opioid dependance as well as transitioning to oral pain medications and the possibility of participating in suboxone treatment as an outpatient. Overnight, patient complained of abdominal pain which was relieved by pain medications. He was able to fall asleep afterwards. Exam Vital Signs Vital Sign - Last Date Time Temp Pulse Resp B/P Pulse Ox O2 Delivery O2 Flow Rate FiO2 03/01/17 05:53 103 03/01/17 04:12 36.6 16 116/81 98 Room Air 02/26/17 02:52 2.00 02/24/17 07:53 40 Intake and Output 02/28/17 02/28/17 03/01/17 Cumulative From/Thru 15:00 23:00 07:00 02/17/17 00:10 - 03/01/17 06:07 Intake Total 690 ml 1128 ml 882 ml 39851.5 ml Output Total 500 ml 1500 ml 45949 ml Balance 690 ml 628 ml -618 ml 2425.5 ml Intake Oral 520 ml 300 ml 5285 ml IV Total 690 ml 608 ml 582 ml 27281.5 ml TPN/PPN 4070 ml Packed Cells 350 ml Output Urine Total 700 ml 76880 ml Stool Total 500 ml 800 ml 98091 ml Gastric Drainage Total 8405 ml Drainage Total 7385 ml Peritoneal Fluid 1160 ml Estimated Blood Loss 24 ml # Voids 1 2 3 # Bowel Movements 0 Exam Gen: young man with extensive Tattoos, patient is alert awake oriented 3 and was conversational, less diaphoretic today Neck:supple, non-tender, no JVD, HEENT:PERRL with miosis, EOMI, no scleral icterus CV: Regular Tachycardia with no murmurs rubs or gallops Resp: Clear to auscultation bilaterally Abd: ostomy in RLQ with pink well perfused stoma and output of brown liquid stool, tender to palpation Extr: Warm to the touch, no edema, no cyanosis or clubbing Neuro: CN 2-12 grossly intact. no focal neurologic deficit. Psych: Patient reports today that his pain is improved but that he is somewhat anxious especially since his parents are visiting IVs and Medications Medications Reviewed: Medications were reviewed in detail Medications High risk medications include Dilaudid, oxycodone, ativan Lab and Diagnostics Laboratory Tests Test 03/01/17 03:05 White Blood Count 7.8th/mm3 (3.8-10.1) Red Blood Count 4.01mil/mm3 (4.40-5.80) Hemoglobin 10.5g/dL (13.8-17.2) Hematocrit 31.6% (41.0-50.0) Mean Corpuscular Volume 78.8fL (81-100) Mean Corpuscular Hemoglobin 26.2pg (27.0-35.0) Mean Corpuscular Hemoglobin Concent 33.2% (32.0-37.0) Red Cell Distribution Width 14.2% (12.3-15.4) Platelet Count 878bil/L (150-400) Neutrophils (%) (Auto) 46.2% (40-74) Lymphocytes (%) (Auto) 28.6% (14-46) Monocytes (%) (Auto) 21.7% (4-12) Eosinophils (%) (Auto) 1.9% (0-5) Basophils (%) (Auto) 1.3% (0-3) Hematology Comments Sodium Level 131mEq/L (134-144) Potassium Level 4.3mEq/L (3.5-5.2) Chloride Level 94mEq/L (97-108) Carbon Dioxide Level 21mmol/L (18-29) Blood Urea Nitrogen 12mg/dL (6-20) Creatinine 0.80mg/dL (0.76-1.27) Estimat Glomerular Filtration Rate 116mL/min (>59) Glucose Level 137mg/dL (60-99) Calcium Level 8.8mg/dL (8.5-10.1) Total Bilirubin 0.6mg/dL (0.0-1.2) Aspartate Amino Transf (AST/SGOT) 59U/L (0-50) Alanine Aminotransferase (ALT/SGPT) 93U/L (0-44) Alkaline Phosphatase 146U/L (25-150) Total Protein 7.3g/dL (6.4-8.4) Albumin 3.5g/dL (3.4-5.0) Procalcitonin 1.16ng/mL (0.00-0.08) Microbiology 02/24/17 Blood Fungal Culture, Received Pending 02/17/17 Gram Stain - Final, Complete 02/17/17 Culture & Sensitivity - Final, Complete No growth. 02/17/17 Anaerobic Culture - Final, Complete Peptococcus Anaerobius Fusobacterium Nucleatum Bacteroides Fragilis Group 02/17/17 MRSA (PCR) - Final, Complete 02/23/17 Sputum Quality Screen - Final, Complete 02/23/17 Sputum Culture - Final, Complete No growth at 48 hrs Result Diagram: 03/01/17 0305 03/01/17 0305 Microbiology Peritoneal fluid culture reveals: Peptostreptococcus Anaerobius Fusobacterium Nucleatum Bacteroides Fragilis . X-Rays, CTs and MRIs CT ABDOMEN AND PELVIS WITH CONTRAST IMPRESSION: 1. Multiple dilated loops of small bowel associated circumferential wall thickening compatible small bowel obstruction. 2. Fluid collection with irregular peripheral enhancement in the right lower quadrant adjacent to cecum and terminal ileum concerning for abscess. The appendix is not definitely visualized in ruptured appendix cannot be excluded. 3. Circumferential wall thickening involving the terminal ileum which could related to pathology involving the appendix or a Crohn's disease. 4. Moderate amount of ascites scattered throughout the abdomen and pelvis. There is associated mild peritoneal enhancement consistent with peritonitis. 5. 5 mm nodule in the left lower lobe. Recommend follow up imaging based on criteria outlined below. ADDENDUM IMPRESSION: 1. Multiple dilated loops of small bowel associated circumferential wall thickening compatible small bowel obstruction and possible bowel ischemia. 2. Fluid collection with irregular peripheral enhancement in the right lower quadrant adjacent to cecum and terminal ileum concerning for abscess. The appendix is not definitely visualized and ruptured appendix cannot be excluded. 3. Circumferential wall thickening involving the terminal ileum which could related to pathology involving the adjacent appendix or inflammatory bowel disease such as Crohn's disease. 4. Moderate amount of ascites scattered throughout the abdomen and pelvis. There is associated mild peritoneal enhancement consistent with peritonitis. 5. 5 mm nodule in the left lower lobe. Recommend follow up imaging based on criteria outlined below. Approved by: Radha Cruz MD, PhD on 02/17/2017 at 9:54 Approved by: Radha Cruz MD, PhD on 02/17/2017 at 10:36 CT ABDOMEN AND PELVIS WITHOUT CONTRAST IMPRESSION: 1. Extensive large and small bowel pneumatosis in the setting of small bowel obstruction with extensive portal venous gas which has developed in the interval since prior CT scan obtained 02/17/17 at 0235 hours. Findings compatible with bowel ischemia. 2. Peritoneal pneumatosis and pneumoretroperitoneum which could be related to ruptured bowel versus infection with gas-forming organism. 3. Free intraperitoneal air and mesenteric air consistent with bowel perforation and/or mesenteric ischemia. 4. Decreased IVC caliber highly suspicious for severe hypotension. Please correlate with clinical data. 5. Moderate to large amount of ascites which is increased in volume compared to 02/17/17. The ascites has increased density compared to the prior CT scan which could be related to hemorrhage, proteinaceous fluid or infectious fluid. 6. Dilated loops of small bowel compatible with small bowel obstruction. 7. Probable right lower quadrant pericecal abscess suboptimally visualized in the absence of intravenous contrast does not appear significantly changed compared to prior CT scan. 8. Trace bilateral pleural effusions. Approved by: Radha Cruz MD, PhD on 02/17/2017 at 10:58 X-RAY CHEST ONE VIEW, PORTABLE IMPRESSION: 1. New left lower lobe infiltrates with associated pleural effusion. Improved right perihilar pulmonary opacities. 2. Stable support devices. Approved by: Dylon Gonzalez M.D. on 02/23/2017 at 7:24 Cardiac Echo Impressions Echocardiogram on 02/17/2017 Interpretation Summary Technically difficult study limits valve visualization. 1) Normal left ventricular thickness and size with severely reduced systolic function (EF 20-25%). 2) Borderline right ventricular enlargement with moderately reduced function. 3) No significant valvular abnormalities. 4) No prior Echo available for comparison. If endocarditis is suspected, consider CATRACHITO. Repeat ECHO on 02/26/17 Interpretation Summary The left ventricle is normal in size. The ejection fraction is estimated to be 65-70%. Compared to the prior exam, left ventricular function is significantly improved. Anterior MV leaflet appears mildly elongated along with mild doming and mild calcification of tip of the anterior mitral leaflet.. There is no mitral valve stenosis. There is moderate mitral regurgitation. Compared to the prior echo study, there has been an increase in the severity of mitral regurgitation. Assessment & Plan Mr. Perez is a 36-year-old gentleman with PMHX significant for polysubstance abuse and has been incarcerated at [facility] for the recent 12 days prior to admission, who presented to the emergency department with a 2 week onset of increasing abdominal pain with associated fever, chills, nausea, vomiting, diaphoresis. CT scan showed free air in the abdomen and was taken emergently to surgery and found to have severe necrotizing perforated appendicitis. Patient underwent surgery 3 times, including an ileocecectomy, resection of distal ileum and ileostomy, ileocolic anastomosis, and wound closure with current ostomy and fascial but not subcutaneous tissue closure. He was extubated on 02/24/2017 and has had significant improvement since hospitalization. We will be continuing with antibiotics. Per recommendations of ID, probably 2-3 more days with IV antibiotics. We are also awaiting fungal cultures from . We stressed the importance of physical therapy, ambulation, good oral food intake, and control of blood glucose. In addition, we discussed opioid dependance and the possibility of tapering pain medications as well as suboxone for pain management as an outpatient. Patient will likely discharge back to intermediate (per family) on 03/04/17- and will be serving the rest of his sentence. Acute Hypoxemia Respiratory Failure, not present on admission, resolved - Overnight 02/23/2017 the patient acutely desaturated during a linen change with oxygen saturation into the low to mid 70s. The ventilator was changed from pressure control to PRVC with FiO2 of 100% PEEP of 8, respiratory rate of 16 and tidal volumes of 500. - Worsening hypoxemia acutely after tensioning of Sarah patch seems due to RLL atelectasis due to mucus plug and or compression - Respiratory therapy to perform localized CPT -02/24, patient was successfully extubated without complications -He is tolerating room air Severe necrotizing perforated appendicitis, acute, present on admission, Resolved -As evidenced by the CT above --On 02/17/17, patient underwent Exploratory laparotomy, ileocecectomy, VAC dressing placement. -On 02/19/17, patient returned to surgery for Exploration of previous laparotomy , Adhesiolysis, Resection of distal ileum, 10 cm., Resection of hepatic flexure (7 cm)., and Loop ileostomy -On 02/21/17, patient returned to surgery for another exploratory laparotomy with ileocolic anastomosis but unable to close the fascia so [place] Patch was sewn to his fascia and will require daily adjustments -Patient with open abdominal wound and wound vac in place, output has been copious, surgery will continue to manage -Current analgesia with Fentanyl drip, patient with likely pre-existing opiate habituation -Continue Zosyn per ID, able to discontinue micafungin -Patient is intubated on ventilation support, continue cautious diureses -Surgery closed the patient's abdominal incision 02/23/2017 -Begin PT and mobilization now post extubation -Dilaudid [employer] [place] for analgesia has been discontinued per surgery -Per surgery, we have Discontinue Cash, PT has been consulted for ambulation -Left lower quadrant abdominal drain has been discontinued. Continue right upper quadrant abdominal drain for now. Continue wound VAC -Surgery notes that in 6 weeks to 3 months, patient will have a takedown of the ileostomy and closure of the subcutaneous tissue. -Tylenol is now scheduled at 975 q6h. -02/27/2017, per surgery, [place] drain was removed, Wound vac was removed, wound assessed, and delayed primary closure done today. -In addition, surgery has added Imodium to slow down ostomy bag output. -Patient has been ambulating with PT Severe Sepsis with severe lactic acidosis, acute, present on admission, resolving -Initially Secondary to severe necrotizing perforated appendicitis with feculent peritonitis -On admit: T 35.9, P1 44, RR 34, lactic acid 7.6, with repeat 4.8 -Surgery found his appendix obviously ruptured and in 2 pieces, with extensive associated necrotic tissue through the peritoneal cavity, as well as a likely abscess in the RLQ, patient had multiple staged I&D of necrotic tissue and patient was started on broad-spectrum antibiotics -Patient has been dependent upon aggressive fluid resuscitation with copious NS , Albumin, and 2U PRBC to date - Per ID, Will continue with Zosyn and micafungin for a bit longer even as the patient continues to steadily improve. -Goal would be to see a lower procalcitonin perhaps 0.5 or less for a day or two and then suspend all antibiotic therapy at that point assuming he is stable - Infectious disease also suggest that the patient should have a dilated eye examination as an outpatient to assess for Juany endophthalmitis, which would lengthen antibiotic therapy - We await fungal susceptibilities from the . History of Opiod Dependance, present on admission -While in the ICU, patient was receiving high doses of fentanyl and was later transitioned into a [employer] at 1.5 mg IV per hour of hydromorphone -This is equivalent to 30 mg/h of oxy by mouth -Patient is currently receiving 5-15 mg every 4 hours oxycodone, 1-2 mg every 4 Dilaudid and 1 mg every 4 hours lorazepam -Restoril for sleep -Continue to Watch for signs of withdrawal and adjust pain medications as necessary -Discussed possibility of Suboxone as outpatient -Consult with social work Tachycardia and stress induced cardiomyopathy, POA, acute. Active -ECHO demonstrated EF of 20-25% with little structural heart disease, likely indicative of acute decompensation -Was briefly on Dobutamine drip after being admitted -Follow up ECHO on 02/26/17 shows markedly improved EF of about 65%-70% Microcytic anemia, not present on admission, ongoing -Patient has received 2 units PRBC to maintain intravascular volume -Iron Studies show low iron 19 and low TIBC -Today,H&H 9.3/29.1respectively -Consider iron replacement Hypertension, ongoing, stable -This could be due to withdrawals or possibly pain -Started enalaprilat prn for systolic blood pressure greater than 150 -Continue to monitor blood pressure Hyperglycemia, acute, present on admission, under evaluation - On admit:Glc 215 - Likely secondary to stress release - Regular insulin Low dose correctional scale -changed to general diet - check blood glucose q 6 hrs Elevated liver function tests likely secondary to active hepatitis C infection, chronicity unknown, present on admission, improving - On admit: total bili 2.0 AST, 41 ALT, 92 Alk Phos 90 -Today, Total bili 2.9, AST 52, ALT 118 - Hep panel indicates active Hep C infection with viral load of 260,000 - HIV negative Acute kidney injury, present on admission, resolved - On admit:Cr 1.35 - Likely secondary to dehydration resulting from nausea and vomiting due to underlying infection -After extensive fluid resuscitation, Cr today is 0.69 Multiple Electrolyte abnormalities, present on admission, resolved - On admit: K 3.0, Mg 2.2, K rider was given initially - Today, K 4.0 Ca 7.6, Phos 3.3, Mg 2.1 -Advance diet as tolerated Polycythemia, chronicity unknown, present on admission, Resolved - On admit: Hemoglobin 18.9, hematocrit 54.1 - Likely secondary to dehydration from recent nausea and vomiting due to abdominal pain History of 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 Per recommendations of ID, probably 2-3 more days with IV antibiotics. We are also awaiting fungal cultures from . We stressed the importance of physical therapy, ambulation, good oral food intake, and control of blood glucose. In addition, we discussed opioid dependance and the possibility of tapering pain medications as well as suboxone for pain management as an outpatient. Patient will likely discharge back to intermediate (per family) on 03/04/17- and will be serving the rest of his sentence. Pain Evaluation: Adequate Pain Control GI Prophylaxis: H2 mack VTE Prophylaxis: Sub-Q Heparin (Unfractionated) VTE Mechanical Devices: Intermittant Pneumatic CD Resuscitation Status: CPR: Attempt Resuscitation Attending Statement The patient was seen and examined together with Dr. Zelaya on 03/01/2017 and I agree with the history, exam and plan as outlined in the note above. . Leah Zelaya DO Mar 01, 2017 07:06 Godfrey Bolton MD Mar 02, 2017 07:33
--- NOTE | 2017-03-01 16:07 | NUR ---
Pain/Activity Patient a/o x 3, forgetful at times, c/o abd incisonal pain t/o the shift, meds given PRN. Midline incision open to air with steri strips c/d/i. Patient oob indep in room, steady gait and amb in valenzuela with sba david fair, able to amb full lap several times a shift. Ileostomy cont to put out liq brown stool, patient emptying ostomy indep, encouraged to measure stool amts for surgeon. Patient taking diet fair and drinking fluids well. VSS, tele SR-ST 90-100's at rest and 120-130's with activity. Family at bedside throughout the shift assisted patient with care. Will cont poc.
[2017-03-01] MEDS: 0.9% Sodium Chloride 1,000 ML IV SCH (16:32)
[2017-03-01] MEDS: Ondansetron 2 mg/mL 2 mL Inj IVPUSH PRN (17:49)
--- NOTE | 2017-03-01 18:02 | NUR ---
Social Work Note: Continued Discharge Planning Data& Assessment: Per PT, pt has progressed well and they are clearing pt to return back into the community when medically ready without any additional PT needs. ASSISTANT WOMEN'S BASKETBALL COACH met with pt mother per her request. Pt mother expressed interest in pt going to inpt substance use tx. ASSISTANT WOMEN'S BASKETBALL COACH explained that there is a process pt must go through including a community assessment for insurance purposes IF pt is ever interested in intpt tx. Pt mother expressed concerns over pt mobility. ASSISTANT WOMEN'S BASKETBALL COACH highlighted pt progress with PT. Pt mother and step father explained they are planning on following up with pt Ammonia Nitrate Operator to figure out if pt parents should take him to the [place] [facility] at time of discharge or not. Pt mother provided with ASSISTANT WOMEN'S BASKETBALL COACH phone number and community resource list for her to reference. ASSISTANT WOMEN'S BASKETBALL COACH to follow up with pt regarding CD assessment when appropriate. ASSISTANT WOMEN'S BASKETBALL COACH to continue to follow. Plan: Anticipated discharge back into the community when medically ready. Pt likely to report back to [place] [facility] after discharge. Pt family denies any other needs. ASSISTANT WOMEN'S BASKETBALL COACH to follow up with pt regarding CD assessment when appropriate. ASSISTANT WOMEN'S BASKETBALL COACH to continue to follow. VINICIUS Toure
[2017-03-02] VITALS (7 sets, daily range): BP systolic 115–125; BP diastolic 75–82; PULSE 80–105; RESP 16; O2SAT 96–97
[2017-03-02] MEDS: Heparin 5,000 Unit/mL Inj SUBQ SCH ×4 (02:00→23:29)
[2017-03-02] MEDS: LORazepam 1 mg Tablet PO PRN ×4 (02:00→20:04)
[2017-03-02] MEDS: HYDROmorphone 1 mg/mL Inj IVPUSH PRN ×6 (02:01→22:02)
[2017-03-02 03:49] LABS: Mean Corpuscular Hemoglobin 25.7 pg (27.0-35.0); Mean Corpuscular Volume 79.9 fL (81-100)
[2017-03-02] MEDS: Piperacillin-Tazo 3.375 Gm Inj 3.375 GM in Dextrose 5% Minibag Plus 50 ML IV SCH ×4 (05:28→23:28)
--- NOTE | 2017-03-02 06:32 | NUR ---
Pain c/o abdominal pain x3 this shift. Requesting Prn Dilaudid and states that PO pain medications don't work. Refused PO APAP and accepted Oxycodone x1 this shift and declined it rest of shift stating it is not effective. Noted to be sleeping between doses and even had to wake patient up for routine medication administration but patient states he has not slept. Disoriented to time and forgetful regarding medication administration asking for Dilaudid shortly after it has been administered. Frequent rounding to address needs.
[2017-03-02] MEDS: Pantoprazole 4 mg/mL 10 mL Inj IVPUSH SCH (07:56)
[2017-03-02] MEDS: Micafungin Inj 150 MG in 0.9% Sodium Chloride 100 ML IV SCH (09:59)
--- NOTE | 2017-03-02 10:33 | PROG NOTE ---
[address] [address] PROGRESS NOTE PATIENT: RUI GUERRERO : 1980 MR#: [id number] ADMIT: 02/17/2017 JOB ID: [id number] DATE: 03/02/2017 SUBJECTIVE: Rui is seen in followup. He is doing well. Loperamide was increased yesterday, and he thinks it is helping with his watery ileostomy output. Total output yesterday was 1300 cc. His abdominal pain is well controlled with oral oxycodone. OBJECTIVE: Temperature 36.9, pulse 96, blood pressure 125/75, saturation 97% on room air. In general, he is resting in bed in no acute distress. Chest is clear. Heart regular rate and rhythm, no murmurs. Abdomen is flat and soft. His midline wound has no erythema and is intact. The ileostomy has been greenish stool. LABORATORIES: White count is 5.7, hematocrit 29.8. Creatinine 0.75. Glucose 111. Procalcitonin 0.71. ASSESSMENT AND PLAN: A 36-year-old man with perforated appendicitis with diffuse purulent peritonitis status post ileocecectomy, end ileostomy, abdominal wall closure. He is doing well clinically. I think plans could be made to discharge him from the hospital in approximately two days. It sounds like he will most likely go home with his family. We will keep loperamide at its current dose.
--- NOTE | 2017-03-02 11:13 | PROG NOTE ---
[address] [address] PROGRESS NOTE PATIENT: LEON GUERRERO : 1980 MR#: [id number] ADMIT: 02/17/2017 JOB ID: [id number] DATE: 03/02/2017 REASON FOR FOLLOWUP: Complicated intraabdominal infection with associated Juany glabrata fungemia. INTERVAL HISTORY: Over the weekend, the patient reports he has been board. He says he is starting to feel quite well and would like to go home. He has no fevers, chills, or sweats. He is eating heartily with no abdominal pain, nausea, or vomiting. No pulmonary complaint. No sore throat. PHYSICAL EXAMINATION: Reveals an afebrile gentleman, in no acute distress. Temp 35.9, pulse 94, respiratory rate 16, blood pressure 125/75. He is saturating well on room air and in no acute distress. His mood and affect both seem a bit down, however. His mental status is clear. His oral cavity without thrush or pharyngitis. His lungs relatively clear. Cardiac tones regular rate and rhythm without murmur. His abdomen is soft and nontender. His colostomy is present. No rash is noted. LABORATORIES: Include white count normal 5700, platelets still high 879. Creatinine 0.75. ALT is 71. Procalcitonin has gone from over 400 to 0.7 which would be greater than 99% drop. Urinalysis without white cells. Hep C positive, of course, with high viral load. HIV is negative. The Juany glabrata susceptibilities we sent to the [facility] a few days ago are still not available. IMPRESSION: It would seem that the patient is a basically at the end of necessary antibacterial therapy as his procalcitonin is approaching normal having started at astronomical levels. I think we could reasonably stop the Zosyn as early as tomorrow, and I have placed orders to do that as of noon on March 03. The micafungin is a different story as a fair proportion of Juany glabrata are resistant to fluconazole and we cannot make the switch from IV micafungin to oral fluconazole without knowing the susceptibility. RECOMMENDATIONS: 1. I have placed orders to stop the Zosyn at noon March 03. 2. Will continue with micafungin once a day at least until March 04 when we expect the antifungal susceptibilities from the [facility]. If the Juany glabrata is susceptible to fluconazole then we can switch to oral fluconazole to finish his therapy. 3. The patient still will need a dilated eye exam next week.
--- NOTE | 2017-03-02 15:46 | NUR ---
Social Work- Continued D/C Planning/Multidisciplinary Rounds Data: EMR reviewed. Pt is on day 13 of hospitalization for pericecal abscess. Pt discussed in multidisciplinary rounds, pt will continue Zosyn through tomorrow the transition to oral medications pending cultures. MD is following for suboxone needs at d/c, WIND FARM ENGINEER will assist with this as appropriate. UBALDO was requested to meet with pt and his mother Judith Galloway at bedside regarding d/c planning. Spoke with mother at length about discharge, offered support and calmed her down. Mother states that pt was supposed to d/c home to his aunts house but she will be out of town until Friday. Mother confirms that pt will be able to stay with her on her house boat temporarily until pt's aunt returns, pt is agreeable to this plan. Per PT, pt has no DME needs at d/c. Pt has been released to nursing to ambulate independently and cleared for home. Pt has no ID, pt's mother concerned about his ability to get Rx at discharge. SW offered coordination with [facility] across the street if necessary to fill Rx prior to d/c so pt does not require his ID. Pt states that he will go to [facility] and get new ID after discharge, is not concerned about obtaining this. UBALDO again provided pt's mother with WIND FARM ENGINEER business cards and card for Patient [facility] at mother's request. UBALDO spoke with pt regarding his substance use (see Chemical Dependency Assessment). Pt and his mother provided with list of inpatient treatment centers in [place], understand requirement for BHO assessment prior to inpatient tx. Number to complete this assessment also provided. Pt and mother provided with list of outpatient treatment programs in [facility] as well. Pt prefers tx to occur in [facility] as he will be living in [place] with his mother and then his aunt. Also provided list of Opiate Substitution Tx Programs in [facility] should pt want to pursue this. No additional questions or concerns identified. Questions answered to stated satisfaction. SW re-wrote phone number on whiteboard, encouraged calls should needs arise. SW will continue to follow. Assessment: Pt who is capable of self-care Plan: Pt likely to d/c home with his mother to [place] via POV. Pt provided with extensive treatment resources. No additional needs identified. SW will continue to follow as needs arise. Ritu De La Fuente MSW
--- NOTE | 2017-03-02 15:57 | NUR ---
Social Work- Chemical Dependency Assessment Current Circumstances/Reason for Referral: Pt is a 36 year old male admitted from [facility] while serving a 3 month sentence related to drug charges incurred approximately 1 year prior. Pt has history of heroin use, last use prior to incarceration, approximately 12 days prior to admission to [facility]. SW met with pt and pt's mother at bedside to complete CD assessment, pt agreeable to mother remaining in the room. History of Substance Use: Pt has a history of opiate and etoh addiction. Pt began using opiates approximately 3 years ago, after being prescribed painkillers to treat a broken leg. Pt then progressed to heroin, including IVDU. Prior to opiates, pt confirms being addicted to alcohol. Pt states that he no longer drinks because he didn't want to after beginning opiates. History of Treatment Programs: Pt has no history of treatment programs, either inpatient or outpatient. History of Withdrawal Symptoms: Pt reports extreme withdrawal symptoms including anxiety, insomnia, pain, muscle cramps and spasms, hot and cold sweats, and diarrhea. Pt stated "I felt like I was going to ." Family History: Pt declined history of opiate addiction in his family. Confirmed alcoholism in relatives on both his mothers and fathers side. Did not specify which relatives. History of Sobriety and Supports: Pt could not report a meaningful period of sobriety since he has begun using substances, either etoh or opiates. Pt's only identified support was his aunt, Belinda Perez. Pt's Perception of Use: Pt reports that he is very motivated to change. Pt had been researching treatment programs prior to admission and states that he is ready to take action after discharge. Pt is in the preparation stage, moving into the action stage of change. Suicide Risk: Pt denies any history of mental illness, denies SI or HI at this time. Recommendation for Referral: Pt is motivated to make a change and is open to all outpt and inpt resources provided at bedside. Pt is unsure if he will require suboxone at discharge but is open to the idea. Pt provided with list of outpt providers in [facility] and a list of inpt tx centers in [place]. Also provided pt with list of suboxone/methadone clinics in the state. Pt appreciative of all referrals. Pt confirms that his mother will take him to her home at d/c, then he will move in with his aunt. SW will continue to follow. Ritu De La Fuente STEEPING PRESS TENDER
--- NOTE | 2017-03-02 19:12 | NUR ---
Pain/Tele/Activity Patient a/o x 3, up amb in valenzuela with sba david fair. VSS, tele SR-ST 80-100's, Tele D/C'd per MD orders. Abd slightly distended but soft, midline incision steri strips c/d/i. Patient c/o abd pain 8/10 Dilaudid given with moderate effect. Ileostomy putting out liq brown stool, emptied several times per patient. Patient taking diet fair.
--- NOTE | 2017-03-02 19:25 | PCM.PNMED ---
Subjective Date of Service Mar 02, 2017 Subjective overnight: No acute events noted overnight Today: Patient reports feeling well and would like to go home. He denies significant abdominal pain, nausea, vomiting. The patient also denies fever or chills or night sweats. Exam Vital Signs Vital Sign - Last Date Time Temp Pulse Resp B/P Pulse Ox O2 Delivery O2 Flow Rate FiO2 03/02/17 06:06 99 03/02/17 03:27 36.9 16 122/76 96 Room Air 02/26/17 02:52 2.00 02/24/17 07:53 40 Intake and Output 03/01/17 03/01/17 03/02/17 Cumulative From/Thru 15:00 23:00 07:00 02/17/17 00:10 - 03/02/17 06:51 Intake Total 1321 ml 700 ml 21581.5 ml Output Total 500 ml 1050 ml 97484 ml Balance 821 ml -350 ml 2896.5 ml Intake Oral 560 ml 700 ml 6545 ml IV Total 761 ml 87032.5 ml TPN/PPN 4070 ml Packed Cells 350 ml Output Urine Total 700 ml 96584 ml Stool Total 500 ml 350 ml 01004 ml Gastric Drainage Total 8405 ml Drainage Total 7385 ml Peritoneal Fluid 1160 ml Estimated Blood Loss 24 ml # Voids 3 6 # Bowel Movements 0 Exam General: Young man with numerous tattoos lying in bed in no acute distress Eyes: Pupils equal round and reactive to light, extraocular motion intact, anicteric sclera, noninjected conjunctiva HENT: Normocephalic atraumatic, moist mucous membranes without central cyanosis , oropharynx clear without purulent exudate or cobblestoning mucosa Neck: Supple, trachea midline, without thyromegaly or JVD Cardiovascular: Regular rate and regular rhythm, S1-S2 present, no S3-S4, without murmurs rubs or gallops noted Lungs: Clear to auscultation bilaterally without wheezing rales or rhonchi Abdomen: Soft, general tenderness noted around surgical incision sites without underlying significant erythema or purulent drainage or effusions, nondistended , tympanic to percussion, normal active bowel sounds, without organomegaly Extremities: No cyanosis clubbing or edema noted, pulses intact bilaterally at dorsalis pedis and radial : No Cash catheter in place Skin: Warm and dry Neuro: Nonfocal neurologic exam able to move all extremities Psych: Normal mood and affect Lab and Diagnostics Result Diagram: 03/02/1733403/02/17334 Microbiology Peritoneal fluid culture reveals: Peptostreptococcus Anaerobius Fusobacterium Nucleatum Bacteroides Fragilis . X-Rays, CTs and MRIs CT ABDOMEN AND PELVIS WITH CONTRAST IMPRESSION: 1. Multiple dilated loops of small bowel associated circumferential wall thickening compatible small bowel obstruction. 2. Fluid collection with irregular peripheral enhancement in the right lower quadrant adjacent to cecum and terminal ileum concerning for abscess. The appendix is not definitely visualized in ruptured appendix cannot be excluded. 3. Circumferential wall thickening involving the terminal ileum which could related to pathology involving the appendix or a Crohn's disease. 4. Moderate amount of ascites scattered throughout the abdomen and pelvis. There is associated mild peritoneal enhancement consistent with peritonitis. 5. 5 mm nodule in the left lower lobe. Recommend follow up imaging based on criteria outlined below. ADDENDUM IMPRESSION: 1. Multiple dilated loops of small bowel associated circumferential wall thickening compatible small bowel obstruction and possible bowel ischemia. 2. Fluid collection with irregular peripheral enhancement in the right lower quadrant adjacent to cecum and terminal ileum concerning for abscess. The appendix is not definitely visualized and ruptured appendix cannot be excluded. 3. Circumferential wall thickening involving the terminal ileum which could related to pathology involving the adjacent appendix or inflammatory bowel disease such as Crohn's disease. 4. Moderate amount of ascites scattered throughout the abdomen and pelvis. There is associated mild peritoneal enhancement consistent with peritonitis. 5. 5 mm nodule in the left lower lobe. Recommend follow up imaging based on criteria outlined below. Approved by: Radha Cruz MD, PhD on 02/17/2017 at 9:54 Approved by: Radha Cruz MD, PhD on 02/17/2017 at 10:36 CT ABDOMEN AND PELVIS WITHOUT CONTRAST IMPRESSION: 1. Extensive large and small bowel pneumatosis in the setting of small bowel obstruction with extensive portal venous gas which has developed in the interval since prior CT scan obtained 02/17/17 at 0235 hours. Findings compatible with bowel ischemia. 2. Peritoneal pneumatosis and pneumoretroperitoneum which could be related to ruptured bowel versus infection with gas-forming organism. 3. Free intraperitoneal air and mesenteric air consistent with bowel perforation and/or mesenteric ischemia. 4. Decreased IVC caliber highly suspicious for severe hypotension. Please correlate with clinical data. 5. Moderate to large amount of ascites which is increased in volume compared to 02/17/17. The ascites has increased density compared to the prior CT scan which could be related to hemorrhage, proteinaceous fluid or infectious fluid. 6. Dilated loops of small bowel compatible with small bowel obstruction. 7. Probable right lower quadrant pericecal abscess suboptimally visualized in the absence of intravenous contrast does not appear significantly changed compared to prior CT scan. 8. Trace bilateral pleural effusions. Approved by: Radha Cruz MD, PhD on 02/17/2017 at 10:58 X-RAY CHEST ONE VIEW, PORTABLE IMPRESSION: 1. New left lower lobe infiltrates with associated pleural effusion. Improved right perihilar pulmonary opacities. 2. Stable support devices. Approved by: Dylon Gonzalez M.D. on 02/23/2017 at 7:24 Cardiac Echo Impressions Echocardiogram on 02/17/2017 Interpretation Summary Technically difficult study limits valve visualization. 1) Normal left ventricular thickness and size with severely reduced systolic function (EF 20-25%). 2) Borderline right ventricular enlargement with moderately reduced function. 3) No significant valvular abnormalities. 4) No prior Echo available for comparison. If endocarditis is suspected, consider CATR[place]ITO. Repeat ECHO on 02/26/17 Interpretation Summary The left ventricle is normal in size. The ejection fraction is estimated to be 65-70%. Compared to the prior exam, left ventricular function is significantly improved. Anterior MV leaflet appears mildly elongated along with mild doming and mild calcification of tip of the anterior mitral leaflet.. There is no mitral valve stenosis. There is moderate mitral regurgitation. Compared to the prior echo study, there has been an increase in the severity of mitral regurgitation. Assessment & Plan Mr. Perez is a 36-year-old gentleman with PMHX significant for polysubstance abuse and has been incarcerated at [facility] for the recent 12 days prior to admission, who presented to the emergency department with a 2 week onset of increasing abdominal pain with associated fever, chills, nausea, vomiting, diaphoresis. CT scan showed free air in the abdomen and was taken emergently to surgery and found to have severe necrotizing perforated appendicitis. Patient underwent surgery 3 times, including an ileocecectomy, resection of distal ileum and ileostomy, ileocolic anastomosis, and wound closure with current ostomy and fascial but not subcutaneous tissue closure. He was extubated on 02/24/2017 and has had significant improvement since hospitalization. We will be continuing with antibiotics. Per recommendations of ID, probably 2-3 more days with IV antibiotics. We are also awaiting fungal cultures from . We stressed the importance of physical therapy, ambulation, good oral food intake, and control of blood glucose. In addition, we discussed opioid dependance and the possibility of tapering pain medications as well as suboxone for pain management as an outpatient. Patient will likely discharge back to snf (per family) on 03/04/17- and will be serving the rest of his sentence. Severe necrotizing perforated appendicitis, acute, present on admission, Resolved -As evidenced by the CT above --On 02/17/17, patient underwent Exploratory laparotomy, ileocecectomy, VAC dressing placement. -On 02/19/17, patient returned to surgery for Exploration of previous laparotomy , Adhesiolysis, Resection of distal ileum, 10 cm., Resection of hepatic flexure (7 cm)., and Loop ileostomy -On 02/21/17, patient returned to surgery for another exploratory laparotomy with ileocolic anastomosis but unable to close the fascia so [place] Patch was sewn to his fascia and will require daily adjustments -Patient with open abdominal wound and wound vac in place, output has been copious, surgery will continue to manage -Current analgesia with Fentanyl ip, patient with likely pre-existing opiate habituation -Continue Zosyn per ID, able to discontinue micafungin -Patient is intubated on ventilation support, continue cautious diureses -Surgery closed the patient's abdominal incision 02/23/2017 -Begin PT and mobilization now post extubation -Dilaudid MANAGER TRANSMISSION for analgesia has been discontinued per surgery -Per surgery, we have Discontinue Cash, PT has been consulted for ambulation -Left lower quadrant abdominal drain has been discontinued. Continue right upper quadrant abdominal drain for now. Continue wound VAC -Surgery notes that in 6 weeks to 3 months, patient will have a takedown of the ileostomy and closure of the subcutaneous tissue. -Tylenol is now scheduled at 975 q6h. -02/27/2017, per surgery, [place] drain was removed, Wound vac was removed, wound assessed, and delayed primary closure done today. -In addition, surgery has added Imodium to slow down ostomy bag output. -Patient has been ambulating with PT Severe Sepsis with severe lactic acidosis, acute, present on admission, resolving -Initially Secondary to severe necrotizing perforated appendicitis with feculent peritonitis, and Acute Fungemia secondary to candidiasis Glabrata discussed below -On admit: T 35.9, P1 44, RR 34, lactic acid 7.6, with repeat 4.8 -Surgery found his appendix obviously ruptured and in 2 pieces, with extensive associated necrotic tissue through the peritoneal cavity, as well as a likely abscess in the RLQ, patient had multiple staged I&D of necrotic tissue and patient was started on broad-spectrum antibiotics -Patient has been dependent upon aggressive fluid resuscitation with copious NS , Albumin, and 2U PRBC to date Acute Fungemia secondary to candidiasis [place], not present on admission, improving - Per ID, Will continue with Zosyn until March 03 and micafungin for likely 3 more days until fungal sensitivities returned from [facility] even as the patient continues to steadily improve. - Goal would be to see a lower procalcitonin perhaps 0.5 or less for a day or two and then suspend all antibiotic therapy at that point assuming he is stable - Infectious disease also requests patient have a dilated eye examination later this week as an outpatient to assess for Juany endophthalmitis, which would lengthen antibiotic therapy - We await fungal susceptibilities from the [facility] to consider transition from micafungin IV to oral fluconazole History of Opiod Dependance, present on admission -While in the ICU, patient was receiving high doses of fentanyl and was later transitioned into a MANAGER TRANSMISSION at 1.5 mg IV per hour of hydromorphone -This is equivalent to 30 mg/h of oxy by mouth -Patient is currently receiving 5-15 mg every 4 hours oxycodone, 1-2 mg every 4 Dilaudid and 1 mg every 4 hours lorazepam -Restoril for sleep -Continue to Watch for signs of withdrawal and adjust pain medications as necessary -Discussed possibility of Suboxone as outpatient -Consult with social work Tachycardia and stress induced cardiomyopathy, POA, acute. Active -ECHO demonstrated EF of 20-25% with little structural heart disease, likely indicative of acute decompensation -Was briefly on Dobutamine drip after being admitted -Follow up ECHO on 02/26/17 shows markedly improved EF of about 65%-70% Microcytic anemia, not present on admission, ongoing -Patient has received 2 units PRBC to maintain intravascular volume -Iron Studies show low iron 19 and low TIBC -Today,H&H 9.09/25.1respectively -Consider iron replacement Hypertension, ongoing, stable -This could be due to withdrawals or possibly pain -Started enalaprilat prn for systolic blood pressure greater than 150 -Continue to monitor blood pressure Hyperglycemia, acute, present on admission, resolved - On admit:Glc 215 - Likely secondary to stress release - Able to discontinue Regular insulin Low dose correctional scale given normal glycemic state - changed to general diet - check blood glucose q 6 hrs Elevated liver function tests likely secondary to active hepatitis C infection, chronicity unknown, present on admission, improving - On admit: total bili 2.0 AST, 41 ALT, 92 Alk Phos 90 -Today, Total bili 2.9, AST 52, ALT 118 - Hep panel indicates active Hep C infection with viral load of 260,000 - HIV negative Acute kidney injury, present on admission, resolved - On admit:Cr 1.35 - Likely secondary to dehydration resulting from nausea and vomiting due to underlying infection -After extensive fluid resuscitation, Cr today is 0.69 Multiple Electrolyte abnormalities, present on admission, resolved - On admit: K 3.0, Mg 2.2, K rider was given initially - Today, K 4.0 Ca 7.6, Phos 3.3, Mg 2.1 -Advance diet as tolerated Polycythemia, chronicity unknown, present on admission, Resolved - On admit: Hemoglobin 18.9, hematocrit 54.1 - Likely secondary to dehydration from recent nausea and vomiting due to abdominal pain Acute Hypoxemia Respiratory Failure, not present on admission, resolved - Overnight 02/23/2017 the patient acutely desaturated during a linen change with oxygen saturation into the low to mid 70s. The ventilator was changed from pressure control to PRVC with FiO2 of 100% PEEP of 8, respiratory rate of 16 and tidal volumes of 500. - Worsening hypoxemia acutely after tensioning of Sarah patch seems due to RLL atelectasis due to mucus plug and or compression - Respiratory therapy to perform localized CPT -02/24, patient was successfully extubated without complications -He is tolerating room air History of incarceration -IMMIGRATION OFFICER consult -Hep panel indicative of past infection -HIV negative -MRSA nasal swab negative CODE STATUS full Disposition: We will be continuing with antibiotics. Per recommendations of ID, probably 2-3 more days with IV antibiotics. We are also awaiting fungal cultures from . We stressed the importance of physical therapy, ambulation, good oral food intake, and control of blood glucose. In addition, we discussed opioid dependance and the possibility of tapering pain medications as well as suboxone for pain management as an outpatient. Patient will likely discharge back to snf (per family) on 03/04/17- and will be serving the rest of his sentence. GI Prophylaxis: H2 mack VTE Prophylaxis: Sub-Q Heparin (Unfractionated) VTE Mechanical Devices: Intermittant Pneumatic CD Resuscitation Status: CPR: Attempt Resuscitation Attending Statement The patient was seen and examined together with Dr. Hurst on 03/02/2017 and I agree with the history, exam and plan as outlined in the note above. . Augusto Hurst DO Mar 02, 2017 08:09 Godfrey Bolton MD Mar 03, 2017 14:05
[2017-03-03] MEDS: LORazepam 1 mg Tablet PO PRN ×3 (02:35→20:34)
[2017-03-03] MEDS: HYDROmorphone 1 mg/mL Inj IVPUSH PRN ×3 (02:36→13:13)
[2017-03-03 02:40] VITALS: BP 128/91; PULSE 91; RESP 18; O2SAT 99
[2017-03-03 03:18] LABS: BASOPHILS % (AUTO) 1.7 % (0-3); MONOCYTES % (AUTO) 21.7 % (4-12); Mean Corpuscular Hemoglobin 26.2 pg (27.0-35.0); Mean Corpuscular Volume 80.2 fL (81-100); NEUTROPHILS % (AUTO) 31.1 % (40-74); Platelet Count 931 bil/L (150-400)
[2017-03-03] MEDS: Piperacillin-Tazo 3.375 Gm Inj 3.375 GM in Dextrose 5% Minibag Plus 50 ML IV SCH ×2 (05:17→14:18)
--- NOTE | 2017-03-03 06:24 | NUR ---
Sleep/ pain// GI Pt c/o 03/09 abdominal pain- ilestomy intact draining liquid brown stool- midline incision well approximated. Dilaudid given PRN for pain. Ambien given at HS for sleep- Pt frequently rounded on and appears sleeping comfortably throughout the night.
[2017-03-03 09:20] VITALS: BP 131/81; PULSE 88; RESP 16; O2SAT 99
[2017-03-03] MEDS: Heparin 5,000 Unit/mL Inj SUBQ SCH ×3 (09:24→23:40)
[2017-03-03] MEDS: Pantoprazole 4 mg/mL 10 mL Inj IVPUSH SCH (11:22)
[2017-03-03] MEDS: Micafungin Inj 150 MG in 0.9% Sodium Chloride 100 ML IV SCH (11:26)
--- NOTE | 2017-03-03 13:21 | PROG NOTE ---
[address] [address] PROGRESS NOTE PATIENT: LEON GUERRERO : 1980 MR#: [id number] ADMIT: 02/17/2017 JOB ID: [id number] DATE: 03/03/2017 SUBJECTIVE: The patient is seen in followup. He is doing well clinically. He has been tolerating a diet. Loperamide seems to be helping with his ileostomy output, which is no longer watery but is more consistent with particulate matter. He has no nausea. OBJECTIVE: Temperature 36.7, pulse 88, blood pressure 131/81, saturation 99% on room air. General: He is resting in bed in no acute distress. Chest is clear. Heart: Regular rate and rhythm. No murmurs. Abdomen is soft, nondistended. His midline wound is intact with no erythema. His ileostomy has soft green stool. LABORATORIES: White count is 6.0, hematocrit 30.0, platelets 931. Creatinine 0.60. Glucose 118. Procalcitonin 0.51. ASSESSMENT AND PLAN: A 36-year-old man with perforated appendicitis with diffuse peritonitis, status post exploratory laparotomy, ileocecectomy with end-ileostomy, delayed abdominal closure, delayed primary closure of his skin. He is doing well clinically. I think he could be ready for discharge from the hospital in 1-2 days.
--- NOTE | 2017-03-03 15:17 | PCM.PNMED ---
Subjective Date of Service Mar 03, 2017 Subjective Today, patient notes that he feels ok overall. He continues to have abdominal pain and he fully understands that this is the expected given his extensive abdominal surgery. Patient states that he will likely go home from the hospital. He is due for [place] in about 2 weeks. We talked about starting Suboxone here at the hospital and following up with [facility] for further solutions. Talked extensively about his readiness to do so and explained that we have to stop all of his pain medications and start Suboxone. He is in agreement with the plan. In addition, he states that he will try to walk the halls today with his mother. There were no acute events overnight. On ROS, patient denies visual changes, headaches, chest pain, shortness of breath, nausea, vomiting, dysuria. Exam Vital Signs Vital Sign - Last Date Time Temp Pulse Resp B/P Pulse Ox O2 Delivery O2 Flow Rate FiO2 03/03/17 02:40 36.3 91 18 128/91 99 Room Air 02/26/17 02:52 2.00 Intake and Output 03/02/17 03/02/17 03/03/17 Cumulative From/Thru 15:00 23:00 07:00 02/17/17 00:10 - 03/03/17 05:49 Intake Total 2473 ml 395 ml 32550.5 ml Output Total 850 ml 200 ml 63911 ml Balance 1623 ml 195 ml 4714.5 ml Intake Oral 1192 ml 200 ml 7937 ml IV Total 1281 ml 195 ml 98620.5 ml TPN/PPN 4070 ml Packed Cells 350 ml Output Urine Total 450 ml 50236 ml Stool Total 400 ml 200 ml 59299 ml Gastric Drainage Total 8405 ml Drainage Total 7385 ml Peritoneal Fluid 1160 ml Estimated Blood Loss 24 ml # Voids 3 3 12 # Bowel Movements 0 Exam Gen: young man with extensive Tattoos, patient is alert awake oriented 3 and was conversational, less diaphoretic today Neck:supple, non-tender, no JVD, HEENT:PERRLA with miosis, EOMI, no scleral icterus CV: Regular Tachycardia with no murmurs rubs or gallops Resp: Clear to auscultation bilaterally Abd: ostomy in RLQ with pink well perfused stoma and output of brown liquid stool, mild tenderness to palpation Extr: Warm to the touch, no edema, no cyanosis or clubbing Neuro: CN 2-12 grossly intact. no focal neurologic deficit. Psych: Patient reports today that his pain is improved but that he is somewhat anxious especially since his parents are visiting IVs and Medications Medications Reviewed: Medications were reviewed in detail Medications High-risk medications include Dilaudid, oxycodone, lorazepam. Lab and Diagnostics Result Diagram: 03/03/1730903/03/17309 Microbiology Peritoneal fluid culture reveals: Peptostreptococcus Anaerobius Fusobacterium Nucleatum Bacteroides Fragilis . X-Rays, CTs and MRIs CT ABDOMEN AND PELVIS WITH CONTRAST IMPRESSION: 1. Multiple dilated loops of small bowel associated circumferential wall thickening compatible small bowel obstruction. 2. Fluid collection with irregular peripheral enhancement in the right lower quadrant adjacent to cecum and terminal ileum concerning for abscess. The appendix is not definitely visualized in ruptured appendix cannot be excluded. 3. Circumferential wall thickening involving the terminal ileum which could related to pathology involving the appendix or a Crohn's disease. 4. Moderate amount of ascites scattered throughout the abdomen and pelvis. There is associated mild peritoneal enhancement consistent with peritonitis. 5. 5 mm nodule in the left lower lobe. Recommend follow up imaging based on criteria outlined below. ADDENDUM IMPRESSION: 1. Multiple dilated loops of small bowel associated circumferential wall thickening compatible small bowel obstruction and possible bowel ischemia. 2. Fluid collection with irregular peripheral enhancement in the right lower quadrant adjacent to cecum and terminal ileum concerning for abscess. The appendix is not definitely visualized and ruptured appendix cannot be excluded. 3. Circumferential wall thickening involving the terminal ileum which could related to pathology involving the adjacent appendix or inflammatory bowel disease such as Crohn's disease. 4. Moderate amount of ascites scattered throughout the abdomen and pelvis. There is associated mild peritoneal enhancement consistent with peritonitis. 5. 5 mm nodule in the left lower lobe. Recommend follow up imaging based on criteria outlined below. Approved by: Radha Cruz MD, PhD on 02/17/2017 at 9:54 Approved by: Radha Cruz MD, PhD on 02/17/2017 at 10:36 CT ABDOMEN AND PELVIS WITHOUT CONTRAST IMPRESSION: 1. Extensive large and small bowel pneumatosis in the setting of small bowel obstruction with extensive portal venous gas which has developed in the interval since prior CT scan obtained 02/17/17 at 0235 hours. Findings compatible with bowel ischemia. 2. Peritoneal pneumatosis and pneumoretroperitoneum which could be related to ruptured bowel versus infection with gas-forming organism. 3. Free intraperitoneal air and mesenteric air consistent with bowel perforation and/or mesenteric ischemia. 4. Decreased IVC caliber highly suspicious for severe hypotension. Please correlate with clinical data. 5. Moderate to large amount of ascites which is increased in volume compared to 02/17/17. The ascites has increased density compared to the prior CT scan which could be related to hemorrhage, proteinaceous fluid or infectious fluid. 6. Dilated loops of small bowel compatible with small bowel obstruction. 7. Probable right lower quadrant pericecal abscess suboptimally visualized in the absence of intravenous contrast does not appear significantly changed compared to prior CT scan. 8. Trace bilateral pleural effusions. Approved by: Radha Cruz MD, PhD on 02/17/2017 at 10:58 X-RAY CHEST ONE VIEW, PORTABLE IMPRESSION: 1. New left lower lobe infiltrates with associated pleural effusion. Improved right perihilar pulmonary opacities. 2. Stable support devices. Approved by: Dylon Gonzalez M.D. on 02/23/2017 at 7:24 Cardiac Echo Impressions Echocardiogram on 02/17/2017 Interpretation Summary Technically difficult study limits valve visualization. 1) Normal left ventricular thickness and size with severely reduced systolic function (EF 20-25%). 2) Borderline right ventricular enlargement with moderately reduced function. 3) No significant valvular abnormalities. 4) No prior Echo available for comparison. If endocarditis is suspected, consider CATRACHITO. Repeat ECHO on 02/26/17 Interpretation Summary The left ventricle is normal in size. The ejection fraction is estimated to be 65-70%. Compared to the prior exam, left ventricular function is significantly improved. Anterior MV leaflet appears mildly elongated along with mild doming and mild calcification of tip of the anterior mitral leaflet.. There is no mitral valve stenosis. There is moderate mitral regurgitation. Compared to the prior echo study, there has been an increase in the severity of mitral regurgitation. Assessment & Plan Mr. Perez is a 36-year-old gentleman with PMHX significant for polysubstance abuse and has been incarcerated at [facility] for the recent 12 days prior to admission, who presented to the emergency department with a 2 week onset of increasing abdominal pain with associated fever, chills, nausea, vomiting, diaphoresis. CT scan showed free air in the abdomen and was taken emergently to surgery and found to have severe necrotizing perforated appendicitis. Patient underwent surgery 3 times, including an ileocecectomy, resection of distal ileum and ileostomy, ileocolic anastomosis, and wound closure with current ostomy and fascial but not subcutaneous tissue closure. He was extubated on 02/24/2017 and has had significant improvement since hospitalization. We will be continuing with antibiotics. Per recommendations of ID, continuing Zosyn until March 03, and micafungin likely until March 04. We are also awaiting fungal cultures from . We stressed the importance of physical therapy , ambulation, good oral food intake, and control of blood glucose. In addition, we discussed opioid dependance and completely stopping pain medications as well as starting Suboxone inpatient and following up with [facility] outpatient. Patient now notes that he will likely discharge to home with his aunt and will be returning to [place] in about 2 weeks. Severe necrotizing perforated appendicitis, acute, present on admission, Resolved -As evidenced by the CT above -On 02/17/17, patient underwent Exploratory laparotomy, ileocecectomy, VAC dressing placement. -On 02/19/17, patient returned to surgery for Exploration of previous laparotomy , Adhesiolysis, Resection of distal ileum, 10 cm., Resection of hepatic flexure (7 cm)., and Loop ileostomy -On 02/21/17, patient returned to surgery for another exploratory laparotomy with ileocolic anastomosis but unable to close the fascia so Christiana Patch was sewn to his fascia and will require daily adjustments -Surgery closed the patient's abdominal incision 02/23/2017 -Dilaudid PET CARE ASSISTANT for analgesia has been discontinued per surgery -Per surgery, we have Discontinue Cash, PT has been consulted for ambulation -Left lower quadrant abdominal drain has been discontinued. Continue right upper quadrant abdominal drain for now. -Surgery notes that in 6 weeks to 3 months, patient will have a takedown of the ileostomy and closure of the subcutaneous tissue. -Tylenol is now scheduled at 975 q6h. -02/27/2017, per surgery, [place] drain was removed, Wound vac was removed, wound assessed, and delayed primary closure done. -In addition, surgery has added Imodium to slow down ostomy bag output. -Patient has been ambulating with PT and has been ambulating the halls with his mother Severe Sepsis with severe lactic acidosis, acute, present on admission, resolved -Initially Secondary to severe necrotizing perforated appendicitis with feculent peritonitis, and Acute Fungemia secondary to candidiasis Glabrata discussed below -On admit: T 35.9, P1 44, RR 34, lactic acid 7.6, with repeat 4.8 -Surgery found his appendix obviously ruptured and in 2 pieces, with extensive associated necrotic tissue through the peritoneal cavity, as well as a likely abscess in the RLQ, patient had multiple staged I&D of necrotic tissue and patient was started on broad-spectrum antibiotics -Patient was initially dependent upon aggressive fluid resuscitation with copious NS, Albumin, and 2U PRBC to date but patient is now stable Acute Fungemia secondary to candidiasis Glabrata, not present on admission, improving - Per ID, Will continue with Zosyn until March 03 and micafungin likely until March 04 when we expect fungal sensitivities returned from [facility] even as the patient continues to steadily improve. - Goal would be to see a lower procalcitonin perhaps 0.5 or less for a day or two and then suspend all antibiotic therapy at that point assuming he is stable - Infectious disease also requests patient have a dilated eye examination later this week as an outpatient to assess for Juany endophthalmitis, which would lengthen antibiotic therapy - We await fungal susceptibilities from the [facility] to consider transition from micafungin IV to oral fluconazole If the Juany glabrata is susceptible to fluconazole then we can switch to oral fluconazole History of Opiod abuse, present on admission -While in the ICU, patient was receiving high doses of fentanyl and was later transitioned into a PET CARE ASSISTANT at 1.5 mg IV per hour of hydromorphone -This is equivalent to 30 mg/h of oxy by mouth -Patient was currently receiving 5-15 mg every 4 hours oxycodone, 1-2 mg every 4 Dilaudid and 1 mg every 4 hours lorazepam, we will stop all of this -Restoril for sleep -We will start buprenorphine (Suboxone) sublingual inpatient today and then manage outpatient with [facility] -Once patient has any signs of withdrawal, we will give him 8 mg sublingual today -On 03/04/2017, will give patient 20 mg sublingual -Consult with social work Tachycardia and stress induced cardiomyopathy, POA, acute. Active -ECHO demonstrated EF of 20-25% with little structural heart disease, likely indicative of acute decompensation -Was briefly on Dobutamine drip after being admitted, but that has been discontinued -Follow up ECHO on 02/26/17 shows markedly improved EF of about 65%-70% Microcytic anemia, not present on admission, ongoing -Patient has received 2 units PRBC to maintain intravascular volume -Iron Studies show low iron 19 and low TIBC -Today,H&H .09/25.1respectively -Consider iron replacement Hypertension, ongoing, stable -This could be due to withdrawals or possibly pain -Started enalaprilat prn for systolic blood pressure greater than 150 -Continue to monitor blood pressure Thrombocythemia, not present on admission, ongoing -likely due to an underlying condition, infection -Patient will likely be discharged home with aspirin Hyperglycemia, acute, present on admission, resolved - On admit:Glc 215 - Likely secondary to stress release - Able to discontinue Regular insulin Low dose correctional scale given normal glycemic state - changed to general diet - check blood glucose q 6 hrs Elevated liver function tests likely secondary to active hepatitis C infection, chronicity unknown, present on admission, improving - On admit: total bili 2.0 AST, 41 ALT, 92 Alk Phos 90 -Today, Total bili 2.9, AST 52, ALT 118 - Hep panel indicates active Hep C infection with viral load of 260,000 - HIV negative Acute kidney injury, present on admission, resolved - On admit:Cr 1.35 - Likely secondary to dehydration resulting from nausea and vomiting due to underlying infection -After extensive fluid resuscitation, Cr today is 0.69 Multiple Electrolyte abnormalities, present on admission, resolved - On admit: K 3.0, Mg 2.2, K rider was given initially - Today, K 4.0 Ca 7.6, Phos 3.3, Mg 2.1 -Advance diet as tolerated Polycythemia, chronicity unknown, present on admission, Resolved - On admit: Hemoglobin 18.9, hematocrit 54.1 - Likely secondary to dehydration from recent nausea and vomiting due to abdominal pain Acute Hypoxemia Respiratory Failure, not present on admission, resolved - Overnight 02/23/2017 the patient acutely desaturated during a linen change with oxygen saturation into the low to mid 70s. The ventilator was changed from pressure control to PRVC with FiO2 of 100% PEEP of 8, respiratory rate of 16 and tidal volumes of 500. - Worsening hypoxemia acutely after tensioning of Sarah patch seems due to RLL atelectasis due to mucus plug and or compression - Respiratory therapy to perform localized CPT -02/24, patient was successfully extubated without complications -He is tolerating room air History of incarceration -ZOO KEEPER consult -Hep panel indicative of past infection -HIV negative -MRSA nasal swab negative CODE STATUS full Disposition: We will be continuing with antibiotics. Per recommendations of ID, continuing Zosyn until March 03, and micafungin likely until March 04. We are also awaiting fungal cultures from . We stressed the importance of physical therapy , ambulation, good oral food intake, and control of blood glucose. In addition, we discussed opioid dependance and stopping pain medications as well as starting Suboxone inpatient today and following up with [facility] outpatient. Patient now notes that he will likely discharge to home to his aunt' s house and will be returning to [place] in about 2 weeks. Pain Evaluation: Adequate Pain Control GI Prophylaxis: H2 mack VTE Prophylaxis: Sub-Q Heparin (Unfractionated) VTE Mechanical Devices: Intermittant Pneumatic CD Resuscitation Status: CPR: Attempt Resuscitation Attending Statement The patient was seen and examined together with Dr. Zelaya on 03/03/17 and I have added additional information to the note above. Leah Zelaya DO Mar 03, 2017 06:25 Nancy Rojas DO Mar 04, 2017 13:42 Pain Evaluation: Adequate Pain Control GI Prophylaxis: H2 mack VTE Prophylaxis: Sub-Q Heparin (Unfractionated) VTE Mechanical Devices: Intermittant Pneumatic CD Resuscitation Status: CPR: Attempt Resuscitation Leah Zelaya DO Mar 03, 2017 06:25 Nancy Rojas DO Mar 04, 2017 13:42
[2017-03-03] MEDS ORDERED: Buprenorphine 2 mg SL Tablet SL PRN (15:50)
[2017-03-03 16:00] VITALS: BP 122/80; PULSE 97; RESP 16; O2SAT 96
--- NOTE | 2017-03-03 18:42 | NUR ---
Pain/Ostomy/meds Patient a/o x 3, forgetful at times, c/o abd pain 8/10, Dilaudid x 2 given. Midline incision c/d/i with steri strips. Ileostomy intact, putting out loose soft brown stool. Patient up indep, steady gait. VSS. Narcotics discontinued this afternoon, one time dose Saboxsone given per patient request. Will cont to monitor.
[2017-03-03 20:02] VITALS: BP 137/90; PULSE 98; RESP 18; O2SAT 99
[2017-03-03 23:46] VITALS: BP 123/81; PULSE 95; RESP 16; O2SAT 99
[2017-03-04] MEDS: LORazepam 1 mg Tablet PO PRN ×2 (03:38→11:51)
[2017-03-04 03:48] LABS: BASOPHILS % (AUTO) 1.1 % (0-3); EOSINOPHILS % (AUTO) 2.6 % (0-5); MONOCYTES % (AUTO) 21.2 % (4-12); Mean Corpuscular Hemoglobin 26.4 pg (27.0-35.0); Mean Corpuscular Volume 80.4 fL (81-100); NEUTROPHILS % (AUTO) 27.8 % (40-74); Platelet Count 958 bil/L (150-400)
--- NOTE | 2017-03-04 07:06 | NUR ---
pain\sleep Pt tolerated DC of narcotics through out shift. Pt c/o insomnia and requested xanax. VSS.
[2017-03-04 08:07] VITALS: BP 122/77; PULSE 88; RESP 16; O2SAT 100
--- NOTE | 2017-03-04 08:24 | NUR ---
NUTRITION FOLLOW-UP: Assess: 36 YO male admitted with pericecal abscess, status post damage control laparotomy with ileocecostomy; re-exploration laparotomy with diverting loop ileostomy. The patient was extubated 02.24. TPN discontinued 02/25. Delayed primary closure of wound completed, wound vac discontinued. PO intake appears slightly improved but variable. Diet advanced to general. PMHX: Heroin use. DIET: General + supplements. PO intake 10-100%. TPN: (D/C') D 190 g, amino acid 80 g, lipid 15 g. LABS: Cr 0.51, Glu 106, ALT 55 MEDICATIONS: Reviewed. GI: Stool via ileostomy. SKIN: Per [employer] Hand, suspected DTI at midline sacrum. Abdominal wound. ANTHROPOMETRICS: Wt: 68.0 kg, BMI 20.9 kg/m2, Admit wt: 72.73 kg. ESTIMATED NEEDS: Calories: 5054-5875 kcal/day (25-30 kcal/kg BW) Protein: 84-101 g/day (1.0-1.2 g/kg BW) NUTRITION DIAGNOSIS: 1) Inadequate oral intake related to decreased ability to consume sufficient energy as evidenced by NPO status -SLIGHTLY IMPROVED. INTERVENTION: 1) Continue current diet and supplements as ordered. MONITOR/EVALUATE: PO intake, diet tolerance, labs, GI/nutrition status. Follow per high nutrition risk guidelines.
--- NOTE | 2017-03-04 08:37 | PROG NOTE ---
[address] [address] PROGRESS NOTE PATIENT: LEON GUERRERO : 1980 MR#: [id number] ADMIT: 02/17/2017 JOB ID: [id number] DATE: 03/04/2017 REASON FOR FOLLOWUP: Complicated intra-abdominal infection with Juany glabrata fungemia. INTERVAL HISTORY: Over the past couple of days, the patient has continued to steadily improve. At this point, he has no fevers, chills, sweats, cough, shortness of breath, nausea, or vomiting. He has only minimal abdominal pain. PHYSICAL EXAM: The patient is afebrile consistently, temperature now 36.7, pulse 88, respiratory rate 16, blood pressure 122/77, saturating 100% on room air. No acute distress. Awake and alert. Oral cavity negative. Lungs are clear. Cardiac tones regular rate and rhythm without murmur. He has a single peripheral IV left. Abdomen: The 20 cm midline wound is healing well without evidence of inflammation or skin breakdown. All drains have been pulled. Otherwise, he is left with his ileostomy. LABORATORIES: Include white count stable 5500. Creatinine 0.51. LFTs essentially normal, except ALT 55, which is actually continuing to decline. Hep C very positive. Microbiology studies include the single yeast Juany glabrata which grew from a blood culture on the . Followup blood cultures done 48 hours ago remain negative. The ACACIA for the fluconazole is 1. One would be considered completely susceptible if this was a Juany albicans or Juany tropicalis, but for a Juany glabrata, the CLSI considers this to be dose dependent susceptible. Given his relatively low body weight of only 68 kg, I think 400 a day of fluconazole should achieve reasonable levels in this circumstance. IMPRESSION: This patient has now finished 14 days of Zosyn therapy following his complicated intra-abdominal catastrophe. He has been off of Zosyn for a day and has been completely stable. With respect to his Juany glabrata, will need to continue with relatively high-dose fluconazole for at least 10 more days, and the patient should seek ophthalmologic followup which I have reviewed with him this morning. RECOMMENDATIONS: 1. Switch from micafungin to fluconazole 400 daily. 2. The fluconazole should continue 10 days through about March 14. 3. The patient has been told to see an director supply or manager psychiatry for dilated eye exam to rule out Juany endophthalmitis, and I have given him a piece of paper to show to the director supply or manager psychiatry to indicate this. 4. ID will sign off at this time as there are no active issues. 5. This case discussed with Dr. Rojas of the hospitalist service.
--- NOTE | 2017-03-04 10:39 | PCM.PNSURG ---
Subjective Visit Information: Reason for Visit Pericecal Abscess,Sbo,Sepsis Surgery/Surgery Date Post-Op Day # Date of Admission: Feb 17, 2017 at 04:07 Hospital Day # Subjective: Stable, tolerating food, no sign of surgical complicatinos. Objective Vital Sign- Last 8 Hours Date Time Temp Pulse Resp B/P Pulse Ox O2 Delivery O2 Flow Rate FiO2 03/04/17 08:07 36.7 88 16 122/77 100 Room Air Intake and Output- Last 8 Hour 03/04/17 Cumulative From/Thru 07:00 02/17/17 00:10 - 03/04/17 06:21 Intake Total 400 ml 03664.5 ml Output Total 150 ml 27098 ml Balance 250 ml 5630.5 ml Intake Oral 400 ml 8973 ml IV Total 93778.5 ml TPN/PPN 4070 ml Packed Cells 350 ml Output Urine Total 33970 ml Stool Total 150 ml 41731 ml Gastric Drainage Total 8405 ml Drainage Total 7385 ml Peritoneal Fluid 1160 ml Estimated Blood Loss 24 ml # Voids 4 21 # Bowel Movements 0 General: Alert, Oriented X3, Cooperative, No Acute Distress Abdomen: Soft, Non-distended, Ostomy Result Diagram: 03/04/17 0340 03/04/17 0340 Assessment & Plan Impression Stable after multiple operations for perforated appendicitis; now with a closed abdomen, functioning ostomy, on a normal diet. Problems: Plan OK to discharge home. F/U with me in 2-4 weeks. Will consider ostomy takedown >6 weeks. VTE Prophylaxis: Sub-Q Heparin (Unfractionated) Resuscitation Status: CPR: Attempt Resuscitation Latoya Freedman MD Mar 04, 2017 10:39
--- NOTE | 2017-03-04 11:00 | PCM.DIMED ---
Leah Zelaya DO 03/04/17 0958: Discharge Instructions Date of Service Mar 04, 2017 Dates of Hospitalization Feb 17, 2017 at 04:07 Discharge Diagnosis Discharge Diagnosis Severe necrotizing perforated appendicitis Severe Sepsis with severe lactic acidosis Acute Fungemia secondary to candidiasis Glabrata History of Opiod habituation Tachycardia and stress induced cardiomyopathy Microcytic anemia Hypertension Thrombocythemia Hyperglycemia, resolved Elevated liver function tests likely secondary to active hepatitis C infection Acute kidney injury Multiple Electrolyte abnormalities Polycythemia Acute Hypoxemia Respiratory Failure Medication Instructions Additional med instructions You were given 8 mg Buprenorphine (Suboxone) here at the hospital on 03/03/17 around 5:30 pm. You Have an appointment with [facility] today, 03/04/17, who will manage your suboxone as an outpatient. You will be going home with oral fluconazole, which is an antifungal medication. You will take 400 mg daily for 10 days. Diet Discharge Diet: No restrictions Activity Discharge Activity: Other (activity as tolerated) Call your provider Call your provider for: Fever or Chills, Shortness of breath, Bleeding, Chest pain, Vomitting, Excessive diarrhea, Weakness (unilateral) Patient Instructions Patient Instructions When he came into the hospital, you were having increasing abdominal pain, nausea, and vomiting. We did a CAT scan of the abdomen and you were taken emergently to surgery, where it was found that your appendix had perforated. For several days, you underwent a series of surgeries in order to remove portions of your colon that were affected, place an ostomy, and close your abdominal wound . You have an ostomy, for which you have received instructions on how to care and manage. You will follow-up with surgery, Dr. Freedman in 2-4 weeks. Because of the extent of your surgery, you were in significant amount of abdominal pain. You received pain medications to help control your pain. However, over time we had to slowly decrease her pain medications once you became more stable and was able to participate in physical therapy. We spoke extensively about your readiness to participate in Suboxone therapy. As a result, we stopped all of your pain medications last night 03/03/17 and gave you 8 mg Suboxone once you started having some withdrawal symptoms. When we send you home today, you will have an appointment at 2:45 PM with [facility] will be managing your Suboxone therapy. You must bring the ID bracelet that you had from alf. In addition, because of your perforated appendix, stool leaked out into your peritoneal cavity (a space between the lining of the abdominal wall). This resulted in severe bacterial infection. We consulted the infectious disease doctor, you were treated with several antibiotics, and your white blood count ( a sign of active infection) normalized. In addition, your blood culture came back positive for a fungal yeast infection called Juany glabrata. Infectious disease doctor started you on micafungin, which is an antifungal. You will be going home with oral fluconazole 400 mg daily for 10 days, through about March 14. You will need an eye appointment with ophthalmology because the fungus in your blood can damage your eyes. We will also be sending you home with Aspirin 160 mg daily because your blood platelet counts have been high. Follow-up plan -Please follow up with Dr. Freedman of surgery in 2-4 weeks. -You will also follow-up with ophthalmology in one week. You will need to be referred by your primary care doctor -Because he did not have a primary care doctor, you can follow up with the residency clinic and establish care with them in 1 week. -Lastly, you will be going to [facility] for your Suboxone treatment. Follow-up Provider: Latoya Freedman MD Follow-up with PCP in: 3 weeks (2-4 weeks) Provider: [facility] Follow-up in: 1 week Additional Information Primary care doctor will send a referral so he can follow-up with ophthalmology in one week and he will follow with [facility] for Suboxone treatment. Nancy Rojas DO 03/04/17 1334: Discharge Instructions Attending's Statement The patient was seen and examined together with Dr. Zelaya on 03/04/17 and I agree with the history, exam and plan as outlined in the note above. Leah Zelaya DO Mar 04, 2017 09:58 Nancy Rojas DO Mar 04, 2017 13:34
[2017-03-04] MEDS ORDERED: DIF100A PO (11:01)
[2017-03-04] MEDS ORDERED: ASPI-973 PO (11:01)
[2017-03-04] MEDS: Heparin 5,000 Unit/mL Inj SUBQ SCH (11:12)
[2017-03-04] MEDS: Pantoprazole 4 mg/mL 10 mL Inj IVPUSH SCH (11:14)
--- NOTE | 2017-03-04 11:15 | NUR ---
Social Work: Discharge/Multidisciplinary Rounds D: Pt discussed in multidisciplinary rounds; the patient is medically stable for discharge home today. The patient's mother has an appointment at [facility] for Suboxone management. This appointment is today at 2:45pm. STEM MAKER spoke with the patient, his mother and aunt about the discharge plan. Pt expresses no concerns about his discharge and confirms his plan to go stay with his mother in [place]. Pt's mother and aunt are both anxious about discharge and express that they were under the impression that the patient had more time in the hospital. STEM MAKER explained the process of medical necessity and explored their concerns further. Their biggest concern is how to support the patient with his recovery and express that they were hoping to get the patient directly into an inpatient substance use program at time of discharge. At this time the patient has not completed a O assessment needed for treatment admission nor has the family located any potential facilities. STEM MAKER explained that the patient could not be held in the hospital while the assessment and bed are located. They understand this. STEM MAKER provided them with local contacts with outpatient facilities where assessment can be completed. They have obtained locations in the [place] area where this can be completed as well. Pt's aunt has questions about the patient's follow up with Dr. Freedman and his ongoing management of his ostemy care. Per Doctor Freedman's last note, the patient will need to follow up with her in 2-4 weeks; this has been scheduled for 03/18 at 10:15am. Per bedside RNYana, the patient is being discharged home with all the supplies needed to manage his ostemy until his follow up appointment. The patient is scheduled for an ostemy change today prior to discharge where teaching and education will also occur. The last concern of the patient's aunt was regarding the patient's opthomology appointment and ongoing medications. The patient has been discharged with 10 days of PO medications and will need to follow up with the residency clinic for a referral to an opthomologist per discharge instructions, unit nurse is making this appointment for the patient. STEM MAKER requested CM order to verify this appointment has been made. Resident provider has placed order for STEM MAKER to confirm this; at this time, the patient does not have an appointment with the residency clinic and this appointment is being sorted out. STEM MAKER requested that Dra[employer] Estimator update STEM MAKER once appointment has been confirmed. A: Pt who will be discharging home with his mother. P: Pt to discharge home with his mother, pt to go to [facility] today to get established with ongoing Suboxone management. Pt to follow up with the residency clinic and Dr. Freedman for follow up visits. VINICIUS Estrada Addendum: 03/04/17 at 1404 by PAT BURRIS Drapery Estimator is still attempting to get the patient an appointment with the Residency Clinic with Dr. Calixto. Obstetrics Specialist is contacting Dr. Calixto to determine where to place patient in her schedule for pt's follow up.
--- NOTE | 2017-03-04 14:20 | NUR ---
Discharge note Patient a/o x 3, c/o abd pain 02/06, MD aware and no new orders. Midline incision c/d/i. Ileostomy putting out soft brown stool. Patient taking diet fair. VSS. IV SL removed intact. Patient given discharge instructions, med rec, info on post op care and new meds, letter for trust and estates attorney, ID bracelet, and prescriptions. All questions answered. Surgery appt and post op appt made prior to d/c. Patient amb to car with all belongings and discharged home with parents.
--- NOTE | 2017-03-04 15:34 | NUR ---
Inpatient Wound and Ostomy Nurse Clarification made by this GABRIELAON RN with Dr. Freedman via phone call: Patient will be seen 03/[address] Tyler as POST-OP for follow-up care received while inpatient. Patient will be seen as PRE-OP on 03/[address] Freedman to make revision plan for, most likely, March. Patient has appointment on 03/17 at 1pm [facility] with RENATA Rachel who will determine ostomy needs and assist patient with ordering. Patient has discharged at time of this note entry. Phone message was left on patient's Aunt Luis M voice mail requesting call back to this CWON and advising her that patient needs to keep outpatient [facility] appointment. Patient was under the impression that revision was scheduled for 03/18 and therefore, he did not need to see ostomy nurse practitioner at [facility] on 03/17. Patient and his mom were walked through steps of ostomy care. Patient was very participatory, was able to empty pouch and assist with wafer removal. He was able to place new wafer, with bag already attached, with verbal guidance. He stated that he understood purpose of Malcolm ring and stoma paste. He stated that he has been reading the multiple ileostomy hand-outs and booklets provided by [facility] last week. Additional booklet and reading material were provided to his mother today. Patient had no questions and although his mother seemed anxious, patient stated that he felt he could handle all steps of ostomy care. Patient was provided 20 pouches and 20 wafers, as well as Malcolm rings, stoma paste, and pouch closure devices. He was instructed to follow hydration recommendations and keep all scheduled appointments.
--- NOTE | 2017-03-04 20:26 | PCM.DC.MED ---
Discharge Summary Date of Service Mar 04, 2017 Dates of Hospitalization Date of Hospital Admission Feb 17, 2017 at 04:07 Date of Discharge: Mar 04, 2017 Providers: Admitting Physician: Isabel Mcduffie DO Primary Care Physician: Sawyer Attending Physician: Nancy Rojas DO Diagnosis at Time of Discharge Diagnosis at Time of Discharge Severe necrotizing perforated appendicitis, acute, present on admission, Resolved Severe Sepsis with severe lactic acidosis, acute, present on admission, resolved Acute Fungemia secondary to candidiasis Glabrata, not present on admission, improving History of Opiod habituation, present on admission Tachycardia and stress induced cardiomyopathy, POA, acute. Improved Microcytic anemia, not present on admission, ongoing Hypertension, ongoing, stable Thrombocythemia, not present on admission, ongoing Hyperglycemia, acute, present on admission, resolved Elevated liver function tests likely secondary to active hepatitis C infection, chronicity unknown, present on admission, improving Acute kidney injury, present on admission, resolved Multiple Electrolyte abnormalities, present on admission, resolved Polycythemia, chronicity unknown, present on admission, Resolved Acute Hypoxemia Respiratory Failure, not present on admission, resolved History of incarceration Consultations [facility] (Dr. Espinal and Dr. Aparicio) Surgery (Dr. Freedman and Dr. Hurst) Infectious Disease (Dr. Lerner) Procedures XRay, CTs & MRIs CT ABDOMEN AND PELVIS WITH CONTRAST IMPRESSION: 1. Multiple dilated loops of small bowel associated circumferential wall thickening compatible small bowel obstruction. 2. Fluid collection with irregular peripheral enhancement in the right lower quadrant adjacent to cecum and terminal ileum concerning for abscess. The appendix is not definitely visualized in ruptured appendix cannot be excluded. 3. Circumferential wall thickening involving the terminal ileum which could related to pathology involving the appendix or a Crohn's disease. 4. Moderate amount of ascites scattered throughout the abdomen and pelvis. There is associated mild peritoneal enhancement consistent with peritonitis. 5. 5 mm nodule in the left lower lobe. Recommend follow up imaging based on criteria outlined below. ADDENDUM IMPRESSION: 1. Multiple dilated loops of small bowel associated circumferential wall thickening compatible small bowel obstruction and possible bowel ischemia. 2. Fluid collection with irregular peripheral enhancement in the right lower quadrant adjacent to cecum and terminal ileum concerning for abscess. The appendix is not definitely visualized and ruptured appendix cannot be excluded. 3. Circumferential wall thickening involving the terminal ileum which could related to pathology involving the adjacent appendix or inflammatory bowel disease such as Crohn's disease. 4. Moderate amount of ascites scattered throughout the abdomen and pelvis. There is associated mild peritoneal enhancement consistent with peritonitis. 5. 5 mm nodule in the left lower lobe. Recommend follow up imaging based on criteria outlined below. Approved by: Radha Cruz MD, PhD on 02/17/2017 at 9:54 Approved by: Radha Cruz MD, PhD on 02/17/2017 at 10:36 CT ABDOMEN AND PELVIS WITHOUT CONTRAST IMPRESSION: 1. Extensive large and small bowel pneumatosis in the setting of small bowel obstruction with extensive portal venous gas which has developed in the interval since prior CT scan obtained 02/17/17 at 0235 hours. Findings compatible with bowel ischemia. 2. Peritoneal pneumatosis and pneumoretroperitoneum which could be related to ruptured bowel versus infection with gas-forming organism. 3. Free intraperitoneal air and mesenteric air consistent with bowel perforation and/or mesenteric ischemia. 4. Decreased IVC caliber highly suspicious for severe hypotension. Please correlate with clinical data. 5. Moderate to large amount of ascites which is increased in volume compared to 02/17/17. The ascites has increased density compared to the prior CT scan which could be related to hemorrhage, proteinaceous fluid or infectious fluid. 6. Dilated loops of small bowel compatible with small bowel obstruction. 7. Probable right lower quadrant pericecal abscess suboptimally visualized in the absence of intravenous contrast does not appear significantly changed compared to prior CT scan. 8. Trace bilateral pleural effusions. Approved by: Radha Cruz MD, PhD on 02/17/2017 at 10:58 X-RAY CHEST ONE VIEW, PORTABLE IMPRESSION: 1. New left lower lobe infiltrates with associated pleural effusion. Improved right perihilar pulmonary opacities. 2. Stable support devices. Approved by: Dylon Gonzalez M.D. on 02/23/2017 at 7:24 Cardiac Echo Impression Echocardiogram on 02/17/2017 Interpretation Summary Technically difficult study limits valve visualization. 1) Normal left ventricular thickness and size with severely reduced systolic function (EF 20-25%). 2) Borderline right ventricular enlargement with moderately reduced function. 3) No significant valvular abnormalities. 4) No prior Echo available for comparison. If endocarditis is suspected, consider CATRACHITO. Repeat ECHO on 02/26/17 Interpretation Summary The left ventricle is normal in size. The ejection fraction is estimated to be 65-70%. Compared to the prior exam, left ventricular function is significantly improved. Anterior MV leaflet appears mildly elongated along with mild doming and mild calcification of tip of the anterior mitral leaflet.. There is no mitral valve stenosis. There is moderate mitral regurgitation. Compared to the prior echo study, there has been an increase in the severity of mitral regurgitation. Brief History Per H&P by Dr. Hickman on 02/17/17: Mr. Perez is an extremely pleasant 36-year-old gentleman who was incarcerated at [facility] at the time of admission, presented to the emergency department with a 2 week onset of increasing abdominal pain with associated fever, chills, nausea, vomiting, diaphoresis. Stat CT was initially read to reveal possible perforated appendix and surrounding abscess. Gen. surgery was emergently consulted, who recommended evaluation for interventional radiology drain placement in morning. He was admitted for evaluation and treatment of suspected perforated appendicitis and pericecal abscess, which has resulted in sepsis. Initial evaluation in the ED revealed T 35.9, pulse 144, respiratory rate 34, blood pressure 118/85, 99% on room air; white count 7.6 with 75.7% neutrophils, hemoglobin 18.9, hematocrit 54.1, large platelets were noted with clumping; sodium 138, potassium 3.0, creatinine 1.35, glucose 2:15, lactic acid 7.6 with repeat 4.8, total bili 0.6, AST 74, ALT 561, alkaline phosphatase 116, lipase 19 , albumin 3.7. Blood cultures were obtained prior to initiation of antibiotics. Antibiotic regimen included vancomycin and Zosyn. Other therapies included 4 L normal saline, Toradol 30 mg IV push, multiple administrations of hydromorphone 1 mg IV pushes, in addition to morphine [address] abdomen and pelvis with contrast initial reading was reported to reveal possibility of perforated appendix with surrounding abscess. Hospital Course Mr. Perez is a 36-year-old gentleman with PMHX significant for polysubstance abuse and has been incarcerated at [facility] for the recent 12 days prior to admission, who presented to the emergency department with a 2 week onset of increasing abdominal pain with associated fever, chills, nausea, vomiting, diaphoresis. CT scan showed free air in the abdomen and was taken emergently to surgery and found to have severe necrotizing perforated appendicitis. Patient underwent surgery 3 times, including an ileocecectomy, resection of distal ileum and ileostomy, ileocolic anastomosis, and wound closure with current ostomy and fascial but not subcutaneous tissue closure. He was extubated on 02/24/2017, has had significant improvement since hospitalization, has been participating with physical therapy and has tolerated a normal diet. His narcotic pain medications were discontinued on 03/03/17 and he was started on Suboxone. After discharge, he has an appointment with [facility] to manage his Suboxone treatment. Patient will follow up with surgery in 6 weeks for possible re-anastomosis of his bowel. Patient is also being sent home with 10 more days of oral fluconazole 400 mg daily for his fungemia. The patient has been told that he needs to follow-up with ophthalmology as this is very important as the fungemia could potentially spread to the eyes and cause damage and potential blindness. Patient stated that he understood and would follow-up with ophthalmology and this will be handled by his PCP. Severe necrotizing perforated appendicitis, acute, present on admission, Resolved -As evidenced by the CT above --On 02/17/17, patient underwent Exploratory laparotomy, ileocecectomy, VAC dressing placement. -On 02/19/17, patient returned to surgery for Exploration of previous laparotomy , Adhesiolysis, Resection of distal ileum, 10 cm., Resection of hepatic flexure (7 cm)., and Loop ileostomy -On 02/21/17, patient returned to surgery for another exploratory laparotomy with ileocolic anastomosis but unable to close the fascia so [place] Patch was sewn to his fascia and will require daily adjustments -Surgery closed the patient's abdominal incision 02/23/2017 -Dilaudid [employer]ILI[employer] for analgesia has been discontinued per surgery -Surgery notes that in 6 weeks to 3 months, patient will have a takedown of the ileostomy and closure of the subcutaneous tissue. -02/27/2017, per surgery, [place] drain was removed, Wound vac was removed, wound assessed, and delayed primary closure done. -Patient has been ambulating with PT and has been ambulating the halls with his mother -Patient received instructions on care of his ostomy. He will be going home with a 2 month ostomy supplies Severe Sepsis with severe lactic acidosis, acute, present on admission, resolved -Initially Secondary to severe necrotizing perforated appendicitis with feculent peritonitis, and Acute Fungemia secondary to candidiasis Glabrata discussed below -On admit: T 35.9, P1 44, RR 34, lactic acid 7.6, with repeat 4.8 -Surgery found his appendix obviously ruptured and in 2 pieces, with extensive associated necrotic tissue through the peritoneal cavity, as well as a likely abscess in the RLQ, patient had multiple staged I&D of necrotic tissue and patient was started on broad-spectrum antibiotics -Patient was initially dependent upon aggressive fluid resuscitation with copious NS, Albumin, and 2U PRBC to date but later stabilized Acute Fungemia secondary to candidiasis Glabrata, not present on admission, improving - Per ID, Patient received Zosyn that was continued until March 03 and micafungin until March 04. He will be going home with 400 mg oral Fluconazole daily for 10 more days. -Pro calcitonin on discharge decreased to 0.37 - Infectious disease also requests patient have a dilated eye examination later this week as an outpatient to assess for Juany endophthalmitis, which would lengthen antibiotic therapy. -Because of insurance reasons, patient will need a referral from PCP to get eye exam History of Opiod abuse, present on admission -While in the ICU, patient was receiving high doses of fentanyl and was later transitioned into a [employer] at 1.5 mg IV per hour of hydromorphone -This is equivalent to 30 mg/h of oxy by mouth -Patient was currently receiving 5-15 mg every 4 hours oxycodone, 1-2 mg every 4 Dilaudid and 1 mg every 4 hours lorazepam, all discontinued -Patient received Restoril for sleep -Stopped all narcotic pain medications on 03/03/2017 and patient was started on Suboxone 8mg SL -After discharge, patient will follow up with [facility] for the remainder of his Suboxone treatment Tachycardia and stress induced cardiomyopathy, POA, acute. Active -ECHO demonstrated EF of 20-25% with little structural heart disease, likely indicative of acute decompensation -Was briefly on Dobutamine drip after being admitted, but that has been discontinued -Follow up ECHO on 02/26/17 shows markedly improved EF of about 65%-70% Microcytic anemia, not present on admission, ongoing -Patient has received 2 units PRBC to maintain intravascular volume -Iron Studies show low iron 19 and low TIBC -H&H upon discharge improved to 10.2 / 31.1 -Please discuss with primary care provider and consider iron replacement Hypertension, ongoing, stable -This could be due to withdrawals or possibly pain -Patient was Started enalaprilat prn for systolic blood pressure greater than 150 -Blood pressure upon discharge was controlled and stable Thrombocythemia, not present on admission, ongoing -likely due to an underlying condition, infection -Patient will likely be discharged home with aspirin Hyperglycemia, acute, present on admission, resolved - On admit:Glc 215 - Likely secondary to stress release - We were Able to discontinue Regular insulin Low dose correctional scale given normal glycemic state Elevated liver function tests likely secondary to active hepatitis C infection, chronicity unknown, present on admission, improving - On admit: total bili 2.0 AST, 41 ALT, 92 Alk Phos 90 - Hep panel indicates active Hep C infection with viral load of 260,000 - HIV negative -Follow up with primary care provider in regards to active hepatitis C infection Acute kidney injury, present on admission, resolved - On admit:Cr 1.35 - Likely secondary to dehydration resulting from nausea and vomiting due to underlying infection -Acute kidney injury has resolved. Creatinine on discharge was 0.51 Multiple Electrolyte abnormalities, present on admission, resolved - On admit: K 3.0, Mg 2.2, K rider was given initially - Today, K 4.0 Ca 7.6, Phos 3.3, Mg 2.1 -Patient tolerated advancing diet Polycythemia, chronicity unknown, present on admission, Resolved - On admit: Hemoglobin 18.9, hematocrit 54.1 - Likely secondary to dehydration from recent nausea and vomiting due to abdominal pain -This problem has resolved Acute Hypoxemia Respiratory Failure, not present on admission, resolved - Overnight 02/23/2017 the patient acutely desaturated during a linen change with oxygen saturation into the low to mid 70s. The ventilator was changed from pressure control to PRVC with FiO2 of 100% PEEP of 8, respiratory rate of 16 and tidal volumes of 500. - Worsening hypoxemia acutely after tensioning of Sarah patch seems due to RLL atelectasis due to mucus plug and or compression - Respiratory therapy to perform localized CPT -02/24, patient was successfully extubated without complications -He is tolerating room air History of incarceration -[employer] consult -Hep C panel indicates active infection -HIV negative -MRSA nasal swab negative CODE STATUS full Exam Vital Signs (Last) Date Time Temp Pulse Resp B/P Pulse Ox O2 Delivery O2 Flow Rate FiO2 03/04/17 08:07 36.7 88 16 122/77 100 Room Air 02/26/17 02:52 2.00 Exam Gen: young man with extensive Tattoos, patient is alert awake oriented 3 and was conversational, less diaphoretic today Neck:supple, non-tender, no JVD, HEENT:PERRLA with miosis, EOMI, no scleral icterus CV: Regular Tachycardia with no murmurs rubs or gallops Resp: Clear to auscultation bilaterally Abd: ostomy in RLQ with pink well perfused stoma and output of brown liquid stool, tender to palpation Extr: Warm to the touch, no edema, no cyanosis or clubbing Neuro: CN 2-12 grossly intact. no focal neurologic deficit. Psych: Patient reports today that his pain is improved but that he is somewhat anxious especially since his parents are visiting Test 02/17/17 00:32 02/17/17 05:10 02/17/17 08:40 02/18/17 02:45 Lipase 19U/L (13-60) Hepatitis A IgM Antibody Negative (Negative) Hepatitis B Surface Antigen Negative (Negative) Hepatitis B Core IgM Antibody Negative (Negative) Hepatitis C Antibody >11.0s/co ratio Hepatitis C Antibody Comment Comment (.) HIV (1&2) Ag and Ab, 4th Generation Non reactive (Non Reactive) Urine Color Dark yellow (YELLOW) Urine Appearance Hazy (CLEAR,HAZY) Urine pH 5.5 (5.0-8.0) Urine Specific [place] 1.015 (1.003-1.035) Urine Protein 30mg/dL (NEG,TRACE) Urine Glucose (UA) Negativemg/dL (NEGATIVE) Urine Ketones Tracemg/dL (NEGATIVE) Urine Occult Blood Negative (NEGATIVE) Urine Nitrite Negative (NEGATIVE) Urine Bilirubin Negative (NEGATIVE) Urine Urobilinogen Normalmg/dL (NORMAL) Urine Leukocyte Esterase Negative (NEGATIVE) Urine RBC 0-2/hpf (0-2) Urine WBC 0-5/hpf (0-5) Urine Epithelial Cells Occasional/hpf (NONE-MOD) Urine Crystals None seen (NONE SEEN) Urine Bacteria Few/hpf (NONE-FEW) Urine Hyaline Casts Occasional/lpf (NONE) Urine Granular Casts None seen (NONE SEEN) Urine Waxy Casts None seen (NONE SEEN) Urine Red Blood Cell Casts None seen (NONE SEEN) Urine White Blood Cell Casts None seen (NONE SEEN) Urine Mucus None seen (None Seen) Urine Trichomonas None seen (NONE SEEN) Urine Yeast None (NONE SEEN) Urinalysis Comment None Urine Culture Reflexed Not indicated Thyroid Stimulating Hormone (TSH) 1.410uIU/mL (0.450-4.500) Test 02/18/17 08:24 02/20/17 14:26 02/21/17 03:50 02/21/17 18:30 Hepatitis C Virus Quantitation [id number] (.) Hepatitis C RNA (PCR) log10 5.417 (.) Hepatitis C Comment Comment (.) Iron Level 19ug/dL (35-150) Total Iron Binding Capacity 79ug/dL (250-450) Percent Iron Saturation 24%sat (15-50) Unsaturated Iron Binding 59.5ug/dL Prealbumin 9mg/dL (20-40) Hold [place] Top Tube Received (Received) Test 02/24/17 10:10 02/25/17 04:30 02/26/17 05:25 02/26/17 21:05 Miscellaneous Test see comment Metamyelocytes % 1% (0-0) Myelocytes % 1% (0-0) Prothrombin Time 10.5sec (8.1-12.5) Prothromb Time International Ratio 0.98ratio Phosphorus Level 4.0mg/dL (2.5-4.9) Magnesium Level 2.0mg/dL (1.6-2.6) Lactic Acid Level 1.0mmol/L (0.4-2.0) Test 02/27/17 03:50 03/01/17 03:05 03/04/17 03:40 Band Neutrophils % 3% (1-5) Hematology Comments White Blood Count 5.5th/mm3 (3.8-10.1) Red Blood Count 3.87mil/mm3 (4.40-5.80) Hemoglobin 10.2g/dL (13.8-17.2) Hematocrit 31.1% (41.0-50.0) Mean Corpuscular Volume 80.4fL (81-100) Mean Corpuscular Hemoglobin 26.4pg (27.0-35.0) Mean Corpuscular Hemoglobin Concent 32.8% (32.0-37.0) Red Cell Distribution Width 14.7% (12.3-15.4) Platelet Count 958bil/L (150-400) Neutrophils (%) (Auto) 27.8% (40-74) Lymphocytes (%) (Auto) 47.3% (14-46) Monocytes (%) (Auto) 21.2% (4-12) Eosinophils (%) (Auto) 2.6% (0-5) Basophils (%) (Auto) 1.1% (0-3) Sodium Level 136mEq/L (134-144) Potassium Level 4.4mEq/L (3.5-5.2) Chloride Level 102mEq/L (97-108) Carbon Dioxide Level 20mmol/L (18-29) Blood Urea Nitrogen 7mg/dL (6-20) Creatinine 0.51mg/dL (0.76-1.27) Estimat Glomerular Filtration Rate 195mL/min (>59) Glucose Level 106mg/dL (60-99) Calcium Level 9.1mg/dL (8.5-10.1) Total Bilirubin 0.4mg/dL (0.0-1.2) Aspartate Amino Transf (AST/SGOT) 28U/L (0-50) Alanine Aminotransferase (ALT/SGPT) 55U/L (0-44) Alkaline Phosphatase 137U/L (25-150) Total Protein 7.4g/dL (6.4-8.4) Albumin 3.5g/dL (3.4-5.0) Procalcitonin 0.37ng/mL (0.00-0.08) Microbiology Results Peritoneal fluid culture reveals: Peptostreptococcus Anaerobius Fusobacterium Nucleatum Bacteroides Fragilis Blood cultures collected on 02/24/17 revealed Juany Glabarata Discharge Medications Discharge Medications Aspirin (Aspirin) 81 Mg Tablet 162 MG PO DAILY Prescribed by: Eun RAGSDALE Fluconazole (Diflucan) 100 Mg Tab 400 MG PO DAILY Prescribed by: Eun RAGSDALE Additional med instructions You were given 8 mg Buprenorphine (Suboxone) here at the hospital on 03/03/17 around 5:30 pm. You Have an appointment with [facility] today, 03/04/17, who will manage your suboxone as an outpatient. You will be going home with oral fluconazole, which is an antifungal medication. You will take 400 mg daily for 10 days. Followup Plan Disposition: Patient will be discharged to home. Follow-up plan -Please follow up with Dr. Freedman of surgery in 2-4 weeks. -You will also follow-up with ophthalmology in one week. You will need to be referred by your primary care doctor -Because he did not have a primary care doctor, you can follow up with the residency clinic and establish care with them in 1 week. -Lastly, you will be going to [facility] for your Suboxone treatment. Discharge Diet: No restrictions Discharge Activity: Other (activity as tolerated) Patient Instructions When he came into the hospital, you were having increasing abdominal pain, nausea, and vomiting. We did a CAT scan of the abdomen and you were taken emergently to surgery, where it was found that your appendix had perforated. For several days, you underwent a series of surgeries in order to remove portions of your colon that were affected, place an ostomy, and close your abdominal wound . You have an ostomy, for which you have received instructions on how to care and manage. You will follow-up with surgery, Dr. Freedman in 2-4 weeks. Because of the extent of your surgery, you were in significant amount of abdominal pain. You received pain medications to help control your pain. However, over time we had to slowly decrease her pain medications once you became more stable and was able to participate in physical therapy. We spoke extensively about your readiness to participate in Suboxone therapy. As a result, we stopped all of your pain medications last night 03/03/17 and gave you 8 mg Suboxone once you started having some withdrawal symptoms. When we send you home today, you will have an appointment at 2:45 PM with [facility] will be managing your Suboxone therapy. You must bring the ID bracelet that you had from assisted. In addition, because of your perforated appendix, stool leaked out into your peritoneal cavity (a space between the lining of the abdominal wall). This resulted in severe bacterial infection. We consulted the infectious disease doctor, you were treated with several antibiotics, and your white blood count ( a sign of active infection) normalized. In addition, your blood culture came back positive for a fungal yeast infection called Juany glabrata. Infectious disease doctor started you on micafungin, which is an antifungal. You will be going home with oral fluconazole 400 mg daily for 10 days, through about March 14. You will need an eye appointment with ophthalmology because the fungus in your blood can damage your eyes. We will also be sending you home with Aspirin 160 mg daily because your blood platelet counts have been high. Follow-up Provider: Latoya Freedman MD Follow-up with PCP in: 3 weeks (2-4 weeks) Provider: [facility] Follow-up in: 1 week Time spent Greater than 35 minutes Attending Statement The patient was seen and examined together with Dr. Zelaya on 03/04/2017 and I have added additional information to the note above. copies to: Latoya Freedman MD; [facility] Leah Zelaya DO Mar 04, 2017 15:40 Nancy Rojas DO Mar 05, 2017 17:45
[2017-03-05] MEDS ORDERED: Pantoprazole 40 mg ER24 Tablet PO SCH (07:30)
--- NOTE | 2017-03-05 09:40 | NUR ---
Inpatient Wound and Ostomy Nurse Message left on patient's mother's cell phone ([phone]) as well as phone conversation completed with patient's aunt, Belinda, regarding need for patient to keep 03/17 appointment with RENATA Rachel at outpatient [facility] for ostomy assessment and supply ordering. Belinda stated that since patient has appointment with VIRIDIANA Tyler on 03/18, she would call outpatient Wound Center and try to switch RENATA Rachel appointment to 03/18. Family is traveling from [place] and would like to consolidate and minimize appointments. JOSEFINA RN confirmed with Belinda that surgery is NOT scheduled for 03/18 and that these appointments are to discuss upcoming plans. Belinda stated understanding of all information provided.
== END 2017-03-04 14:28 | disposition home or self-care (01) | DRG 853 ==
LOC: SED 23:56 → PCC 02-17 04:07 → CCU 02-17 04:30 → PCC 02-17 04:30 → OSC 02-26 16:50 → PCC 02-26 22:01
PROVIDERS: ADMIT Internal Medicine; ATTEND Internal Medicine
PROC: 4A033R1 Measurement of Arterial Saturation, Peripheral, Percutaneous Approach (ICD-10-PCS; 2017-02-17)
PROC: 5A1955Z Respiratory Ventilation, Greater than 96 Consecutive Hours (ICD-10-PCS; 2017-02-17)
PROC: 30233N1 Transfusion of Nonautologous Red Blood Cells into Peripheral Vein, Percutaneous Approach (ICD-10-PCS; 2017-02-17)
PROC: 0DTH0ZZ Resection of Cecum, Open Approach (ICD-10-PCS; principal; 2017-02-17 08:00)
PROC: 0DBB0ZZ Excision of Ileum, Open Approach (ICD-10-PCS; 2017-02-19)
PROC: 0DBK0ZZ Excision of Ascending Colon, Open Approach (ICD-10-PCS; 2017-02-19)
PROC: 0D1B0Z4 Bypass Ileum to Cutaneous, Open Approach (ICD-10-PCS; 2017-02-19)
PROC: 3E0436Z Introduction of Nutritional Substance into Central Vein, Percutaneous Approach (ICD-10-PCS; 2017-02-20)
PROC: 0D1B0ZL Bypass Ileum to Transverse Colon, Open Approach (ICD-10-PCS; 2017-02-21)
PROC: 0JQ80ZZ Repair Abdomen Subcutaneous Tissue and Fascia, Open Approach (ICD-10-PCS; 2017-02-23)
PROC: 0HQ7XZZ Repair Abdomen Skin, External Approach (ICD-10-PCS; 2017-02-27)
DX: A41.9 Sepsis, unspecified organism (principal); K35.2 Acute appendicitis with generalized peritonitis; R65.21 Severe sepsis with septic shock; J95.821 Acute postprocedural respiratory failure; E87.2 Acidosis; N17.9 Acute kidney failure, unspecified; B49 Unspecified mycosis; E86.0 Dehydration; F11.20 Opioid dependence, uncomplicated; I51.81 Takotsubo syndrome; E87.6 Hypokalemia; R73.9 Hyperglycemia, unspecified; R94.5 Abnormal results of liver function studies; K63.89 Other specified diseases of intestine; F17.210 Nicotine dependence, cigarettes, uncomplicated; D53.9 Nutritional anemia, unspecified; D75.1 Secondary polycythemia